=== PATIENT | female | born 1950 | race Caucasian/White ===

== ENCOUNTER 2020-05-23 13:57 | Outpatient (REF) | payer MEDICARE, OTHER, SELFPAY | END 2020-05-23 13:58 | disposition home or self-care (01) | LOC: HO.LAB 13:57 | PROVIDERS: PCP Internal Medicine; Referring Provider Internal Medicine; Visit Provider Internal Medicine | DX: A49.1 Streptococcal infection, unspecified site (principal); I05.8 Other rheumatic mitral valve diseases | CPT/HCPCS: 87040; 99212 ==

== ENCOUNTER 2020-07-03 15:58 | Outpatient (REF) | payer MEDICARE, OTHER, SELFPAY ==
--- NOTE | 2020-07-03 16:04 | US_ITS ---
EXAMINATION: US ABDOMEN LIMITED CLINICAL INFORMATION: Right lower quadrant abdominal swelling, mass and lump. COMPARISON: None TECHNIQUE: Real-time imaging of the right lower quadrant abdominal viscera. FINDINGS: Limited imaging through the right lower quadrant reveals discontinuous fascia within the anterior wall and to the right of umbilicus suspicious for a small hernia measuring 1.6 cm wide neck containing intraperitoneal fat. US/US abdomen limited IMPRESSION: Suspect right abdominal wall hernia containing intraperitoneal fat.
== END 2020-07-03 15:59 | disposition home or self-care (01) ==
LOC: HO.US 15:58
PROVIDERS: PCP Internal Medicine; Visit Provider Nurse Practitioner Family
DX: K46.9 Unspecified abdominal hernia without obstruction or gangrene (principal); R19.03 Right lower quadrant abdominal swelling, mass and lump
CPT/HCPCS: 76705

== ENCOUNTER → 2020-07-07 13:40 | Outpatient (BNVA) | payer MEDICARE, OTHER, SELFPAY | PROVIDERS: PCP Internal Medicine; Referring Provider Internal Medicine; Visit Provider Internal Medicine Cardiovascular Disease | DX: I25.118 Atherosclerotic heart disease of native coronary artery with other forms of angina pectoris (principal); I05.8 Other rheumatic mitral valve diseases; Z87.891 Personal history of nicotine dependence | CPT/HCPCS: 99212 ==

== ENCOUNTER → 2020-07-24 08:22 | Outpatient (REF) | payer MEDICARE, OTHER, SELFPAY ==
--- NOTE | 2020-07-24 | NM_ITS ---
Myocardial perfusion study Indication: Coronary artery disease to evaluate for myocardial ischemia Technique: The patient was brought in for a Lexiscan perfusion study on 07/24/2020. Patient performed low-level exercise and was injected 0.4 mg of Lexiscan intravenously. Within a minute of injection, 25 mCi of sestamibi was given intravenously. Images were obtained using the SPECT gamma camera interlaced with the gating device. Images were obtained in supine position. Resting perfusion study was performed on 07/28/2020. Patient was administered 25 mCi of sestamibi intravenously at rest. Images were then obtained in supine position. Images obtained with and without CT attenuation. Total DLP 55 mGy-cm. Images were processed with the software and compared side to side in short axis, horizontal long axis and vertical long axis views. Findings: The stress perfusion study showed non attenuated images show absent uptake in the basal and mid inferolateral as well as basal inferior elder of the LV myocardium. Is also mildly reduced uptake in the distal septum of the LV myocardium.. The gated study shows normal LV systolic function with calculated LVEF of 67%. LV cavity is mildly dilated size. The gated study shows normal wall thickening and contraction of all segments except for the basal inferolateral and inferior wall. Resting study shows improved uptake in the distal septum of the LV myocardium. Gating at rest reveals basal inferior and inferolateral wall motion abnormality with ejection fraction at greater than 60 %. 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 NM/NM stormy perf SPECT rest & str Impression: 1. 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 2. Gated LVEF is 77% 3. Transient ischemic dilatation not present EKG is nondiagnostic for ischemia
--- NOTE | 2020-07-24 08:25 | CA_ITS ---
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 The visually estimated ejection fraction is between 60-65%. - The basal inferior and basal inferolateral segments are akinetic. - There is moderate mitral valve regurgitation. Findings Left Ventricle Normal left ventricular cavity size. There is moderately increased left ventricular wall thickness. The left ventricular systolic function is normal. The visually estimated ejection fraction is between 60-65%. There is no evidence of regional wall motion abnormalities. Wall Motion Rest Echo Findings The basal inferior and basal inferolateral segments are akinetic. Right Ventricle Normal right ventricular cavity size and systolic function. Atria The left atrium is mildly dilated. The right atrium is normal in size. Aortic Valve There is a normal trileaflet aortic valve. There is no aortic valve stenosis. There is no aortic valve regurgitation. Mitral Valve The posterior mitral leaflet has restricted mobility. There is mild mitral annular calcification. There is moderate mitral valve regurgitation. There is no mitral valve stenosis. PISA measurements seems to overestimate the degree of regurgitation. Pulmonic Valve The pulmonic valve was not well visualized. Tricuspid Valve Normal tricuspid valve structure. There is trace tricuspid valve regurgitation. The pulmonary artery systolic pressure is normal. Great Vessels The aortic annulus, sinuses of valsalva, and asc aorta are normal in size. Venous The inferior vena cava is normal in size and collapses greater than 50% with inspiration. Pericardium/Pleural There is no evidence of pericardial effusion. Prior Study Comparison Changes noted compared to prior study dated: 04/11/2020. Slight increase in the degree of mitral regurgitation. Measurements 2D Linear Measurements IVSd: 0.95 0.6-0.9/0.6-1.0 cm LVIDd: 4.68 3.9-5.3/4.2-5.9 cm LVIDd Index: 2.98 2.4-3.2/2.2-3.1 cm/m2 LVIDs: 3.17 2.0-3.6 cm LVPWd: 0.98 0.7-1.1 cm Ao Root: 3.20 2.1-3.5 cm LA Diam: 3.90 2.7-3.8/3.0-4.0 cm LAIDs Index: 2.48 1.5-2.3 cm/m2 LV Mass: 193.89 67-162/88-224 g LV Mass Index: 123.50 43-95/49-115 g/m2 LVOT Diam: 2.00 3.0+(-)1.3 cm 2D Systolic Function EF 4C: 69.80 >55% EF 2C: 62.40 >55% EF BiP: 66.50 >55% Mitral Valve MV Pk E: 1.11 MV PK A: 1.35 MV Decel Time: 268.00 E/A: 0.80 E'Lateral: 8.51 E'Medial: 4.16 E/E' Med: 26.70 E/E' Lat: 13.00 MR Vol - PW Dopp: 129.54 MR VTI: 2.54 MR ERO: 51.00 MR Alias Howard: 0.66 MR RAD: 0.90 Aortic Valve AoV Pk Howard: 1.88 AoV Mn Howard: 1.25 AoV VTI: 0.45 AoV Pk Grad: 14.00 Aov Mn Grad: 7.00 ARIAN Cont.VTI: 2.45 LVOT LVOT Pk Howard: 1.44 LVOT Mn Howard: 0.99 LVOT VTI: 0.35 LVOT Pk Grad: 8.00 LVOT Mn Grad: 5.00 LVOT Diam: 2.00 LVOT Area: 3.14 Diastolic Function MV Pk E: 1.11 MV Pk A: 1.35 E/A: 0.80 E'Medial: 4.16 E/E' Med: 26.70 E' Laterial: 8.51 E/E' Lat: 13.00 Tricuspid Valve TR Pk Howard: 2.65 TR Pk Grad: 28.00 RA Press: 3.00 RVSP: 31.00 Great Vessels Aorta Ao Root-2D: 3.20 2.0-3.7 cm Ao Asc: 3.40 2.1-3.4 cm Ao Arch: 2.70 Updated in Other Vendor System with Status of Final Gunnar Shine MD electronically signed on 07/27/2020 10:50:14 AM with status of Final
--- NOTE | 2020-07-24 08:25 | CA_ITS ---
Acquisition Time: 2020-07-24 09:47:29 Total Exercise Time: 00:02:00 Test Indications: Dyspnea Medications: SEE H Protocol: LEXISCAN Max HR: 077 BPM 51% of Pred: 149 BPM Max BP: 142/040 mmHG Max Work Load: 1.0 METS Pharmacological stress test using Lexiscan while sitting and kicking her legs. Pt tolerated well, denies any anginal sx. EKG without any arrhythmia. Non-diagnostic for ischemia. Nuclear images to follow. Normotensive response to test. Test reviewed with Dr. Shine. Referred By: Pedro Jc Overread By: Emelina Rose
== END ==
LOC: HO.CARD 08:22
PROVIDERS: Visit Provider Internal Medicine Cardiovascular Disease
DX: I05.8 Other rheumatic mitral valve diseases (principal); I25.119 Atherosclerotic heart disease of native coronary artery with unspecified angina pectoris
CPT/HCPCS: 78452; 93017; 93306; A9500; J0280; J2785

== ENCOUNTER → 2020-07-31 15:09 | Outpatient (BNVA) | payer MEDICARE, SELFPAY | PROVIDERS: PCP Internal Medicine; Visit Provider Internal Medicine Cardiovascular Disease | DX: I25.10 Atherosclerotic heart disease of native coronary artery without angina pectoris (principal); I20.8 Other forms of angina pectoris; R06.00 Dyspnea, unspecified | CPT/HCPCS: 99212 ==

== ENCOUNTER → 2020-08-04 13:51 | Outpatient (BNVA) | payer MEDICARE, SELFPAY | PROVIDERS: PCP Internal Medicine; Visit Provider Nurse Practitioner Gerontology | DX: E11.65 Type 2 diabetes mellitus with hyperglycemia (principal); I10 Essential (primary) hypertension; E78.5 Hyperlipidemia, unspecified; Z79.4 Long term (current) use of insulin | CPT/HCPCS: 82947; 99212 ==

== ENCOUNTER → 2020-08-05 14:33 | Outpatient (BNVA) | payer MEDICARE, SELFPAY | PROVIDERS: PCP Internal Medicine; Visit Provider Surgery | DX: K43.2 Incisional hernia without obstruction or gangrene (principal) | CPT/HCPCS: 99202 ==

== ENCOUNTER 2020-08-28 15:37 | Outpatient (REF) | payer MEDICARE, SELFPAY ==
[2020-08-28 16:43] LABS: Cholesterol 192 mg/dL; HDL Cholesterol 49 mg/dL; LDL Cholesterol Calculated 117 mg/dl; Triglycerides 132 mg/dL
[2020-08-28 16:50] LABS: B Type Natriuretic Peptide 817 pg/mL (<100)
== END 2020-08-28 15:38 | disposition home or self-care (01) ==
LOC: HO.LAB 15:37
PROVIDERS: PCP Internal Medicine; Visit Provider Internal Medicine Cardiovascular Disease
DX: I25.10 Atherosclerotic heart disease of native coronary artery without angina pectoris (principal); M79.89 Other specified soft tissue disorders
CPT/HCPCS: 36415; 80061; 83880

== ENCOUNTER 2020-09-04 16:21 | Emergency (ER) | payer MEDICARE, SELFPAY ==
[2020-09-04 15:53] LABS: MANUAL DIFF FLAG NO
[2020-09-04 15:57] LABS: Basophils Percent Auto 0.4 % (0-2); Eosinophils Absolute Auto 0.1 X10*3/uL (0.0-0.4); Eosinophils Percent Auto 1.7 % (0-4); Hematocrit 35.2 % (37-47); Hemoglobin 11.4 g/dl (12.0-16.0); Lymphocytes Absolute Auto 1.5 X10*3/uL (1.2-4.9); Lymphocytes Percent Auto 31.8 % (20-40); Mean Corpuscular HGB Conc 32.4 g/dl (31.0-35.0); Mean Corpuscular Hemoglobin 30.2 pg (27.0-33.0); Mean Corpuscular Volume 93.4 fL (80-98); Mean Platelet Volume 9.6 fL (9.4-12.3); Monocytes Absolute Auto 0.3 X10*3/uL (0.1-1.2); Monocytes Percent Auto 6.6 % (2-11); Neutrophils Absolute Auto 2.8 X10*3/uL (2.0-8.3); Neutrophils Percent Auto 59.5 % (45-73); Platelet Count 241 X10*3/uL (160-400); Red Blood Count 3.77 X10*6/uL (4.20-5.50); Red Cell Distribution Width 12.8 % (11.0-16.0); White Blood Count 4.7 X10*3/uL (4.8-10.8)
[2020-09-04 16:05] LABS: Estimated Average Glucose 131 mg/dL; Hemoglobin A1c % 6.2 %
[2020-09-04 16:21] LABS: Anion Gap 12 (12-20); Blood Urea Nitrogen 42 mg/dL (9-16); Calcium 9.4 mg/dL (8.4-10.2); Carbon Dioxide 29 mmol/L (22-29); Chloride 103 mmol/L (96-108); Estimated Glomerular Filt Rate 33; Iron 62 mcg/dL (30-160); Percent Iron Saturation 19 % (15-50); Phosphorus 3.6 mg/dL (2.7-4.5); Potassium 4.4 mmol/L (3.3-5.1); Sodium 140 mmol/L (135-145); Total Iron Binding Capacity 331 mcg/dL (228-428); Unsaturated Iron Binding 269 ug/dL
[2020-09-04 16:27] LABS: B Type Natriuretic Peptide 368 pg/mL (<100)
[2020-09-04 16:32] LABS: Anion Gap 13 (12-20); Blood Urea Nitrogen 42 mg/dL (9-16); Calcium 9.4 mg/dL (8.4-10.2); Carbon Dioxide 28 mmol/L (22-29); Chloride 104 mmol/L (96-108); Estimated Glomerular Filt Rate 33; Glucose Random 44 mg/dL (60-115); Potassium 4.6 mmol/L (3.3-5.1); Sodium 140 mmol/L (135-145)
[2020-09-04 16:35] VITALS: BP 134/53; PULSE 66; RESP 18; O2SAT 97; BMI 34.1
--- NOTE | 2020-09-04 16:37 | ED.GENADULT ---
HPI - General Adult General Chief complaint: Recheck/Abnormal Lab/Rx Time Seen by Provider: 09/04/20 16:26 Source: patient and other (Friend) Mode of arrival: wheelchair Limitations: no limitations History of Present Illness HPI narrative: Patient is brought to the emergency room by wheelchair from the cafeteria. Patient came to the hospital today to get blood work. After getting her blood work, the patient and her friend went to get food to the cafeteria. According to the patient's son, the patient started acting different, confused, ask the patient if she was dizzy which she denied, had no chest pain. Day as a nurse for help, sat her in a wheelchair and brought her over to the emergency room. On arrival to the ED, patient is very confused, blood sugar is 32. Patient was given immediately this 50, patient responded immediately. Patient states that she feels well now, states she has multiple episodes of low blood sugar. Uses Lantus 30 units at bedtime and used 8 units at 14:00 prior to her lab work. MD complaint: Low blood sugar Related Data Home Medications Medication Instructions Recorded Confirmed Lactobacillus rhamnosus GG 10 1 cap PO DAILY 05/23/20 08/05/20 billion cell capsule acetaminophen 325 mg capsule 650 mg PO Q6H PRN 05/23/20 08/05/20 aspirin 81 mg tablet,delayed 81 mg PO ONCE tab 05/23/20 08/05/20 release bisacodyl 10 mg rectal suppository 10 mg [place] DAILY PRN 05/23/20 08/05/20 cholecalciferol (vitamin D3) 25 50 mcg PO DAILY cap 05/23/20 08/05/20 mcg (1,000 unit) capsule diphenhydramine HCl 25 mg tablet 25 mg PO BEDTIME 05/23/20 08/05/20 lamotrigine 25 mg tablet mg PO 05/23/20 08/05/20 levothyroxine 75 mcg tablet 75 mcg PO QAM 05/23/20 08/05/20 magnesium hydroxide 400 mg/5 mL 5 ml PO DAILY PRN 05/23/20 08/05/20 oral suspension metoprolol tartrate 25 mg tablet 25 mg PO BID 05/23/20 08/05/20 sennosides 8.6 mg capsule 8.6 mg PO BID 05/23/20 08/05/20 blood sugar diagnostic #10 ea 08/04/20 08/05/20 insulin aspart U-100 100 unit/mL See Rx Instructions SUBCUT TID 08/04/20 08/05/20 (3 mL) subcutaneous pen insulin glargine 100 unit/mL See Rx Instructions SUBCUT QPM 08/04/20 08/05/20 subcutaneous solution ranolazine 500 mg tablet,extended 500 mg PO tab 08/04/20 08/05/20 release,12 hr furosemide 20 mg tablet 20 mg PO DAILY 09/02/20 Previous Rx's Medication Instructions Recorded isosorbide mononitrate 60 mg 60 mg PO DAILY 90 Days #90 tab 06/23/20 tablet,extended release 24 hr lancets #100 ea 07/03/20 pen needle, diabetic 32 gauge x #100 ea 07/03/20 rosuvastatin 5 mg tablet 5 mg PO DAILY #30 tab 08/01/20 flash glucose sensor #1 ea 08/04/20 flash glucose sensor 1 ea TOPICAL Q2W #2 ea 08/04/20 nitroglycerin 0.4 mg sublingual 0.4 mg SUBLINGUAL .prn PRN #25 tab 08/07/20 tablet amlodipine 5 mg tablet 5 mg PO DAILY 30 Days #30 tab 08/26/20 glucagon (human recombinant) 1 mg SUBCUT Q20M PRN #1 ea 09/04/20 [GlucaGen HypoKit] Allergies Allergy/AdvReac Type Severity Reaction Status Date / Time Iodinated Contrast Media Allergy Unknown ANAPHYLAXIS Verified 09/04/20 16:34 [IV CONTRAST] Review of Systems Review of Systems: Constitutional : No Weight loss, No Fever, No Chills, No Night Sweats, No Fatigue, No Malaise ENT/Mouth : No Hearing loss, No Ear Pain, No Nasal Congestion, No Sinus Pain, No Hoarseness, No sore throat, No Rhinorrhea, No Swallowing Difficulty Eyes: No Eye Pain, No Swelling, No Redness, No Foreign Body, No Discharge, No Vision Changes Cardiovascular : No Chest Pain, No SOB, No Dyspnea on Exertion, No Orthopnea, No Edema, No Palpitations Respiratory : No Cough, No Sputum, No Wheezing, No Smoke Exposure, No Dyspnea Gastrointestinal : No Nausea, No Vomiting, No Diarrhea, No Constipation, No abdominal Pain, No Hematochezia, No Melena Genitourinary : no irregular bleeding, No Dysuria, No Urinary Frequency, No Hematuria, No Urinary Incontinence, No Urgency, No Flank Pain, No Urinary Flow Changes, No Hesitancy Musculoskeletal : No joint pain, No Myalgias, No Joint Swelling Skin : No Skin Lesions, No rash Neuro : No Weakness, No Numbness, No Paresthesias, No Loss of Consciousness, No Dizziness, No Headache Psych : No Anxiety/Panic, No Depression, No SI/HI/AH/VH, No Social Issues, Heme/Lymph: No Bruising, No Bleeding,No Lymphadenopathy Endocrine : No Polyuria, No Polydipsia, low blood sugar [facility] Past Medical History Medical History CAD (coronary artery disease) Endocarditis of mitral valve HTN (hypertension) Hyperlipidemia Non-compliance Type 2 diabetes mellitus with hyperglycemia, with long-term current use of insulin Viridans streptococci infection Surgical History History of cardiac catheterization Hx of section Hx of cholecystectomy Hx of tonsillectomy Malignant melanoma Myocardial infarction Stented coronary artery Family History Family History Father CVD (cardiovascular disease) Mother No problems noted. Social History Social History Household Members: None Housing: Other Smoking Status: Unknown if ever smoked Use of substances other than those prescribed or required for medical reasons: No Physical Exam Vital Signs: Vital Signs: Last Vital Signs Pulse 67 09/04/20 18:32 Resp 16 09/04/20 18:32 BP 168/79 H 09/04/20 18:32 Pulse Ox 97 09/04/20 18:32 Body Mass Index 34.1 Appearance: Alert. Initially disoriented, after D50 Oriented X3. No acute distress. Eyes: Pupils equal, round and reactive to light. ENT: Pharynx normal. Neck: Normal inspection. Neck supple. No lymph nodes noted. No crepitus CVS: Normal heart rate and rhythm. Pulses normal. Normal S1 and S2, systolic heart murmur +4 Respiratory: No respiratory distress. Breath sounds normal. No Wheezing. No rales Abdomen: Soft and nontender. No rigidity. No distention. good BS x4 Skin: Skin warm and dry. Initially pale and diaphoretic Extremities: No lower extremity edema. No Rash Neuro: No motor deficit. No sensory deficit. Moving all extermities. No slurred speech. Course Course Course Narrative: Patient's symptoms improved rapidly after 1 dose of D50. Prior to discharge, blood glucose one hundred seventeen. Patient is asymptomatic, states she feels completely back to normal. I discussed with the patient to reduce and have her insulin intake both Lantus and Humalog until she sees her director of litigation, patient instructed to call the director of litigation and PCP tomorrow morning. It was noted the patient's white blood cell count is slightly low, patient was tested for COVID-19, results pending. Patient has no URI symptoms Medical Decision Making Lab Data Result diagrams: 09/04/20 15:25 09/04/20 15:25 Labs: Lab Results 09/04/20 09/04/20 09/04/20 Range/Units 15:25 15:25 15:25 WBC 4.7 L (4.8-10.8) X10*3/uL RBC 3.77 L (4.20-5.50) X10*6/uL Hgb 11.4 L (12.0-16.0) g/dl Hct 35.2 L (37-47) % MCV 93.4 (80-98) fL MCH 30.2 (27.0-33.0) pg MCHC 32.4 (31.0-35.0) g/dl RDW 12.8 (11.0-16.0) % Plt Count 241 (160-400) X10*3/uL MPV 9.6 (9.4-12.3) fL Immature Gran % (Auto) 0.0 (0.0-0.4) % Neut % (Auto) 59.5 (45-73) % Lymph % (Auto) 31.8 (20-40) % [place] % (Auto) 6.6 (2-11) % Eos % (Auto) 1.7 (0-4) % Baso % (Auto) 0.4 (0-2) % Lymph # (Auto) 1.5 (1.2-4.9) X10*3/uL [place] # (Auto) 0.3 (0.1-1.2) X10*3/uL Eos # (Auto) 0.1 (0.0-0.4) X10*3/uL Baso # (Auto) 0.0 (0.0-0.2) X10*3/uL Abs Immat Gran (auto) 0.00 (0.00-0.03) X10*3/uL Absolute Neuts (auto) 2.8 (2.0-8.3) X10*3/uL Absolute Nucleated RBC 0.000 (0.0-0.012) X10*3/uL Nucleated RBC % (auto) 0.0 (0.0-0.2) /100WBC Sodium 140 (135-145) mmol/L Potassium 4.6 (3.3-5.1) mmol/L Chloride 104 (96-108) mmol/L Carbon Dioxide 28 (22-29) mmol/L Anion Gap 13 (12-20) BUN 42 H (9-16) mg/dL Creatinine 1.56 H (0.5-1.4) mg/dL Estim Creat Clear Calc TNP Estimated GFR 33 POC Glucose (60-115) mg/dL Random Glucose 44 L* (60-115) mg/dL Estimat Average Glucose mg/dL Hemoglobin A1c % % Calcium 9.4 (8.4-10.2) mg/dL Phosphorus (2.7-4.5) mg/dL Iron (30-160) mcg/dL TIBC (228-428) mcg/dL % Saturation (15-50) % Unsat Iron Binding ug/dL Ferritin (10-250) ng/mL B-Natriuretic Peptide 368 H (<100) pg/mL 25-OH Vitamin D Total (>30) ng/mL 09/04/20 09/04/20 09/04/20 Range/Units 15:25 15:25 16:26 WBC (4.8-10.8) X10*3/uL RBC (4.20-5.50) X10*6/uL Hgb (12.0-16.0) g/dl Hct (37-47) % MCV (80-98) fL MCH (27.0-33.0) pg MCHC (31.0-35.0) g/dl RDW (11.0-16.0) % Plt Count (160-400) X10*3/uL MPV (9.4-12.3) fL Immature Gran % (Auto) (0.0-0.4) % Neut % (Auto) (45-73) % Lymph % (Auto) (20-40) % [place] % (Auto) (2-11) % Eos % (Auto) (0-4) % Baso % (Auto) (0-2) % Lymph # (Auto) (1.2-4.9) X10*3/uL [place] # (Auto) (0.1-1.2) X10*3/uL Eos # (Auto) (0.0-0.4) X10*3/uL Baso # (Auto) (0.0-0.2) X10*3/uL Abs Immat Gran (auto) (0.00-0.03) X10*3/uL Absolute Neuts (auto) (2.0-8.3) X10*3/uL Absolute Nucleated RBC (0.0-0.012) X10*3/uL Nucleated RBC % (auto) (0.0-0.2) /100WBC Sodium 140 (135-145) mmol/L Potassium 4.4 (3.3-5.1) mmol/L Chloride 103 (96-108) mmol/L Carbon Dioxide 29 (22-29) mmol/L Anion Gap 12 (12-20) BUN 42 H (9-16) mg/dL Creatinine 1.55 H (0.5-1.4) mg/dL Estim Creat Clear Calc Not Reportable Estimated GFR 33 POC Glucose 32 L* (60-115) mg/dL Random Glucose (60-115) mg/dL Estimat Average Glucose 131 mg/dL Hemoglobin A1c % 6.2 % Calcium 9.4 (8.4-10.2) mg/dL Phosphorus 3.6 (2.7-4.5) mg/dL Iron 62 (30-160) mcg/dL TIBC 331 (228-428) mcg/dL % Saturation 19 (15-50) % Unsat Iron Binding 269 ug/dL Ferritin 71 (10-250) ng/mL B-Natriuretic Peptide (<100) pg/mL 25-OH Vitamin D Total 44.9 (>30) ng/mL 09/04/20 09/04/20 09/04/20 Range/Units 17:01 17:46 18:01 WBC (4.8-10.8) X10*3/uL RBC (4.20-5.50) X10*6/uL Hgb (12.0-16.0) g/dl Hct (37-47) % MCV (80-98) fL MCH (27.0-33.0) pg MCHC (31.0-35.0) g/dl RDW (11.0-16.0) % Plt Count (160-400) X10*3/uL MPV (9.4-12.3) fL Immature Gran % (Auto) (0.0-0.4) % Neut % (Auto) (45-73) % Lymph % (Auto) (20-40) % [place] % (Auto) (2-11) % Eos % (Auto) (0-4) % Baso % (Auto) (0-2) % Lymph # (Auto) (1.2-4.9) X10*3/uL [place] # (Auto) (0.1-1.2) X10*3/uL Eos # (Auto) (0.0-0.4) X10*3/uL Baso # (Auto) (0.0-0.2) X10*3/uL Abs Immat Gran (auto) (0.00-0.03) X10*3/uL Absolute Neuts (auto) (2.0-8.3) X10*3/uL Absolute Nucleated RBC (0.0-0.012) X10*3/uL Nucleated RBC % (auto) (0.0-0.2) /100WBC Sodium (135-145) mmol/L Potassium (3.3-5.1) mmol/L Chloride (96-108) mmol/L Carbon Dioxide (22-29) mmol/L Anion Gap (12-20) BUN (9-16) mg/dL Creatinine (0.5-1.4) mg/dL Estim Creat Clear Calc Estimated GFR POC Glucose 106 70 82 (60-115) mg/dL Random Glucose (60-115) mg/dL Estimat Average Glucose mg/dL Hemoglobin A1c % % Calcium (8.4-10.2) mg/dL Phosphorus (2.7-4.5) mg/dL Iron (30-160) mcg/dL TIBC (228-428) mcg/dL % Saturation (15-50) % Unsat Iron Binding ug/dL Ferritin (10-250) ng/mL B-Natriuretic Peptide (<100) pg/mL 25-OH Vitamin D Total (>30) ng/mL 09/04/20 Range/Units 18:41 WBC (4.8-10.8) X10*3/uL RBC (4.20-5.50) X10*6/uL Hgb (12.0-16.0) g/dl Hct (37-47) % MCV (80-98) fL MCH (27.0-33.0) pg MCHC (31.0-35.0) g/dl RDW (11.0-16.0) % Plt Count (160-400) X10*3/uL MPV (9.4-12.3) fL Immature Gran % (Auto) (0.0-0.4) % Neut % (Auto) (45-73) % Lymph % (Auto) (20-40) % [place] % (Auto) (2-11) % Eos % (Auto) (0-4) % Baso % (Auto) (0-2) % Lymph # (Auto) (1.2-4.9) X10*3/uL [place] # (Auto) (0.1-1.2) X10*3/uL Eos # (Auto) (0.0-0.4) X10*3/uL Baso # (Auto) (0.0-0.2) X10*3/uL Abs Immat Gran (auto) (0.00-0.03) X10*3/uL Absolute Neuts (auto) (2.0-8.3) X10*3/uL Absolute Nucleated RBC (0.0-0.012) X10*3/uL Nucleated RBC % (auto) (0.0-0.2) /100WBC Sodium (135-145) mmol/L Potassium (3.3-5.1) mmol/L Chloride (96-108) mmol/L Carbon Dioxide (22-29) mmol/L Anion Gap (12-20) BUN (9-16) mg/dL Creatinine (0.5-1.4) mg/dL Estim Creat Clear Calc Estimated GFR POC Glucose 117 H (60-115) mg/dL Random Glucose (60-115) mg/dL Estimat Average Glucose mg/dL Hemoglobin A1c % % Calcium (8.4-10.2) mg/dL Phosphorus (2.7-4.5) mg/dL Iron (30-160) mcg/dL TIBC (228-428) mcg/dL % Saturation (15-50) % Unsat Iron Binding ug/dL Ferritin (10-250) ng/mL B-Natriuretic Peptide (<100) pg/mL 25-OH Vitamin D Total (>30) ng/mL Discharge Plan Discharge Clinical Impression: Hypoglycemia Patient Disposition: Home, Self-Care Instructions: Hypoglycemia in a Person with Diabetes (ED) Additional Instructions: Please use half dose of the prescribed insulin units until you talk to your director of litigation. Please follow-up with your primary care physician tomorrow. If you have any worsening or new symptoms, please return to the emergency room or call 911 Prescriptions: New GlucaGen HypoKit 1 mg recon soln 1 mg subcut Q20M PRN (Reason: hypoglycemia) Qty: 1 RF: 0 No Action isosorbide mononitrate 60 mg tablet extended release 24 hr 60 mg PO DAILY 90 Days Qty: 90 RF: 1 (DME) lancets [OneTouch UltraSoft Lancets] Misc See Rx Instructions .ROUTE .MEDSUPPLY Qty: 100 RF: 11 (DME) pen needle, diabetic [BD Ultra-Fine Carrie Pen Needle] 32 gauge x 5/32 needle See Rx Instructions .ROUTE .MEDSUPPLY Qty: 100 RF: 3 nitroglycerin 0.4 mg tablet, sublingual 0.4 mg sublingual .prn PRN (Reason: for angina) Qty: 25 RF: 0 amlodipine 5 mg tablet 5 mg PO DAILY 30 Days Qty: 30 RF: 5 furosemide [Lasix] 20 mg tablet 20 mg PO DAILY RF: 0 rosuvastatin [Crestor] 5 mg tablet 5 mg PO DAILY Qty: 30 RF: 2 metoprolol tartrate 25 mg tablet 25 mg PO BID RF: 0 levothyroxine 75 mcg tablet 75 mcg PO QAM RF: 0 lamotrigine 25 mg tablet PO RF: 0 senna 8.6 mg capsule 8.6 mg PO BID RF: 0 diphenhydramine HCl [Benadryl Allergy] 25 mg tablet 25 mg PO BEDTIME RF: 0 acetaminophen 325 mg capsule 650 mg PO Q6H PRNRF: 0 magnesium hydroxide [Jung Milk of Magnesia] 400 mg/5 mL suspension 5 ml PO DAILY PRNRF: 0 bisacodyl 10 mg suppository 10 mg [place] DAILY PRNRF: 0 Culturelle 10 billion cell capsule 1 cap PO DAILY RF: 0 cholecalciferol (vitamin D3) 25 mcg (1,000 unit) capsule 50 mcg PO DAILY RF: 0 aspirin 81 mg tablet,delayed release (DR/EC) 81 mg PO ONCE RF: 0 insulin aspart U-100 [Novolog Flexpen U-100 Insulin] 100 unit/mL (3 mL) insulin pen See Rx Instructions subcut TID RF: 0 Lantus U-100 Insulin 100 unit/mL solution See Rx Instructions subcut QPM RF: 0 ranolazine 500 mg tablet extended release 12 hr 500 mg PO RF: 0 (DME) OneTouch Ultra Blue Test Strip Strip See Rx Instructions ea .ROUTE .MEDSUPPLY Qty: 10 RF: 0 (DME) FreeStyle Akbar 2 Sensor Kit See Rx Instructions .ROUTE .MEDSUPPLY Qty: 1 RF: 0 FreeStyle Akbar 14 Day Sensor Kit 1 ea topical Q2W Qty: 2 RF: 11
[2020-09-04 16:42] LABS: Ferritin 71 ng/mL (10-250); Vitamin D 25-OH Total 44.9 ng/mL (>30)
[2020-09-04 16:49] LABS: Glucose, Whole Blood 32 mg/dL (60-115)
[2020-09-04 17:06] LABS: Glucose, Whole Blood 106 mg/dL (60-115)
[2020-09-04] MEDS: Dextrose 50 % 25 GM/50 ML SYRINGE IVPUSH (17:35)
[2020-09-04 17:49] LABS: Glucose, Whole Blood 70 mg/dL (60-115)
[2020-09-04 18:06] LABS: Glucose, Whole Blood 82 mg/dL (60-115)
[2020-09-04 18:32] VITALS: BP 168/79; PULSE 67; RESP 16; O2SAT 97
[2020-09-04 18:45] LABS: Glucose, Whole Blood 117 mg/dL (60-115)
[2020-09-04 19:38] LABS: Influenza A PCR NEGATIVE (Negative); Influenza B PCR NEGATIVE (Negative); Resp Syncy Virus RNA Qual PCR NEGATIVE (Negative); SARS COV2 PCR INHOUSE NEGATIVE (Negative)
[2020-09-05 11:47] LABS: Calcium (PTHI) 9.6 mg/dL (8.6-10.4); PTHI 91 pg/mL (14-64)
== END 2020-09-04 19:54 | disposition home or self-care (01) ==
LOC: HO.ED 16:21
PROVIDERS: Absent Provider Internal Medicine Cardiovascular Disease; Emergency Provider Emergency Medicine; PCP Internal Medicine; Visit Provider Internal Medicine Nephrology
DX: E11.649 Type 2 diabetes mellitus with hypoglycemia without coma (principal); R06.00 Dyspnea, unspecified; I25.10 Atherosclerotic heart disease of native coronary artery without angina pectoris; I10 Essential (primary) hypertension; R79.89 Other specified abnormal findings of blood chemistry; Z79.4 Long term (current) use of insulin; Z79.899 Other long term (current) drug therapy; Z20.822 Contact with and (suspected) exposure to COVID-19
CPT/HCPCS: 0241U; 36415; 80048; 80051; 82306; 82310; 82565; 82728; 82947; 83036; 83540; 83880; 83970; 84100; 84520; 85025; 96374; 99284

== ENCOUNTER → 2020-09-11 14:07 | Outpatient (BNVA) | payer MEDICARE, SELFPAY | PROVIDERS: PCP Internal Medicine; Visit Provider Internal Medicine Cardiovascular Disease | DX: I25.10 Atherosclerotic heart disease of native coronary artery without angina pectoris (principal); I50.9 Heart failure, unspecified | CPT/HCPCS: 99212 ==

== ENCOUNTER 2020-11-01 14:02 | Emergency (ER) | payer MEDICARE, SELFPAY ==
--- NOTE | ~2020-11-01 | XR_ITS ---
EXAMINATION: XR CHEST CLINICAL INFORMATION: Weakness. COMPARISON: Chest 04/16/2020 TECHNIQUE: Frontal view of the chest was obtained. FINDINGS: The lungs are well-expanded and clear. The heart size and pulmonary vascularity is normal. There is moderate spondylosis dorsal spine. No lytic process seen. XR/XR chest 1V IMPRESSION: Unremarkable chest exam.
[2020-11-01 14:07] VITALS: BP 138/78; PULSE 80; O2SAT 98
[2020-11-01 14:16] VITALS: BP 142/76; PULSE 79; RESP 19; TEMP 36.7; O2SAT 97; BMI 24.5
--- NOTE | 2020-11-01 15:27 | ED_ITS ---
HPI - General Adult General Chief complaint: General Medical Stated complaint: BODYACHES AND WEAKNESS X'S1 MONTH Time Seen by Provider: 11/01/20 15:27 Source: EMS Mode of arrival: EMS Limitations: no limitations History of Present Illness HPI narrative: Pleasant 70-year-old female with below noted past medical history including hypertension, hyperlipidemia, diabetes, CAD, mitral valve disease in the past, abdominal hernia who presents via EMS with complaint of nasal congestion and generalized body aches also reports that this morning she had episode of nosebleed that resolved. She otherwise denies any chest pain or shortness of breath. States she has had nosebleed in the past and feet went away. She otherwise denies any nausea vomiting diarrhea. Onset (ago): day(s) (2) Relieving factors: none Exacerbating factors: none Associated symptoms: denies other symptoms Treatments prior to arrival: none Related Data Home Medications Medication Instructions Recorded Confirmed Lactobacillus rhamnosus GG 10 1 cap PO DAILY 05/23/20 09/11/20 billion cell capsule acetaminophen 325 mg capsule 650 mg PO Q6H PRN 05/23/20 09/11/20 aspirin 81 mg tablet,delayed 81 mg PO ONCE tab 05/23/20 09/11/20 release bisacodyl 10 mg rectal suppository 10 mg TN DAILY PRN 05/23/20 09/11/20 cholecalciferol (vitamin D3) 25 50 mcg PO DAILY cap 05/23/20 09/11/20 mcg (1,000 unit) capsule diphenhydramine HCl 25 mg tablet 25 mg PO BEDTIME 05/23/20 09/11/20 lamotrigine 25 mg tablet mg PO 05/23/20 09/11/20 levothyroxine 75 mcg tablet 75 mcg PO QAM 05/23/20 09/11/20 magnesium hydroxide 400 mg/5 mL 5 ml PO DAILY PRN 05/23/20 09/11/20 oral suspension metoprolol tartrate 25 mg tablet 25 mg PO BID 05/23/20 09/11/20 sennosides 8.6 mg capsule 8.6 mg PO BID 05/23/20 09/11/20 blood sugar diagnostic #10 ea 08/04/20 09/11/20 insulin aspart U-100 100 unit/mL See Rx Instructions SUBCUT TID 08/04/2009/11 (3 mL) subcutaneous pen ranolazine 500 mg tablet,extended 500 mg PO tab 08/04/20 09/11/20 release,12 hr Previous Rx's Medication Instructions Recorded isosorbide mononitrate 60 mg 60 mg PO DAILY 90 Days #90 tab 06/23/20 tablet,extended release 24 hr lancets #100 ea 07/03/20 pen needle, diabetic 32 gauge x #100 ea 07/03/20 nitroglycerin 0.4 mg sublingual 0.4 mg SUBLINGUAL .prn PRN #25 tab 08/07/20 tablet amlodipine 5 mg tablet 5 mg PO DAILY 30 Days #30 tab 08/26/20 glucagon (human recombinant) 1 mg SUBCUT Q20M PRN #1 ea 09/04/20 [GlucaGen HypoKit] insulin glargine 100 unit/mL (3 20 unit SUBCUT QPM 30 Days #15 ml 09/09/20 mL) subcutaneous pen furosemide 20 mg tablet 20 mg PO DAILY #30 tab 09/12/20 flash glucose scanning reader #1 ea 09/17/20 flash glucose sensor #2 ea 09/17/20 rosuvastatin 5 mg tablet 5 mg PO DAILY #90 tab 10/23/20 Allergies Allergy/AdvReac Type Severity Reaction Status Date / Time Iodinated Contrast Media Allergy Unknown ANAPHYLAXIS Verified 09/04/20 16:34 [IV CONTRAST] Review of Systems Review of Systems: Constitutional: No Weight loss, No Fever, No Chills, No Night Sweats, No Fatigue, No Malaise ENT/Mouth: No Hearing loss, No Ear Pain, No Nasal Congestion, + Sinus Pain, No Hoarseness, No sore throat, + Rhinorrhea, No Swallowing Difficulty Eyes: No Eye Pain, No Swelling, No Redness, No Foreign Body, No Discharge, No Vision Changes Cardiovascular: No Chest Pain, No SOB, No Dyspnea on Exertion, No Orthopnea, No Edema, No Palpitations Respiratory: No Cough, No Sputum, No Wheezing, No Smoke Exposure, No Dyspnea Gastrointestinal: No Nausea, No Vomiting, No Diarrhea, No Constipation, No abdominal Pain, No Hematochezia, No Melena Genitourinary: no irregular bleeding, No Dysuria, No Urinary Frequency, No Hematuria, No Urinary Incontinence, No Urgency, No Flank Pain, No Urinary Flow Changes, No Hesitancy Musculoskeletal: No joint pain, + Myalgias, No Joint Swelling Skin: No Skin Lesions, No rash Neuro: No Weakness, No Numbness, No Paresthesias, No Loss of Consciousness, No Dizziness, No Headache Psych: No Anxiety/Panic, No Depression, No SI/HI/AH/VH, No Social Issues Heme/Lymph: No Bruising, No Bleeding,No Lymphadenopathy Endocrine: No Polyuria, No Polydipsia, No Temperature Intolerance Yes all other systems are reviewed and are negative [facility] Past Medical History [facility] Narrative: Reviewed Medical History (Updated 11/02/20 @ 00:01 by Luis Eduardo Ngo) CAD (coronary artery disease) Congestive heart failure Endocarditis of mitral valve HTN (hypertension) Hyperlipidemia Non-compliance Type 2 diabetes mellitus with hyperglycemia, with long-term current use of insulin Viridans streptococci infection Surgical History History of cardiac catheterization Hx of section Hx of cholecystectomy Hx of tonsillectomy Malignant melanoma Myocardial infarction Stented coronary artery Family History Family History Father CVD (cardiovascular disease) Mother No problems noted. Social History Social History Household Members: None Housing: Other Alcohol intake: never Smoking Status: Light tobacco smoker Use of substances other than those prescribed or required for medical reasons: No Advance Directives: No Advance Directives Information Provided: Yes Physical Exam Vital Signs: Vital Signs: Last Vital Signs Temp 98.2 F 11/01/20 20:49 Pulse 65 11/01/20 20:49 Resp 18 11/01/20 20:49 BP 131/83 11/01/20 20:49 Pulse Ox 99 11/01/20 20:49 Body Mass Index 24.5 Reviewed Const: General: cooperative and healthy appearing; No acute distress or intoxicated appearing Nutritional Appearance: average body habitus Orientation/consciousness: patient oriented x3 HENMT: Head: Yes normal to inspection Ears: hearing grossly normal bilaterally Eyes: General: appearance normal, both eyes and all related structures Visual Baldwin: normal visual baldwin by confrontation Neck: Neck: Yes normal visual inspection, No positive Brudzinski's sign, No positive Kernig's sign and No tender Thyroid: Thyroid normal Chest: Chest palpation & inspection: normal inspection of the chest Resp: Effort & Inspection: normal respiratory effort Auscultation: clear to auscultation bilaterally Cardio: Jugular venous distension: no JVD Rhythm: regular rhythm Heart sounds: S1 normal heart sound present and S2 normal heart sound present GI: Inspection: Yes normal to inspection Palpation (GI): Soft to palpation Percussion: Yes normal to percussion Auscultation: normal bowel sounds : General: Yes no CVA tenderness Back/Spine/Pelvis: Back: no CVA tenderness Skin: General skin exam: no rashes or lesions noted Neuro: General: patient oriented x3 Extrem: General: Yes normal to inspection Course Course Course Narrative: Reevaluation(s) Reevaluation #1: Here with nasal congestion upper respiratory symptoms resolve nosebleed very puncture on her history however she cares on about her life and not specifically about today she has not much of any complaints today. Found out through the son that she does have history of bipolar as she was to be on medications however she has a long history of poor compliance and she does not take medications and no acute seem to convince her. States she has cut off ties and she is more into her medicine and such. States that news bleed is not unusual but she will get it sometimes. Only minimal with cleaning her tissue. I did have care team talk to the patient as well as the son she is alert and oriented x3 she is not a danger to herself or anybody else she is very high functional and compliance with medications is her own choice. She is able to make her own decisions. Care team recommended outpatient services follow-up son Nader aware and will try to help her with this. At this time overall stable no complaints. Will discharge with precautions and follow-up instructions. Medical Decision Making Lab Data Result diagrams: 11/01/20 16:29 11/01/20 16:29 Labs: Lab Results 11/01/20 11/01/20 11/01/20 Range/Units 16:29 16:29 16:29 WBC 4.9 (4.8-10.8) X10*3/uL RBC 3.60 L (4.20-5.50) X10*6/uL Hgb 11.4 L (12.0-16.0) g/dl Hct 33.7 L (37-47) % MCV 93.6 (80-98) fL MCH 31.7 (27.0-33.0) pg MCHC 33.8 (31.0-35.0) g/dl RDW 12.6 (11.0-16.0) % Plt Count 195 (160-400) X10*3/uL MPV 9.1 L (9.4-12.3) fL Immature Gran % (Auto) 0.2 (0.0-0.4) % Neut % (Auto) 62.9 (45-73) % Lymph % (Auto) 26.2 (20-40) % [place] % (Auto) 8.1 (2-11) % Eos % (Auto) 2.2 (0-4) % Baso % (Auto) 0.4 (0-2) % Lymph # (Auto) 1.3 (1.2-4.9) X10*3/uL [place] # (Auto) 0.4 (0.1-1.2) X10*3/uL Eos # (Auto) 0.1 (0.0-0.4) X10*3/uL Baso # (Auto) 0.0 (0.0-0.2) X10*3/uL Abs Immat Gran (auto) 0.01 (0.00-0.03) X10*3/uL Absolute Neuts (auto) 3.1 (2.0-8.3) X10*3/uL Absolute Nucleated RBC 0.000 (0.0-0.012) X10*3/uL Nucleated RBC % (auto) 0.0 (0.0-0.2) /100WBC PT 9.9 L (10.8-13.0) SEC INR 0.8 L (0.9-1.1) APTT 33.3 (24.1-38.0) SEC Sodium (135-145) mmol/L Potassium (3.3-5.1) mmol/L Chloride (96-108) mmol/L Carbon Dioxide (22-29) mmol/L Anion Gap (12-20) BUN (9-16) mg/dL Creatinine (0.5-1.4) mg/dL Estim Creat Clear Calc Estimated GFR Random Glucose (60-115) mg/dL Calcium (8.4-10.2) mg/dL Total Bilirubin (0.0-1.0) mg/dL AST (5-31) U/L ALT (0-31) U/L Alkaline Phosphatase (39-117) U/L Troponin I High Sens (<3.5-17.0) ng/L Total Protein (6.5-8.0) g/dL Albumin (3.5-5.0) g/dL Urine Color Urine Appearance Urine pH (5.0-8.0) Ur Specific Burr (1.005-1.025) Urine Protein (NEG-TRACE) MG/DL Urine Glucose (UA) (NEG) MG/DL Urine Ketones (NEG) MG/DL Urine Blood (NEG) Urine Nitrite (NEG) Ur Leukocyte Esterase (NEG) Urine RBC (0) /HPF Urine WBC (0-4) /HPF Ur Squamous Epith Cells /LPF Urine Bacteria /LPF Coronavirus (PCR) NEGATIVE (Negative) Influenza Type A (PCR) NEGATIVE (Negative) Influenza Type B (PCR) NEGATIVE (Negative) RSV RNA Qual (PCR) NEGATIVE (Negative) 11/01/20 11/01/20 11/01/20 Range/Units 16:29 16:29 20:56 WBC (4.8-10.8) X10*3/uL RBC (4.20-5.50) X10*6/uL Hgb (12.0-16.0) g/dl Hct (37-47) % MCV (80-98) fL MCH (27.0-33.0) pg MCHC (31.0-35.0) g/dl RDW (11.0-16.0) % Plt Count (160-400) X10*3/uL MPV (9.4-12.3) fL Immature Gran % (Auto) (0.0-0.4) % Neut % (Auto) (45-73) % Lymph % (Auto) (20-40) % [place] % (Auto) (2-11) % Eos % (Auto) (0-4) % Baso % (Auto) (0-2) % Lymph # (Auto) (1.2-4.9) X10*3/uL [place] # (Auto) (0.1-1.2) X10*3/uL Eos # (Auto) (0.0-0.4) X10*3/uL Baso # (Auto) (0.0-0.2) X10*3/uL Abs Immat Gran (auto) (0.00-0.03) X10*3/uL Absolute Neuts (auto) (2.0-8.3) X10*3/uL Absolute Nucleated RBC (0.0-0.012) X10*3/uL Nucleated RBC % (auto) (0.0-0.2) /100WBC PT (10.8-13.0) SEC INR (0.9-1.1) APTT (24.1-38.0) SEC Sodium 143 (135-145) mmol/L Potassium 4.1 (3.3-5.1) mmol/L Chloride 107 (96-108) mmol/L Carbon Dioxide 28 (22-29) mmol/L Anion Gap 12 (12-20) BUN 30 H (9-16) mg/dL Creatinine 1.58 H (0.5-1.4) mg/dL Estim Creat Clear Calc 26.9 Estimated GFR 32 Random Glucose 196 H D (60-115) mg/dL Calcium 9.2 (8.4-10.2) mg/dL Total Bilirubin 0.3 (0.0-1.0) mg/dL AST 24 (5-31) U/L ALT 24 (0-31) U/L Alkaline Phosphatase 107 (39-117) U/L Troponin I High Sens 15.9 (<3.5-17.0) ng/L Total Protein 6.0 L (6.5-8.0) g/dL Albumin 3.7 (3.5-5.0) g/dL Urine Color STRAW Urine Appearance CLEAR Urine pH 7.0 (5.0-8.0) Ur Specific Burr 1.015 (1.005-1.025) Urine Protein TRACE (NEG-TRACE) MG/DL Urine Glucose (UA) 100 H (NEG) MG/DL Urine Ketones NEG (NEG) MG/DL Urine Blood TRACE (NEG) Urine Nitrite NEG (NEG) Ur Leukocyte Esterase NEG (NEG) Urine RBC 1-4 (0) /HPF Urine WBC 0 (0-4) /HPF Ur Squamous Epith Cells 2+ /LPF Urine Bacteria TRACE /LPF Coronavirus (PCR) (Negative) Influenza Type A (PCR) (Negative) Influenza Type B (PCR) (Negative) RSV RNA Qual (PCR) (Negative) Discharge Plan Discharge Clinical Impression: Mild epistaxis, Anxiety Patient Disposition: Home, Self-Care Instructions: Nosebleed (ED), Anxiety (ED) Additional Instructions: Follow-up with outpatient provider as discussed Return if any concerns or worsening symptoms Thank you Prescriptions: No Action isosorbide mononitrate 60 mg tablet extended release 24 hr 60 mg PO DAILY 90 Days Qty: 90 RF: 1 (DME) lancets [OneTouch UltraSoft Lancets] Misc See Rx Instructions .ROUTE .MEDSUPPLY Qty: 100 RF: 11 (DME) pen needle, diabetic [BD Ultra-Fine Carrie Pen Needle] 32 gauge x 5/32 needle See Rx Instructions .ROUTE .MEDSUPPLY Qty: 100 RF: 3 nitroglycerin 0.4 mg tablet, sublingual 0.4 mg sublingual .prn PRN (Reason: for angina) Qty: 25 RF: 0 amlodipine 5 mg tablet 5 mg PO DAILY 30 Days Qty: 30 RF: 5 Lantus Solostar U-100 Insulin 100 unit/mL (3 mL) insulin pen 20 unit subcut QPM 30 Days Qty: 15 RF: 1 furosemide [Lasix] 20 mg tablet 20 mg PO DAILY Qty: 30 RF: 4 (DME) FreeStyle Akbar 2 Sensor Kit See Rx Instructions .ROUTE .MEDSUPPLY Qty: 2 RF: 5 (DME) FreeStyle Akbar 2 [place] Misc See Rx Instructions .ROUTE .MEDSUPPLY Qty: 1 RF: 0 rosuvastatin [Crestor] 5 mg tablet 5 mg PO DAILY Qty: 90 RF: 1 GlucaGen HypoKit 1 mg recon soln 1 mg subcut Q20M PRN (Reason: hypoglycemia) Qty: 1 RF: 0 metoprolol tartrate 25 mg tablet 25 mg PO BID RF: 0 levothyroxine 75 mcg tablet 75 mcg PO QAM RF: 0 lamotrigine 25 mg tablet PO RF: 0 senna 8.6 mg capsule 8.6 mg PO BID RF: 0 diphenhydramine HCl [Benadryl Allergy] 25 mg tablet 25 mg PO BEDTIME RF: 0 acetaminophen 325 mg capsule 650 mg PO Q6H PRNRF: 0 magnesium hydroxide [Jung Milk of Magnesia] 400 mg/5 mL suspension 5 ml PO DAILY PRNRF: 0 bisacodyl 10 mg suppository 10 mg TN DAILY PRNRF: 0 Culturelle 10 billion cell capsule 1 cap PO DAILY RF: 0 cholecalciferol (vitamin D3) 25 mcg (1,000 unit) capsule 50 mcg PO DAILY RF: 0 aspirin 81 mg tablet,delayed release (DR/EC) 81 mg PO ONCE RF: 0 insulin aspart U-100 [Novolog Flexpen U-100 Insulin] 100 unit/mL (3 mL) insulin pen See Rx Instructions subcut TID RF: 0 ranolazine 500 mg tablet extended release 12 hr 500 mg PO RF: 0 (DME) OneTouch Ultra Blue Test Strip Strip See Rx Instructions ea .ROUTE .MEDSUPPLY Qty: 10 RF: 0 Referrals: Conner Felder MD [Primary Care Provider] - 2 days Discharge Date/Time: 11/01/20 22:01
--- NOTE | 2020-11-01 16:02 | ECG_ITS ---
Test Reason : FATIGUE Blood Pressure : / mmHG Vent. Rate : 070 BPM Atrial Rate : 070 BPM P-R Int : 202 ms QRS Dur : 122 ms QT Int : 412 ms P-R-T Axes : 088 014 -03 degrees QTc Int : 444 ms Normal sinus rhythm cannot exclude Inferior infarct (cited on or before 06-APR-2020) Abnormal ECG When compared with ECG of 16-APR-2020 19:20, No significant change was found Referred By: Tomasz Fleming Electronically Signed By:NABILA SUGGS
[2020-11-01] MEDS: 0.9 % Sodium Chloride 500 ML IV (16:30)
--- NOTE | 2020-11-01 16:30 | PC.NURSE ---
iv inserted, labs drawn, vss, will continue to monitor.
[2020-11-01 16:38] LABS: MANUAL DIFF FLAG NO
[2020-11-01 16:39] LABS: Basophils Percent Auto 0.4 % (0-2); Eosinophils Absolute Auto 0.1 X10*3/uL (0.0-0.4); Eosinophils Percent Auto 2.2 % (0-4); Hematocrit 33.7 % (37-47); Hemoglobin 11.4 g/dl (12.0-16.0); Imm Gran Abs Auto 0.01 X10*3/uL (0.00-0.03); Imm Gran Pct Auto 0.2 % (0.0-0.4); Lymphocytes Absolute Auto 1.3 X10*3/uL (1.2-4.9); Lymphocytes Percent Auto 26.2 % (20-40); Mean Corpuscular HGB Conc 33.8 g/dl (31.0-35.0); Mean Corpuscular Hemoglobin 31.7 pg (27.0-33.0); Mean Corpuscular Volume 93.6 fL (80-98); Mean Platelet Volume 9.1 fL (9.4-12.3); Monocytes Absolute Auto 0.4 X10*3/uL (0.1-1.2); Monocytes Percent Auto 8.1 % (2-11); Neutrophils Absolute Auto 3.1 X10*3/uL (2.0-8.3); Neutrophils Percent Auto 62.9 % (45-73); Platelet Count 195 X10*3/uL (160-400); Red Cell Distribution Width 12.6 % (11.0-16.0); White Blood Count 4.9 X10*3/uL (4.8-10.8)
[2020-11-01 16:43] LABS: INTERNATIONAL NORM RATIO 0.8 (0.9-1.1); Prothrombin Time 9.9 SEC (10.8-13.0)
[2020-11-01 16:45] LABS: Partial Thromboplastin Time 33.3 SEC (24.1-38.0)
[2020-11-01 17:02] LABS: Alanine Aminotransferase 24 U/L (0-31); Albumin Level 3.7 g/dL (3.5-5.0); Alkaline Phosphatase 107 U/L (39-117); Anion Gap 12 (12-20); Aspartate Amino Transferase 24 U/L (5-31); Bilirubin Total 0.3 mg/dL (0.0-1.0); Blood Urea Nitrogen 30 mg/dL (9-16); Calcium 9.2 mg/dL (8.4-10.2); Carbon Dioxide 28 mmol/L (22-29); Chloride 107 mmol/L (96-108); Creatinine Clr Calc Pharmacy 26.9; Estimated Glomerular Filt Rate 32; Glucose Random 196 mg/dL (60-115); Potassium 4.1 mmol/L (3.3-5.1); Sodium 143 mmol/L (135-145)
[2020-11-01 17:03] VITALS: BP 156/77; PULSE 70; RESP 18; O2SAT 94
[2020-11-01 17:16] LABS: Troponin-I High Sensitivity 15.9 ng/L (<3.5-17.0)
[2020-11-01 17:17] LABS: Influenza A PCR NEGATIVE (Negative); Influenza B PCR NEGATIVE (Negative); Resp Syncy Virus RNA Qual PCR NEGATIVE (Negative); SARS COV2 PCR INHOUSE NEGATIVE (Negative)
[2020-11-01 19:23] VITALS: BP 154/97; PULSE 72; RESP 18; TEMP 36.8; O2SAT 99
--- NOTE | 2020-11-01 20:47 | MHC.CARE ---
ED provider requested CARE team support for pt who arrived to ED for assessment of medical complaints, however was contacted by pt's son who voiced concerns re: his mother's mental health, as she is diagnosed with Bipolar Disorder and has not taken her psych meds in the past year. This director underwriter sales met with pt in ED room 1. Pt was pleasant on approach, talkative but not pressured, spoke in a smooth and constant flow. Pt began to share about her experiences throughout life with her mental health, and though the transition between different parts of her life and segues to explain various people's roles, pt was able to conclude her explanation of what she has gone through and how she has overcome everything despite her illness. Pt reported that she was on lithium for 27 years which has contributed to pt having kidney failure and other medical complications due to years of prolonged use. Pt has been working with a gearcase assembler who has helped pt with managing her symptoms without the use of harsh medications and still sees her psychologist for therapy. Pt did not present with any acute symptoms of a manic or a depressive episode during the consultation and denied needing additional supports or interventions at this time. ED provider updated.
[2020-11-01 20:49] VITALS: BP 131/83; PULSE 65; RESP 18; TEMP 36.8; O2SAT 99
[2020-11-01 21:06] LABS: Glucose Urine UA 100 MG/DL (NEG); Leukocyte Esterase Urine NEG (NEG); Nitrite Urine NEG (NEG); Specific Gravity - Urine 1.015 (1.005-1.025); Urine Blood TRACE (NEG); Urine Ketones NEG (NEG); Urine Protein TRACE MG/DL (NEG-TRACE)
[2020-11-01 21:12] LABS: Appearance Urine CLEAR; Color Urine STRAW
[2020-11-01 21:13] LABS: Bacteria Urine TRACE /LPF; Squamous Epithelial Cell Urine 2+ /LPF; WBC Urine 0 /HPF (0-4)
== END 2020-11-01 22:01 | disposition home or self-care (01) ==
PROVIDERS: Nurse Practitioner Primary Care; Emergency Provider Internal Medicine; PCP Internal Medicine
DX: M79.10 Myalgia, unspecified site (principal); R04.0 Epistaxis; F41.9 Anxiety disorder, unspecified; Z20.822 Contact with and (suspected) exposure to COVID-19; F31.9 Bipolar disorder, unspecified; Z91.14 Patient's other noncompliance with medication regimen; I10 Essential (primary) hypertension; E78.5 Hyperlipidemia, unspecified; E11.9 Type 2 diabetes mellitus without complications; F17.210 Nicotine dependence, cigarettes, uncomplicated
CPT/HCPCS: 0241U; 36415; 71045; 80053; 81001; 84484; 85025; 85610; 85730; 93005; 96360; 99284

== ENCOUNTER → 2020-12-04 10:22 | Outpatient (BNVA) | payer MEDICARE, SELFPAY | PROVIDERS: PCP Internal Medicine; Visit Provider Nurse Practitioner Family | DX: I25.118 Atherosclerotic heart disease of native coronary artery with other forms of angina pectoris (principal); I50.9 Heart failure, unspecified; I10 Essential (primary) hypertension; E78.5 Hyperlipidemia, unspecified | CPT/HCPCS: 99212 ==

== ENCOUNTER 2020-12-29 09:25 | Outpatient (REF) | payer MEDICARE, SELFPAY ==
[2020-12-29 12:20] LABS: Thyroid Stimulating Hormone 1.73 uIU/mL (0.32-4.0); Vitamin D 25-OH Total 36.1 ng/mL (>30)
[2020-12-29 12:27] LABS: Alanine Aminotransferase 17 U/L (0-31); Albumin Level 3.8 g/dL (3.5-5.0); Alkaline Phosphatase 123 U/L (39-117); Anion Gap 11 (12-20); Aspartate Amino Transferase 17 U/L (5-31); Bilirubin Total 0.6 mg/dL (0.0-1.0); Blood Urea Nitrogen 40 mg/dL (9-16); Calcium 9.4 mg/dL (8.4-10.2); Carbon Dioxide 24 mmol/L (22-29); Chloride 108 mmol/L (96-108); Cholesterol 210 mg/dL; Estimated Glomerular Filt Rate 26; Glucose Random 270 mg/dL (60-115); HDL Cholesterol 63 mg/dL; LDL Cholesterol Calculated 138 mg/dl; Phosphorus 5.1 mg/dL (2.7-4.5); Potassium 5.3 mmol/L (3.3-5.1); Sodium 138 mmol/L (135-145); Total Protein 6.2 g/dL (6.5-8.0); Triglycerides 49 mg/dL
[2020-12-29 13:25] LABS: Creatinine Urine 30.35 mg/dL; Microalbum/Creatinine Ratio Ur 1004.9 ug/mg cr
[2020-12-31 06:21] LABS: LDL Cholesterol Direct 139 mg/dL (<100)
[2020-12-31 10:26] LABS: Calcium (PTHI) 9.3 mg/dL (8.6-10.4); PTHI 121 pg/mL (14-64)
[2021-01-03 19:21] LABS: Insulinoma associated 2 aatb <5.4 U/mL (<5.4)
[2021-01-03 21:47] LABS: Glutamic acid decarboxylase Ab <5 IU/mL (<5)
[2021-01-07 00:12] LABS: Islet Cell Antibody Screen NEGATIVE (NEGATIVE)
== END 2020-12-29 09:26 | disposition home or self-care (01) ==
LOC: HO.LAB 09:25
PROVIDERS: PCP Internal Medicine; Visit Provider Internal Medicine
DX: E11.65 Type 2 diabetes mellitus with hyperglycemia (principal); E03.9 Hypothyroidism, unspecified; E21.3 Hyperparathyroidism, unspecified; I10 Essential (primary) hypertension; E78.5 Hyperlipidemia, unspecified; Z79.899 Other long term (current) drug therapy; Z79.82 Long term (current) use of aspirin; Z79.4 Long term (current) use of insulin
CPT/HCPCS: 36415; 80053; 80061; 82043; 82306; 82330; 82947; 83036; 83721; 83970; 84100; 84439; 84443; 86255; 86341; 99212

== ENCOUNTER 2020-12-30 07:20 | Outpatient (REF) | payer MEDICARE, SELFPAY ==
[2020-12-30 12:12] LABS: Alanine Aminotransferase 14 U/L (0-31); Albumin Level 3.7 g/dL (3.5-5.0); Alkaline Phosphatase 120 U/L (39-117); Anion Gap 12 (12-20); Aspartate Amino Transferase 17 U/L (5-31); Bilirubin Total 0.5 mg/dL (0.0-1.0); Blood Urea Nitrogen 42 mg/dL (9-16); Calcium 9.3 mg/dL (8.4-10.2); Carbon Dioxide 23 mmol/L (22-29); Chloride 109 mmol/L (96-108); Estimated Glomerular Filt Rate 26; Glucose Random 172 mg/dL (60-115); Potassium 5.2 mmol/L (3.3-5.1); Sodium 139 mmol/L (135-145); Total Protein 6.1 g/dL (6.5-8.0)
[2020-12-30 12:16] LABS: Estimated Average Glucose 180 mg/dL; Hemoglobin A1c % 7.9 %
[2020-12-30 12:52] LABS: Creatinine Urine 113.83 mg/dL
== END 2020-12-30 07:21 | disposition home or self-care (01) ==
LOC: HO.HMGCLDS 07:20
PROVIDERS: PCP Internal Medicine; Visit Provider Internal Medicine
DX: E11.65 Type 2 diabetes mellitus with hyperglycemia (principal); Z79.4 Long term (current) use of insulin
CPT/HCPCS: 36415; 80053; 83036

== ENCOUNTER 2021-02-13 15:58 | Outpatient (REF) | payer MEDICARE, SELFPAY ==
[2021-02-13 16:33] LABS: MANUAL DIFF FLAG NO
[2021-02-13 16:42] LABS: Basophils Percent Auto 0.3 % (0-2); Eosinophils Percent Auto 0.3 % (0-4); Hematocrit 37.4 % (37-47); Hemoglobin 11.8 g/dl (12.0-16.0); Imm Gran Abs Auto 0.02 X10*3/uL (0.00-0.03); Imm Gran Pct Auto 0.3 % (0.0-0.4); Lymphocytes Absolute Auto 0.7 X10*3/uL (1.2-4.9); Lymphocytes Percent Auto 9.8 % (20-40); Mean Corpuscular HGB Conc 31.6 g/dl (31.0-35.0); Mean Corpuscular Hemoglobin 30.3 pg (27.0-33.0); Mean Corpuscular Volume 95.9 fL (80-98); Mean Platelet Volume 9.6 fL (9.4-12.3); Monocytes Absolute Auto 0.5 X10*3/uL (0.1-1.2); Monocytes Percent Auto 6.1 % (2-11); Neutrophils Absolute Auto 6.2 X10*3/uL (2.0-8.3); Neutrophils Percent Auto 83.2 % (45-73); Platelet Count 226 X10*3/uL (160-400); Red Cell Distribution Width 12.5 % (11.0-16.0); White Blood Count 7.4 X10*3/uL (4.8-10.8)
[2021-02-13 17:09] LABS: Alanine Aminotransferase 11 U/L (0-31); Albumin Level 4.2 g/dL (3.5-5.0); Alkaline Phosphatase 117 U/L (39-117); Anion Gap 12 (12-20); Aspartate Amino Transferase 20 U/L (5-31); Bilirubin Total 0.4 mg/dL (0.0-1.0); Blood Urea Nitrogen 36 mg/dL (9-16); Calcium 9.2 mg/dL (8.4-10.2); Carbon Dioxide 24 mmol/L (22-29); Chloride 107 mmol/L (96-108); Estimated Glomerular Filt Rate 24; Glucose Random 158 mg/dL (60-115); Sodium 138 mmol/L (135-145); Total Protein 6.9 g/dL (6.5-8.0)
[2021-02-13 17:24] LABS: Free T4 (Free Thyroxine) 1.01 ng/dL (0.71-1.85); Thyroid Stimulating Hormone 1.73 uIU/mL (0.32-4.0)
== END 2021-02-13 15:59 | disposition home or self-care (01) ==
LOC: HO.LAB 15:58
PROVIDERS: PCP Internal Medicine; Visit Provider Internal Medicine
DX: I25.10 Atherosclerotic heart disease of native coronary artery without angina pectoris (principal); E03.9 Hypothyroidism, unspecified; I12.9 Hypertensive chronic kidney disease with stage 1 through stage 4 chronic kidney disease, or unspecified chronic kidney disease; N18.9 Chronic kidney disease, unspecified; E11.22 Type 2 diabetes mellitus with diabetic chronic kidney disease
CPT/HCPCS: 36415; 80053; 84439; 84443; 85025

== ENCOUNTER → 2021-02-17 09:16 | Outpatient (BNVA) | payer MEDICARE, SELFPAY | PROVIDERS: PCP Internal Medicine; Referring Provider Internal Medicine; Visit Provider Internal Medicine Cardiovascular Disease | DX: Z01.810 Encounter for preprocedural cardiovascular examination (principal); I25.10 Atherosclerotic heart disease of native coronary artery without angina pectoris | CPT/HCPCS: 99212 ==

== ENCOUNTER 2021-02-27 16:46 | Inpatient (IN) | payer MEDICARE, OTHER, SELFPAY ==
--- NOTE | ~2021-02-27 | XR_ITS ---
EXAMINATION: PORTABLE CHEST 1 VIEW CLINICAL INFORMATION: chest pain . COMPARISON: 11/01/2020. TECHNIQUE: Portable frontal view of the chest was obtained. FINDINGS: The lungs are well expanded. No focal infiltrate, effusion, edema, or pneumothorax. Cardiac and mediastinal silhouettes are within normal limits for size with vascular calculation in the aorta. Degenerative changes in the spine. No acute bony abnormality seen. XR/XR chest 1V IMPRESSION: No evidence of acute disease.
[2021-02-27 16:51] VITALS: BP 166/92; PULSE 92; O2SAT 96; BMI 30.7
--- NOTE | 2021-02-27 16:54 | ED_ITS ---
HPI - Chest Pain General Chief Complaint: Chest Pain Stated Complaint: chest pain Time Seen by Provider: 02/27/21 16:54 Source: patient and EMS Mode of arrival: EMS Limitations: no limitations History of Present Illness HPI narrative: Coronary artery stent to RCA in 2010 and 2018. Moderate disease in LAD and circumflex territory Echocardiogram done 07/24/2020 shows EF 60-65%, positive basal inferior and basal inferior lateral wall akinetic with moderate MR complaint: chest pain Pertinent past history: coronary artery disease and prior [place] Onset (ago): week(s) (2) Timing of current episode: episodic and now resolved Prior episodes: Yes Onset: during rest and during exertion Pain location: substernal Pain radiation: neck Severity: moderate Quality: tightness and heaviness Relieving factors: nitroglycerin Exacerbating factors: stress Associated symptoms: dyspnea Treatment prior to arrival: aspirin and nitroglycerin Related Data Home Medications Medication Instructions Recorded Confirmed levothyroxine 75 mcg tablet 75 mcg PO QAM 05/23/20 02/27/21 insulin aspart U-100 100 unit/mL See Rx Instructions SUBCUT TID 08/04/20 02/27/21 (3 mL) subcutaneous pen (Novolog Flexpen U-100 Insulin aspart) blood sugar diagnostic #10 ea 12/29/20 02/17/21 ketorolac 0.5 % eye drops 1 drp OPHTHALMIC-LEFT DAILY ml 12/29/20 02/27/21 lisinopril 5 mg tablet 5 mg PO DAILY 12/29/20 02/27/21 aspirin 81 mg tablet,delayed 81 mg PO ONCE tab 02/17/21 02/27/21 release rosuvastatin 20 mg tablet 40 mg PO DAILY tab 02/17/21 02/27/21 amlodipine 5 mg tablet 5 mg PO BEDTIME 02/27/21 02/27/21 ranolazine 1,000 mg 1,000 mg PO Q12H 02/27/21 02/27/21 tablet,extended release,12 hr (Ranexa) Previous Rx's Medication Instructions Recorded lancets (OneTouch UltraSoft #100 ea 07/03/20 Lancets) pen needle, diabetic 32 gauge x #100 ea 07/03/20 (BD Ultra-Fine Carrie Pen Needle) flash glucose scanning reader #1 ea 09/17/20 (FreeStyle Akbar 2 [place]) flash glucose sensor (FreeStyle #2 ea 09/17/20 Akbar 2 Sensor) isosorbide mononitrate 60 mg 60 mg PO DAILY 90 Days #90 tab 11/25/20 tablet,extended release 24 hr metoprolol tartrate 25 mg tablet 25 mg PO BID 90 Days #180 tab 12/19/20 insulin glargine 100 unit/mL (3 10 unit SUBCUT QPM #15 ml 02/24/21 mL) subcutaneous pen (Lantus Solostar U-100 Insulin) Allergies Allergy/AdvReac Type Severity Reaction Status Date / Time Iodinated Contrast Media Allergy Unknown ANAPHYLAXIS Verified 12/29/20 09:46 [IV CONTRAST] Review of Systems Review of Systems: Constitutional : No Weight loss, No Fever, No Chills ENT/Mouth : No sore throat, No Rhinorrhea Eyes: No Eye Pain, No Swelling Cardiovascular : pos Chest Pain, pos SOB, no Dyspnea on Exertion, No Orthopnea, pos Edema, No Palpitations Respiratory : No Cough, No Sputum Gastrointestinal : no Nausea, No Vomiting, No Diarrhea, No abdominal Pain, No Hematochezia, No Melena Genitourinary : No Dysuria, No Urinary Frequency Musculoskeletal : No joint pain, No Myalgias, No Joint Swelling Skin : No Skin Lesions, No rash Neuro : No Weakness, No Numbness, No Dizziness, No Headache Psych : No Anxiety/Panic, No Depression Heme/Lymph: No Bruising, No Lymphadenopathy Endocrine : No Polyuria, No Polydipsia All other systems reviewed and are negative PMFSH Past Medical History Attestation statement: The following information was validated with the patient. Medical History CAD (coronary artery disease) CKD (chronic kidney disease) Congestive heart failure Endocarditis of mitral valve HTN (hypertension) Hyperkalemia Hyperlipidemia Hyperparathyroidism Hypothyroidism Non-compliance Type 2 diabetes mellitus with hyperglycemia, with long-term current use of insulin Viridans streptococci infection Vitamin D deficiency Surgical History History of cardiac catheterization Hx of section Hx of cholecystectomy Hx of tonsillectomy Malignant melanoma Myocardial infarction Stented coronary artery Family History Family History Father CVD (cardiovascular disease) Mother No problems noted. Social History Social History Household Members: None Housing: Other Housing Other:: Senior housing Alcohol intake: never Patient Tobacco Use Status: Never used Tobacco Use of substances other than those prescribed or required for medical reasons: No Advance Directives: No Advance Directives Information Provided: No Physical Exam Vital Signs: Vital Signs: Last Vital Signs Temp 98.2 F 02/27/21 17:49 Pulse 85 02/27/21 17:49 Resp 16 02/27/21 17:49 BP 147/57 H 02/27/21 17:49 Pulse Ox 97 02/27/21 17:49 Body Mass Index 30.7 Appearance: Alert. Oriented X3. No acute distress. Eyes: Pupils equal, round and reactive to light. ENT: Pharynx normal. Neck: Normal inspection. Neck supple. CVS: Normal heart rate and rhythm. Pulses normal. Respiratory: No respiratory distress. Breath sounds normal. Abdomen: Soft and nontender. Skin: Skin warm and dry. Normal skin color. Normal skin turgor. Extremities: trace pitting lower extremity edema. No calf ttp Neuro: Oriented X 3. No motor deficit. No sensory deficit. Course Course Course Narrative: Dr. 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 EKG CXR - discussion with cardiology given recurrent anginal symptoms Lab Data Result diagrams: 02/27/21 17:29 02/27/21 17:28 Labs: Lab Results 02/27/21 02/27/21 02/27/21 Range/Units 17:27 17:27 17:28 WBC (4.8-10.8) X10*3/uL RBC (4.20-5.50) X10*6/uL Hgb (12.0-16.0) g/dl Hct (37-47) % MCV (80-98) fL MCH (27.0-33.0) pg MCHC (31.0-35.0) g/dl RDW (11.0-16.0) % Plt Count (160-400) X10*3/uL MPV (9.4-12.3) fL Immature Gran % (Auto) (0.0-0.4) % Neut % (Auto) (45-73) % Lymph % (Auto) (20-40) % [place] % (Auto) (2-11) % Eos % (Auto) (0-4) % Baso % (Auto) (0-2) % Lymph # (Auto) (1.2-4.9) X10*3/uL [place] # (Auto) (0.1-1.2) X10*3/uL Eos # (Auto) (0.0-0.4) X10*3/uL Baso # (Auto) (0.0-0.2) X10*3/uL Abs Immat Gran (auto) (0.00-0.03) X10*3/uL Absolute Neuts (auto) (2.0-8.3) X10*3/uL Absolute Nucleated RBC (0.0-0.012) X10*3/uL Nucleated RBC % (auto) (0.0-0.2) /100WBC PT (9.9-13.0) SEC INR (0.9-1.1) APTT (24.1-38.0) SEC Sodium 138 (135-145) mmol/L Potassium 4.8 (3.3-5.1) mmol/L Chloride 108 (96-108) mmol/L Carbon Dioxide 22 (22-29) mmol/L Anion Gap 13 (12-20) BUN 41 H (9-16) mg/dL Creatinine 1.79 H (0.5-1.4) mg/dL Estim Creat Clear Calc 31.4 Estimated GFR 28 Random Glucose 212 H (60-115) mg/dL Calcium 9.1 (8.4-10.2) mg/dL Magnesium (1.6-2.6) mg/dL Total Bilirubin (0.0-1.0) mg/dL Direct Bilirubin (0.0-0.5) mg/dL AST (5-31) U/L ALT (0-31) U/L Alkaline Phosphatase (39-117) U/L Troponin I High Sens 17.8 H* (<3.5-17.0) ng/L B-Natriuretic Peptide (<100) pg/mL Total Protein (6.5-8.0) g/dL Albumin (3.5-5.0) g/dL Ethyl Alcohol < 10 mg/dL 02/27/21 02/27/21 02/27/21 Range/Units 17:28 17:28 17:28 WBC (4.8-10.8) X10*3/uL RBC (4.20-5.50) X10*6/uL Hgb (12.0-16.0) g/dl Hct (37-47) % MCV (80-98) fL MCH (27.0-33.0) pg MCHC (31.0-35.0) g/dl RDW (11.0-16.0) % Plt Count (160-400) X10*3/uL MPV (9.4-12.3) fL Immature Gran % (Auto) (0.0-0.4) % Neut % (Auto) (45-73) % Lymph % (Auto) (20-40) % [place] % (Auto) (2-11) % Eos % (Auto) (0-4) % Baso % (Auto) (0-2) % Lymph # (Auto) (1.2-4.9) X10*3/uL [place] # (Auto) (0.1-1.2) X10*3/uL Eos # (Auto) (0.0-0.4) X10*3/uL Baso # (Auto) (0.0-0.2) X10*3/uL Abs Immat Gran (auto) (0.00-0.03) X10*3/uL Absolute Neuts (auto) (2.0-8.3) X10*3/uL Absolute Nucleated RBC (0.0-0.012) X10*3/uL Nucleated RBC % (auto) (0.0-0.2) /100WBC PT 10.4 (9.9-13.0) SEC INR 0.9 (0.9-1.1) APTT 33.2 (24.1-38.0) SEC Sodium (135-145) mmol/L Potassium (3.3-5.1) mmol/L Chloride (96-108) mmol/L Carbon Dioxide (22-29) mmol/L Anion Gap (12-20) BUN (9-16) mg/dL Creatinine (0.5-1.4) mg/dL Estim Creat Clear Calc Estimated GFR Random Glucose (60-115) mg/dL Calcium (8.4-10.2) mg/dL Magnesium 2.1 (1.6-2.6) mg/dL Total Bilirubin 0.3 (0.0-1.0) mg/dL Direct Bilirubin 0.2 (0.0-0.5) mg/dL AST 16 (5-31) U/L ALT 13 (0-31) U/L Alkaline Phosphatase 120 H (39-117) U/L Troponin I High Sens (<3.5-17.0) ng/L B-Natriuretic Peptide 186 H (<100) pg/mL Total Protein 6.3 L (6.5-8.0) g/dL Albumin 3.9 (3.5-5.0) g/dL Ethyl Alcohol mg/dL 02/27/21 Range/Units 17:29 WBC 6.7 (4.8-10.8) X10*3/uL RBC 3.44 L (4.20-5.50) X10*6/uL Hgb 11.0 L (12.0-16.0) g/dl Hct 31.9 L (37-47) % MCV 92.7 (80-98) fL MCH 32.0 (27.0-33.0) pg MCHC 34.5 (31.0-35.0) g/dl RDW 12.6 (11.0-16.0) % Plt Count 193 (160-400) X10*3/uL MPV 9.8 (9.4-12.3) fL Immature Gran % (Auto) 0.3 (0.0-0.4) % Neut % (Auto) 67.8 (45-73) % Lymph % (Auto) 20.7 (20-40) % [place] % (Auto) 9.2 (2-11) % Eos % (Auto) 1.5 (0-4) % Baso % (Auto) 0.5 (0-2) % Lymph # (Auto) 1.4 (1.2-4.9) X10*3/uL [place] # (Auto) 0.6 (0.1-1.2) X10*3/uL Eos # (Auto) 0.1 (0.0-0.4) X10*3/uL Baso # (Auto) 0.0 (0.0-0.2) X10*3/uL Abs Immat Gran (auto) 0.02 (0.00-0.03) X10*3/uL Absolute Neuts (auto) 4.5 (2.0-8.3) X10*3/uL Absolute Nucleated RBC 0.000 (0.0-0.012) X10*3/uL Nucleated RBC % (auto) 0.0 (0.0-0.2) /100WBC PT (9.9-13.0) SEC INR (0.9-1.1) APTT (24.1-38.0) SEC Sodium (135-145) mmol/L Potassium (3.3-5.1) mmol/L Chloride (96-108) mmol/L Carbon Dioxide (22-29) mmol/L Anion Gap (12-20) BUN (9-16) mg/dL Creatinine (0.5-1.4) mg/dL Estim Creat Clear Calc Estimated GFR Random Glucose (60-115) mg/dL Calcium (8.4-10.2) mg/dL Magnesium (1.6-2.6) mg/dL Total Bilirubin (0.0-1.0) mg/dL Direct Bilirubin (0.0-0.5) mg/dL AST (5-31) U/L ALT (0-31) U/L Alkaline Phosphatase (39-117) U/L Troponin I High Sens (<3.5-17.0) ng/L B-Natriuretic Peptide (<100) pg/mL Total Protein (6.5-8.0) g/dL Albumin (3.5-5.0) g/dL Ethyl Alcohol mg/dL ECG Data ECG #1: ECG interpretation date: 02/27/21 ECG interpretation time: 17:12 Interpretation: Rate: 88 Rhythm: NSR with 1st degree AVB [place]: normal Normal P waves. Normal SHELLIE. Normal QRS complex. ST T wave : nonspecific, no ALBERT qTC: normal prior studies: no acute ischemia no change from prior october 2020 The study has been interpreted contemporaneously by me. . Discharge Plan Discharge Clinical Impression: CKD (chronic kidney disease), Chest pain Patient Disposition: Admitted As Inpatient Prescriptions: No Action (DME) lancets [OneTouch UltraSoft Lancets] Misc See Rx Instructions .ROUTE .MEDSUPPLY Qty: 100 RF: 11 (DME) pen needle, diabetic [BD Ultra-Fine Carrie Pen Needle] 32 gauge x 5/32 needle See Rx Instructions .ROUTE .MEDSUPPLY Qty: 100 RF: 3 (DME) FreeStyle Akbar 2 Sensor Kit See Rx Instructions .ROUTE .MEDSUPPLY Qty: 2 RF: 5 (DME) FreeStyle Akbar 2 [place] Misc See Rx Instructions .ROUTE .MEDSUPPLY Qty: 1 RF: 0 isosorbide mononitrate 60 mg tablet extended release 24 hr 60 mg PO DAILY 90 Days Qty: 90 RF: 3 metoprolol tartrate 25 mg tablet 25 mg PO BID 90 Days Qty: 180 RF: 1 Lantus Solostar U-100 Insulin 100 unit/mL (3 mL) insulin pen 10 unit subcut QPM Qty: 15 RF: 0 ranolazine [Ranexa] 1,000 mg tablet extended release 12 hr 1,000 mg PO Q12H RF: 0 amlodipine 5 mg tablet 5 mg PO BEDTIME RF: 0 rosuvastatin 20 mg tablet 40 mg PO DAILY RF: 0 levothyroxine 75 mcg tablet 75 mcg PO QAM RF: 0 insulin aspart U-100 [Novolog Flexpen U-100 Insulin] 100 unit/mL (3 mL) insulin pen See Rx Instructions subcut TID RF: 0 aspirin 81 mg tablet,delayed release (DR/EC) 81 mg PO ONCE RF: 0 (DME) blood sugar diagnostic Strip See Rx Instructions ea .ROUTE .MEDSUPPLY Qty: 10 RF: 0 ketorolac 0.5 % drops 1 drp ophthalmic-Left DAILY RF: 0 lisinopril 5 mg tablet 5 mg PO DAILY RF: 0
--- NOTE | 2021-02-27 17:09 | ECG_ITS ---
Test Reason : MO F Blood Pressure : / mmHG Vent. Rate : 088 BPM Atrial Rate : 088 BPM P-R Int : 204 ms QRS Dur : 118 ms QT Int : 354 ms P-R-T Axes : 052 -04 -16 degrees QTc Int : 428 ms Normal sinus rhythm Possible Lateral infarct , age undetermined Inferior infarct (cited on or before 06-APR-2020) Abnormal ECG When compared with ECG of 01-NOV-2020 17:00, No significant change was found Referred By: Lily Mejia Electronically Signed By:Jose Hernandez
[2021-02-27 17:46] LABS: MANUAL DIFF FLAG NO
[2021-02-27 17:49] VITALS: BP 147/57; PULSE 85; RESP 16; TEMP 36.8; O2SAT 97
[2021-02-27 17:54] LABS: Basophils Percent Auto 0.5 % (0-2); Eosinophils Absolute Auto 0.1 X10*3/uL (0.0-0.4); Eosinophils Percent Auto 1.5 % (0-4); Hematocrit 31.9 % (37-47); Imm Gran Abs Auto 0.02 X10*3/uL (0.00-0.03); Imm Gran Pct Auto 0.3 % (0.0-0.4); Lymphocytes Absolute Auto 1.4 X10*3/uL (1.2-4.9); Lymphocytes Percent Auto 20.7 % (20-40); Mean Corpuscular HGB Conc 34.5 g/dl (31.0-35.0); Mean Corpuscular Volume 92.7 fL (80-98); Mean Platelet Volume 9.8 fL (9.4-12.3); Monocytes Absolute Auto 0.6 X10*3/uL (0.1-1.2); Monocytes Percent Auto 9.2 % (2-11); Neutrophils Absolute Auto 4.5 X10*3/uL (2.0-8.3); Neutrophils Percent Auto 67.8 % (45-73); Platelet Count 193 X10*3/uL (160-400); Red Blood Count 3.44 X10*6/uL (4.20-5.50); Red Cell Distribution Width 12.6 % (11.0-16.0); White Blood Count 6.7 X10*3/uL (4.8-10.8)
[2021-02-27 18:00] VITALS: BP 157/68; PULSE 75; RESP 16; O2SAT 97
[2021-02-27 18:04] LABS: INTERNATIONAL NORM RATIO 0.9 (0.9-1.1); Prothrombin Time 10.4 SEC (9.9-13.0)
[2021-02-27 18:06] LABS: Partial Thromboplastin Time 33.2 SEC (24.1-38.0)
[2021-02-27 18:30] LABS: Ethanol < 10 mg/dL
[2021-02-27 18:32] LABS: Alanine Aminotransferase 13 U/L (0-31); Albumin Level 3.9 g/dL (3.5-5.0); Alkaline Phosphatase 120 U/L (39-117); Anion Gap 13 (12-20); Aspartate Amino Transferase 16 U/L (5-31); Bilirubin Direct 0.2 mg/dL (0.0-0.5); Bilirubin Total 0.3 mg/dL (0.0-1.0); Blood Urea Nitrogen 41 mg/dL (9-16); Calcium 9.1 mg/dL (8.4-10.2); Carbon Dioxide 22 mmol/L (22-29); Chloride 108 mmol/L (96-108); Creatinine Clr Calc Pharmacy 31.4; Estimated Glomerular Filt Rate 28; Glucose Random 212 mg/dL (60-115); Magnesium 2.1 mg/dL (1.6-2.6); Potassium 4.8 mmol/L (3.3-5.1); Sodium 138 mmol/L (135-145); Total Protein 6.3 g/dL (6.5-8.0)
[2021-02-27 18:36] LABS: B Type Natriuretic Peptide 186 pg/mL (<100)
[2021-02-27 18:57] LABS: Troponin-I High Sensitivity 17.8 ng/L (<3.5-17.0)
[2021-02-27 19:48] LABS: Influenza A PCR NEGATIVE (Negative); Influenza B PCR NEGATIVE (Negative); Resp Syncy Virus RNA Qual PCR NEGATIVE (Negative); SARS COV2 PCR INHOUSE NEGATIVE (Negative)
[2021-02-27 19:59] VITALS: BMI 22.5
[2021-02-27 20:00] VITALS: BP 157/68; PULSE 75; RESP 16; O2SAT 97
[2021-02-27] MEDS: Heparin Sodium,Porcine/1/2NS 25,000 UNIT/250 ML IV.SOLN 10.34 UNIT IVCONT (20:03)
[2021-02-27] MEDS: Heparin Sodium,Porcine 5,000 UNIT/ML VIAL 4000 UNIT IVPUSH (20:09)
[2021-02-27 20:51] LABS: Troponin-I High Sensitivity 21.4 ng/L (<3.5-17.0)
--- NOTE | 2021-02-27 21:06 | P.HPHOSP_ITS ---
History of Present Illness Date of Service: 02/27/21 Chief Complaint: chest pain 71-year-old female with a past medical history of hypertension, hyperlipidemia, diabetes, coronary artery disease status post RCA stent, chronic kidney disease, CHF hyperparathyroidism, hypothyroidism, vitamin-D deficiency history of endocarditis of the mitral valve presented to the hospital with a chief complaint of chest pain. Patient reported that she has been having intermittent episodes of the chest pain located on the side of, associated shortness of breath, radiating to; patient mentions that she took at home with improvement in the chest pain. Patient also complains of dyspnea on exertion. 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 At the time of my interview patient reports that the chest pain improved. Denies any lightheadedness dizziness. Denies any fever chills cough. Denies any GI or symptoms. Denies any signs of bleeding. Review of all other systems is negative except mentioned above ER course: Per ER team patient's troponins were indeterminate; EKG was nonischemic; discussed with Cardiology Dr elias given recurrent anginal symptoms; mentioned that admit the patient to [facility] and start heparin drip and he plan for an elective catheterization. [facility] Medical History CAD (coronary artery disease) CKD (chronic kidney disease) Congestive heart failure Endocarditis of mitral valve HTN (hypertension) Hyperkalemia Hyperlipidemia Hyperparathyroidism Hypothyroidism Non-compliance Type 2 diabetes mellitus with hyperglycemia, with long-term current use of insulin Viridans streptococci infection Vitamin D deficiency Family History Father CVD (cardiovascular disease) Mother No problems noted. Surgical History History of cardiac catheterization Hx of section Hx of cholecystectomy Hx of tonsillectomy Malignant melanoma Myocardial infarction Stented coronary artery Social History Household Members: None Housing: Assisted Living Facility Housing Other:: Senior housing Do you presently have visiting nurse or other home services: Yes Alcohol intake: never Patient Tobacco Use Status: Never used Tobacco service: No Meds Allergies Allergy/AdvReac Type Severity Reaction Status Date / Time Iodinated Contrast Media Allergy Unknown ANAPHYLAXIS Verified 12/29/20 09:46 [IV CONTRAST] Active Medications: Current Medications Generic Name Dose Route Start Last Admin Trade Name Freq PRN Reason Stop Dose Admin Acetaminophen 650 mg 02/27/21 21:00 Acetaminophen 325 Mg Tablet PO Q6H PRN Pain, Mild (Pain Scale 1-3) Amlodipine Besylate 5 mg 02/28/21 21:00 Amlodipine Besylate 5 Mg Tablet PO BEDTIME [facility] Protocol Aspirin 81 mg 02/27/21 21:15 Aspirin Enteric Coated 81 Mg Tablet.Dr PO ONCE [facility] Dextrose 25 gm 02/27/21 21:00 Dextrose 50 % 25 Gm/50 Ml Vial IVPUSH Q15M PRN per Hypoglycemia Standing Ord. Protocol Glucose 15 gm 02/27/21 21:00 Glucose Gel 15 Gm Gel..Gram. PO Q15M PRN per Hypoglycemia Standing Ord. Protocol Heparin Sodium (Porcine) 3,400 unit 02/27/21 19:03 Heparin Sodium,Porcine 5,000 Unit/Ml Vial 40 unit/kg (3400 unit) IVPUSH PROTOCOL BOLUS PRN 40 unit/kg - Heparin Protocol Protocol Heparin Sodium (Porcine) 2,500 unit 02/27/21 21:03 Heparin Sodium,Porcine 5,000 Unit/Ml Vial 40 unit/kg (2500 unit) IVPUSH PROTOCOL BOLUS PRN 40 unit/kg - Heparin Protocol Protocol Heparin Sodium (Porcine) 5,100 unit 02/27/21 21:03 Heparin Sodium,Porcine 5,000 Unit/Ml Vial 80 unit/kg (5100 unit) IVPUSH PROTOCOL BOLUS PRN 80 unit/kg - Heparin Protocol Protocol Heparin Sodium/Sodium Chloride 25,000 unit in 250 mls @ 0 mls/hr 02/27/21 19:15 02/27/21 20:03 IVCONT 12 units/kg/hr .Q0M [facility] 10.34 mls/hr Administration Protocol Per Protocol Heparin Sodium/Sodium Chloride 25,000 unit in 250 mls @ 0 mls/hr 02/27/21 21:15 IVCONT .Q0M [facility] Protocol Per Protocol Insulin Human Lispro 0 unit 02/27/21 21:00 Insulin Lispro 100 Unit/Ml 3 Ml Vial SUBCUT QIDACHS [facility] Protocol Isosorbide Mononitrate 60 mg 02/28/21 09:00 Isosorbide Mononitrate 60 Mg Tab.Er.24h PO DAILY [facility] Protocol Ketorolac Tromethamine 1 drop 02/28/21 09:00 Ketorolac Tromethamine 0.5% Op 3 Ml Drops EYE-LEFT DAILY [facility] Levothyroxine Sodium 75 mcg 02/27/21 21:15 Levothyroxine Sodium 75 Mcg Tablet PO QAM [facility] Lisinopril 5 mg 02/28/21 09:00 Lisinopril 5 Mg Tablet PO DAILY [facility] Protocol Melatonin 6 mg 02/27/21 21:00 Melatonin 3 Mg Tablet PO BEDTIME PRN Insomnia Metoprolol Tartrate 25 mg 02/28/21 09:00 Metoprolol Tartrate 25 Mg Tablet PO BID [facility] Protocol Nitroglycerin 0.4 mg 02/27/21 21:00 Nitroglycerin 0.4 Mg Tab.Subl SUBLINGUAL Q5MX3 PRN Chest Pain Non-Formulary Medication 40 mg 02/28/21 09:00 Rosuvastatin PO DAILY [facility] Pharmacy Consult 1 each 02/27/21 17:04 Consult Rx Perform Med Rec MISCELLANE ONCE PRN Consult order Ranolazine 1,000 mg 02/27/21 21:15 Ranolazine 1,000 Mg Tab.Er.12h PO Q12H [facility] Senna 17.2 mg 02/27/21 21:00 Sennosides 8.6 Mg Tablet PO BEDTIME PRN Constipation Sodium Chloride 3 ml 02/28/21 00:00 0.9 % Sodium Chloride Flush 3 Ml Syringe IVFLUSH QSHIFT [facility] Home Medications Medication Instructions Recorded Confirmed Last Taken Type levothyroxine 75 mcg tablet 75 mcg PO QAM 05/23/20 03/16/21 02/27/21 History insulin aspart U-100 100 unit/mL See Rx Instructions SUBCUT TID 08/04/20 03/16/21 Unknown History (3 mL) subcutaneous pen (Novolog Flexpen U-100 Insulin aspart) blood sugar diagnostic #10 ea 12/29/20 03/16/21 Unknown History ketorolac 0.5 % eye drops 1 drp OPHTHALMIC-LEFT DAILY ml 12/29/20 03/16/21 02/27/21 History aspirin 81 mg tablet,delayed 81 mg PO ONCE tab 02/17/21 03/16/21 02/27/21 H istory release amlodipine 5 mg tablet 5 mg PO BEDTIME 02/27/21 03/16/21 02/26/21 History clopidogrel 75 mg tablet 75 mg PO DAILY 03/16/21 03/16/21 Unknown History furosemide 20 mg tablet 40 mg PO DAILY 03/16/21 03/16/21 Unknown History isosorbide mononitrate 60 mg 30 mg PO DAILY tab 03/16/21 03/16/21 Unknown History tablet,extended release 24 hr nitroglycerin 0.4 mg sublingual 0 mg SUBLINGUAL 03/16/21 03/16/21 Unknown History tablet rosuvastatin 40 mg tablet 40 mg PO DAILY 03/16/21 03/16/21 Unknown History Physical Exam Vital Signs and Narrative: Vital Signs: Last Vital Signs Temp 98.2 F 02/27/21 17:49 Pulse 75 02/27/21 20:00 Resp 16 02/27/21 20:00 BP 157/68 H 02/27/21 20:00 Pulse Ox 97 02/27/21 20:00 Body Mass Index 22.5 Gen: Appears be in no acute distress HEENT: NCAT, Moist mucosa. Pulmonary: Vesicular breath sounds, fair air entry CVS: Normal S1-S2 Abdomen: BS+, Soft, Nontender Extremities: Warm well perfused Neuro: Alert and awake. Results Labs CBC and Chem 7: 02/28/21 05:59 02/28/21 05:59 Labs: Laboratory Results - last 24 hr 02/27/21 02/27/21 02/27/21 17:27 17:27 17:28 MCV MCH MCHC RDW Plt Count MPV Immature Gran % (Auto) Neut % (Auto) Lymph % (Auto) [place] % (Auto) Eos % (Auto) Baso % (Auto) Lymph # (Auto) [place] # (Auto) Eos # (Auto) Baso # (Auto) Abs Immat Gran (auto) Absolute Neuts (auto) Absolute Nucleated RBC Nucleated RBC % (auto) PT INR APTT Anion Gap 13 Estim Creat Clear Calc 31.4 Estimated GFR 28 Random Glucose 212 H Calcium 9.1 Magnesium Total Bilirubin Direct Bilirubin AST ALT Alkaline Phosphatase Troponin I High Sens 17.8 H* B-Natriuretic Peptide Total Protein Albumin Ethyl Alcohol < 10 Coronavirus (PCR) Influenza Type A (PCR) Influenza Type B (PCR) RSV RNA Qual (PCR) 02/27/21 02/27/21 02/27/21 17:28 17:28 17:28 MCV MCH MCHC RDW Plt Count MPV Immature Gran % (Auto) Neut % (Auto) Lymph % (Auto) [place] % (Auto) Eos % (Auto) Baso % (Auto) Lymph # (Auto) [place] # (Auto) Eos # (Auto) Baso # (Auto) Abs Immat Gran (auto) Absolute Neuts (auto) Absolute Nucleated RBC Nucleated RBC % (auto) PT 10.4 INR 0.9 APTT 33.2 Anion Gap Estim Creat Clear Calc Estimated GFR Random Glucose Calcium Magnesium 2.1 Total Bilirubin 0.3 Direct Bilirubin 0.2 AST 16 ALT 13 Alkaline Phosphatase 120 H Troponin I High Sens B-Natriuretic Peptide 186 H Total Protein 6.3 L Albumin 3.9 Ethyl Alcohol Coronavirus (PCR) Influenza Type A (PCR) Influenza Type B (PCR) RSV RNA Qual (PCR) 02/27/21 02/27/21 02/27/21 17:28 17:29 20:14 MCV 92.7 MCH 32.0 MCHC 34.5 RDW 12.6 Plt Count 193 MPV 9.8 Immature Gran % (Auto) 0.3 Neut % (Auto) 67.8 Lymph % (Auto) 20.7 [place] % (Auto) 9.2 Eos % (Auto) 1.5 Baso % (Auto) 0.5 Lymph # (Auto) 1.4 [place] # (Auto) 0.6 Eos # (Auto) 0.1 Baso # (Auto) 0.0 Abs Immat Gran (auto) 0.02 Absolute Neuts (auto) 4.5 Absolute Nucleated RBC 0.000 Nucleated RBC % (auto) 0.0 PT INR APTT Anion Gap Estim Creat Clear Calc Estimated GFR Random Glucose Calcium Magnesium Total Bilirubin Direct Bilirubin AST ALT Alkaline Phosphatase Troponin I High Sens 21.4 H* B-Natriuretic Peptide Total Protein Albumin Ethyl Alcohol Coronavirus (PCR) NEGATIVE Influenza Type A (PCR) NEGATIVE Influenza Type B (PCR) NEGATIVE RSV RNA Qual (PCR) NEGATIVE Imaging Radiologist's Impressions: Impressions Chest X-Ray 02/27/21 17:05 IMPRESSION: No evidence of acute disease. Assessment and Plan (1) NSTEMI (non-ST elevated myocardial infarction): Status: Acute 71-year-old female with a past medical history of hypertension, hyperlipidemia, diabetes, coronary artery disease status post RCA stent, chronic kidney disease, CHF hyperparathyroidism, hypothyroidism, vitamin-D deficiency history of endocarditis of the mitral valve presented to the hospital with a chief complaint of chest pain. NSTEMI: Currently chest pain-free Continue heparin drip per ACS protocol. Cardiology is aware and is planning for elective catheterization. Telemetry Echocardiogram Patient is on ranolazine and Imdur at home Sublingual nitroglycerin p.r.n. for chest pain History of CAD:stent to RCA in 2010 and 2018. Moderate disease in LAD and circumflex territory Echo: 07/24/2020 shows EF 60-65%, positive basal inferior and basal inferior lateral wall akinetic with moderate MR Continue home aspirin statin and beta-kavita Hypertension/hyperlipidemia: Continue home amlodipine, lisinopril, beta- kavita, statin Diabetes: Hold home regimen. Insulin sliding. Monitor fingerstick glucose Hypothyroidism: Continue levothyroxine Code status: Full code Quality Stroke Does the patient have a stroke diagnosis?: No VTE Prior VTE?: No VTE Risk Level:: Medical - moderate - high VTE Device Contraindication: Treatment Not Indicated VTE Drug Contraindication: N/A - Med Ordered
--- NOTE | 2021-02-27 22:01 | PC.NURSE ---
1ST CALL TO [facility] [place] [facility] [place]
[2021-02-27 22:46] VITALS: BP 174/78; PULSE 72; RESP 18; TEMP 36.7; O2SAT 98
[2021-02-27 22:57] LABS: Glucose, Whole Blood 209 mg/dL (60-115)
[2021-02-27] MEDS: Insulin Lispro 100 UNIT/ML 3 ML VIAL SUBCUT (23:05)
[2021-02-27] MEDS: Ranolazine 500 MG TAB.ER.12H 1000 MG PO (23:06)
[2021-02-27] MEDS: 0.9 % Sodium Chloride Flush 3 ML SYRINGE IVFLUSH (23:10)
[2021-02-27 23:52] VITALS: BP 180/94; PULSE 72; RESP 18; TEMP 36.1; O2SAT 99
[2021-02-28] VITALS (10 sets, daily range): BP systolic 123–183; BP diastolic 60–86; PULSE 57–73; RESP 16–20; TEMP 36.3–37; O2SAT 97–99
[2021-02-28 02:19] LABS: PTT Heparin Drip 86.9 SEC (53-77.9)
[2021-02-28] MEDS: Levothyroxine Sodium 75 MCG TABLET PO (05:22)
[2021-02-28 06:46] LABS: Hematocrit 33.4 % (37-47); Hemoglobin 11.3 g/dl (12.0-16.0); Mean Corpuscular HGB Conc 33.8 g/dl (31.0-35.0); Mean Corpuscular Hemoglobin 31.4 pg (27.0-33.0); Mean Corpuscular Volume 92.8 fL (80-98); Platelet Count 191 X10*3/uL (160-400); Red Cell Distribution Width 12.6 % (11.0-16.0); White Blood Count 6.5 X10*3/uL (4.8-10.8)
[2021-02-28 07:01] LABS: INTERNATIONAL NORM RATIO 0.9 (0.9-1.1); Prothrombin Time 10.6 SEC (9.9-13.0)
[2021-02-28 07:27] LABS: Anion Gap 14 (12-20); Blood Urea Nitrogen 36 mg/dL (9-16); Calcium 9.1 mg/dL (8.4-10.2); Carbon Dioxide 19 mmol/L (22-29); Chloride 112 mmol/L (96-108); Creatinine Clr Calc Pharmacy 28.6; Estimated Glomerular Filt Rate 30; Glucose Random 186 mg/dL (60-115); Potassium 4.6 mmol/L (3.3-5.1); Sodium 140 mmol/L (135-145)
[2021-02-28 07:31] LABS: Glucose, Whole Blood 184 mg/dL (60-115)
[2021-02-28] MEDS: Ranolazine 500 MG TAB.ER.12H 1000 MG PO ×2 (07:49→21:56)
[2021-02-28] MEDS: Metoprolol Tartrate 25 MG TABLET PO ×2 (07:49→21:56)
[2021-02-28] MEDS: Isosorbide Mononitrate 60 MG TAB.ER.24H PO (07:50)
[2021-02-28] MEDS: 0.9 % Sodium Chloride Flush 3 ML SYRINGE IVFLUSH ×3 (07:53→21:56)
[2021-02-28] MEDS: Insulin Lispro 100 UNIT/ML 3 ML VIAL SUBCUT ×3 (07:57→21:57)
[2021-02-28 09:07] LABS: PTT Heparin Drip 63.2 SEC (53-77.9)
[2021-02-28 11:08] LABS: Glucose, Whole Blood 139 mg/dL (60-115)
--- NOTE | 2021-02-28 13:21 | P.CONCA_ITS ---
History of Present Illness History of Present Illness Date of Service: 02/28/21 Requesting physician: Robert Calvo Chief complaint: NSTEMI Narrative: [age] year female who has background history of chronic kidney disease, contrast allergy, congestive heart failure, hypertension, hyperlipidemia and known coronary artery disease and previous PCI who was com plaining of exertional angina in follow-up with Dr. Jc. She was planning to undergo cataract surgery and plan was to do a diagnostic angiogram on her after that. It appears yesterday she had chest discomfort which she described as the pressure-like feeling in her chest and jaw discomfort along with left arm discomfort at rest. Her previous symptoms were exertional but this is the 1st time she had chest discomfort at rest and she came to the emergency department. EKG showed sinus rhythm, normal axis, cannot rule out inferior infarct. This was similar to her previous EKG. She had mildly abnormal troponin levels and she was admitted for further management. She was started on heparin drip for concern for non ST elevation PR. She has been pain-free since then. Denies any bleeding issues. Review of Systems Review of Systems: No symptoms right now Yes all other systems are reviewed and are negative [facility]LY [facility] Past Medical History Medical History CAD (coronary artery disease) CKD (chronic kidney disease) Congestive heart failure Endocarditis of mitral valve HTN (hypertension) Hyperkalemia Hyperlipidemia Hyperparathyroidism Hypothyroidism Non-compliance Type 2 diabetes mellitus with hyperglycemia, with long-term current use of insul in Viridans streptococci infection Vitamin D deficiency Family History Family History Father CVD (cardiovascular disease) Mother No problems noted. Surgical History Surgical History History of cardiac catheterization Hx of section Hx of cholecystectomy Hx of tonsillectomy Malignant melanoma Myocardial infarction Stented coronary artery Social History Social History Household Members: None Housing: Assisted Living Facility Housing Other:: Senior housing Do you presently have visiting nurse or other home services: Yes Alcohol intake: never Patient Tobacco Use Status: Never used Tobacco Use of substances other than those prescribed or required for medical reasons: No Currently Displaying Signs/Symptoms of Drug Intoxication Withdrawal: No Advance Directives: No Advance Directives Information Provided: No Do you have thoughts of harming others: None Do you have a plan to hurt others: No Plan Recently lost weight without trying: Unsure Nutrition Risks: No Nutritional Risk Patient : No : No Poor oral hygiene: No Meds Allergies Allergy/AdvReac Type Severity Reaction Status Date / Time Iodinated Contrast Media Allergy Unknown ANAPHYLAXIS Verified 12/29/20 09:46 [IV CONTRAST] Active Medications: Current Medications Generic Name Dose Route Start Last Admin Trade Name Freq PRN Reason Stop Dose Admin Acetaminophen 650 mg 02/27/21 21:00 Acetaminophen 325 Mg Tablet PO Q6H PRN Pain, Mild (Pain Scale 1-3) Amlodipine Besylate 5 mg 02/28/21 21:00 Amlodipine Besylate 5 Mg Tablet PO BEDTIME [facility] Protocol Aspirin 81 mg 02/27/21 21:15 Aspirin Enteric Coated 81 Mg Tablet.Dr PO ONCE [facility] Atorvastatin Calcium 80 mg 02/28/21 21:00 Atorvastatin Calcium 80 Mg Tablet PO BEDTIME [facility] Dextrose 25 gm 02/27/21 21:00 Dextrose 50 % 25 Gm/50 Ml Vial IVPUSH Q15M PRN per Hypoglycemia Standing Ord. Protocol Glucose 15 gm 02/27/21 21:00 Glucose Gel 15 Gm Gel..Gram. PO Q15M PRN per Hypoglycemia Standing Ord. Protocol Heparin Sodium (Porcine) 3,400 unit 02/27/21 19:03 Heparin Sodium,Porcine 5,000 Unit/Ml Vial 40 unit/kg (3400 unit) IVPUSH PROTOCOL BOLUS PRN 40 unit/kg - Heparin Protocol Protocol Heparin Sodium (Porcine) 2,500 unit 02/27/21 21:03 Heparin Sodium,Porcine 5,000 Unit/Ml Vial 40 unit/kg (2500 unit) IVPUSH PROTOCOL BOLUS PRN 40 unit/kg - Heparin Protocol Protocol Heparin Sodium (Porcine) 5,100 unit 02/27/21 21:03 Heparin Sodium,Porcine 5,000 Unit/Ml Vial 80 unit/kg (5100 unit) IVPUSH PROTOCOL BOLUS PRN 80 unit/kg - Heparin Protocol Protocol Heparin Sodium/Sodium Chloride 25,000 unit in 250 mls @ 0 mls/hr 02/27/21 19:15 02/28/21 02:37 IVCONT 10 units/kg/hr .Q0M [facility]ILIP 8.62 mls/hr Titration Protocol Per Protocol Heparin Sodium/Sodium Chloride 25,000 unit in 250 mls @ 0 mls/hr 02/27/21 21:15 IVCONT .Q0M [facility] Protocol Per Protocol Insulin Human Lispro 0 unit 02/27/21 21:00 02/28/21 07:57 Insulin Lispro 100 Unit/Ml 3 Ml Vial SUBCUT 2 unit QIDACHS [facility] Administration Protocol Isosorbide Mononitrate 60 mg 02/28/21 09:00 02/28/21 07:50 Isosorbide Mononitrate 60 Mg Tab.Er.24h PO 60 mg DAILY [facility] Administration Protocol Ketorolac Tromethamine 1 drop 02/28/21 09:00 02/28/21 10:59 Ketorolac Tromethamine 0.5% Op 3 Ml Drops EYE-LEFT Not Given DAILY [facility] Levothyroxine Sodium 75 mcg 02/28/21 06:00 02/28/21 05:22 Levothyroxine Sodium 75 Mcg Tablet PO 75 mcg DAILY@0600 [facility] Administration Lisinopril 5 mg 02/28/21 09:00 02/28/21 07:51 Lisinopril 5 Mg Tablet PO 5 mg DAILY [facility] Administration Protocol Melatonin 6 mg 02/27/21 21:00 Melatonin 3 Mg Tablet PO BEDTIME PRN Insomnia Metoprolol Tartrate 25 mg 02/28/21 09:00 02/28/21 07:49 Metoprolol Tartrate 25 Mg Tablet PO 25 mg BID [facility] Administration Protocol Nitroglycerin 0.4 mg 02/27/21 21:00 Nitroglycerin 0.4 Mg Tab.Subl SUBLINGUAL Q5MX3 PRN Chest Pain Pharmacy Consult 1 each 02/27/21 17:04 Consult Rx Perform Med Rec MISCELLANE ONCE PRN Consult order Ranolazine 1,000 mg 02/27/21 21:15 02/28/21 07:49 Ranolazine 500 Mg Tab.Er.12h PO 1,000 mg Q12H [facility] Administration Senna 17.2 mg 02/27/21 21:00 Sennosides 8.6 Mg Tablet PO BEDTIME PRN Constipation Sodium Chloride 3 ml 02/28/21 00:00 02/28/21 07:53 0.9 % Sodium Chloride Flush 3 Ml Syringe IVFLUSH 3 ml QSHIFT [facility] Administration Home Medications Medication Instructions Recorded Confirmed Last Taken Type levothyroxine 75 mcg tablet 75 mcg PO QAM 05/23/20 02/27/21 02/27/21 History insulin aspart U-100 100 unit/mL See Rx Instructions SUBCUT TID 08/04/20 08/01/12 Unknown History (3 mL) subcutaneous pen (Novolog Flexpen U-100 Insulin aspart) blood sugar diagnostic #10 ea 12/29/20 02/17/21 Unknown History ketorolac 0.5 % eye drops 1 drp OPHTHALMIC-LEFT DAILY ml 12/29/20 02/27/21 02/27/21 History lisinopril 5 mg tablet 5 mg PO DAILY 12/29/20 02/27/21 02/27/21 History aspirin 81 mg tablet,delayed 81 mg PO ONCE tab 02/17/21 02/27/21 02/27/21 History release rosuvastatin 20 mg tablet 40 mg PO DAILY tab 02/17/21 02/27/21 02/27/21 History amlodipine 5 mg tablet 5 mg PO BEDTIME 02/27/21 02/27/21 02/26/21 History ranolazine 1,000 mg 1,000 mg PO Q12H 02/27/21 02/27/21 Unknown History tablet,extended release,12 hr (Ranexa) Physical Exam Vital Signs: Vital Signs: Last Vital Signs Temp 97.3 F 02/28/21 11:09 Pulse 57 02/28/21 11:09 Resp 16 02/28/21 11:09 BP 128/65 02/28/21 11:09 Pulse Ox 99 02/28/21 11:09 Body Mass Index 22.5 GENERAL APPEARANCE: in no acute distress, pleasant. NECK: no carotid bruit, no jugular venous distention. SKIN: no suspicious lesions, warm and dry. HEART: no murmurs, regular rate and rhythm. LUNGS: clear to auscultation bilaterally. ABDOMEN: soft, nontender. EXTREMITIES: no edema. PERIPHERAL PULSES: equal. NEUROLOGIC: No gross deficits, AAO X 3 Results Labs and Meds Result diagrams: 02/28/21 05:59 02/28/21 05:59 Lab results: Laboratory Results - last 24 hr 02/27/21 02/27/21 02/27/21 17:27 17:27 17:28 WBC RBC Hgb Hct MCV MCH MCHC RDW Plt Count MPV Immature Gran % (Auto) Neut % (Auto) Lymph % (Auto) Posey % (Auto) Eos % (Auto) Baso % (Auto) Lymph # (Auto) Posey # (Auto) Eos # (Auto) Baso # (Auto) Abs Immat Gran (auto) Absolute Neuts (auto) Absolute Nucleated RBC Nucleated RBC % (auto) PT INR APTT PTT (Heparin Protocol) Sodium 138 Potassium 4.8 Chloride 108 Carbon Dioxide 22 Anion Gap 13 BUN 41 H Creatinine 1.79 H Estim Creat Clear Calc 31.4 Estimated GFR 28 POC Glucose Random Glucose 212 H Calcium 9.1 Magnesium Total Bilirubin Direct Bilirubin AST ALT Alkaline Phosphatase Troponin I High Sens 17.8 H* B-Natriuretic Peptide Total Protein Albumin Ethyl Alcohol < 10 Coronavirus (PCR) Influenza Type A (PCR) Influenza Type B (PCR) RSV RNA Qual (PCR) 02/27/21 02/27/21 02/27/21 17:28 17:28 17:28 WBC RBC Hgb Hct MCV MCH MCHC RDW Plt Count MPV Immature Gran % (Auto) Neut % (Auto) Lymph % (Auto) Posey % (Auto) Eos % (Auto) Baso % (Auto) Lymph # (Auto) Posey # (Auto) Eos # (Auto) Baso # (Auto) Abs Immat Gran (auto) Absolute Neuts (auto) Absolute Nucleated RBC Nucleated RBC % (auto) PT 10.4 INR 0.9 APTT 33.2 PTT (Heparin Protocol) Sodium Potassium Chloride Carbon Dioxide Anion Gap BUN Creatinine Estim Creat Clear Calc Estimated GFR POC Glucose Random Glucose Calcium Magnesium 2.1 Total Bilirubin 0.3 Direct Bilirubin 0.2 AST 16 ALT 13 Alkaline Phosphatase 120 H Troponin I High Sens B-Natriuretic Peptide 186 H Total Protein 6.3 L Albumin 3.9 Ethyl Alcohol Coronavirus (PCR) Influenza Type A (PCR) Influenza Type B (PCR) RSV RNA Qual (PCR) 02/27/21 02/27/21 02/27/21 17:28 17:29 20:14 WBC 6.7 RBC 3.44 L Hgb 11.0 L Hct 31.9 L MCV 92.7 MCH 32.0 MCHC 34.5 RDW 12.6 Plt Count 193 MPV 9.8 Immature Gran % (Auto) 0.3 Neut % (Auto) 67.8 Lymph % (Auto) 20.7 Posey % (Auto) 9.2 Eos % (Auto) 1.5 Baso % (Auto) 0.5 Lymph # (Auto) 1.4 Posey # (Auto) 0.6 Eos # (Auto) 0.1 Baso # (Auto) 0.0 Abs Immat Gran (auto) 0.02 Absolute Neuts (auto) 4.5 Absolute Nucleated RBC 0.000 Nucleated RBC % (auto) 0.0 PT INR APTT PTT (Heparin Protocol) Sodium Potassium Chloride Carbon Dioxide Anion Gap BUN Creatinine Estim Creat Clear Calc Estimated GFR POC Glucose Random Glucose Calcium Magnesium Total Bilirubin Direct Bilirubin AST ALT Alkaline Phosphatase Troponin I High Sens 21.4 H* B-Natriuretic Peptide Total Protein Albumin Ethyl Alcohol Coronavirus (PCR) NEGATIVE Influenza Type A (PCR) NEGATIVE Influenza Type B (PCR) NEGATIVE RSV RNA Qual (PCR) NEGATIVE 02/27/21 02/28/21 02/28/21 22:53 01:57 05:59 WBC 6.5 RBC 3.60 L Hgb 11.3 L Hct 33.4 L MCV 92.8 MCH 31.4 MCHC 33.8 RDW 12.6 Plt Count 191 MPV 10.0 Immature Gran % (Auto) Neut % (Auto) Lymph % (Auto) Posey % (Auto) Eos % (Auto) Baso % (Auto) Lymph # (Auto) Posey # (Auto) Eos # (Auto) Baso # (Auto) Abs Immat Gran (auto) Absolute Neuts (auto) Absolute Nucleated RBC 0.000 Nucleated RBC % (auto) 0.0 PT INR APTT PTT (Heparin Protocol) 86.9 H Sodium Potassium Chloride Carbon Dioxide Anion Gap BUN Creatinine Estim Creat Clear Calc Estimated GFR POC Glucose 209 H Random Glucose Calcium Magnesium Total Bilirubin Direct Bilirubin AST ALT Alkaline Phosphatase Troponin I High Sens B-Natriuretic Peptide Total Protein Albumin Ethyl Alcohol Coronavirus (PCR) Influenza Type A (PCR) Influenza Type B (PCR) RSV RNA Qual (PCR) 02/28/21 02/28/21 02/28/21 05:59 05:59 05:59 WBC RBC Hgb Hct MCV MCH MCHC RDW Plt Count MPV Immature Gran % (Auto) Neut % (Auto) Lymph % (Auto) Posey % (Auto) Eos % (Auto) Baso % (Auto) Lymph # (Auto) Posey # (Auto) Eos # (Auto) Baso # (Auto) Abs Immat Gran (auto) Absolute Neuts (auto) Absolute Nucleated RBC Nucleated RBC % (auto) PT 10.6 INR 0.9 APTT PTT (Heparin Protocol) Sodium 140 Potassium 4.6 Chloride 112 H Carbon Dioxide 19 L Anion Gap 14 BUN 36 H Creatinine 1.66 H Estim Creat Clear Calc 28.6 Estimated GFR 30 POC Glucose Random Glucose 186 H Calcium 9.1 Magnesium 2.0 Total Bilirubin Direct Bilirubin AST ALT Alkaline Phosphatase Troponin I High Sens B-Natriuretic Peptide Total Protein Albumin Ethyl Alcohol Coronavirus (PCR) Influenza Type A (PCR) Influenza Type B (PCR) RSV RNA Qual (PCR) 02/28/21 02/28/21 02/28/21 07:18 08:36 10:57 WBC RBC Hgb Hct MCV MCH MCHC RDW Plt Count MPV Immature Gran % (Auto) Neut % (Auto) Lymph % (Auto) Posey % (Auto) Eos % (Auto) Baso % (Auto) Lymph # (Auto) Posey # (Auto) Eos # (Auto) Baso # (Auto) Abs Immat Gran (auto) Absolute Neuts (auto) Absolute Nucleated RBC Nucleated RBC % (auto) PT INR APTT PTT (Heparin Protocol) 63.2 D Sodium Potassium Chloride Carbon Dioxide Anion Gap BUN Creatinine Estim Creat Clear Calc Estimated GFR POC Glucose 184 H 139 H Random Glucose Calcium Magnesium Total Bilirubin Direct Bilirubin AST ALT Alkaline Phosphatase Troponin I High Sens B-Natriuretic Peptide Total Protein Albumin Ethyl Alcohol Coronavirus (PCR) Influenza Type A (PCR) Influenza Type B (PCR) RSV RNA Qual (PCR) Imaging Radiologist's impression: Impressions Chest X-Ray 02/27/21 17:05 IMPRESSION: No evidence of acute disease. Assessment and Plan (1) NSTEMI (non-ST elevated myocardial infarction): Status: Acute 71-year-old female with known coronary artery disease and stable angina pr eviously was presenting with somewhat elevated blood pressures and chest discomfort and jaw discomfort at rest radiating to left arm. EKG did not show any significant changes. She had a very mildly abnormal troponin levels high sensitivity troponin level of 17 and 21. She has been started on heparin drip. I think continued happening for now. I have discussed with her about cardiac catheterization as there was a plan to do cardiac catheterization on her as outpatient. She does have a contrast allergy and chronic kidney disease. Clinically she looks euvolemic. We will potentially transfer her tomorrow for catheterization Tuesday or Tuesday. She will need contrast dye allergy preparation which we will start. Continue baby aspirin as before. Blood pressure control is good right now and she can continue same medications for now. Thank you for allowing me to participate in the care of your patient. Please feel free to contact me if you have any questions. Procedures Date of Service Date of Service: 02/28/21
--- NOTE | 2021-02-28 13:25 | HO.PM.IMPN ---
Subjective Subjective Date of Service: 02/28/21 Interval History: F/u on NSTEMI, no chest pain at moment Review of Systems Gen: no fever Resp: no sob, no cough CV: no chest, no COLE, no leg edema GI: No n/v, no abd pain Neuro: No confusion Physical Exam Vital Signs: Vital Signs: Last Vital Signs Temp 97.3 F 02/28/21 11:09 Pulse 57 02/28/21 11:09 Resp 16 02/28/21 11:09 BP 128/65 02/28/21 11:09 Pulse Ox 99 02/28/21 11:09 Body Mass Index 22.5 Const: Other: General: AO X 3, no acute distress Resp: CTA bilateral CVS: S1,S2,RRR GI: +BS, NT, no distention Skin: No rash Neuro: motor grossly intact Psych: appropriate affect Objective Data Current Medications Generic Name Dose Route Start Last Admin Trade Name Freq PRN Reason Stop Dose Admin Acetaminophen 650 mg 02/27/21 21:00 Acetaminophen 325 Mg Tablet PO Q6H PRN Pain, Mild (Pain Scale 1-3) Amlodipine Besylate 5 mg 02/28/21 21:00 Amlodipine Besylate 5 Mg Tablet PO BEDTIME [facility] Protocol Aspirin 81 mg 02/27/21 21:15 Aspirin Enteric Coated 81 Mg Tablet.Dr PO ONCE [facility] Atorvastatin Calcium 80 mg 02/28/21 21:00 Atorvastatin Calcium 80 Mg Tablet PO BEDTIME [facility] Dextrose 25 gm 02/27/21 21:00 Dextrose 50 % 25 Gm/50 Ml Vial IVPUSH Q15M PRN per Hypoglycemia Standing Ord. Protocol Glucose 15 gm 02/27/21 21:00 Glucose Gel 15 Gm Gel..Gram. PO Q15M PRN per Hypoglycemia Standing Ord. Protocol Heparin Sodium (Porcine) 3,400 unit 02/27/21 19:03 Heparin Sodium,Porcine 5,000 Unit/Ml Vial 40 unit/kg (3400 unit) IVPUSH PROTOCOL BOLUS PRN 40 unit/kg - Heparin Protocol Protocol Heparin Sodium (Porcine) 2,500 unit 02/27/21 21:03 Heparin Sodium,Porcine 5,000 Unit/Ml Vial 40 unit/kg (2500 unit) IVPUSH PROTOCOL BOLUS PRN 40 unit/kg - Heparin Protocol Protocol Heparin Sodium (Porcine) 5,100 unit 02/27/21 21:03 Heparin Sodium,Porcine 5,000 Unit/Ml Vial 80 unit/kg (5100 unit) IVPUSH PROTOCOL BOLUS PRN 80 unit/kg - Heparin Protocol Protocol Heparin Sodium/Sodium Chloride 25,000 unit in 250 mls @ 0 mls/hr 02/27/21 19:15 02/28/21 02:37 IVCONT 10 units/kg/hr .Q0M [facility] 8.62 mls/hr Titration Protocol Per Protocol Heparin Sodium/Sodium Chloride 25,000 unit in 250 mls @ 0 mls/hr 02/27/21 21:15 IVCONT .Q0M [facility] Protocol Per Protocol Insulin Human Lispro 0 unit 02/27/21 21:00 02/28/21 07:57 Insulin Lispro 100 Unit/Ml 3 Ml Vial SUBCUT 2 unit QIDACHS [facility] Administration Protocol Isosorbide Mononitrate 60 mg 02/28/21 09:00 02/28/21 07:50 Isosorbide Mononitrate 60 Mg Tab.Er.24h PO 60 mg DAILY [facility] Administration Protocol Ketorolac Tromethamine 1 drop 02/28/21 09:00 02/28/21 10:59 Ketorolac Tromethamine 0.5% Op 3 Ml Drops EYE-LEFT Not Given DAILY [facility] Levothyroxine Sodium 75 mcg 02/28/21 06:00 02/28/21 05:22 Levothyroxine Sodium 75 Mcg Tablet PO 75 mcg DAILY@0600 [facility] Administration Lisinopril 5 mg 02/28/21 09:00 02/28/21 07:51 Lisinopril 5 Mg Tablet PO 5 mg DAILY [facility] Administration Protocol Melatonin 6 mg 02/27/21 21:00 Melatonin 3 Mg Tablet PO BEDTIME PRN Insomnia Metoprolol Tartrate 25 mg 02/28/21 09:00 02/28/21 07:49 Metoprolol Tartrate 25 Mg Tablet PO 25 mg BID [facility] Administration Protocol Nitroglycerin 0.4 mg 02/27/21 21:00 Nitroglycerin 0.4 Mg Tab.Subl SUBLINGUAL Q5MX3 PRN Chest Pain Pharmacy Consult 1 each 02/27/21 17:04 Consult Rx Perform Med Rec MISCELLANE ONCE PRN Consult order Ranolazine 1,000 mg 02/27/21 21:15 02/28/21 07:49 Ranolazine 500 Mg Tab.Er.12h PO 1,000 mg Q12H [facility] Administration Senna 17.2 mg 02/27/21 21:00 Sennosides 8.6 Mg Tablet PO BEDTIME PRN Constipation Sodium Chloride 3 ml 02/28/21 00:00 02/28/21 07:53 0.9 % Sodium Chloride Flush 3 Ml Syringe IVFLUSH 3 ml QSHIFT [facility] Administration Labs CBC & Chem 7: 02/28/21 05:59 02/28/21 05:59 Labs: Laboratory Results - last 24 hr 02/27/21 02/27/21 02/27/21 17:27 17:27 17:28 MCV MCH MCHC RDW Plt Count MPV Immature Gran % (Auto) Neut % (Auto) Lymph % (Auto) Ashley % (Auto) Eos % (Auto) Baso % (Auto) Lymph # (Auto) Ashley # (Auto) Eos # (Auto) Baso # (Auto) Abs Immat Gran (auto) Absolute Neuts (auto) Absolute Nucleated RBC Nucleated RBC % (auto) PT INR APTT PTT (Heparin Protocol) Anion Gap 13 Estim Creat Clear Calc 31.4 Estimated GFR 28 POC Glucose Random Glucose 212 H Calcium 9.1 Magnesium Total Bilirubin Direct Bilirubin AST ALT Alkaline Phosphatase Troponin I High Sens 17.8 H* B-Natriuretic Peptide Total Protein Albumin Ethyl Alcohol < 10 Coronavirus (PCR) Influenza Type A (PCR) Influenza Type B (PCR) RSV RNA Qual (PCR) 02/27/21 02/27/21 02/27/21 17:28 17:28 17:28 MCV MCH MCHC RDW Plt Count MPV Immature Gran % (Auto) Neut % (Auto) Lymph % (Auto) Ashley % (Auto) Eos % (Auto) Baso % (Auto) Lymph # (Auto) Ashley # (Auto) Eos # (Auto) Baso # (Auto) Abs Immat Gran (auto) Absolute Neuts (auto) Absolute Nucleated RBC Nucleated RBC % (auto) PT 10.4 INR 0.9 APTT 33.2 PTT (Heparin Protocol) Anion Gap Estim Creat Clear Calc Estimated GFR POC Glucose Random Glucose Calcium Magnesium 2.1 Total Bilirubin 0.3 Direct Bilirubin 0.2 AST 16 ALT 13 Alkaline Phosphatase 120 H Troponin I High Sens B-Natriuretic Peptide 186 H Total Protein 6.3 L Albumin 3.9 Ethyl Alcohol Coronavirus (PCR) Influenza Type A (PCR) Influenza Type B (PCR) RSV RNA Qual (PCR) 02/27/21 02/27/21 02/27/21 17:28 17:29 20:14 MCV 92.7 MCH 32.0 MCHC 34.5 RDW 12.6 Plt Count 193 MPV 9.8 Immature Gran % (Auto) 0.3 Neut % (Auto) 67.8 Lymph % (Auto) 20.7 Ashley % (Auto) 9.2 Eos % (Auto) 1.5 Baso % (Auto) 0.5 Lymph # (Auto) 1.4 Ashley # (Auto) 0.6 Eos # (Auto) 0.1 Baso # (Auto) 0.0 Abs Immat Gran (auto) 0.02 Absolute Neuts (auto) 4.5 Absolute Nucleated RBC 0.000 Nucleated RBC % (auto) 0.0 PT INR APTT PTT (Heparin Protocol) Anion Gap Estim Creat Clear Calc Estimated GFR POC Glucose Random Glucose Calcium Magnesium Total Bilirubin Direct Bilirubin AST ALT Alkaline Phosphatase Troponin I High Sens 21.4 H* B-Natriuretic Peptide Total Protein Albumin Ethyl Alcohol Coronavirus (PCR) NEGATIVE Influenza Type A (PCR) NEGATIVE Influenza Type B (PCR) NEGATIVE RSV RNA Qual (PCR) NEGATIVE 02/27/21 02/28/21 02/28/21 22:53 01:57 05:59 MCV 92.8 MCH 31.4 MCHC 33.8 RDW 12.6 Plt Count 191 MPV 10.0 Immature Gran % (Auto) Neut % (Auto) Lymph % (Auto) Ashley % (Auto) Eos % (Auto) Baso % (Auto) Lymph # (Auto) Ashley # (Auto) Eos # (Auto) Baso # (Auto) Abs Immat Gran (auto) Absolute Neuts (auto) Absolute Nucleated RBC 0.000 Nucleated RBC % (auto) 0.0 PT INR APTT PTT (Heparin Protocol) 86.9 H Anion Gap Estim Creat Clear Calc Estimated GFR POC Glucose 209 H Random Glucose Calcium Magnesium Total Bilirubin Direct Bilirubin AST ALT Alkaline Phosphatase Troponin I High Sens B-Natriuretic Peptide Total Protein Albumin Ethyl Alcohol Coronavirus (PCR) Influenza Type A (PCR) Influenza Type B (PCR) RSV RNA Qual (PCR) 02/28/21 02/28/21 02/28/21 05:59 05:59 05:59 MCV MCH MCHC RDW Plt Count MPV Immature Gran % (Auto) Neut % (Auto) Lymph % (Auto) Ashley % (Auto) Eos % (Auto) Baso % (Auto) Lymph # (Auto) Ashley # (Auto) Eos # (Auto) Baso # (Auto) Abs Immat Gran (auto) Absolute Neuts (auto) Absolute Nucleated RBC Nucleated RBC % (auto) PT 10.6 INR 0.9 APTT PTT (Heparin Protocol) Anion Gap 14 Estim Creat Clear Calc 28.6 Estimated GFR 30 POC Glucose Random Glucose 186 H Calcium 9.1 Magnesium 2.0 Total Bilirubin Direct Bilirubin AST ALT Alkaline Phosphatase Troponin I High Sens B-Natriuretic Peptide Total Protein Albumin Ethyl Alcohol Coronavirus (PCR) Influenza Type A (PCR) Influenza Type B (PCR) RSV RNA Qual (PCR) 02/28/21 02/28/21 02/28/21 07:18 08:36 10:57 MCV MCH MCHC RDW Plt Count MPV Immature Gran % (Auto) Neut % (Auto) Lymph % (Auto) Ashley % (Auto) Eos % (Auto) Baso % (Auto) Lymph # (Auto) Ashley # (Auto) Eos # (Auto) Baso # (Auto) Abs Immat Gran (auto) Absolute Neuts (auto) Absolute Nucleated RBC Nucleated RBC % (auto) PT INR APTT PTT (Heparin Protocol) 63.2 D Anion Gap Estim Creat Clear Calc Estimated GFR POC Glucose 184 H 139 H Random Glucose Calcium Magnesium Total Bilirubin Direct Bilirubin AST ALT Alkaline Phosphatase Troponin I High Sens B-Natriuretic Peptide Total Protein Albumin Ethyl Alcohol Coronavirus (PCR) Influenza Type A (PCR) Influenza Type B (PCR) RSV RNA Qual (PCR) Assessment and Plan (1) NSTEMI (non-ST elevated myocardial infarction): Status: Acute Assessment and Plan: 71-year-old female with a past medical history of hypertension, hyperlipidemia, diabetes, coronary artery disease status post RCA stent, chronic kidney disease, CHF hyperparathyroidism, hypothyroidism, vitamin-D deficiency history of endocarditis of the mitral valve presented to the hospital with a chief complaint of chest pain. NSTEMI/unstable angian:?Pain free, HD stable -Medical management with heparin, ASA, BB, statin -Will need cardiac cath per cardiology, has dye allergy so will need steroid before cath History of CAD:stent to RCA in 2010 and 2018. Moderate disease in LAD and circumflex territory Echo: 07/24/2020 shows EF 60-65%, positive basal inferior and basal inferior lateral wall akinetic with moderate MR Continue above managment Hypertension: Norvasc, Lisinopril, BB HLD-Statin Diabetes--SSI DVT proph; heparin hyperlipidemia:? Continue home amlodipine, lisinopril, beta-kavita, statin Diabetes:? Hold home regimen.? Insulin sliding.? Monitor fingerstick glucose Hypothyroidism:? Continue levothyroxine Quality Stroke Does the patient have a stroke diagnosis?: No VTE Prior VTE?: No VTE Risk Level:: Medical - moderate - high VTE Device Contraindication: Treatment Not Indicated VTE Drug Contraindication: N/A - Med Ordered
[2021-02-28 15:23] LABS: PTT Heparin Drip 59.9 SEC (53-77.9)
[2021-02-28 15:58] LABS: Glucose, Whole Blood 297 mg/dL (60-115)
--- NOTE | 2021-02-28 16:13 | MHC.CM.PN ---
CM ATTEMPTED TO MEET WITH PT WHO WAS ON THE PHONE, CM WILL RETURN TOMORROW MORNING,
[2021-02-28 20:08] LABS: Glucose, Whole Blood 223 mg/dL (60-115)
[2021-02-28] MEDS: Atorvastatin Calcium 80 MG TABLET PO (21:56)
[2021-02-28] MEDS: diphenhydrAMINE HCL 25 MG TABLET PO (21:56)
[2021-02-28] MEDS: amLODIPine Besylate 5 MG TABLET PO (21:56)
[2021-02-28] MEDS: Heparin Sodium,Porcine/1/2NS 25,000 UNIT/250 ML IV.SOLN 8.62 UNIT IVCONT (22:05)
[2021-03-01] VITALS (10 sets, daily range): BP systolic 117–183; BP diastolic 63–81; PULSE 54–74; RESP 18–20; TEMP 36.1–36.7; O2SAT 96–99
[2021-03-01] MEDS: Levothyroxine Sodium 75 MCG TABLET PO (05:51)
[2021-03-01 06:29] LABS: PTT Heparin Drip 52.1 SEC (53-77.9)
[2021-03-01] MEDS: Heparin Sodium,Porcine 5,000 UNIT/ML VIAL 2500 UNIT IVPUSH (06:43)
[2021-03-01 07:27] LABS: Glucose, Whole Blood 202 mg/dL (60-115)
[2021-03-01] MEDS: Insulin Lispro 100 UNIT/ML 3 ML VIAL SUBCUT ×3 (07:57→21:48)
[2021-03-01] MEDS: Ranolazine 500 MG TAB.ER.12H 1000 MG PO ×2 (07:58→21:48)
[2021-03-01] MEDS: Isosorbide Mononitrate 60 MG TAB.ER.24H PO (07:58)
[2021-03-01] MEDS: 0.9 % Sodium Chloride Flush 3 ML SYRINGE IVFLUSH ×2 (07:59→21:49)
[2021-03-01] MEDS: Metoprolol Tartrate 25 MG TABLET PO ×2 (07:59→21:48)
--- NOTE | 2021-03-01 11:25 | P.PNCA_ITS ---
Subjective Subjective Date of Service: 03/01/21 Interval history: on heparin gtt. Pain free. Physical Exam Vital Signs: Last Vital Signs Temp 97.8 F 03/01/21 10:58 Pulse 54 03/01/21 10:58 Resp 20 03/01/21 10:58 BP 121/63 03/01/21 10:58 Pulse Ox 98 03/01/21 10:58 Body Mass Index 22.5 GENERAL APPEARANCE: in no acute distress, pleasant. NECK: no carotid bruit, no jugular venous distention. SKIN: no suspicious lesions, warm and dry. HEART: no murmurs, regular rate and rhythm. LUNGS: clear to auscultation bilaterally. ABDOMEN: soft, nontender. EXTREMITIES: no edema. PERIPHERAL PULSES: equal. NEUROLOGIC: No gross deficits, AAO X 3 Results Labs and Meds Result diagrams: 02/28/21 05:59 02/28/21 05:59 Lab results: Laboratory Results - last 24 hr 02/28/21 02/28/21 02/28/21 14:54 15:49 19:57 PTT (Heparin Protocol) 59.9 POC Glucose 297 H 223 H 03/01/21 03/01/21 05:59 07:20 PTT (Heparin Protocol) 52.1 L POC Glucose 202 H Progress Note: A&P Assessment and plan (1) NSTEMI (non-ST elevated myocardial infarction): Status: Acute Assessment and Plan: 71-year-old female with known CAD and previous PCI presenting for chest pain at rest and NSTEMI. She has been started on heparin drip and has been stable. She has contrast allergy. restarted on prednisone 50 mg twice a day along with Pepcid b.i.d. starting tomorrow morning. Will transfer her tomorrow for potential cardiac cathete rization on Tuesday. Continue heparin drip. Thank you for allowing me to participate in the care of your patient. Please feel free to contact me if you have any questions. Fall Risk Details Current Medications: Current Medications Generic Name Dose Route Start Last Admin Trade Name Freq PRN Reason Stop Dose Admin Acetaminophen 650 mg 02/27/21 21:00 Acetaminophen 325 Mg Tablet PO Q6H PRN Pain, Mild (Pain Scale 1-3) Amlodipine Besylate 5 mg 02/28/21 21:00 02/28/21 21:56 Amlodipine Besylate 5 Mg Tablet PO 5 mg BEDTIME DILIP Administration Protocol Aspirin 81 mg 02/27/21 21:15 Aspirin Enteric Coated 81 Mg Tablet.Dr PO ONCE DILIP Atorvastatin Calcium 80 mg 02/28/21 21:00 02/28/21 21:56 Atorvastatin Calcium 80 Mg Tablet PO 80 mg BEDTIME DILIP Administration Dextrose 25 gm 02/27/21 21:00 Dextrose 50 % 25 Gm/50 Ml Vial IVPUSH Q15M PRN per Hypoglycemia Standing Ord. Protocol Glucose 15 gm 02/27/21 21:00 Glucose Gel 15 Gm Gel..Gram. PO Q15M PRN per Hypoglycemia Standing Ord. Protocol Heparin Sodium (Porcine) 3,400 unit 02/27/21 19:03 Heparin Sodium,Porcine 5,000 Unit/Ml Vial 40 unit/kg (3400 unit) IVPUSH PROTOCOL BOLUS PRN 40 unit/kg - Heparin Protocol Protocol Heparin Sodium (Porcine) 2,500 unit 02/27/21 21:03 03/01/21 06:43 Heparin Sodium,Porcine 5,000 Unit/Ml Vial 40 unit/kg (2500 unit) 2,500 unit IVPUSH Administration PROTOCOL BOLUS PRN 40 unit/kg - Heparin Protocol Protocol Heparin Sodium (Porcine) 5,100 unit 02/27/21 21:03 Heparin Sodium,Porcine 5,000 Unit/Ml Vial 80 unit/kg (5100 unit) IVPUSH PROTOCOL BOLUS PRN 80 unit/kg - Heparin Protocol Protocol Heparin Sodium/Sodium Chloride 25,000 unit in 250 mls @ 0 mls/hr 02/27/21 19:15 03/01/21 06:44 IVCONT 12 units/kg/hr .Q0M DILIP 10.34 mls/hr Titration Protocol Per Protocol Heparin Sodium/Sodium Chloride 25,000 unit in 250 mls @ 0 mls/hr 02/27/21 21:15 IVCONT .Q0M DILIP Protocol Per Protocol Insulin Human Lispro 0 unit 02/27/21 21:00 03/01/21 07:57 Insulin Lispro 100 Unit/Ml 3 Ml Vial SUBCUT 4 unit QIDACHS [facility] Administration Protocol Isosorbide Mononitrate 60 mg 02/28/21 09:00 03/01/21 07:58 Isosorbide Mononitrate 60 Mg Tab.Er.24h PO 60 mg DAILY DILIP Administration Protocol Ketorolac Tromethamine 1 drop 02/28/21 09:00 03/01/21 07:58 Ketorolac Tromethamine 0.5% Op 3 Ml Drops EYE-LEFT 1 drop DAILY DILIP Administration Levothyroxine Sodium 75 mcg 02/28/21 06:00 03/01/21 05:51 Levothyroxine Sodium 75 Mcg Tablet PO 75 mcg DAILY@0600 DILIP Administration Lisinopril 5 mg 02/28/21 09:00 03/01/21 07:58 Lisinopril 5 Mg Tablet PO 5 mg DAILY DILIP Administration Protocol Melatonin 6 mg 02/27/21 21:00 Melatonin 3 Mg Tablet PO BEDTIME PRN Insomnia Metoprolol Tartrate 25 mg 02/28/21 09:00 03/01/21 07:59 Metoprolol Tartrate 25 Mg Tablet PO 25 mg BID DILIP Administration Protocol Nitroglycerin 0.4 mg 02/27/21 21:00 Nitroglycerin 0.4 Mg Tab.Subl SUBLINGUAL Q5MX3 PRN Chest Pain Pharmacy Consult 1 each 02/27/21 17:04 Consult Rx Perform Med Rec MISCELLANE ONCE PRN Consult order Ranolazine 1,000 mg 02/27/21 21:15 03/01/21 07:58 Ranolazine 500 Mg Tab.Er.12h PO 1,000 mg Q12H DILIP Administration Senna 17.2 mg 02/27/21 21:00 Sennosides 8.6 Mg Tablet PO BEDTIME PRN Constipation Sodium Chloride 3 ml 02/28/21 00:00 03/01/21 07:59 0.9 % Sodium Chloride Flush 3 Ml Syringe IVFLUSH 3 ml QSHIFT DILIP Administration Time Spent With Patient Time: Total time spent is greater than 50% in coordination of care (as documented) at patient's floor/unit and/or counseling patient: Time with patient: 25 - 35 minutes Progress Note: Quality Stroke Does the patient have a stroke diagnosis?: No Procedures Date of Service Date of Service: 03/01/21
[2021-03-01 11:42] LABS: Glucose, Whole Blood 211 mg/dL (60-115)
--- NOTE | 2021-03-01 12:31 | P.PNIM_ITS ---
Subjective Subjective Date of Service: 03/01/21 Interval History: F/u on NSTEMI, no chest pain. Hemodynamically stable P Review of Systems Gen: no fever Resp: no sob, no cough CV: no chest, no COLE, no leg edema GI: No n/v, no abd pain Neuro: No confusion Physical Exam Vital Signs: Vital Signs: Last Vital Signs Temp 97.8 F 03/01/21 10:58 Pulse 54 03/01/21 10:58 Resp 20 03/01/21 10:58 BP 121/63 03/01/21 10:58 Pulse Ox 98 03/01/21 10:58 Body Mass Index 22.5 Const: Other: General: AO X 3, no acute distress Resp: CTA bilateral CVS: S1,S2,RRR GI: +BS, NT, no distention Skin: No rash Neuro: motor grossly intact Psych: appropriate affect Objective Data Current Medications Generic Name Dose Route Start Last Admin Trade Name Freq PRN Reason Stop Dose Admin Acetaminophen 650 mg 02/27/21 21:00 Acetaminophen 325 Mg Tablet PO Q6H PRN Pain, Mild (Pain Scale 1-3) Amlodipine Besylate 5 mg 02/28/21 21:00 02/28/21 21:56 Amlodipine Besylate 5 Mg Tablet PO 5 mg BEDTIME DILIP Administration Protocol Aspirin 81 mg 02/27/21 21:15 Aspirin Enteric Coated 81 Mg Tablet.Dr PO ONCE DILIP Atorvastatin Calcium 80 mg 02/28/21 21:00 02/28/21 21:56 Atorvastatin Calcium 80 Mg Tablet PO 80 mg BEDTIME DILIP Administration Dextrose 25 gm 02/27/21 21:00 Dextrose 50 % 25 Gm/50 Ml Vial IVPUSH Q15M PRN per Hypoglycemia Standing Ord. Protocol Glucose 15 gm 02/27/21 21:00 Glucose Gel 15 Gm Gel..Gram. PO Q15M PRN per Hypoglycemia Standing Ord. Protocol Heparin Sodium (Porcine) 3,400 unit 02/27/21 19:03 Heparin Sodium,Porcine 5,000 Unit/Ml Vial 40 unit/kg (3400 unit) IVPUSH PROTOCOL BOLUS PRN 40 unit/kg - Heparin Protocol Protocol Heparin Sodium (Porcine) 2,500 unit 02/27/21 21:03 03/01/21 06:43 Heparin Sodium,Porcine 5,000 Unit/Ml Vial 40 unit/kg (2500 unit) 2,500 unit IVPUSH Administration PROTOCOL BOLUS PRN 40 unit/kg - Heparin Protocol Protocol Heparin Sodium (Porcine) 5,100 unit 02/27/21 21:03 Heparin Sodium,Porcine 5,000 Unit/Ml Vial 80 unit/kg (5100 unit) IVPUSH PROTOCOL BOLUS PRN 80 unit/kg - Heparin Protocol Protocol Heparin Sodium/Sodium Chloride 25,000 unit in 250 mls @ 0 mls/hr 02/27/21 19:15 03/01/21 06:44 IVCONT 12 units/kg/hr .Q0M DILIP 10.34 mls/hr Titration Protocol Per Protocol Heparin Sodium/Sodium Chloride 25,000 unit in 250 mls @ 0 mls/hr 02/27/21 21:15 IVCONT .Q0M DILIP Protocol Per Protocol Insulin Human Lispro 0 unit 02/27/21 21:00 03/01/21 11:55 Insulin Lispro 100 Unit/Ml 3 Ml Vial SUBCUT 4 unit QIDACHS [facility] Administration Protocol Isosorbide Mononitrate 60 mg 02/28/21 09:00 03/01/21 07:58 Isosorbide Mononitrate 60 Mg Tab.Er.24h PO 60 mg DAILY [facility] Administration Protocol Ketorolac Tromethamine 1 drop 02/28/21 09:00 03/01/21 07:58 Ketorolac Tromethamine 0.5% Op 3 Ml Drops EYE-LEFT 1 drop DAILY [facility] Administration Levothyroxine Sodium 75 mcg 02/28/21 06:00 03/01/21 05:51 Levothyroxine Sodium 75 Mcg Tablet PO 75 mcg DAILY@0600 DILIP Administration Lisinopril 5 mg 02/28/21 09:00 03/01/21 07:58 Lisinopril 5 Mg Tablet PO 5 mg DAILY DILIP Administration Protocol Melatonin 6 mg 02/27/21 21:00 Melatonin 3 Mg Tablet PO BEDTIME PRN Insomnia Metoprolol Tartrate 25 mg 02/28/21 09:00 03/01/21 07:59 Metoprolol Tartrate 25 Mg Tablet PO 25 mg BID [facility] Administration Protocol Nitroglycerin 0.4 mg 02/27/21 21:00 Nitroglycerin 0.4 Mg Tab.Subl SUBLINGUAL Q5MX3 PRN Chest Pain Pharmacy Consult 1 each 02/27/21 17:04 Consult Rx Perform Med Rec MISCELLANE ONCE PRN Consult order Ranolazine 1,000 mg 02/27/21 21:15 03/01/21 07:58 Ranolazine 500 Mg Tab.Er.12h PO 1,000 mg Q12H DILIP Administration Senna 17.2 mg 02/27/21 21:00 Sennosides 8.6 Mg Tablet PO BEDTIME PRN Constipation Sodium Chloride 3 ml 02/28/21 00:00 03/01/21 07:59 0.9 % Sodium Chloride Flush 3 Ml Syringe IVFLUSH 3 ml QSHIFT DILIP Administration Labs CBC & Chem 7: 02/28/21 05:59 02/28/21 05:59 Labs: Laboratory Results - last 24 hr 02/28/21 02/28/21 02/28/21 14:54 15:49 19:57 PTT (Heparin Protocol) 59.9 POC Glucose 297 H 223 H 03/01/21 03/01/21 03/01/21 05:59 07:20 11:33 PTT (Heparin Protocol) 52.1 L POC Glucose 202 H 211 H Assessment and Plan (1) NSTEMI (non-ST elevated myocardial infarction): Status: Acute (2) Chest pain: Status: Acute (3) Type 2 diabetes mellitus with hyperglycemia, with long-term current use of insulin: Status: Acute Assessment and Plan: 71-year-old female with a past medical history of hypertension, hyperlipidemia, diabetes, coronary artery disease status post RCA stent, chronic kidney disease, CHF hyperparathyroidism, hypothyroidism, vitamin-D deficiency history of en docarditis of the mitral valve presented to the hospital with a chief complaint of chest pain. NSTEMI/unstable angian:?Pain free, HD stable -Medical management with heparin, ASA, BB, statin -Will need cardiac cath per cardiology, has dye allergy so will need steroid before cath-- -Transfer to [facility] [place] tomorrow, premedication with Prednisone and Pepcid starting tomorrow morning, Prednisone 50 bid, Pepcid 20 bid History of CAD:stent to RCA in 2010 and 2018. Moderate disease in LAD and circumflex territory Echo: 07/24/2020 shows EF 60-65%, positive basal inferior and basal inferior lateral wall akinetic with moderate MR Continue above managment Hypertension: Norvasc, Lisinopril, BB HLD-Statin Diabetes--SSI hyperlipidemia:? Continue home amlodipine, lisinopril, beta-kavita, statin Diabetes:? Hold home regimen.? Insulin sliding.? Monitor fingerstick glucose Hypothyroidism:? Continue levothyroxine DVT proph; heparin Quality Stroke Does the patient have a stroke diagnosis?: No VTE Prior VTE?: No VTE Risk Level:: Medical - moderate - high VTE Device Contraindication: Treatment Not Indicated VTE Drug Contraindication: N/A - Med Ordered
[2021-03-01 13:33] LABS: PTT Heparin Drip 85.2 SEC (53-77.9)
--- NOTE | 2021-03-01 13:46 | MHC.CM.PN ---
Attempt at patient interview: patient tangential in conversation for 20 minutes. Unable to hold effective goal-oriented conversation. Call placed to son; no answer. Patient informed this CM she does not drive and walks everywhere with all of her bags on her shoulders and lives in an apartment in [place]. Other than her son, all of her other family members moved out of state. Patient indicates her plan was to be transferred to [facility]'s cardiac cath laboratory technician. Confirmed w/nurse that MD did write order for this, then this was cancelled. Patient states prior to her hospitalization, she walked 3 miles/day. If she is not transferred to [facility], then her D/C plan at this time is home w/transport to be set up for her given she does not drive and does not have family to come get her. CM to follow.
[2021-03-01 16:06] LABS: Glucose, Whole Blood 139 mg/dL (60-115)
[2021-03-01 20:04] LABS: Glucose, Whole Blood 350 mg/dL (60-115)
[2021-03-01 20:46] LABS: PTT Heparin Drip 60.6 SEC (53-77.9)
[2021-03-01] MEDS: Heparin Sodium,Porcine/1/2NS 25,000 UNIT/250 ML IV.SOLN 8.62 UNIT IVCONT (21:43)
[2021-03-01] MEDS: Atorvastatin Calcium 80 MG TABLET PO (21:48)
[2021-03-01] MEDS: amLODIPine Besylate 5 MG TABLET PO (21:49)
[2021-03-02] VITALS (8 sets, daily range): BP systolic 123–157; BP diastolic 65–83; PULSE 55–68; RESP 15–20; TEMP 36.1–37; O2SAT 97–99
[2021-03-02 02:27] LABS: PTT Heparin Drip 51.6 SEC (53-77.9)
[2021-03-02] MEDS: diphenhydrAMINE HCL 25 MG TABLET PO (02:59)
[2021-03-02] MEDS: Heparin Sodium,Porcine 5,000 UNIT/ML VIAL 2500 UNIT IVPUSH ×2 (03:00→19:23)
[2021-03-02] MEDS: Levothyroxine Sodium 75 MCG TABLET PO (05:20)
[2021-03-02 07:30] LABS: Glucose, Whole Blood 154 mg/dL (60-115)
--- NOTE | 2021-03-02 07:30 | CA_ITS ---
Transthoracic Echocardiogram Patient (Last, First, Middle): Richelle Garcia, Gender: Female Date of : 1950 Age: 71 Procedure Date: 03/02/2021 Procedure Type: Transthoracic Echocardiogram [place] [facility] [place]: 167.64 cm Weight: 63.05 kg BSA: 1.71 m2 Heart Rate: bpm BP: 157 / 80 mmHg Director Medical Economics: AUSTYN/MAYTE Referring MD: Kaden Lester MD Examination Supervisor: Pedro Jc MD Symptoms: angina; COLE Study Quality: Fair ECG Rhythm: Sinus Conclusions: - 1. Normal LV systolic function with regional wall motion abnormality of the inferior inferolateral wall with grade 1 diastolic dysfunction 2. Mild to moderate mitral regurgitation due to restricted posterior mitral leaflet 3. No gross pericardial effusion Findings Left Ventricle Normal left ventricular cavity size. There is normal left ventricular wall thickness. The left ventricular systolic function is low normal. The visually estimated ejection fraction is between 55-60%. Spectral Doppler is indicative of an impaired relaxation filling pattern. E/E prime ratio is <8, consistent with normal filling pressures. Evidence suggests grade I (mild) diastolic dysfunction. Wall Motion Rest Echo Findings The basal inferior and basal inferolateral segments are akinetic. All other scored wall segments showed normal motion. Right Ventricle Normal right ventricular cavity size and systolic function. Atria The left atrium is mildly dilated. There is lipomatous hypertrophy of the interatrial septum. There is no evidence of interatrial shunt. The right atrium is normal in size. Aortic Valve Normal aortic valve structure and function. There is no aortic valve stenosis. There is no aortic valve regurgitation. Mitral Valve There is mild anterior and moderate posterior mitral leaflet thickening. There is mild to moderate mitral valve regurgitation. There is no mitral valve stenosis. Pulmonic Valve The pulmonic valve was not well visualized. Tricuspid Valve There is trace tricuspid valve regurgitation. Tricuspid regurgitation envelope is inadequate for calculation of right ventricular systolic pressure. Great Vessels All visible segments of the aorta are normal in size. The pulmonary artery was not well visualized. Venous The inferior vena cava is normal in size and collapses greater than 50% with inspiration. Pericardium/Pleural There is no evidence of pericardial effusion. Prior Study Comparison No significant change compared to prior study dated: 07/24/2020. Measurements 2D Linear Measurements IVSd: 0.96 0.6-0.9/0.6-1.0 cm LVIDd: 4.68 3.9-5.3/4.2-5.9 cm LVIDd Index: 2.74 2.4-3.2/2.2-3.1 cm/m2 LVIDs: 3.51 2.0-3.6 cm LVPWd: 0.84 0.7-1.1 cm Ao Root: 3.00 2.1-3.5 cm LA Diam: 4.10 2.7-3.8/3.0-4.0 cm LAIDs Index: 2.40 1.5-2.3 cm/m2 LV Mass: 175.59 67-162/88-224 g LV Mass Index: 102.69 43-95/49-115 g/m2 LVOT Diam: 2.30 3.0+(-)1.3 cm Mitral Valve MV Pk E: 0.59 MV PK A: 1.10 MV Decel Time: 321.00 E/A: 0.50 E'Lateral: 7.07 E'Medial: 3.70 E/E' Med: 16.10 E/E' Lat: 8.40 PHT: 94.00 MVA PHT: 2.34 Decel Martin: 1.85 Aortic Valve AoV Pk Howard: 1.32 AoV Mn Howard: 1.03 AoV VTI: 0.32 AoV Pk Grad: 7.00 Aov Mn Grad: 5.00 ARIAN Cont.VTI: 3.66 LVOT LVOT Pk Howard: 1.32 LVOT Mn Howard: 0.85 LVOT VTI: 0.28 LVOT Pk Grad: 7.00 LVOT Mn Grad: 3.00 LVOT Diam: 2.30 LVOT Area: 4.15 Diastolic Function MV Pk E: 0.59 MV Pk A: 1.10 E/A: 0.50 E'Medial: 3.70 E/E' Med: 16.10 E' Laterial: 7.07 E/E' Lat: 8.40 Right Ventricle TAPSE (mm): 2.12 Great Vessels Aorta Ao Root-2D: 3.00 2.0-3.7 cm Ao Asc: 3.40 2.1-3.4 cm Ao Arch: 2.80 Updated in Other Vendor System with Status of Final Pedro Jc MD electronically signed on 03/02/2021 5:06:21 PM with status of Final
[2021-03-02] MEDS: Famotidine 20 MG TABLET PO ×2 (08:08→22:26)
[2021-03-02] MEDS: predniSONE 10 MG TABLET 50 MG PO ×2 (08:08→22:25)
[2021-03-02] MEDS: 0.9 % Sodium Chloride Flush 3 ML SYRINGE IVFLUSH ×2 (08:08→22:27)
[2021-03-02] MEDS: Isosorbide Mononitrate 60 MG TAB.ER.24H PO (08:08)
[2021-03-02] MEDS: Metoprolol Tartrate 25 MG TABLET PO ×2 (08:09→22:26)
[2021-03-02] MEDS: Insulin Lispro 100 UNIT/ML 3 ML VIAL SUBCUT ×4 (08:09→22:26)
[2021-03-02 09:34] LABS: PTT Heparin Drip 99.2 SEC (53-77.9)
--- NOTE | 2021-03-02 10:11 | P.PNCA_ITS ---
Subjective Subjective Date of Service: 03/02/21 Principal diagnosis: Acute coronary syndrome Interval history: Patient having no chest pain. Review of Systems Review of Systems Yes all other systems are reviewed and are negative Constitutional: Reports no additional constitutional complaints Cardiovascular: Reports no additional cardiovascular complaints Respiratory: Reports no additional respiratory complaints Gastrointestinal: Reports no additional gastrointestinal complaints Genitourinary: Reports no additional female genitourinary complaints Musculoskeletal: Reports no additional musculoskeletal complaints Skin/Breast: Reports system reviewed and no additional complaints, except as docu Reports system reviewed and no additional complaints, except as documented Psychiatric: Reports no additional psychiatric complaints Physical Exam Vital Signs: Last Vital Signs Temp 97.4 F 03/02/21 07:06 Pulse 61 03/02/21 08:08 Resp 18 03/02/21 07:06 BP 148/65 H 03/02/21 07:06 Pulse Ox 98 03/02/21 07:06 Body Mass Index 22.5 Const General: cooperative, comfortable and no acute distress Nutritional Appearance: average body habitus Orientation/consciousness: patient oriented x3 Neck Neck: Yes trachea midline, Yes supple and Yes no JVD Resp Effort & Inspection: normal respiratory effort Auscultation: clear to auscultation bilaterally Cardio Jugular venous distension: no JVD Palpation: normal PMI Rate: regular rate Rhythm: regular rhythm Heart sounds: S1 normal heart sound present and S2 normal heart sound present GI Auscultation: normal bowel sounds Neuro General: patient oriented x3 and no focal motor deficits Extrem General: Yes no clubbing, cyanosis or edema Results Labs and Meds Result diagrams: 02/28/21 05:59 02/28/21 05:59 Lab results: Laboratory Results - last 24 hr 03/01/21 03/01/21 03/01/21 11:33 12:48 15:56 PTT (Heparin Protocol) 85.2 H D POC Glucose 211 H 139 H 03/01/21 03/01/21 03/02/21 19:54 20:25 02:13 PTT (Heparin Protocol) 60.6 D 51.6 L POC Glucose 350 H* 03/02/21 03/02/21 07:05 09:10 PTT (Heparin Protocol) 99.2 H D POC Glucose 154 H Progress Note: A&P Assessment and plan (1) NSTEMI (non-ST elevated myocardial infarction): Status: Acute Assessment and Plan: Patient presents with symptoms at rest of myocardial ischemia with mildly abnormal troponin suggestive of acute coronary syndrome. She has been managed as outpatient for exertional angina on 4 antianginal agents. She did not tolerate higher dose of analysis in which was recently increased due to persistent symptoms exertional angina. Patient requires cardiac catheterization to further evaluate coronary anatomy and potential percutaneous intervention if possible. Continue IV heparin drip. Continue aspirin. Continue high-intensity statin therapy. Continue metoprolol and isosorbide therapy for now. Further treatment based on the findings of cardiac catheterization. Patient explained the risks, benefits, alternatives 2nd opinion procedure. She understands agreeable. Will arrange for transfer to [facility] today. Fall Risk Details Current Medications: Current Medications Generic Name Dose Route Start Last Admin Trade Name Freq PRN Reason Stop Dose Admin Acetaminophen 650 mg 02/27/21 21:00 Acetaminophen 325 Mg Tablet PO Q6H PRN Pain, Mild (Pain Scale 1-3) Amlodipine Besylate 5 mg 02/28/21 21:00 03/01/21 21:49 Amlodipine Besylate 5 Mg Tablet PO 5 mg BEDTIME DILIP Administration Protocol Aspirin 81 mg 02/27/21 21:15 Aspirin Enteric Coated 81 Mg Tablet.Dr PO ONCE DILIP Atorvastatin Calcium 80 mg 02/28/21 21:00 03/01/21 21:48 Atorvastatin Calcium 80 Mg Tablet PO 80 mg BEDTIME DILIP Administration Dextrose 25 gm 02/27/21 21:00 Dextrose 50 % 25 Gm/50 Ml Vial IVPUSH Q15M PRN per Hypoglycemia Standing Ord. Protocol Famotidine 20 mg 03/02/21 08:00 03/02/21 08:15 Famotidine 20 Mg Tablet PO Not Given BID DILIP Glucose 15 gm 02/27/21 21:00 Glucose Gel 15 Gm Gel..Gram. PO Q15M PRN per Hypoglycemia Standing Ord. Protocol Heparin Sodium (Porcine) 3,400 unit 02/27/21 19:03 Heparin Sodium,Porcine 5,000 Unit/Ml Vial 40 unit/kg (3400 unit) IVPUSH PROTOCOL BOLUS PRN 40 unit/kg - Heparin Protocol Protocol Heparin Sodium (Porcine) 2,500 unit 02/27/21 21:03 03/02/21 03:00 Heparin Sodium,Porcine 5,000 Unit/Ml Vial 40 unit/kg (2500 unit) 2,500 unit IVPUSH Administration PROTOCOL BOLUS PRN 40 unit/kg - Heparin Protocol Protocol Heparin Sodium (Porcine) 5,100 unit 02/27/21 21:03 Heparin Sodium,Porcine 5,000 Unit/Ml Vial 80 unit/kg (5100 unit) IVPUSH PROTOCOL BOLUS PRN 80 unit/kg - Heparin Protocol Protocol Heparin Sodium/Sodium Chloride 25,000 unit in 250 mls @ 0 mls/hr 02/27/21 19:15 03/02/21 09:39 IVCONT 0 units/kg/hr .Q0M DILIP 0 mls/hr Titration Protocol Per Protocol Heparin Sodium/Sodium Chloride 25,000 unit in 250 mls @ 0 mls/hr 02/27/21 21:15 IVCONT .Q0M DILIP Protocol Per Protocol Insulin Human Lispro 0 unit 02/27/21 21:00 03/02/21 08:09 Insulin Lispro 100 Unit/Ml 3 Ml Vial SUBCUT 2 unit QIDACHS [facility] Administration Protocol Isosorbide Mononitrate 60 mg 02/28/21 09:00 03/02/21 08:08 Isosorbide Mononitrate 60 Mg Tab.Er.24h PO 60 mg DAILY [facility] Administration Protocol Ketorolac Tromethamine 1 drop 02/28/21 09:00 03/02/21 09:36 Ketorolac Tromethamine 0.5% Op 3 Ml Drops EYE-LEFT 1 drop DAILY DILIP Administration Levothyroxine Sodium 75 mcg 02/28/21 06:00 03/02/21 05:20 Levothyroxine Sodium 75 Mcg Tablet PO 75 mcg DAILY@0600 DILIP Administration Lisinopril 5 mg 02/28/21 09:00 03/02/21 08:09 Lisinopril 5 Mg Tablet PO 5 mg DAILY DILIP Administration Protocol Melatonin 6 mg 02/27/21 21:00 Melatonin 3 Mg Tablet PO BEDTIME PRN Insomnia Metoprolol Tartrate 25 mg 02/28/21 09:00 03/02/21 08:09 Metoprolol Tartrate 25 Mg Tablet PO 25 mg BID [facility] Administration Protocol Nitroglycerin 0.4 mg 02/27/21 21:00 Nitroglycerin 0.4 Mg Tab.Subl SUBLINGUAL Q5MX3 PRN Chest Pain Pharmacy Consult 1 each 02/27/21 17:04 Consult Rx Perform Med Rec MISCELLANE ONCE PRN Consult order Prednisone 50 mg 03/02/21 08:00 03/02/21 08:15 Prednisone 10 Mg Tablet PO Not Given BID DILIP Ranolazine 1,000 mg 02/27/21 21:15 03/01/21 21:48 Ranolazine 500 Mg Tab.Er.12h PO 1,000 mg Q12H DILIP Administration Senna 17.2 mg 02/27/21 21:00 Sennosides 8.6 Mg Tablet PO BEDTIME PRN Constipation Sodium Chloride 3 ml 02/28/21 00:00 03/02/21 08:08 0.9 % Sodium Chloride Flush 3 Ml Syringe IVFLUSH 3 ml QSHIFT DILIP Administration Time Spent With Patient Time: Total time spent is greater than 50% in coordination of care (as documented) at patient's floor/unit and/or counseling patient: Time with patient: 25 - 35 minutes Progress Note: Quality Stroke Does the patient have a stroke diagnosis?: No Procedures Date of Service Date of Service: 03/02/21
[2021-03-02] MEDS: Heparin Sodium,Porcine/1/2NS 25,000 UNIT/250 ML IV.SOLN 5.7 UNIT IVCONT (10:44)
[2021-03-02] MEDS: Ranolazine 500 MG TAB.ER.12H 1000 MG PO ×2 (10:47→22:25)
[2021-03-02 11:20] LABS: Glucose, Whole Blood 301 mg/dL (60-115)
--- NOTE | 2021-03-02 13:01 | PM.DS ---
DS: Providers Provider Date of Service: 03/02/21 Date of admission: 02/27/21 21:01 Primary care physician: Johnny Rosa MD Consults: 02/27/21 21:04 Consult to Cardiology Routine Consulting Provider: Jose Elias Reason for consultation: NSTEMI DS: Diagnosis Discharge Diagnosis (1) NSTEMI (non-ST elevated myocardial infarction): Status: Acute DS: Medications Discharge Medications Home Medications: Home Medications Medication Instructions Recorded Confirmed levothyroxine 75 mcg tablet 75 mcg PO QAM 05/23/20 02/27/21 insulin aspart U-100 100 unit/mL See Rx Instructions SUBCUT TID 08/04/20 02/27/21 (3 mL) subcutaneous pen (Novolog Flexpen U-100 Insulin aspart) blood sugar diagnostic #10 ea 12/29/20 02/17/21 ketorolac 0.5 % eye drops 1 drp OPHTHALMIC-LEFT DAILY ml 12/29/20 02/27/21 lisinopril 5 mg tablet 5 mg PO DAILY 12/29/20 02/27/21 aspirin 81 mg tablet,delayed 81 mg PO ONCE tab 02/17/21 02/27/21 release amlodipine 5 mg tablet 5 mg PO BEDTIME 02/27/21 02/27/21 ranolazine 1,000 mg 1,000 mg PO Q12H 02/27/21 02/27/21 tablet,extended release,12 hr (Ranexa) Previous Rx's Medication Instructions Recorded lancets (OneTouch UltraSoft #100 ea 07/03/20 Lancets) pen needle, diabetic 32 gauge x #100 ea 07/03/20/32 (BD Ultra-Fine Carrie Pen Needle) flash glucose scanning reader #1 ea 09/17/20 (FreeStyle Akbar 2 [place]) flash glucose sensor (FreeStyle #2 ea 09/17/20 Akbar 2 Sensor) isosorbide mononitrate 60 mg 60 mg PO DAILY 90 Days #90 tab 11/25/20 tablet,extended release 24 hr metoprolol tartrate 25 mg tablet 25 mg PO BID 90 Days #180 tab 12/19/20 insulin glargine 100 unit/mL (3 10 unit SUBCUT QPM #15 ml 02/24/21 mL) subcutaneous pen (Lantus Solostar U-100 Insulin) atorvastatin 80 mg tablet 80 mg PO BEDTIME #30 tab 03/01/21 heparin (porcine) 25,000 unit/250 25,000 unit CONTINUOUS IV INFUSION 03/01/21 mL in 0.45 % sodium chloride IV .Q0M #250 ml lee DS: Summary Hospital Course Hospital Course: Chief Complaint: chest pain 71-year-old female with a past medical history of hypertension, hyperlipidemia, diabetes, coronary artery disease status post RCA stent, chronic kidney disease, CHF hyperparathyroidism, hypothyroidism, vitamin-D deficiency history of endocarditis of the mitral valve presented to the hospital with a chief complaint of chest pain. Patient reported that she has been having intermittent episodes of the chest pain located on the side of, associated shortness of breath, radiating to; patient mentions that she took at home with improvement in the chest pain.? Patient also complains of dyspnea on exertion. Patient reported that she has seen her flake miller helper as outpatient recently and was considering cardiac catheterization. At the time of my interview patient reports that the chest pain improved.? Denies any lightheadedness dizziness.? Denies any fever chills cough.? Denies any GI or symptoms. Denies any signs of bleeding. Review of all other systems is negative except mentioned above ER course: Per ER team patient's troponins were indeterminate; EKG was nonischemic; discussed with Cardiology Dr elias given recurrent anginal symptoms; mentioned that admit the patient to [facility] and start heparin drip and he plan for an elective catheterization am Hospital course: STEMI/unstable angian:She has been medically treated with with IV heparin, ASA, BB, statin. Cardiology (Dr. Elias) recommends further risk stratification wit cardiac cath which will done at [facility]. She has dye allergy and so was started on Prednisone 50 bid, Pepcid 220 bid today. Of note, she has History of CAD:stent to RCA in 2010 and 2018. Moderate disease in LAD and circumflex territory Echo: 07/24/2020 shows EF 60-65%, positive basal inferior and basal inferior lateral wall akinetic with moderate MR Hypertension: Norvasc, Lisinopril, Metoprolol HLD-Statin (Lipitor 80) Diabetes--SSI Diabetes:? Hold home regimen.? Insulin sliding.? Monitor fin Hypothyroidism:? Continue levothyroxine Time Spent with Patient Time attestation: Total time spent providing and/or coordinating discharge services: Discharge coordination time: Greater than 30 minutes Quality: Stroke Does the patient have a stroke diagnosis?: No Physical Exam Vital Signs: Vital Signs: Last Vital Signs Temp 97.6 F 03/02/21 11:13 Pulse 55 03/02/21 11:13 Resp 18 03/02/21 11:13 BP 123/70 03/02/21 11:13 Pulse Ox 98 03/02/21 11:13 Body Mass Index 22.5 Constitutional Awake and Alert, No apparent distress Neck Supple, No lymphadenopathy Cardiovascular RRR, No M/R/G, S1 S2, No S3 S4, No pedal edema Respiratory Lungs clear, No respiratory distress Gastrointestinal Non tender, Non-distended Skin No rash Neurological Alert & oriented x3 Psychological Appropriate affect DS: Data Data Completed and Pending Labs on day of discharge: Laboratory Results - last 24 hr 03/01/21 03/01/21 03/01/21 12:48 15:56 19:54 PTT (Heparin Protocol) 85.2 H D POC Glucose 139 H 350 H* 03/01/21 03/02/21 03/02/21 20:25 02:13 07:05 PTT (Heparin Protocol) 60.6 D 51.6 L POC Glucose 154 H 03/02/21 03/02/21 09:10 11:12 PTT (Heparin Protocol) 99.2 H D POC Glucose 301 H Discharge Plan Discharge Anticipated Discharge Date/Time: 03/02/21 13:00 Patient Disposition: Xfer Acute Care Hospital Discharge Diagnosis: NSTEMI with underlying CAD Referrals: Johnny Rosa MD [Primary Care Provider] - 1 Week Discharge Medications: New heparin(porcine) in 0.45% NaCl 25,000 unit/250 mL Parenteral Solution 25,000 unit continuous IV infusion .Q0M Qty: 250 RF: 0 atorvastatin 80 mg Tablet 80 mg PO BEDTIME Qty: 30 RF: 0 prednisone 10 mg Tablet 50 mg PO BID 2 Days Qty: 20 RF: 0 famotidine 20 mg Tablet 20 mg PO BID Qty: 3 RF: 0 Continued (DME) lancets [OneTouch UltraSoft Lancets] Misc See Rx Instructions .ROUTE .MEDSUPPLY Qty: 100 RF: 11 (DME) pen needle, diabetic [BD Ultra-Fine Carrie Pen Needle] 32 gauge x 5/32 needle See Rx Instructions .ROUTE .MEDSUPPLY Qty: 100 RF: 3 (DME) FreeStyle Akbar 2 Sensor Kit See Rx Instructions .ROUTE .MEDSUPPLY Qty: 2 RF: 5 (DME) FreeStyle Akbar 2 [place] Misc See Rx Instructions .ROUTE .MEDSUPPLY Qty: 1 RF: 0 isosorbide mononitrate 60 mg tablet extended release 24 hr 60 mg PO DAILY 90 Days Qty: 90 RF: 3 metoprolol tartrate 25 mg tablet 25 mg PO BID 90 Days Qty: 180 RF: 1 Lantus Solostar U-100 Insulin 100 unit/mL (3 mL) insulin pen 10 unit subcut QPM Qty: 15 RF: 0 ranolazine [Ranexa] 1,000 mg tablet extended release 12 hr 1,000 mg PO Q12H RF: 0 amlodipine 5 mg tablet 5 mg PO BEDTIME RF: 0 levothyroxine 75 mcg tablet 75 mcg PO QAM RF: 0 insulin aspart U-100 [Novolog Flexpen U-100 Insulin] 100 unit/mL (3 mL) insulin pen See Rx Instructions subcut TID RF: 0 aspirin 81 mg tablet,delayed release (DR/EC) 81 mg PO ONCE RF: 0 (DME) blood sugar diagnostic Strip See Rx Instructions ea .ROUTE .MEDSUPPLY Qty: 10 RF: 0 ketorolac 0.5 % drops 1 drp ophthalmic-Left DAILY RF: 0 lisinopril 5 mg tablet 5 mg PO DAILY RF: 0 Discontinued rosuvastatin 20 mg tablet 40 mg PO DAILY RF: 0 Discharge Orders: Discharge Order (Routine); Ordered 03/02/21 Ordered By: Robert Calvo Diet: advance to usual diet and diabetic diet Activity on Discharge: As tolerated Stand Alone Forms: Patient Portal Discharge page Care Plan Goals: Full work up for NSTEMI Health Concerns: CAD, now NSTEMI Plan of Treatment: Cardiac catherization and further manaement after that, transfer to [facility] for cardiac cath Assessment: as above
[2021-03-02 16:34] LABS: Glucose, Whole Blood 334 mg/dL (60-115)
[2021-03-02 17:10] LABS: PTT Heparin Drip 48.2 SEC (53-77.9)
[2021-03-02 20:56] LABS: Glucose, Whole Blood 260 mg/dL (60-115)
[2021-03-02] MEDS: Atorvastatin Calcium 80 MG TABLET PO (22:25)
[2021-03-02] MEDS: amLODIPine Besylate 5 MG TABLET PO (22:26)
[2021-03-03] VITALS: BP 163/80; PULSE 71; RESP 18; TEMP 36.1; O2SAT 99
[2021-03-03] MEDS: diphenhydrAMINE HCL 25 MG TABLET PO (00:28)
[2021-03-03 01:37] LABS: PTT Heparin Drip 82.1 SEC (53-77.9)
[2021-03-03 04:00] VITALS: BP 147/60; PULSE 63; RESP 18; TEMP 36.8; O2SAT 99
[2021-03-03 07:23] VITALS: BP 170/85; PULSE 85; RESP 18; TEMP 36.6; O2SAT 93
[2021-03-03 07:37] LABS: Glucose, Whole Blood 443 mg/dL (60-115)
[2021-03-03] MEDS: Insulin Lispro 100 UNIT/ML 3 ML VIAL SUBCUT (07:55)
== END 2021-03-03 07:57 | disposition short-term general hospital (02) | DRG 281 ==
LOC: HO.ED 19:06 → HO.IMC 21:36
PROVIDERS: Admitting Provider Hospitalist; Emergency Provider Emergency Medicine; PCP Internal Medicine; Visit Provider Internal Medicine
DX: I21.4 Non-ST elevation (NSTEMI) myocardial infarction (principal); I13.0 Hypertensive heart and chronic kidney disease with heart failure and stage 1 through stage 4 chronic kidney disease, or unspecified chronic kidney disease; I25.10 Atherosclerotic heart disease of native coronary artery without angina pectoris; E78.5 Hyperlipidemia, unspecified; E03.9 Hypothyroidism, unspecified; E11.22 Type 2 diabetes mellitus with diabetic chronic kidney disease; E11.65 Type 2 diabetes mellitus with hyperglycemia; N18.9 Chronic kidney disease, unspecified; I50.9 Heart failure, unspecified; Z79.82 Long term (current) use of aspirin; Z79.4 Long term (current) use of insulin; Z79.899 Other long term (current) drug therapy
CPT/HCPCS: 0241U; 36415; 71045; 80048; 80076; 82077; 82947; 83735; 83880; 84484; 85025; 85027; 85610; 85730; 93005; 93306; 99285; Q0163

== ENCOUNTER → 2021-03-16 11:12 | Outpatient (BNVA) | payer MEDICARE, SELFPAY | PROVIDERS: PCP Internal Medicine; Referring Provider Internal Medicine; Visit Provider Internal Medicine Cardiovascular Disease | DX: I25.10 Atherosclerotic heart disease of native coronary artery without angina pectoris (principal); I10 Essential (primary) hypertension; Z79.899 Other long term (current) drug therapy; I25.2 Old myocardial infarction; Z95.2 Presence of prosthetic heart valve | CPT/HCPCS: 99212 ==

== ENCOUNTER 2021-04-27 16:17 | Outpatient (REF) | payer MEDICARE, OTHER, SELFPAY ==
[2021-04-27 16:36] LABS: MANUAL DIFF FLAG NO
[2021-04-27 16:53] LABS: Basophils Percent Auto 0.4 % (0-2); Eosinophils Absolute Auto 0.2 X10*3/uL (0.0-0.4); Hematocrit 32.9 % (37-47); Hemoglobin 10.6 g/dl (12.0-16.0); Imm Gran Abs Auto 0.02 X10*3/uL (0.00-0.03); Imm Gran Pct Auto 0.4 % (0.0-0.4); Lymphocytes Absolute Auto 1.3 X10*3/uL (1.2-4.9); Lymphocytes Percent Auto 23.1 % (20-40); Mean Corpuscular HGB Conc 32.2 g/dl (31.0-35.0); Mean Corpuscular Hemoglobin 30.9 pg (27.0-33.0); Mean Corpuscular Volume 95.9 fL (80-98); Mean Platelet Volume 9.9 fL (9.4-12.3); Monocytes Absolute Auto 0.6 X10*3/uL (0.1-1.2); Neutrophils Absolute Auto 3.3 X10*3/uL (2.0-8.3); Neutrophils Percent Auto 61.1 % (45-73); Platelet Count 216 X10*3/uL (160-400); Red Blood Count 3.43 X10*6/uL (4.20-5.50); Red Cell Distribution Width 12.3 % (11.0-16.0); White Blood Count 5.5 X10*3/uL (4.8-10.8)
[2021-04-27 16:58] LABS: Estimated Average Glucose 151 mg/dL; Hemoglobin A1c % 6.9 %
[2021-04-27 17:11] LABS: Alanine Aminotransferase 60 U/L (0-31); Albumin Level 3.9 g/dL (3.5-5.0); Alkaline Phosphatase 146 U/L (39-117); Anion Gap 12 (12-20); Aspartate Amino Transferase 86 U/L (5-31); Bilirubin Total 0.4 mg/dL (0.0-1.0); Blood Urea Nitrogen 28 mg/dL (9-16); Calcium 9.2 mg/dL (8.4-10.2); Carbon Dioxide 27 mmol/L (22-29); Chloride 107 mmol/L (96-108); Estimated Glomerular Filt Rate 31; Glucose Random 138 mg/dL (60-115); Potassium 4.3 mmol/L (3.3-5.1); Sodium 142 mmol/L (135-145); Total Protein 6.2 g/dL (6.5-8.0)
[2021-04-27 17:32] LABS: Free T4 (Free Thyroxine) 1.16 ng/dL (0.71-1.85); Thyroid Stimulating Hormone 2.13 uIU/mL (0.32-4.0)
== END 2021-04-27 16:18 | disposition home or self-care (01) ==
LOC: HO.LAB 16:17
PROVIDERS: PCP Internal Medicine; Visit Provider Internal Medicine
DX: E03.9 Hypothyroidism, unspecified (principal); E78.00 Pure hypercholesterolemia, unspecified; I25.10 Atherosclerotic heart disease of native coronary artery without angina pectoris; I12.9 Hypertensive chronic kidney disease with stage 1 through stage 4 chronic kidney disease, or unspecified chronic kidney disease; E11.22 Type 2 diabetes mellitus with diabetic chronic kidney disease; N18.9 Chronic kidney disease, unspecified
CPT/HCPCS: 36415; 80053; 83036; 84439; 84443; 85025

== ENCOUNTER 2021-05-05 00:21 | Emergency (ER) | payer MEDICARE, OTHER, SELFPAY ==
--- NOTE | 2021-05-05 | ECG_ITS ---
Test Reason : ANGINA Blood Pressure : / mmHG Vent. Rate : 076 BPM Atrial Rate : 076 BPM P-R Int : 198 ms QRS Dur : 120 ms QT Int : 382 ms P-R-T Axes : 099 018 -04 degrees QTc Int : 429 ms Normal sinus rhythm Intra-ventricular conduction delay Inferior infarct (cited on or before 06-APR-2020) Abnormal ECG When compared with ECG of 27-FEB-2021 16:57, No significant changes seen Referred By: Generic ED Physician Electronically Signed By:MANNIE MUNIZ MD
--- NOTE | ~2021-05-05 | XR_ITS ---
EXAMINATION: XR CHEST CLINICAL INFORMATION: Chest pain. COMPARISON: Chest radiograph dated from 02/27/2021. TECHNIQUE: AP view of the chest was obtained. FINDINGS: No significant abnormality is noted involving the heart, lungs, mediastinum, bony thorax or soft tissues. XR/XR chest 1V IMPRESSION: No acute cardiopulmonary findings.
[2021-05-05 00:31] VITALS: BMI 21.2
[2021-05-05 00:40] VITALS: BP 157/79; PULSE 77; RESP 18; TEMP 36.6; O2SAT 98; BMI 25.1
[2021-05-05 01:24] LABS: MANUAL DIFF FLAG NO
[2021-05-05 01:26] LABS: Basophils Percent Auto 0.6 % (0-2); Eosinophils Absolute Auto 0.1 X10*3/uL (0.0-0.4); Eosinophils Percent Auto 2.6 % (0-4); Hematocrit 31.8 % (37-47); Hemoglobin 10.4 g/dl (12.0-16.0); Imm Gran Abs Auto 0.01 X10*3/uL (0.00-0.03); Imm Gran Pct Auto 0.2 % (0.0-0.4); Lymphocytes Absolute Auto 1.6 X10*3/uL (1.2-4.9); Lymphocytes Percent Auto 29.8 % (20-40); Mean Corpuscular HGB Conc 32.7 g/dl (31.0-35.0); Mean Corpuscular Hemoglobin 31.2 pg (27.0-33.0); Mean Corpuscular Volume 95.5 fL (80-98); Mean Platelet Volume 9.2 fL (9.4-12.3); Monocytes Absolute Auto 0.5 X10*3/uL (0.1-1.2); Monocytes Percent Auto 10.1 % (2-11); Neutrophils Percent Auto 56.7 % (45-73); Platelet Count 196 X10*3/uL (160-400); Red Blood Count 3.33 X10*6/uL (4.20-5.50); Red Cell Distribution Width 12.2 % (11.0-16.0); White Blood Count 5.3 X10*3/uL (4.8-10.8)
[2021-05-05 01:44] LABS: Alanine Aminotransferase 25 U/L (0-31); Albumin Level 3.6 g/dL (3.5-5.0); Alkaline Phosphatase 122 U/L (39-117); Anion Gap 9 (12-20); Aspartate Amino Transferase 25 U/L (5-31); Bilirubin Total 0.5 mg/dL (0.0-1.0); Blood Urea Nitrogen 30 mg/dL (9-16); Calcium 9.2 mg/dL (8.4-10.2); Carbon Dioxide 26 mmol/L (22-29); Chloride 108 mmol/L (96-108); Creatinine Clr Calc Pharmacy 29.2; Estimated Glomerular Filt Rate 32; Glucose Random 170 mg/dL (60-115); Sodium 139 mmol/L (135-145); Total Protein 5.8 g/dL (6.5-8.0)
[2021-05-05 01:51] LABS: Troponin-I High Sensitivity 22.6 ng/L (<3.5-17.0)
[2021-05-05 03:24] VITALS: BP 157/69; PULSE 82; RESP 19; O2SAT 97
--- NOTE | 2021-05-05 05:53 | ED.CHESTPAIN ---
HPI - Chest Pain General Chief Complaint: Chest Pain Stated Complaint: chest pain w/ cardiac hx Time Seen by Provider: 05/05/21 05:48 Source: patient Mode of arrival: EMS Limitations: no limitations History of Present Illness HPI narrative: 71-year-old female who presents emergency department for evaluation of chest and neck pain. The patient states that she woke up at 3:00 a.m. in the morning and shortly after awakening she developed pain in her mid sternum. The pain then radiated to her neck. She describes the pain as a pressure-like pain. She states she also developed weakness. She states the pain was 4/10 at its worst. She denied nausea, vomiting or diaphoresis. She states the pain has been similar to her angina pain at her heart attack pain that she has had in the past. She states the pain was more mild than her heart attack pain. The pain lasted approximately 1 hour. She did take 2 of her own nitroglycerin tablets at home with relief for pain. She states that she called her field control inspector and was advised to call 911. She called an ambulance and was brought to the emergency department for evaluation. She did not receive any nitroglycerin in the ambulance. She states that she was pain-free when she arrived in the emergency department has not had any further episodes since being in the emergency department. The patient denied being ill prior to the onset of this pain. She denied fever, chills, abdominal pain, nausea, vomiting, pain or swelling in her lower extremities. Related Data Home Medications Medication Instructions Recorded Confirmed levothyroxine 75 mcg tablet 75 mcg PO QAM 05/23/20 03/16/21 insulin aspart U-100 100 unit/mL See Rx Instructions SUBCUT TID 08/04/20 03/16/21 (3 mL) subcutaneous pen (Novolog Flexpen U-100 Insulin aspart) ketorolac 0.5 % eye drops 1 drp OPHTHALMIC-LEFT DAILY ml 12/29/20 03/16/21 aspirin 81 mg tablet,delayed 81 mg PO ONCE tab 02/17/21 03/16/21 release amlodipine 5 mg tablet 5 mg PO BEDTIME 02/27/21 03/16/21 furosemide 20 mg tablet 40 mg PO DAILY 03/16/21 03/16/21 isosorbide mononitrate 60 mg 30 mg PO DAILY tab 03/16/21 03/16/21 tablet,extended release 24 hr rosuvastatin 40 mg tablet 40 mg PO DAILY 03/16/21 03/16/21 Previous Rx's Medication Instructions Recorded flash glucose scanning reader #1 ea 09/17/20 (FreeStyle Akbar 2 [place]) flash glucose sensor (FreeStyle #2 ea 09/17/20 Akbar 2 Sensor) metoprolol tartrate 25 mg tablet 25 mg PO BID 90 Days #180 tab 12/19/20 insulin glargine 100 unit/mL (3 10 unit SUBCUT QPM #15 ml 02/24/21 mL) subcutaneous pen (Lantus Solostar U-100 Insulin) heparin (porcine) 25,000 unit/250 25,000 unit CONTINUOUS IV INFUSION 03/01/21 mL in 0.45 % sodium chloride IV .Q0M #250 ml soln famotidine 20 mg tablet 20 mg PO BID #3 tab 03/02/21 clopidogrel 75 mg tablet 75 mg PO DAILY 90 Days #90 tab 03/27/21 nitroglycerin 0.4 mg sublingual 0.4 mg SUBLINGUAL Q5M 30 Days #25 03/31/21 tablet tab lancets (OneTouch UltraSoft #100 ea 04/01/21 Lancets) pen needle, diabetic 32 gauge x #2 box 04/01/21 5/32 (BD Ultra-Fine Carrie Pen Needle) blood sugar diagnostic #10 ea 04/10/21 Allergies Allergy/AdvReac Type Severity Reaction Status Date / Time Iodinated Contrast Media Allergy Unknown ANAPHYLAXIS Verified 12/29/20 09:46 [IV CONTRAST] Review of Systems Review of Systems: Yes all other systems are reviewed and are negative [facility] Past Medical History [facility] Narrative: Social history: Patient states that she lives in senior assisted living housing. She occasionally smokes cigarettes. She states she occasionally drinks alcohol. She denies drug use. Medical History CAD (coronary artery disease) CKD (chronic kidney disease) Congestive heart failure Endocarditis of mitral valve HTN (hypertension) Hyperkalemia Hyperlipidemia Hyperparathyroidism Hypothyroidism Non-compliance Type 2 diabetes mellitus with hyperglycemia, with long-term current use of insulin Viridans streptococci infection Vitamin D deficiency Surgical History History of cardiac catheterization Hx of section Hx of cholecystectomy Hx of tonsillectomy Malignant melanoma Myocardial infarction Stented coronary artery Family History Family History Father CVD (cardiovascular disease) Mother No problems noted. Social History Social History Household Members: None Housing: Assisted Living Facility Housing Other:: Senior housing Do you presently have visiting nurse or other home services: Yes Alcohol intake: never Patient Tobacco Use Status: Never used Tobacco Use of substances other than those prescribed or required for medical reasons: No Advance Directives: No service: No Physical Exam Vital Signs: Vital Signs: Last Vital Signs Temp 97.9 F 05/05/21 00:40 Pulse 71 05/05/21 06:30 Resp 18 05/05/21 06:30 BP 156/70 H 05/05/21 06:30 Pulse Ox 97 05/05/21 06:30 Body Mass Index 25.1 Const: General: cooperative and no acute distress Orientation/consciousness: oriented to person and oriented to place Limitations: no limitations HENMT: Head: Yes normal to inspection, Yes normocephalic and Yes atraumatic Ears: external ears normal General nose exam: Normal external nose present Face and sinus: Yes normal facial exam Mouth: Normal oral and palatal mucosa present Throat: Yes posterior oropharynx normal Eyes: General: appearance normal, both eyes and all related structures Pupils: Equal, round and reactive pupils present Neck: Neck: Yes normal visual inspection, Yes no lymphadenopathy, Yes trachea midline and Yes supple Chest: Chest palpation & inspection: normal inspection of the chest and normal palpation of entire chest wall Resp: Effort & Inspection: normal respiratory effort and able to speak in complete sentences Auscultation: clear to auscultation bilaterally Cardio: Rate: regular rate Rhythm: regular rhythm Heart sounds: S1 normal heart sound present, S2 normal heart sound present and no murmurs GI: Inspection: Yes normal to inspection Palpation (GI): Soft to palpation, nontender and no guarding Auscultation: normal bowel sounds : General: Yes no CVA tenderness Back/Spine/Pelvis: Back: no CVA tenderness Skin: General skin exam: no rashes or lesions noted Neuro: General: oriented to person and oriented to place Cranial nerves: Yes CN's II-XII intact bilaterally and Yes Equal, round and reactive pupils present Cognition (Neuro): normal cognition Motor exam (neuro): 5/5 motor strength present throughout Extrem: General: Yes normal to inspection Psych: Appearance: grossly normal Speech and movement: Normal speech and movement present Affect: normal affect Attitude: cooperative Thought process: Normal thought process present Thought content: Normal thought content present Course Course Course Narrative: 71-year-old female who presents emergency department for evaluation chest pain and throat pain which started shortly after she woke up at 3:00 a.m. this morning. She states that she had associated weakness but no other associated symptoms with the pain. She states the pain lasted approximately 1 hour. The pain was similar to her angina and heart attack pain that she has had in the past. Patient's vital signs revealed an elevated blood pressure of 157/79 otherwise were unremarkable. Patient's physical examination was normal. Laboratory evaluation revealed mild anemia which is chronic with an H&H of 10.4 and 31.8. Patient has an elevated BUN and creatinine of 31.57 which is chronic as well. Patient's 12 lead EKG was consistent with old inferior SC with no acute findings. The patient's initial high sensitivity troponin was 22.6. Repeat high sensitivity troponin approximately 5 hours later was 24.8 which is not a significant change. In looking back at her previous troponins she has had similar elevations in the past. At this time I do not think the patient has had acute myocardial infarction, she is currently pain-free, she will be discharged home. She was advised to contact her doctor for follow-up and return if her symptoms return or get worse in any way. MDM - Chest Pain Lab Data Result diagrams: 05/05/21 01:19 05/05/21 01:19 Labs: Lab Results 05/05/21 05/05/21 05/05/21 Range/Units 01:19 01:19 01:19 WBC 5.3 (4.8-10.8) X10*3/uL RBC 3.33 L (4.20-5.50) X10*6/uL Hgb 10.4 L (12.0-16.0) g/dl Hct 31.8 L (37-47) % MCV 95.5 (80-98) fL MCH 31.2 (27.0-33.0) pg MCHC 32.7 (31.0-35.0) g/dl RDW 12.2 (11.0-16.0) % Plt Count 196 (160-400) X10*3/uL MPV 9.2 L (9.4-12.3) fL Immature Gran % (Auto) 0.2 (0.0-0.4) % Neut % (Auto) 56.7 (45-73) % Lymph % (Auto) 29.8 (20-40) % [place] % (Auto) 10.1 (2-11) % Eos % (Auto) 2.6 (0-4) % Baso % (Auto) 0.6 (0-2) % Lymph # (Auto) 1.6 (1.2-4.9) X10*3/uL [place] # (Auto) 0.5 (0.1-1.2) X10*3/uL Eos # (Auto) 0.1 (0.0-0.4) X10*3/uL Baso # (Auto) 0.0 (0.0-0.2) X10*3/uL Abs Immat Gran (auto) 0.01 (0.00-0.03) X10*3/uL Absolute Neuts (auto) 3.0 (2.0-8.3) X10*3/uL Absolute Nucleated RBC 0.000 (0.0-0.012) X10*3/uL Nucleated RBC % (auto) 0.0 (0.0-0.2) /100WBC Sodium 139 (135-145) mmol/L Potassium 4.0 (3.3-5.1) mmol/L Chloride 108 (96-108) mmol/L Carbon Dioxide 26 (22-29) mmol/L Anion Gap 9 L (12-20) BUN 30 H (9-16) mg/dL Creatinine 1.57 H (0.5-1.4) mg/dL Estim Creat Clear Calc 29.2 Estimated GFR 32 Random Glucose 170 H (60-115) mg/dL Calcium 9.2 (8.4-10.2) mg/dL Total Bilirubin 0.5 (0.0-1.0) mg/dL AST 25 D (5-31) U/L ALT 25 (0-31) U/L Alkaline Phosphatase 122 H (39-117) U/L Troponin I High Sens 22.6 H* (<3.5-17.0) ng/L Total Protein 5.8 L (6.5-8.0) g/dL Albumin 3.6 (3.5-5.0) g/dL Discharge Plan Discharge Clinical Impression: Chest pain Qualifiers: Chest pain type: unspecified Qualified Code(s): R07.9 - Chest pain, unspecified Patient Disposition: Home, Self-Care Instructions: Chest Pain (ED) Additional Instructions: Your laboratory evaluation revealed elevated troponin of 22.6. Your repeat troponin 5 hours later was 24.8. This is not a significant elevation and this is reassuring and suggests that you have not had heart attack today. Continue taking medications as prescribed by your providers. Take Tylenol (acetaminophen) 500 mg pills, 2 pills every 4 to 6 hours as needed for pain. Follow-up with your doctor in 2 days. Please return to the emergency department if your symptoms get worse or if you develop any symptoms that are concerning to you. Prescriptions: No Action (DME) FreeStyle Akbar 2 Sensor Kit See Rx Instructions .ROUTE .MEDSUPPLY Qty: 2 RF: 5 (DME) FreeStyle Akbar 2 [place] Misc See Rx Instructions .ROUTE .MEDSUPPLY Qty: 1 RF: 0 metoprolol tartrate 25 mg tablet 25 mg PO BID 90 Days Qty: 180 RF: 1 Lantus Solostar U-100 Insulin 100 unit/mL (3 mL) insulin pen 10 unit subcut QPM Qty: 15 RF: 0 clopidogrel 75 mg tablet 75 mg PO DAILY 90 Days Qty: 90 RF: 3 nitroglycerin 0.4 mg tablet, sublingual 0.4 mg sublingual Q5M 30 Days Qty: 25 RF: 1 (DME) lancets [OneTouch UltraSoft Lancets] Misc See Rx Instructions .ROUTE .MEDSUPPLY Qty: 100 RF: 11 (DME) pen needle, diabetic [BD Ultra-Fine [place] Pen Needle] 32 gauge x 5/32 needle See Rx Instructions .ROUTE .MEDSUPPLY Qty: 2 RF: 3 (DME) blood sugar diagnostic Strip See Rx Instructions ea .ROUTE .MEDSUPPLY Qty: 10 RF: 11 amlodipine 5 mg tablet 5 mg PO BEDTIME RF: 0 heparin(porcine) in 0.45% NaCl 25,000 unit/250 mL Parenteral Solution 25,000 unit continuous IV infusion .Q0M Qty: 250 RF: 0 famotidine 20 mg Tablet 20 mg PO BID Qty: 3 RF: 0 levothyroxine 75 mcg tablet 75 mcg PO QAM RF: 0 insulin aspart U-100 [Novolog Flexpen U-100 Insulin] 100 unit/mL (3 mL) insulin pen See Rx Instructions subcut TID RF: 0 aspirin 81 mg tablet,delayed release (DR/EC) 81 mg PO ONCE RF: 0 ketorolac 0.5 % drops 1 drp ophthalmic-Left DAILY RF: 0 rosuvastatin 40 mg tablet 40 mg PO DAILY RF: 0 furosemide 20 mg tablet 40 mg PO DAILY RF: 0 isosorbide mononitrate 60 mg tablet extended release 24 hr 30 mg PO DAILY RF: 0
[2021-05-05 06:30] VITALS: BP 156/70; PULSE 71; RESP 18; O2SAT 97
[2021-05-05 06:51] LABS: Troponin-I High Sensitivity 24.8 ng/L (<3.5-17.0)
--- NOTE | 2021-05-05 10:23 | PC.NURSE ---
pt reports to security she is missing over $600 worth of insulin this rn to wr and pt states she is missing $700 worth of glucometer and supplies room 3 where pt was checked with security. no belongings found in room or in linen bin etc pt encouraged to check multiple bags with her as well as at home and with mao watt
== END 2021-05-05 07:06 | disposition home or self-care (01) ==
PROVIDERS: Emergency Provider Emergency Medicine Emergency Medical Services
DX: R07.9 Chest pain, unspecified (principal); I25.10 Atherosclerotic heart disease of native coronary artery without angina pectoris; I13.2 Hypertensive heart and chronic kidney disease with heart failure and with stage 5 chronic kidney disease, or end stage renal disease; E11.22 Type 2 diabetes mellitus with diabetic chronic kidney disease; N18.5 Chronic kidney disease, stage 5; Z79.899 Other long term (current) drug therapy; Z79.4 Long term (current) use of insulin
CPT/HCPCS: 36415; 71045; 80053; 84484; 85025; 93005; 99283; 99284

== ENCOUNTER 2021-05-18 15:04 | Outpatient (REF) | payer MEDICARE, OTHER, SELFPAY ==
[2021-05-18 15:33] LABS: Appearance Urine HAZY; Color Urine YELLOW; Glucose Urine UA NEG (NEG); Leukocyte Esterase Urine 3+ (NEG); Nitrite Urine NEG (NEG); Specific Gravity - Urine 1.025 (1.005-1.025); UACC Culture Trigger YES; Urine Blood TRACE (NEG); Urine Ketones NEG (NEG); Urine Protein 2+ MG/DL (NEG-TRACE)
[2021-05-18 15:43] LABS: Bacteria Urine 4+ /LPF; Squamous Epithelial Cell Urine 1+ /LPF
== END 2021-05-18 15:05 | disposition home or self-care (01) ==
LOC: HO.LAB 15:04
PROVIDERS: PCP Internal Medicine; Visit Provider Internal Medicine
DX: R30.0 Dysuria (principal); R35.0 Frequency of micturition
CPT/HCPCS: 81001; 87086; 87088; 87186

== ENCOUNTER 2021-06-03 16:36 | Inpatient (IN) | payer MEDICARE, OTHER, SELFPAY ==
[2021-06-03] VITALS (7 sets, daily range): BP systolic 126–167; BP diastolic 54–89; PULSE 64–72; RESP 15–18; TEMP 36.7–36.9; O2SAT 97–99; BMI 22.6
--- NOTE | ~2021-06-03 | CT_ITS ---
EXAMINATION: CT HEAD WITHOUT CONTRAST CLINICAL INFORMATION: Head trauma. COMPARISON: Prior head CT from 04/16/2020. TECHNIQUE: Contiguous axial imaging was performed from the skull base to vertex without intravenous administration of contrast. This CT examination was performed using dose optimization techniques as appropriate, variously including the following: *Automated exposure control *Adjustment of mA and/or kV according to patient size (this includes techniques or standardized protocols for targeted exams where dose is matched to indication/reason for exam; i.e. extremities or head) *Use of iterative reconstruction technique DLP: 593 mGy-cm FINDINGS: There is no evidence of acute intracranial hemorrhage or territorial infarction. No abnormal mass effect or midline shift is seen. [place] to white matter differentiation is well preserved. No extra-axial fluid collections are identified. The ventricles are normal in size. There is no abnormal attenuation within the brain parenchyma. The osseous structures and soft tissues are normal. The mastoid air cells and visualized portions of the paranasal sinuses are well aerated. CT/CT head/brain wo con IMPRESSION: No acute intracranial pathology.
--- NOTE | 2021-06-03 17:02 | ED_ITS ---
HPI - Weakness General Chief complaint: Abdominal Pain Stated complaint: weakness Time Seen by Provider: 06/03/21 17:02 Source: patient History of Present Illness HPI Narrative: Patient is 71 years old with past medical history of hypertension, hyperlipidemia, diabetes, coronary artery disease, CKD, CHF comes to the ER for multiple complaints including weakness and diarrhea for last few days was at [facility] earlier today left against medical advice without discharge papers patient is complaining of diffuse abdominal pain has a incisional hernia which has been there for long time. No vomiting no fever no chills no shortness of breath Related Data Home Medications Medication Instructions Recorded Confirmed levothyroxine 75 mcg tablet 75 mcg PO QAM 05/23/20 03/16/21 insulin aspart U-100 100 unit/mL See Rx Instructions SUBCUT TID 08/04/20 03/16/21 (3 mL) subcutaneous pen (Novolog Flexpen U-100 Insulin aspart) ketorolac 0.5 % eye drops 1 drp OPHTHALMIC-LEFT DAILY ml 12/29/20 03/16/21 aspirin 81 mg tablet,delayed 81 mg PO ONCE tab 02/17/21 03/16/21 release furosemide 20 mg tablet 40 mg PO DAILY 03/16/21 03/16/21 isosorbide mononitrate 60 mg 30 mg PO DAILY tab 03/16/21 03/16/21 tablet,extended release 24 hr rosuvastatin 40 mg tablet 40 mg PO DAILY 03/16/21 03/16/21 Previous Rx's Medication Instructions Recorded flash glucose scanning reader #1 ea 09/17/20 (FreeStyle Akbar 2 [place]) flash glucose sensor (FreeStyle #2 ea 09/17/20 Akbar 2 Sensor) metoprolol tartrate 25 mg tablet 25 mg PO BID 90 Days #180 tab 12/19/20 heparin (porcine) 25,000 unit/250 25,000 unit (250 mL) CONTINUOUS IV 03/01/21 mL in 0.45 % sodium chloride IV INFUSION .Q0M #250 ml soln famotidine 20 mg tablet 20 mg PO BID #3 tab 03/02/21 clopidogrel 75 mg tablet 75 mg PO DAILY 90 Days #90 tab 03/27/21 nitroglycerin 0.4 mg sublingual 0.4 mg SUBLINGUAL Q5M 30 Days #25 03/31/21 tablet tab lancets (OneTouch UltraSoft #100 ea 04/01/21 Lancets) pen needle, diabetic 32 gauge x #2 box 04/01/21 5/32 (BD Ultra-Fine Carrie Pen Needle) blood sugar diagnostic #10 ea 04/10/21 amlodipine 5 mg tablet 5 mg PO BEDTIME #90 tab 05/28/21 insulin glargine 100 unit/mL (3 10 unit (0.1 mL) SUBCUT QPM #15 ml 05/28/21 mL) subcutaneous pen (Lantus Solostar U-100 Insulin) Allergies Allergy/AdvReac Type Severity Reaction Status Date / Time Iodinated Contrast Media Allergy Unknown ANAPHYLAXIS Verified 12/29/20 09:46 [IV CONTRAST] [facility] Past Medical History Medical History CAD (coronary artery disease) CKD (chronic kidney disease) Congestive heart failure Endocarditis of mitral valve HTN (hypertension) Hyperkalemia Hyperlipidemia Hyperparathyroidism Hypothyroidism Non-compliance Type 2 diabetes mellitus with hyperglycemia, with long-term current use of insulin Viridans streptococci infection Vitamin D deficiency Surgical History History of cardiac catheterization Hx of section Hx of cholecystectomy Hx of tonsillectomy Malignant melanoma Myocardial infarction Stented coronary artery Family History Family History Father CVD (cardiovascular disease) Mother No problems noted. Social History Social History Household Members: None Housing: Assisted Living Facility Housing Other:: Senior housing Do you presently have visiting nurse or other home services: Yes Alcohol intake: former Patient Tobacco Use Status: Former Tobacco user Smoked in Last 30 Days: No Use of substances other than those prescribed or required for medical reasons: No Advance Directives: No Advance Directives Information Provided: No service: No Physical Exam Vital Signs: Vital Signs: Last Vital Signs Temp 98.0 F 06/03/21 21:02 Pulse 71 06/03/21 23:16 Resp 16 06/03/21 23:16 BP 154/64 H 06/03/21 23:16 Pulse Ox 98 06/03/21 23:16 Body Mass Index 22.6 MDM - Weakness MDM Narrative Medical decision making narrative: Patient during stay started to very delusional says that she unable to take care of herself unable to understand her situation feel depressed will get case management involved. Patient has mild UTI without any sepsis findings without any leukocytosis or fever patient had UTI diagnosed on 05/18 but has not taken any antibiotics urine cultures grew E coli sensitive to Rocephin, already given Rocephin IV will continue Ceftin 250 mg twice daily patient UTI is not the cause of her delusional and non factual behavior will wait for case management to evaluate her in the morning Lab Data Attestation: I reviewed the patient's lab results. Result diagrams: 06/03/21 18:20 06/03/21 18:20 Labs: Lab Results 06/03/21 06/03/21 06/03/21 Range/Units 18:20 18:20 18:20 WBC 8.2 (4.8-10.8) X10*3/uL RBC 3.54 L (4.20-5.50) X10*6/uL Hgb 10.8 L (12.0-16.0) g/dl Hct 32.9 L (37.0-47.0) % MCV 92.9 (80.0-98.0) fL MCH 30.5 (27.0-33.0) pg MCHC 32.8 (31.0-35.0) g/dl RDW 12.0 (11.0-16.0) % Plt Count 196 (160-400) X10*3/uL MPV 10.1 (9.4-12.3) fL Immature Gran % (Auto) 0.5 H (0.0-0.4) % Neut % (Auto) 81.4 H (45-73) % Lymph % (Auto) 12.8 L (20-40) % [place] % (Auto) 4.7 (2-11) % Eos % (Auto) 0.4 (0-4) % Baso % (Auto) 0.2 (0-2) % Lymph # (Auto) 1.1 L (1.2-4.9) X10*3/uL [place] # (Auto) 0.4 (0.1-1.2) X10*3/uL Eos # (Auto) 0.0 (0.0-0.4) X10*3/uL Baso # (Auto) 0.0 (0.0-0.2) X10*3/uL Abs Immat Gran (auto) 0.04 H (0.00-0.03) X10*3/uL Absolute Neuts (auto) 6.7 (2.0-8.3) x10*3/uL Absolute Nucleated RBC 0.000 (0.0-0.012) X10*3/uL Nucleated RBC % (auto) 0.0 (0.0-0.2) /100WBC Sodium 142 (135-145) mmol/L Potassium 3.7 (3.3-5.1) mmol/L Chloride 109 H (96-108) mmol/L Carbon Dioxide 24 (22-29) mmol/L Anion Gap 13 (12-20) BUN 22 H (9-16) mg/dL Creatinine 1.46 H (0.5-1.4) mg/dL Estim Creat Clear Calc 25.0 Estimated GFR 35 Random Glucose 190 H (60-115) mg/dL Lactic Acid (0.5-2.0) mmol/L Calcium 9.1 (8.4-10.2) mg/dL Magnesium 2.1 (1.6-2.6) mg/dL Total Bilirubin 0.5 (0.0-1.0) mg/dL AST 29 (5-31) U/L ALT 27 (0-31) U/L Alkaline Phosphatase 158 H D (39-117) U/L Troponin I High Sens 18.5 H* (<3.5-17.0) ng/L Total Protein 6.0 L (6.5-8.0) g/dL Albumin 3.7 (3.5-5.0) g/dL TSH 1.42 (0.32-4.0) uIU/mL Urine Color Urine Appearance Urine pH (5.0-8.0) Ur Specific [place] (1.005-1.025) Urine Protein (NEG-TRACE) MG/DL Urine Glucose (UA) (NEG) MG/DL Urine Ketones (NEG) MG/DL Urine Blood (NEG) Urine Nitrite (NEG) Ur Leukocyte Esterase (NEG) Urine RBC (0) /HPF Urine WBC (0-4) /HPF Urine WBC Clumps Ur Squamous Epith Cells /LPF Urine Bacteria /LPF Urine Mucus /LPF COVID-19 ([facility]) (Negative) COVID-19 Clin Com 06/03/21 06/03/21 06/03/21 Range/Units 19:21 20:38 21:01 WBC (4.8-10.8) X10*3/uL RBC (4.20-5.50) X10*6/uL Hgb (12.0-16.0) g/dl Hct (37.0-47.0) % MCV (80.0-98.0) fL MCH (27.0-33.0) pg MCHC (31.0-35.0) g/dl RDW (11.0-16.0) % Plt Count (160-400) X10*3/uL MPV (9.4-12.3) fL Immature Gran % (Auto) (0.0-0.4) % Neut % (Auto) (45-73) % Lymph % (Auto) (20-40) % [place] % (Auto) (2-11) % Eos % (Auto) (0-4) % Baso % (Auto) (0-2) % Lymph # (Auto) (1.2-4.9) X10*3/uL [place] # (Auto) (0.1-1.2) X10*3/uL Eos # (Auto) (0.0-0.4) X10*3/uL Baso # (Auto) (0.0-0.2) X10*3/uL Abs Immat Gran (auto) (0.00-0.03) X10*3/uL Absolute Neuts (auto) (2.0-8.3) x10*3/uL Absolute Nucleated RBC (0.0-0.012) X10*3/uL Nucleated RBC % (auto) (0.0-0.2) /100WBC Sodium (135-145) mmol/L Potassium (3.3-5.1) mmol/L Chloride (96-108) mmol/L Carbon Dioxide (22-29) mmol/L Anion Gap (12-20) BUN (9-16) mg/dL Creatinine (0.5-1.4) mg/dL Estim Creat Clear Calc Estimated GFR Random Glucose (60-115) mg/dL Lactic Acid 0.5 (0.5-2.0) mmol/L Calcium (8.4-10.2) mg/dL Magnesium (1.6-2.6) mg/dL Total Bilirubin (0.0-1.0) mg/dL AST (5-31) U/L ALT (0-31) U/L Alkaline Phosphatase (39-117) U/L Troponin I High Sens (<3.5-17.0) ng/L Total Protein (6.5-8.0) g/dL Albumin (3.5-5.0) g/dL TSH (0.32-4.0) uIU/mL Urine Color STRAW Urine Appearance HAZY Urine pH 6.0 (5.0-8.0) Ur Specific [place] 1.010 (1.005-1.025) Urine Protein 1+ H (NEG-TRACE) MG/DL Urine Glucose (UA) NEG (NEG) MG/DL Urine Ketones NEG (NEG) MG/DL Urine Blood TRACE (NEG) Urine Nitrite NEG (NEG) Ur Leukocyte Esterase 2+ H (NEG) Urine RBC 0-2 (0) /HPF Urine WBC 30-49 H (0-4) /HPF Urine WBC Clumps NOTED Ur Squamous Epith Cells NONE /LPF Urine Bacteria 1+ /LPF Urine Mucus TRACE /LPF COVID-19 ([facility]) Negative (Negative) COVID-19 Clin Com See Note Discharge Plan Discharge Clinical Impression: Delusional disorder UTI (urinary tract infection) Qualifiers: Urinary tract infection type: acute cystitis Hematuria presence: without hematuria Qualified Code(s): N30.00 - Acute cystitis without hematuria Prescriptions: No Action (DME) FreeStyle Akbar 2 Sensor Kit See Rx Instructions .ROUTE .MEDSUPPLY Qty: 2 RF: 5 (DME) FreeStyle Akbar 2 [place] Misc See Rx Instructions .ROUTE .MEDSUPPLY Qty: 1 RF: 0 metoprolol tartrate 25 mg tablet 25 mg PO BID 90 Days Qty: 180 RF: 1 clopidogrel 75 mg tablet 75 mg PO DAILY 90 Days Qty: 90 RF: 3 nitroglycerin 0.4 mg tablet, sublingual 0.4 mg sublingual Q5M 30 Days Qty: 25 RF: 1 (DME) lancets [OneTouch UltraSoft Lancets] Misc See Rx Instructions .ROUTE .MEDSUPPLY Qty: 100 RF: 11 (DME) pen needle, diabetic [BD Ultra-Fine Carrie Pen Needle] 32 gauge x 5/32 needle See Rx Instructions .ROUTE .MEDSUPPLY Qty: 2 RF: 3 (DME) blood sugar diagnostic Strip See Rx Instructions ea .ROUTE .MEDSUPPLY Qty: 10 RF: 11 Lantus Solostar U-100 Insulin 100 unit/mL (3 mL) insulin pen 10 unit subcut QPM Qty: 15 RF: 1 amlodipine 5 mg tablet 5 mg PO BEDTIME Qty: 90 RF: 3 heparin(porcine) in 0.45% NaCl 25,000 unit/250 mL Parenteral Solution 25,000 unit continuous IV infusion .Q0M Qty: 250 RF: 0 famotidine 20 mg Tablet 20 mg PO BID Qty: 3 RF: 0 levothyroxine 75 mcg tablet 75 mcg PO QAM RF: 0 insulin aspart U-100 [Novolog Flexpen U-100 Insulin] 100 unit/mL (3 mL) insulin pen See Rx Instructions subcut TID RF: 0 aspirin 81 mg tablet,delayed release (DR/EC) 81 mg PO ONCE RF: 0 ketorolac 0.5 % drops 1 drp ophthalmic-Left DAILY RF: 0 rosuvastatin 40 mg tablet 40 mg PO DAILY RF: 0 furosemide 20 mg tablet 40 mg PO DAILY RF: 0 isosorbide mononitrate 60 mg tablet extended release 24 hr 30 mg PO DAILY RF: 0
--- NOTE | 2021-06-03 17:06 | ECG_ITS ---
Test Reason : Chest pain Blood Pressure : / mmHG Vent. Rate : 066 BPM Atrial Rate : 066 BPM P-R Int : 194 ms QRS Dur : 118 ms QT Int : 426 ms P-R-T Axes : 106 028 021 degrees QTc Int : 446 ms Normal sinus rhythm Intra-ventricular conduction delay Nonspecific T wave abnormality Inferior leads Abnormal ECG No significant changes seen Referred By: Abhishek Ramos Electronically Signed By:MANNIE MUNIZ MD
[2021-06-03] MEDS: 0.9 % Sodium Chloride 1,000 ML 999 ML IVCONT (18:20)
[2021-06-03 18:25] LABS: MANUAL DIFF FLAG NO
[2021-06-03 18:42] LABS: Basophils Percent Auto 0.2 % (0-2); Eosinophils Percent Auto 0.4 % (0-4); Hematocrit 32.9 % (37.0-47.0); Hemoglobin 10.8 g/dl (12.0-16.0); Imm Gran Abs Auto 0.04 X10*3/uL (0.00-0.03); Imm Gran Pct Auto 0.5 % (0.0-0.4); Lymphocytes Absolute Auto 1.1 X10*3/uL (1.2-4.9); Lymphocytes Percent Auto 12.8 % (20-40); Mean Corpuscular HGB Conc 32.8 g/dl (31.0-35.0); Mean Corpuscular Hemoglobin 30.5 pg (27.0-33.0); Mean Corpuscular Volume 92.9 fL (80.0-98.0); Mean Platelet Volume 10.1 fL (9.4-12.3); Monocytes Absolute Auto 0.4 X10*3/uL (0.1-1.2); Monocytes Percent Auto 4.7 % (2-11); Neutrophils Absolute Auto 6.7 x10*3/uL (2.0-8.3); Neutrophils Percent Auto 81.4 % (45-73); Platelet Count 196 X10*3/uL (160-400); Red Blood Count 3.54 X10*6/uL (4.20-5.50); White Blood Count 8.2 X10*3/uL (4.8-10.8)
[2021-06-03 18:43] LABS: Alanine Aminotransferase 27 U/L (0-31); Albumin Level 3.7 g/dL (3.5-5.0); Alkaline Phosphatase 158 U/L (39-117); Anion Gap 13 (12-20); Aspartate Amino Transferase 29 U/L (5-31); Bilirubin Total 0.5 mg/dL (0.0-1.0); Blood Urea Nitrogen 22 mg/dL (9-16); Calcium 9.1 mg/dL (8.4-10.2); Carbon Dioxide 24 mmol/L (22-29); Chloride 109 mmol/L (96-108); Estimated Glomerular Filt Rate 35; Glucose Random 190 mg/dL (60-115); Magnesium 2.1 mg/dL (1.6-2.6); Potassium 3.7 mmol/L (3.3-5.1); Sodium 142 mmol/L (135-145)
[2021-06-03 18:59] LABS: Troponin-I High Sensitivity 18.5 ng/L (<3.5-17.0)
[2021-06-03 19:03] LABS: Thyroid Stimulating Hormone 1.42 uIU/mL (0.32-4.0)
--- NOTE | 2021-06-03 19:23 | PC.NURSE ---
Pt. oriented x 2. Well appearing. Speaking in full, clear sentences. RR equal and unlabored. LS CTA. abdomen is round, soft, nontender. BS present x 4 quadrants. no active nausea or vomiting. Skin pale, warm, dry. ambulator to restroom with minimal assistance. UA collected clean catch and sent
[2021-06-03 19:36] LABS: Appearance Urine HAZY; Color Urine STRAW; Glucose Urine UA NEG (NEG); Leukocyte Esterase Urine 2+ (NEG); Nitrite Urine NEG (NEG); UACC Culture Trigger YES; Urine Blood TRACE (NEG); Urine Ketones NEG (NEG); Urine Protein 1+ MG/DL (NEG-TRACE)
[2021-06-03 19:58] LABS: Bacteria Urine 1+ /LPF; Mucus Urine TRACE /LPF; RBC Urine 0-2 /HPF (0); WBC Clumps Urine NOTED; WBC Urine 30-49 /HPF (0-4)
--- NOTE | 2021-06-03 20:17 | PC.NURSE ---
PATIENT WAS ASSISTED TO BEDPAN BY THIS PCT .
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
[2021-06-03] MEDS: cefTRIAXone sodium 1 GM in 0.9 % Sodium Chloride 50 ML IV (20:40)
[2021-06-03 20:58] LABS: Lactic Acid 0.5 mmol/L (0.5-2.0)
--- NOTE | 2021-06-03 21:02 | MHC.CARE ---
CARE Team was consulted to meet with pt to evaluate her. Pt has a UTI and her current altered mental status prevents a complete evaluation at this time. Please consult CARE Team when pt is medically cleared.
[2021-06-03 21:23] LABS: COVID-19 Test Negative (Negative); IDNOW Serial# 9DD0AD1C
[2021-06-04] VITALS (12 sets, daily range): BP systolic 140–171; BP diastolic 52–68; PULSE 58–72; RESP 14–18; TEMP 36.6–37.2; O2SAT 97–100
--- NOTE | 2021-06-04 09:00 | PC.NURSE ---
pt alert, oriented x 2. vss. pt assisted to restroom to wash up. she reports joint pain all over but reports the pain is always. no nausea/vomiting/headache/dizziness. no sob. pt given breakfast, med given as documented. no apparent distress noted. will continue to monitor.
--- NOTE | 2021-06-04 09:28 | MHC.CM.ED ---
Patient remains in ER. Owen from Care Team made aware patient is medically cleared for eval. Continue to monitor for d/c needs.
--- NOTE | 2021-06-04 10:30 | PC.NURSE ---
pt rang rodriguez and told this resume writer that her IV fell out of her arm, this resume writer noted pt holding the IV in her hand. She denies pain at the IV site, no bleeding noted. gauze placed. Pt to be seen by Care Team. Physical Therapy evaluation pending. pt alert and oriented x2, vss. no apparent distress noted.
[2021-06-04 12:41] LABS: Glucose, Whole Blood 165 mg/dL (60-115)
--- NOTE | 2021-06-04 13:50 | PHA.MEDREC ---
Pharmacy Consult ? Medication Reconciliation Pharmacy has completed the medication reconciliation. Patient was very talkative and had stories about all her medications. Patient stopped taking aspirin. She would Clopidgrel change to elquis because she does like the adverse reaction of clopidgrel. Patient reports she has an allergy to cipro and cannot breath. She was recently prescribed cipro however did not take it. She does not believe in statin so she stopped her rosuvastatin. The doctor told her to stop ranolazine and was started on isosorbide mononitrate. She was no sure about how much insulin she use. Lantus was recent filled however she was talking about the sliding scale of her novlog. Tianna West, StevoD
[2021-06-04] MEDS: Isosorbide Mononitrate 30 MG TAB.ER.24H PO (14:25)
[2021-06-04] MEDS: Metoprolol Tartrate 25 MG TABLET PO ×2 (14:27→20:30)
[2021-06-04] MEDS: Clopidogrel Bisulfate 75 MG TABLET PO (14:27)
[2021-06-04] MEDS: Furosemide 40 MG TABLET PO (14:28)
--- NOTE | 2021-06-04 14:32 | MHC.CM.ED ---
Addendum entered by Nkechi Niño 06/04/21 15:10: Per Esther at [facility], patient's insurance does not have a residential benefit. Original Note: Physical therapy eval completed. No services anticipated to be needed per PT. Continue to monitor for d/c needs.
[2021-06-04] MEDS: Levothyroxine Sodium 75 MCG TABLET PO (15:45)
[2021-06-04 16:05] LABS: Glucose, Whole Blood 274 mg/dL (60-115)
[2021-06-04] MEDS: Insulin Lispro 100 UNIT/ML 3 ML VIAL SUBCUT (16:14)
--- NOTE | 2021-06-04 16:19 | MHC.CARE ---
Patient evaluated by CARE Team, she will require an inpatient psychiatric admission and was in agreement with plan at this writing. Providers updated.
[2021-06-04] MEDS: amLODIPine Besylate 5 MG TABLET PO (20:25)
[2021-06-04] MEDS: Insulin Glargine,Hum.rec.anlog 100 UNIT/ML 10 ML VIAL 10 UNIT SUBCUT (20:31)
--- NOTE | 2021-06-04 22:27 | PC.NURSE ---
PT initially refused eye drops, but has since changed her mind. PT is confused and disposition is fleeting.
--- NOTE | 2021-06-04 23:30 | PC.NURSE ---
pulmonary specialist and this RN confirmed with Kalli from CARE Team what the status was on this patient's current M5 transfer as it was previously reported that the pt had a bed but was awaiting authorization. At this time it is being reported that the patient is now a manuel psych bedsearch as she is too old for M5.
[2021-06-05] VITALS (7 sets, daily range): BP systolic 145–163; BP diastolic 72–78; PULSE 55–79; RESP 14–18; TEMP 36.4–37.1; O2SAT 97–98
[2021-06-05] MEDS: diphenhydrAMINE HCL 25 MG TABLET 50 MG PO (00:01)
--- NOTE | 2021-06-05 00:20 | PC.NURSE ---
Pt changed over to crisis attire with ease. All belongings secured with the exception of 1 ring that the patient was unable to remove despite many attempts with soap and water. Items secured in locker 11
--- NOTE | 2021-06-05 01:11 | PC.NURSE ---
PT transferred to room 6. PT ambulates with steady gait.
[2021-06-05] MEDS: Levothyroxine Sodium 75 MCG TABLET PO (06:49)
[2021-06-05 07:56] LABS: Glucose, Whole Blood 204 mg/dL (60-115)
[2021-06-05] MEDS: Insulin Lispro 100 UNIT/ML 3 ML VIAL SUBCUT ×2 (08:14→18:38)
[2021-06-05] MEDS: Clopidogrel Bisulfate 75 MG TABLET PO (08:14)
[2021-06-05] MEDS: Isosorbide Mononitrate 30 MG TAB.ER.24H PO (08:15)
[2021-06-05] MEDS: Metoprolol Tartrate 25 MG TABLET PO ×2 (08:15→21:23)
[2021-06-05] MEDS: Furosemide 40 MG TABLET PO (08:15)
--- NOTE | 2021-06-05 08:19 | PC.NURSE ---
pt refused her abx this morning sitter in place
--- NOTE | 2021-06-05 10:36 | PC.NURSE ---
[pt is currently asleep, respirations even and unlabored sitter in place, pt is a section 12 bed search
[2021-06-05 16:10] LABS: Glucose, Whole Blood 385 mg/dL (60-115)
[2021-06-05 17:51] LABS: Glucose, Whole Blood 317 mg/dL (60-115)
--- NOTE | 2021-06-05 20:33 | PC.NURSE ---
care team present with pt in her room, visable on the monitor. pt calm and cooperative and very talkative.
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
--- NOTE | 2021-06-05 21:21 | PC.NURSE ---
nurse to nurse report given to
[2021-06-05] MEDS: amLODIPine Besylate 5 MG TABLET PO (21:23)
[2021-06-05 21:33] LABS: Glucose, Whole Blood 83 mg/dL (60-115)
[2021-06-06] VITALS (8 sets, daily range): BP systolic 115–125; BP diastolic 59–66; PULSE 58–69; RESP 17–18; TEMP 36.6–36.9; O2SAT 96–99; BMI 22.6
[2021-06-06] MEDS: traZODone HCL 50 MG TABLET PO ×2 (01:06→22:36)
--- NOTE | 2021-06-06 02:27 | PC.ADMIT ---
Admitted a 71 yrs. old female per wheelchair accompanied by security from ED with primary c/o weakness and diarrhea,was noted to be delusional.Patient has diagnosis of Bipolar D/O and has been of psychiatric medication for several years.Upon arriving the unit Patient is alert and oriented x4,pleasant and cooperative w/ admission process. Skin is warm and dry,no open areas.With small old bruises to arms and upper legs.Patient has a hard mass on the abdomen and patient said it's benign tumor.Patient denies pain, denies SI/AH/VH. Patient contract for safety.Patient oriented to the unit and staff and given snacks.Patient signed all consents.Hospitalist,Coby Anand notified of admission and in w/ orders made and acknowledged.Patient said She has history of HTN and Diabetes. We'll continue to monitor patient.
[2021-06-06] MEDS: Levothyroxine Sodium 75 MCG TABLET PO (06:29)
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
[2021-06-06 08:01] LABS: Estimated Average Glucose 154 mg/dL
[2021-06-06 08:04] LABS: Free T4 (Free Thyroxine) 0.92 ng/dL (0.71-1.85); Thyroid Stimulating Hormone 1.63 uIU/mL (0.32-4.0)
[2021-06-06 08:23] LABS: Alanine Aminotransferase 19 U/L (0-31); Albumin Level 3.3 g/dL (3.5-5.0); Alkaline Phosphatase 140 U/L (39-117); Anion Gap 12 (12-20); Aspartate Amino Transferase 19 U/L (5-31); Bilirubin Total 0.2 mg/dL (0.0-1.0); Blood Urea Nitrogen 41 mg/dL (9-16); Calcium 8.4 mg/dL (8.4-10.2); Carbon Dioxide 24 mmol/L (22-29); Chloride 108 mmol/L (96-108); Cholesterol 150 mg/dL; Creatinine Clr Calc Pharmacy 21.2; Estimated Glomerular Filt Rate 29; Glucose Fasting 229 mg/dL (60-99); HDL Cholesterol 37 mg/dL; LDL Cholesterol Calculated 81 mg/dl; Sodium 140 mmol/L (135-145); Total Protein 5.5 g/dL (6.5-8.0); Triglycerides 162 mg/dL
[2021-06-06 08:31] LABS: Glucose, Whole Blood 204 mg/dL (60-115)
[2021-06-06] MEDS: Metoprolol Tartrate 25 MG TABLET PO ×2 (08:51→20:54)
[2021-06-06] MEDS: Clopidogrel Bisulfate 75 MG TABLET PO (08:51)
[2021-06-06] MEDS: Insulin Lispro 100 UNIT/ML 3 ML VIAL SUBCUT ×4 (08:55→22:31)
[2021-06-06] MEDS: Furosemide 40 MG TABLET PO (08:58)
[2021-06-06] MEDS: Isosorbide Mononitrate 30 MG TAB.ER.24H PO (08:59)
[2021-06-06 11:40] LABS: Glucose, Whole Blood 299 mg/dL (60-115)
[2021-06-06] MEDS: LORazepam 1 MG TABLET PO ×2 (11:46→20:54)
[2021-06-06 16:27] LABS: Glucose, Whole Blood 258 mg/dL (60-115)
[2021-06-06] MEDS: amLODIPine Besylate 5 MG TABLET PO (20:55)
[2021-06-06] MEDS: Insulin Glargine,Hum.rec.anlog 100 UNIT/ML 10 ML VIAL 10 UNIT SUBCUT (20:55)
[2021-06-06 22:01] LABS: Glucose, Whole Blood 299 mg/dL (60-115)
[2021-06-07 06:00] VITALS: BP 124/60; PULSE 60; RESP 16; TEMP 36.9; O2SAT 98
[2021-06-07] MEDS: Levothyroxine Sodium 75 MCG TABLET PO (06:07)
[2021-06-07 06:41] LABS: Glucose, Whole Blood 165 mg/dL (60-115)
[2021-06-07 06:46] LABS: MANUAL DIFF FLAG NO
[2021-06-07] MEDS: Insulin Lispro 100 UNIT/ML 3 ML VIAL SUBCUT ×2 (06:46→21:40)
[2021-06-07 07:11] LABS: Basophils Percent Auto 0.3 % (0-2); Eosinophils Absolute Auto 0.2 X10*3/uL (0.0-0.4); Eosinophils Percent Auto 3.2 % (0-4); Hematocrit 32.8 % (37.0-47.0); Hemoglobin 10.7 g/dl (12.0-16.0); Imm Gran Abs Auto 0.02 X10*3/uL (0.00-0.03); Imm Gran Pct Auto 0.3 % (0.0-0.4); Lymphocytes Absolute Auto 1.9 X10*3/uL (1.2-4.9); Lymphocytes Percent Auto 32.1 % (20-40); Mean Corpuscular HGB Conc 32.6 g/dl (31.0-35.0); Mean Corpuscular Hemoglobin 30.5 pg (27.0-33.0); Mean Corpuscular Volume 93.4 fL (80.0-98.0); Monocytes Absolute Auto 0.6 X10*3/uL (0.1-1.2); Monocytes Percent Auto 9.4 % (2-11); Neutrophils Absolute Auto 3.2 x10*3/uL (2.0-8.3); Neutrophils Percent Auto 54.7 % (45-73); Platelet Count 207 X10*3/uL (160-400); Red Blood Count 3.51 X10*6/uL (4.20-5.50); Red Cell Distribution Width 11.9 % (11.0-16.0); White Blood Count 5.9 X10*3/uL (4.8-10.8)
[2021-06-07 08:33] LABS: Alanine Aminotransferase 18 U/L (0-31); Albumin Level 3.3 g/dL (3.5-5.0); Alkaline Phosphatase 134 U/L (39-117); Anion Gap 10 (12-20); Aspartate Amino Transferase 15 U/L (5-31); Bilirubin Total 0.2 mg/dL (0.0-1.0); Blood Urea Nitrogen 51 mg/dL (9-16); Calcium 8.7 mg/dL (8.4-10.2); Carbon Dioxide 26 mmol/L (22-29); Chloride 108 mmol/L (96-108); Creatinine Clr Calc Pharmacy 20.5; Estimated Glomerular Filt Rate 28; Glucose Random 210 mg/dL (60-115); Potassium 4.5 mmol/L (3.3-5.1); Sodium 139 mmol/L (135-145); Total Protein 5.5 g/dL (6.5-8.0)
[2021-06-07] MEDS: Clopidogrel Bisulfate 75 MG TABLET PO (09:03)
[2021-06-07] MEDS: Metoprolol Tartrate 25 MG TABLET PO ×2 (09:03→19:56)
[2021-06-07] MEDS: Isosorbide Mononitrate 30 MG TAB.ER.24H PO (09:03)
[2021-06-07] MEDS: Furosemide 40 MG TABLET PO (09:05)
[2021-06-07] MEDS: LORazepam 1 MG TABLET PO ×2 (09:05→19:57)
--- NOTE | 2021-06-07 17:08 | PM.EVENT ---
Event Note Date of Service: 06/07/21 Event Note: Renal function looks fairly stable, no indication for IVF at this time. Continue monitoring
[2021-06-07 19:30] VITALS: BP 147/70; PULSE 74; RESP 18; TEMP 36.3; O2SAT 99
--- NOTE | 2021-06-07 19:39 | HO.PSYCHPN ---
Subjective Subjective Date of Service: 06/07/21 Reason For Visit: Bipolar Do Interim History: pt hyperverbal. c/o diabetic diet here not really being much of a diabetic diet at all. not attending to mental health issues or reasons for hospitalization. not attentive to social cues. informed her renal function is impaired and that she may need IV fluids; she does not appear to demonstrate any concern regarding her health. per staff, appears to have ALBA. bipolar disorder, has been off of medications for years. accepting ativan, declining risperidone. Mental Status Exam Mental Status Exam Narrative: Appearance: casually groomed, fair hygiene in NAD Behavior:overly talkative psychomotor:hyperkinesia but not agitation Speech:clear, mumbles at times, hyperverbal, pressured at times, difficult to interrupt, spontaneous Thought process:flight of ideas, tangential Thought content:varied, broad Mood:not assessed Affect: expansive SI:none HI:none VH/AH:denies but appears internally preoccupied. Delusions: none expressed Insight/judgment:impaired x 2. Memory/cog: alert, oriented to place, month, year but not situation. Diagnostics Vital Signs (24Hr): Vital Signs - 24 hr 06/06/21 20:54 06/06/21 20:55 06/06/21 22:41 Temperature 98.5 F Pulse Rate 63 63 63 Respiratory Rate 17 Blood Pressure 119/59 L 119/59 L 119/59 L Pulse Oximetry 99 06/07/21 06:00 Temperature 98.4 F Pulse Rate 60 Respiratory Rate 16 Blood Pressure 124/60 Pulse Oximetry 98 Body Mass Index 22.6 Labs Results: 06/07/21 06:35 06/07/21 06:35 Labs: Laboratory Results - last 48 hr 06/05/21 06/06/21 06/06/21 21:29 07:01 07:01 WBC RBC Hgb Hct MCV MCH MCHC RDW Plt Count MPV Immature Gran % (Auto) Neut % (Auto) Lymph % (Auto) [place] % (Auto) Eos % (Auto) Baso % (Auto) Lymph # (Auto) [place] # (Auto) Eos # (Auto) Baso # (Auto) Abs Immat Gran (auto) Absolute Neuts (auto) Absolute Nucleated RBC Nucleated RBC % (auto) Sodium 140 Potassium 4.0 Chloride 108 Carbon Dioxide 24 Anion Gap 12 BUN 41 H D Creatinine 1.72 H Estim Creat Clear Calc 21.2 Estimated GFR 29 POC Glucose 83 Random Glucose Fasting Glucose 229 H Estimat Average Glucose 154 Hemoglobin A1c % 7.0 Calcium 8.4 D Magnesium 2.0 Total Bilirubin 0.2 AST 19 ALT 19 Alkaline Phosphatase 140 H Total Protein 5.5 L Albumin 3.3 L Triglycerides 162 Cholesterol 150 D LDL Cholesterol, Calc 81 HDL Cholesterol 37 D TSH 1.63 Free T4 0.92 06/06/21 06/06/21 06/06/21 08:25 11:35 16:17 WBC RBC Hgb Hct MCV MCH MCHC RDW Plt Count MPV Immature Gran % (Auto) Neut % (Auto) Lymph % (Auto) [place] % (Auto) Eos % (Auto) Baso % (Auto) Lymph # (Auto) [place] # (Auto) Eos # (Auto) Baso # (Auto) Abs Immat Gran (auto) Absolute Neuts (auto) Absolute Nucleated RBC Nucleated RBC % (auto) Sodium Potassium Chloride Carbon Dioxide Anion Gap BUN Creatinine Estim Creat Clear Calc Estimated GFR POC Glucose 204 H 299 H 258 H Random Glucose Fasting Glucose Estimat Average Glucose Hemoglobin A1c % Calcium Magnesium Total Bilirubin AST ALT Alkaline Phosphatase Total Protein Albumin Triglycerides Cholesterol LDL Cholesterol, Calc HDL Cholesterol TSH Free T4 06/06/21 06/07/21 06/07/21 21:45 06:35 06:35 WBC 5.9 RBC 3.51 L Hgb 10.7 L Hct 32.8 L MCV 93.4 MCH 30.5 MCHC 32.6 RDW 11.9 Plt Count 207 MPV 10.0 Immature Gran % (Auto) 0.3 Neut % (Auto) 54.7 Lymph % (Auto) 32.1 [place] % (Auto) 9.4 Eos % (Auto) 3.2 Baso % (Auto) 0.3 Lymph # (Auto) 1.9 [place] # (Auto) 0.6 Eos # (Auto) 0.2 Baso # (Auto) 0.0 Abs Immat Gran (auto) 0.02 Absolute Neuts (auto) 3.2 Absolute Nucleated RBC 0.000 Nucleated RBC % (auto) 0.0 Sodium 139 Potassium 4.5 Chloride 108 Carbon Dioxide 26 Anion Gap 10 L BUN 51 H Creatinine 1.78 H Estim Creat Clear Calc 20.5 Estimated GFR 28 POC Glucose 299 H Random Glucose 210 H Fasting Glucose Estimat Average Glucose Hemoglobin A1c % Calcium 8.7 Magnesium Total Bilirubin 0.2 AST 15 ALT 18 Alkaline Phosphatase 134 H Total Protein 5.5 L Albumin 3.3 L Triglycerides Cholesterol LDL Cholesterol, Calc HDL Cholesterol TSH Free T4 06/07/21 06:36 WBC RBC Hgb Hct MCV MCH MCHC RDW Plt Count MPV Immature Gran % (Auto) Neut % (Auto) Lymph % (Auto) [place] % (Auto) Eos % (Auto) Baso % (Auto) Lymph # (Auto) [place] # (Auto) Eos # (Auto) Baso # (Auto) Abs Immat Gran (auto) Absolute Neuts (auto) Absolute Nucleated RBC Nucleated RBC % (auto) Sodium Potassium Chloride Carbon Dioxide Anion Gap BUN Creatinine Estim Creat Clear Calc Estimated GFR POC Glucose 165 H Random Glucose Fasting Glucose Estimat Average Glucose Hemoglobin A1c % Calcium Magnesium Total Bilirubin AST ALT Alkaline Phosphatase Total Protein Albumin Triglycerides Cholesterol LDL Cholesterol, Calc HDL Cholesterol TSH Free T4 Imaging Radiology Impressions: ITS Impressions Head CT 06/06/21 12:16 IMPRESSION: No acute intracranial pathology. Medications Medications Current Medications Acetaminophen (Acetaminophen 325 Mg Tablet) 650 mg PO Q6H PRN PRN Reason: Headache/Pain Mild Scale (1-3) Al Hydroxide/Mg Hydroxide (Magnesium Hydrox/Alum Hydrox 30 Ml Oral.Susp) 30 ml PO Q6H PRN PRN Reason: Heartburn/Nausea Amlodipine Besylate (Amlodipine Besylate 5 Mg Tablet) 5 mg PO BEDTIME [facility]; Protocol Last Admin: 06/06/21 20:55 Dose: 5 mg Documented by: Clopidogrel Bisulfate (Clopidogrel Bisulfate 75 Mg Tablet) 75 mg PO DAILY [facility] Last Admin: 06/07/21 09:03 Dose: 75 mg Documented by: Furosemide (Furosemide 40 Mg Tablet) 40 mg PO DAILY [facility]; Protocol Last Admin: 06/07/21 09:05 Dose: 40 mg Documented by: Hydroxyzine HCl (Hydroxyzine Hcl 25 Mg Tablet) 25 mg PO Q6H PRN PRN Reason: Anxiety Insulin Glargine (Insulin Glargine,Hum.Rec.Anlog 100 Unit/Ml 10 Ml Vial) 10 unit SUBCUT BEDTIME [facility] Last Admin: 06/06/21 20:55 Dose: 10 unit Documented by: Insulin Human Lispro (Insulin Lispro 100 Unit/Ml 3 Ml Vial) 0 unit SUBCUT QIDACHS [facility]; Protocol Last Admin: 06/07/21 17:31 Dose: Not Given Documented by: Isosorbide Mononitrate (Isosorbide Mononitrate 30 Mg Tab.Er.24h) 30 mg PO DAILY [facility]; Protocol Last Admin: 06/07/21 09:03 Dose: 30 mg Documented by: Ketorolac Tromethamine (Ketorolac Tromethamine 0.5% Op 3 Ml Drops) 1 drop EYE-LEFT QID [facility] Last Admin: 06/07/21 17:32 Dose: Not Given Documented by: Levothyroxine Sodium (Levothyroxine Sodium 75 Mcg Tablet) 75 mcg PO DAILY@0600 [facility] Last Admin: 06/07/21 06:07 Dose: 75 mcg Documented by: Lorazepam (Lorazepam 1 Mg Tablet) 1 mg PO BID [facility] Last Admin: 06/07/21 09:05 Dose: 1 mg Documented by: Magnesium Hydroxide (Milk Of Magnesia 30 Ml Oral.Susp) 30 ml PO DAILY PRN PRN Reason: Constipation Metoprolol Tartrate (Metoprolol Tartrate 25 Mg Tablet) 25 mg PO BID [facility]; Protocol Last Admin: 06/07/21 09:03 Dose: 25 mg Documented by: Nitroglycerin (Nitroglycerin 0.4 Mg Tab.Subl) 0.4 mg SUBLINGUAL Q5M PRN PRN Reason: Chest Pain Risperidone (Risperidone 1 Mg Tablet) 1 mg PO BID [facility] Last Admin: 06/07/21 09:05 Dose: Not Given Documented by: Trazodone HCl (Trazodone Hcl 50 Mg Tablet) 50 mg PO BEDTIME PRN PRN Reason: Insomnia Last Admin: 06/06/21 22:36 Dose: 50 mg Documented by: Allergies Allergies Allergy/AdvReac Type Severity Reaction Status Date / Time ciprofloxacin [From Cipro] Allergy Intermediate Difficulty Verified 06/04/21 14:12 Breathing Iodinated Contrast Media Allergy Unknown ANAPHYLAXIS Verified 12/29/20 09:46 [IV CONTRAST] Assessment & Plan Assessment & Plan (1) Schizoaffective disorder, bipolar type: Status: Acute Code(s): F25.0 - Schizoaffective disorder, bipolar type (2) CKD (chronic kidney disease): Qualifiers: Chronic kidney disease stage: unspecified stage Qualified Code(s): N18.9 - Chronic kidney disease, unspecified Status: Acute Code(s): N18.9 - Chronic kidney disease, unspecified (3) Hyperparathyroidism: Status: Acute Code(s): E21.3 - Hyperparathyroidism, unspecified (4) Hypothyroidism: Status: Acute Code(s): E03.9 - Hypothyroidism, unspecified (5) Congestive heart failure: Status: Acute Code(s): I50.9 - Heart failure, unspecified (6) Incisional hernia: Qualifiers: Obstruction and gangrene presence: without obstruction or gangrene Qualified Code(s): K43.2 - Incisional hernia without obstruction or gangrene Status: Acute Code(s): K43.2 - Incisional hernia without obstruction or gangrene (7) CAD (coronary artery disease): Status: Acute Code(s): I25.10 - Atherosclerotic heart disease of [place] coronary artery without angina pectoris Assessment and Plan: Plan:Mrs. Garcia is a 71 y/o woman with hx of Bipolar Disorder although it appears more schizoaffective bipolar given collateral information that states psychosis/paranoia independent of mood component. Pt stopped taking psychiatric medication 2 years ago slowly decompensating. Most recently, pt presents as paranoid, denies having mental illness or need for treatment for both medical and psychiatric conditions. Pt is hyperverbal, flight of ideas and paranoid about being poisoned. 06/06: Urine culture is negative- no need for antibiotic. No need for repeat. CKD- unknown baseline Cr. elevation noted from 06/03 Cr 1.46, to 1.72. Consulted with Dr. Cevallos who recommends recheck on 06/07, to see if true ALBA on CDK. Started risperidone 1mg po BID and ativan 1mg po BID. 06/07 Cr 1.78; per [place], no need for IV fluids presently. PLAN Monitor for safety in the milieu. Discharge on stabilization. Patient seen. Chart reviewed. Discussed with team. Obtain collateral contact info?as needed I spent minutes with the patient and/or on the patient floor today, greater than?50% of which was spent counseling/coordinating care. Reason for contiued inpatient stay Substantial Risk for: inability to function and rapid decompensation
[2021-06-07 19:56] VITALS: BP 147/70; PULSE 74
[2021-06-07] MEDS: amLODIPine Besylate 5 MG TABLET PO (19:56)
[2021-06-07 21:02] LABS: Glucose, Whole Blood 279 mg/dL (60-115)
[2021-06-07] MEDS: Insulin Glargine,Hum.rec.anlog 100 UNIT/ML 10 ML VIAL 10 UNIT SUBCUT (21:37)
[2021-06-07 21:54] LABS: Glucose, Whole Blood 264 mg/dL (60-115)
[2021-06-08 06:24] LABS: Glucose, Whole Blood 133 mg/dL (60-115)
[2021-06-08] MEDS: Levothyroxine Sodium 75 MCG TABLET PO (06:31)
[2021-06-08 08:16] VITALS: BP 162/88; PULSE 73; RESP 16; TEMP 36.3; O2SAT 99
[2021-06-08 08:26] VITALS: BP 162/88; PULSE 73
[2021-06-08] MEDS: Isosorbide Mononitrate 30 MG TAB.ER.24H PO (08:26)
[2021-06-08] MEDS: Furosemide 40 MG TABLET PO (08:27)
[2021-06-08] MEDS: Clopidogrel Bisulfate 75 MG TABLET PO (08:27)
[2021-06-08] MEDS: LORazepam 1 MG TABLET PO ×2 (08:27→21:13)
[2021-06-08 08:28] VITALS: BP 162/88; PULSE 73
[2021-06-08] MEDS: Metoprolol Tartrate 25 MG TABLET PO ×2 (08:28→21:12)
[2021-06-08 09:05] LABS: Glucose, Whole Blood 161 mg/dL (60-115)
[2021-06-08 09:08] LABS: Folate 8.2 ng/mL (> or = 4.0); Vitamin B12 787 pg/mL (200-900)
[2021-06-08 11:40] LABS: Glucose, Whole Blood 191 mg/dL (60-115)
[2021-06-08] MEDS: Insulin Lispro 100 UNIT/ML 3 ML VIAL SUBCUT ×3 (11:51→21:14)
--- NOTE | 2021-06-08 15:07 | MHC.CLN ---
NUTRITION ADDED CARDIAC TO DIET ORDER. DIET=DIABETIC 1500 KCAL, CARDIAC. PATIENT STATED THAT SHE FOLLOWS DIET AT HOME. REPORTS GOOD APPETITE. REPORTS THAT USUAL WEIGHT IS BETWEEN 130 and 140#. WEIGHT IN [facility]=282#. SUSPECT THAT WEIGHT IS TOO LOW BASED ON PATIENT'S REPORT AND APPEARANCE SO NOT DEEMED SIGNIFICANT WEIGHT LOSS. CONTINUE TO FOLLOW WEIGHTS AND INTAKE.
--- NOTE | 2021-06-08 15:27 | HO.PSYCHPN ---
Subjective Subjective Date of Service: 06/08/21 Reason For Visit: Bipolar Do Subjective Notes: Conditional Voluntary Interim History: The nursing staff reported that the patient has been noncompliant with Risperdal since she reports that these voices on and she has diabetes. She stated that she has ever had cardiac issues but she has refused to take any medications. On interview, the patient was very pleasant but extremely tangential unable to describe why she was brought here. She was not open to any medication management at this moment. We will discuss tomorrow for more options Mental Status Exam Mental Status Exam Patient Appearance: Disheveled and Unkempt Patient Orientation: Person and Situation Level of Consciousness: Awake Patient Behavior: Cooperative Mood Description: Constricted Affect Description: Labile Patient Cognition Impaired: Yes Ability to Follow Directions: Fair Speech Pattern: Clear Delusions: Paranoid Ideation Thought Process: Illogical and Distracted Thought Content: positive for Perseveration, positive for Poverty of Content, positive for Preoccupation and positive for Thought Blocking Judgement: Poor Diagnostics Vital Signs (24Hr): Vital Signs - 24 hr 06/07/21 19:30 06/07/21 19:56 06/08/21 08:16 Temperature 97.3 F 97.4 F Pulse Rate 74 74 73 Respiratory Rate 18 16 Blood Pressure 147/70 H 147/70 H 162/88 H Pulse Oximetry 99 99 06/08/21 08:26 06/08/21 08:28 Temperature Pulse Rate 73 73 Respiratory Rate Blood Pressure 162/88 H 162/88 H Pulse Oximetry Body Mass Index 22.6 Labs Results: 06/07/21 06:35 06/07/21 06:35 Labs: Laboratory Results - last 48 hr 06/06/21 06/06/21 06/06/21 07:01 16:17 21:45 WBC RBC Hgb Hct MCV MCH MCHC RDW Plt Count MPV Immature Gran % (Auto) Neut % (Auto) Lymph % (Auto) [place] % (Auto) Eos % (Auto) Baso % (Auto) Lymph # (Auto) [place] # (Auto) Eos # (Auto) Baso # (Auto) Abs Immat Gran (auto) Absolute Neuts (auto) Absolute Nucleated RBC Nucleated RBC % (auto) Sodium Potassium Chloride Carbon Dioxide Anion Gap BUN Creatinine Estim Creat Clear Calc Estimated GFR POC Glucose 258 H 299 H Random Glucose Calcium Total Bilirubin AST ALT Alkaline Phosphatase Total Protein Albumin Vitamin B12 787 Folate 8.2 06/07/21 06/07/21 06/07/21 06:35 06:35 06:36 WBC 5.9 RBC 3.51 L Hgb 10.7 L Hct 32.8 L MCV 93.4 MCH 30.5 MCHC 32.6 RDW 11.9 Plt Count 207 MPV 10.0 Immature Gran % (Auto) 0.3 Neut % (Auto) 54.7 Lymph % (Auto) 32.1 [place] % (Auto) 9.4 Eos % (Auto) 3.2 Baso % (Auto) 0.3 Lymph # (Auto) 1.9 [place] # (Auto) 0.6 Eos # (Auto) 0.2 Baso # (Auto) 0.0 Abs Immat Gran (auto) 0.02 Absolute Neuts (auto) 3.2 Absolute Nucleated RBC 0.000 Nucleated RBC % (auto) 0.0 Sodium 139 Potassium 4.5 Chloride 108 Carbon Dioxide 26 Anion Gap 10 L BUN 51 H Creatinine 1.78 H Estim Creat Clear Calc 20.5 Estimated GFR 28 POC Glucose 165 H Random Glucose 210 H Calcium 8.7 Total Bilirubin 0.2 AST 15 ALT 18 Alkaline Phosphatase 134 H Total Protein 5.5 L Albumin 3.3 L Vitamin B12 Folate 06/07/21 06/07/21 06/08/21 20:56 21:34 06:19 WBC RBC Hgb Hct MCV MCH MCHC RDW Plt Count MPV Immature Gran % (Auto) Neut % (Auto) Lymph % (Auto) [place] % (Auto) Eos % (Auto) Baso % (Auto) Lymph # (Auto) [place] # (Auto) Eos # (Auto) Baso # (Auto) Abs Immat Gran (auto) Absolute Neuts (auto) Absolute Nucleated RBC Nucleated RBC % (auto) Sodium Potassium Chloride Carbon Dioxide Anion Gap BUN Creatinine Estim Creat Clear Calc Estimated GFR POC Glucose 279 H 264 H 133 H Random Glucose Calcium Total Bilirubin AST ALT Alkaline Phosphatase Total Protein Albumin Vitamin B12 Folate 06/08/21 06/08/21 08:25 11:34 WBC RBC Hgb Hct MCV MCH MCHC RDW Plt Count MPV Immature Gran % (Auto) Neut % (Auto) Lymph % (Auto) [place] % (Auto) Eos % (Auto) Baso % (Auto) Lymph # (Auto) [place] # (Auto) Eos # (Auto) Baso # (Auto) Abs Immat Gran (auto) Absolute Neuts (auto) Absolute Nucleated RBC Nucleated RBC % (auto) Sodium Potassium Chloride Carbon Dioxide Anion Gap BUN Creatinine Estim Creat Clear Calc Estimated GFR POC Glucose 161 H 191 H Random Glucose Calcium Total Bilirubin AST ALT Alkaline Phosphatase Total Protein Albumin Vitamin B12 Folate Imaging Radiology Impressions: ITS Impressions Head CT 06/06/21 12:16 IMPRESSION: No acute intracranial pathology. Medications Medications Current Medications Acetaminophen (Acetaminophen 325 Mg Tablet) 650 mg PO Q6H PRN PRN Reason: Headache/Pain Mild Scale (1-3) Al Hydroxide/Mg Hydroxide (Magnesium Hydrox/Alum Hydrox 30 Ml Oral.Susp) 30 ml PO Q6H PRN PRN Reason: Heartburn/Nausea Amlodipine Besylate (Amlodipine Besylate 5 Mg Tablet) 5 mg PO BEDTIME [facility]; Protocol Last Admin: 06/07/21 19:56 Dose: 5 mg Documented by: Clopidogrel Bisulfate (Clopidogrel Bisulfate 75 Mg Tablet) 75 mg PO DAILY [facility] Last Admin: 06/08/21 08:27 Dose: 75 mg Documented by: Furosemide (Furosemide 40 Mg Tablet) 40 mg PO DAILY [facility]; Protocol Last Admin: 06/08/21 08:27 Dose: 40 mg Documented by: Hydroxyzine HCl (Hydroxyzine Hcl 25 Mg Tablet) 25 mg PO Q6H PRN PRN Reason: Anxiety Insulin Glargine (Insulin Glargine,Hum.Rec.Anlog 100 Unit/Ml 10 Ml Vial) 10 unit SUBCUT BEDTIME [facility] Last Admin: 06/07/21 21:37 Dose: 10 unit Documented by: Insulin Human Lispro (Insulin Lispro 100 Unit/Ml 3 Ml Vial) 0 unit SUBCUT QIDACHS [facility]; Protocol Last Admin: 06/08/21 11:51 Dose: 2 unit Documented by: Isosorbide Mononitrate (Isosorbide Mononitrate 30 Mg Tab.Er.24h) 30 mg PO DAILY [facility]; Protocol Last Admin: 06/08/21 08:26 Dose: 30 mg Documented by: Ketorolac Tromethamine (Ketorolac Tromethamine 0.5% Op 3 Ml Drops) 1 drop EYE-LEFT QID [facility] Last Admin: 06/08/21 14:54 Dose: 1 drop Documented by: Levothyroxine Sodium (Levothyroxine Sodium 75 Mcg Tablet) 75 mcg PO DAILY@0600 [facility] Last Admin: 06/08/21 06:31 Dose: 75 mcg Documented by: Lorazepam (Lorazepam 1 Mg Tablet) 1 mg PO BID [facility] Last Admin: 06/08/21 08:27 Dose: 1 mg Documented by: Magnesium Hydroxide (Milk Of Magnesia 30 Ml Oral.Susp) 30 ml PO DAILY PRN PRN Reason: Constipation Metoprolol Tartrate (Metoprolol Tartrate 25 Mg Tablet) 25 mg PO BID [facility]; Protocol Last Admin: 06/08/21 08:28 Dose: 25 mg Documented by: Nitroglycerin (Nitroglycerin 0.4 Mg Tab.Subl) 0.4 mg SUBLINGUAL Q5M PRN PRN Reason: Chest Pain Risperidone (Risperidone 1 Mg Tablet) 1 mg PO BID [facility] Last Admin: 06/08/21 08:31 Dose: Not Given Documented by: Trazodone HCl (Trazodone Hcl 50 Mg Tablet) 50 mg PO BEDTIME PRN PRN Reason: Insomnia Last Admin: 06/06/21 22:36 Dose: 50 mg Documented by: Allergies Allergies Allergy/AdvReac Type Severity Reaction Status Date / Time ciprofloxacin [From Cipro] Allergy Intermediate Difficulty Verified 06/04/21 14:12 Breathing Iodinated Contrast Media Allergy Unknown ANAPHYLAXIS Verified 12/29/20 09:46 [IV CONTRAST] Assessment & Plan Assessment & Plan (1) Schizoaffective disorder, bipolar type: Status: Acute Code(s): F25.0 - Schizoaffective disorder, bipolar type (2) CKD (chronic kidney disease): Qualifiers: Chronic kidney disease stage: unspecified stage Qualified Code(s): N18.9 - Chronic kidney disease, unspecified Status: Acute Code(s): N18.9 - Chronic kidney disease, unspecified (3) Hyperparathyroidism: Status: Acute Code(s): E21.3 - Hyperparathyroidism, unspecified (4) Hypothyroidism: Status: Acute Code(s): E03.9 - Hypothyroidism, unspecified (5) Congestive heart failure: Status: Acute Code(s): I50.9 - Heart failure, unspecified (6) Incisional hernia: Qualifiers: Obstruction and gangrene presence: without obstruction or gangrene Qualified Code(s): K43.2 - Incisional hernia without obstruction or gangrene Status: Acute Code(s): K43.2 - Incisional hernia without obstruction or gangrene (7) CAD (coronary artery disease): Status: Acute Code(s): I25.10 - Atherosclerotic heart disease of [place] coronary artery without angina pectoris Assessment and Plan: Plan:Mrs. Garcia is a 71 y/o woman with hx of Bipolar Disorder although it appears more schizoaffective bipolar given collateral information that states psychosis/paranoia independent of mood component. Pt stopped taking psychiatric medication 2 years ago slowly decompensating. Most recently, pt presents as paranoid, denies having mental illness or need for treatment for both medical and psychiatric conditions. Pt is hyperverbal, flight of ideas and paranoid about being poisoned. 06/06: Urine culture is negative- no need for antibiotic. No need for repeat. CKD- unknown baseline Cr. elevation noted from 06/03 Cr 1.46, to 1.72. Consulted with Dr. Cevallos who recommends recheck on 06/07, to see if true ALBA on CDK. Started risperidone 1mg po BID and ativan 1mg po BID. 06/07 Cr 1.78; per [place], no need for IV fluids presently. PLAN Monitor for safety in the milieu. Discharge on stabilization. Patient seen. Chart reviewed. Discussed with team. Obtain collateral contact info?as needed I spent minutes with the patient and/or on the patient floor today, greater than?50% of which was spent counseling/coordinating care. Reason for contiued inpatient stay Substantial Risk for: inability to function, rapid decompensation and med/psych decompensation
[2021-06-08 16:33] LABS: Glucose, Whole Blood 286 mg/dL (60-115)
[2021-06-08 21:03] LABS: Glucose, Whole Blood 255 mg/dL (60-115)
[2021-06-08 21:12] VITALS: BP 143/69; PULSE 71
[2021-06-08] MEDS: amLODIPine Besylate 5 MG TABLET PO (21:12)
[2021-06-08] MEDS: Insulin Glargine,Hum.rec.anlog 100 UNIT/ML 10 ML VIAL 10 UNIT SUBCUT (21:16)
[2021-06-08 21:49] VITALS: BP 143/69; PULSE 71; RESP 18; TEMP 36.7; O2SAT 97
[2021-06-08] MEDS: hydrOXYzine HCL 25 MG TABLET PO (21:56)
[2021-06-09 06:00] VITALS: BP 171/76; PULSE 68; RESP 18; O2SAT 96
[2021-06-09] MEDS: Levothyroxine Sodium 75 MCG TABLET PO (06:44)
[2021-06-09] MEDS: Insulin Lispro 100 UNIT/ML 3 ML VIAL SUBCUT ×2 (06:54→20:47)
[2021-06-09 07:40] LABS: Glucose, Whole Blood 162 mg/dL (60-115)
[2021-06-09 09:43] VITALS: BP 171/76; PULSE 68
[2021-06-09] MEDS: Isosorbide Mononitrate 30 MG TAB.ER.24H PO (09:43)
[2021-06-09] MEDS: Clopidogrel Bisulfate 75 MG TABLET PO (09:43)
[2021-06-09 09:44] VITALS: BP 171/76; PULSE 68
[2021-06-09] MEDS: risperiDONE 1 MG TABLET PO (09:44)
[2021-06-09] MEDS: LORazepam 1 MG TABLET PO ×2 (09:44→20:35)
[2021-06-09] MEDS: Metoprolol Tartrate 25 MG TABLET PO ×2 (09:44→20:36)
[2021-06-09] MEDS: Furosemide 40 MG TABLET PO (09:44)
--- NOTE | 2021-06-09 10:16 | HO.PSYCHPN ---
Subjective Subjective Date of Service: 06/09/21 Reason For Visit: Bipolar Do Interim History: The nursing staff reported that the patient has been non-compliant with Risperdal, she slept last night. The staff has noticed delusive statements of the patient. The SW contacted her brother and left a message. We got a copy of her last MRI. On interview, she was not engaged in the interview. Yesterday, she was extremely tangential, with flight of ideas at times, refused having any problems. I tried to encourage to take an atypical antipsychotic as a mood stabilizer, avoiding meds that could increase her metabolic syndrome Mental Status Exam Mental Status Exam Patient Appearance: Disheveled and Unkempt Patient Orientation: Person Level of Consciousness: Awake and Restless Patient Behavior: Guarded, Passive and Suspicious Mood Description: Labile Affect Description: Constricted Ability to Follow Directions: Fair Speech Pattern: Clear and Rambling Hallucinations: None Delusions: Paranoid Ideation and Grandiose Thought Process: Illogical and Evasive Thought Content: positive for Poverty of Content, positive for Loose Associations and positive for Evasive Judgement: Fair Diagnostics Vital Signs (24Hr): Vital Signs - 24 hr 06/08/21 21:12 06/08/21 21:49 06/09/21 06:00 Temperature 98.1 F Pulse Rate 71 71 68 Respiratory Rate 18 18 Blood Pressure 143/69 H 143/69 H 171/76 H Pulse Oximetry 97 96 06/09/21 09:43 06/09/21 09:44 Temperature Pulse Rate 68 68 Respiratory Rate Blood Pressure 171/76 H 171/76 H Pulse Oximetry Body Mass Index 22.6 Labs Results: 06/07/21 06:35 06/07/21 06:35 Labs: Laboratory Results - last 48 hr 06/06/21 06/07/21 06/07/21 07:01 20:56 21:34 POC Glucose 279 H 264 H Vitamin B12 787 Folate 8.2 06/08/21 06/08/21 06/08/21 06:19 08:25 11:34 POC Glucose 133 H 161 H 191 H Vitamin B12 Folate 06/08/21 06/08/21 06/09/21 16:26 20:59 06:43 POC Glucose 286 H 255 H 162 H Vitamin B12 Folate Imaging Radiology Impressions: ITS Impressions Head CT 06/06/21 12:16 IMPRESSION: No acute intracranial pathology. Medications Medications Current Medications Acetaminophen (Acetaminophen 325 Mg Tablet) 650 mg PO Q6H PRN PRN Reason: Headache/Pain Mild Scale (1-3) Al Hydroxide/Mg Hydroxide (Magnesium Hydrox/Alum Hydrox 30 Ml Oral.Susp) 30 ml PO Q6H PRN PRN Reason: Heartburn/Nausea Amlodipine Besylate (Amlodipine Besylate 5 Mg Tablet) 5 mg PO BEDTIME [facility]; Protocol Last Admin: 06/08/21 21:12 Dose: 5 mg Documented by: Clopidogrel Bisulfate (Clopidogrel Bisulfate 75 Mg Tablet) 75 mg PO DAILY [facility] Last Admin: 06/09/21 09:43 Dose: 75 mg Documented by: Furosemide (Furosemide 40 Mg Tablet) 40 mg PO DAILY [facility]; Protocol Last Admin: 06/09/21 09:44 Dose: 40 mg Documented by: Hydroxyzine HCl (Hydroxyzine Hcl 25 Mg Tablet) 25 mg PO Q6H PRN PRN Reason: Anxiety Last Admin: 06/08/21 21:56 Dose: 25 mg Documented by: Insulin Glargine (Insulin Glargine,Hum.Rec.Anlog 100 Unit/Ml 10 Ml Vial) 10 unit SUBCUT BEDTIME [facility] Last Admin: 06/08/21 21:16 Dose: 10 unit Documented by: Insulin Human Lispro (Insulin Lispro 100 Unit/Ml 3 Ml Vial) 0 unit SUBCUT QIDACHS [facility]; Protocol Last Admin: 06/09/21 06:54 Dose: 2 unit Documented by: Isosorbide Mononitrate (Isosorbide Mononitrate 30 Mg Tab.Er.24h) 30 mg PO DAILY [facility]; Protocol Last Admin: 06/09/21 09:43 Dose: 30 mg Documented by: Ketorolac Tromethamine (Ketorolac Tromethamine 0.5% Op 3 Ml Drops) 1 drop EYE-LEFT QID [facility] Last Admin: 06/08/21 21:13 Dose: 1 drop Documented by: Levothyroxine Sodium (Levothyroxine Sodium 75 Mcg Tablet) 75 mcg PO DAILY@0600 [facility] Last Admin: 06/09/21 06:44 Dose: 75 mcg Documented by: Lorazepam (Lorazepam 1 Mg Tablet) 1 mg PO BID [facility] Last Admin: 06/09/21 09:44 Dose: 1 mg Documented by: Magnesium Hydroxide (Milk Of Magnesia 30 Ml Oral.Susp) 30 ml PO DAILY PRN PRN Reason: Constipation Metoprolol Tartrate (Metoprolol Tartrate 25 Mg Tablet) 25 mg PO BID [facility]; Protocol Last Admin: 06/09/21 09:44 Dose: 25 mg Documented by: Nitroglycerin (Nitroglycerin 0.4 Mg Tab.Subl) 0.4 mg SUBLINGUAL Q5M PRN PRN Reason: Chest Pain Risperidone (Risperidone 1 Mg Tablet) 1 mg PO BID [facility] Last Admin: 06/09/21 09:44 Dose: 1 mg Documented by: Trazodone HCl (Trazodone Hcl 50 Mg Tablet) 50 mg PO BEDTIME PRN PRN Reason: Insomnia Last Admin: 06/06/21 22:36 Dose: 50 mg Documented by: Allergies Allergies Allergy/AdvReac Type Severity Reaction Status Date / Time ciprofloxacin [From Cipro] Allergy Intermediate Difficulty Verified 06/04/21 14:12 Breathing Iodinated Contrast Media Allergy Unknown ANAPHYLAXIS Verified 12/29/20 09:46 [IV CONTRAST] Assessment & Plan Assessment & Plan (1) Schizoaffective disorder, bipolar type: Status: Acute Code(s): F25.0 - Schizoaffective disorder, bipolar type (2) CKD (chronic kidney disease): Qualifiers: Chronic kidney disease stage: unspecified stage Qualified Code(s): N18.9 - Chronic kidney disease, unspecified Status: Acute Code(s): N18.9 - Chronic kidney disease, unspecified (3) Hyperparathyroidism: Status: Acute Code(s): E21.3 - Hyperparathyroidism, unspecified (4) Hypothyroidism: Status: Acute Code(s): E03.9 - Hypothyroidism, unspecified (5) Congestive heart failure: Status: Acute Code(s): I50.9 - Heart failure, unspecified (6) Incisional hernia: Qualifiers: Obstruction and gangrene presence: without obstruction or gangrene Qualified Code(s): K43.2 - Incisional hernia without obstruction or gangrene Status: Acute Code(s): K43.2 - Incisional hernia without obstruction or gangrene (7) CAD (coronary artery disease): Status: Acute Code(s): I25.10 - Atherosclerotic heart disease of [place] coronary artery without angina pectoris Assessment and Plan: Plan:Mrs. Garcia is a 71 y/o woman with hx of Bipolar Disorder although it appears more schizoaffective bipolar given collateral information that states psychosis/paranoia independent of mood component. Pt stopped taking psychiatric medication 2 years ago slowly decompensating. Most recently, pt presents as paranoid, denies having mental illness or need for treatment for both medical and psychiatric conditions. Pt is hyperverbal, flight of ideas and paranoid about being poisoned. 06/06: Urine culture is negative- no need for antibiotic. No need for repeat. CKD- unknown baseline Cr. elevation noted from 06/03 Cr 1.46, to 05/25.72. Consulted with Dr. Cevallos who recommends recheck on 06/07, to see if true ALBA on CDK. Started risperidone 1mg po BID and ativan 1mg po BID. 06/07 Cr 1.78; per [place], no need for IV fluids presently. PLAN Monitor for safety in the milieu. Discharge on stabilization. Patient seen. Chart reviewed. Discussed with team. Obtain collateral contact info?as needed I spent minutes with the patient and/or on the patient floor today, greater than?50% of which was spent counseling/coordinating care. Reason for contiued inpatient stay Substantial Risk for: inability to function, rapid decompensation and med/psych decompensation
[2021-06-09 11:32] LABS: Glucose, Whole Blood 172 mg/dL (60-115)
[2021-06-09 19:51] VITALS: BP 148/68; PULSE 62; RESP 18; TEMP 36.6; O2SAT 99
[2021-06-09 20:36] VITALS: BP 148/68; PULSE 62
[2021-06-09 20:43] LABS: Glucose, Whole Blood 325 mg/dL (60-115)
[2021-06-09] MEDS: Insulin Glargine,Hum.rec.anlog 100 UNIT/ML 10 ML VIAL 10 UNIT SUBCUT (20:47)
[2021-06-09 20:51] VITALS: BP 148/68; PULSE 62
[2021-06-09] MEDS: amLODIPine Besylate 5 MG TABLET PO (20:51)
[2021-06-09] MEDS: hydrOXYzine HCL 25 MG TABLET PO (23:03)
[2021-06-09] MEDS: traZODone HCL 50 MG TABLET PO (23:03)
[2021-06-10] VITALS (9 sets, daily range): BP systolic 133–166; BP diastolic 63–71; PULSE 65–70; RESP 16–20; TEMP 36.2; O2SAT 96–99
[2021-06-10] MEDS: Levothyroxine Sodium 75 MCG TABLET PO (05:56)
[2021-06-10 07:57] LABS: Glucose, Whole Blood 201 mg/dL (60-115)
[2021-06-10] MEDS: Insulin Lispro 100 UNIT/ML 3 ML VIAL SUBCUT ×4 (08:24→20:49)
[2021-06-10] MEDS: Metoprolol Tartrate 25 MG TABLET PO ×2 (08:25→20:50)
[2021-06-10] MEDS: Furosemide 40 MG TABLET PO (08:25)
[2021-06-10] MEDS: Isosorbide Mononitrate 30 MG TAB.ER.24H PO (08:26)
[2021-06-10] MEDS: Clopidogrel Bisulfate 75 MG TABLET PO (08:26)
[2021-06-10] MEDS: LORazepam 1 MG TABLET PO ×2 (08:26→20:49)
[2021-06-10 11:58] LABS: Glucose, Whole Blood 245 mg/dL (60-115)
--- NOTE | 2021-06-10 14:33 | P.PNPSI_ITS ---
Subjective Subjective Date of Service: 06/10/21 Reason For Visit: Bipolar Do Subjective Notes: Conditional Voluntary Interim History: The nursing staff reports that the patient has been noncompliant with medications. She has refused Risperdal and she has denied poonam cidal ideation. The staff also has reported that the patient has shown hoarding behavior, she is hoarding food and small belongings in her room. She was admitted for psychotic symptoms and paranoia and apparently Adult protective Services with evolving her case. On interview, the patient denies new symptoms she refused to take Risperdal sings she had metabolic syndrome. He was a very long interview and she was pretty circumstantial, tangential at times but there was no evidence of paranoia and she wanted to be treated with only homeopathic medications. We discussed at length treatment options and she agreed to try Lamictal as a mood stabilizer since it is not over sedating. Mental Status Exam Mental Status Exam Patient Appearance: Disheveled and Unkempt Patient Orientation: Person Level of Consciousness: Alert Patient Behavior: Guarded, Passive and Suspicious Mood Description: Constricted Affect Description: Constricted Patient Cognition Impaired: Yes Speech Pattern: Impoverished and Rambling Hallucinations: Auditory Delusions: Paranoid Ideation Thought Process: Distracted Thought Content: positive for Flight of Ideas Judgement: Poor Diagnostics Vital Signs (24Hr): Vital Signs - 24 hr 06/09/21 19:51 06/09/21 20:36 06/09/21 20:51 Temperature 97.8 F Pulse Rate 62 62 62 Respiratory Rate 18 Blood Pressure 148/68 H 148/68 H 148/68 H Pulse Oximetry 99 06/10/21 06:00 06/10/21 08:25 06/10/21 08:26 Temperature 97.1 F Pulse Rate 65 65 65 Respiratory Rate 16 Blood Pressure 136/71 136/71 136/71 Pulse Oximetry 99 Body Mass Index 22.6 Labs Results: 06/07/21 06:35 06/07/21 06:35 Labs: Laboratory Results - last 48 hr 06/08/21 06/08/21 06/09/21 16:26 20:59 06:43 POC Glucose 286 H 255 H 162 H 06/09/21 06/09/21 06/10/21 11:27 20:30 07:44 POC Glucose 172 H 325 H 201 H 06/10/21 11:54 POC Glucose 245 H Imaging Radiology Impressions: [facility] Impressions Head CT 06/06/21 12:16 IMPRESSION: No acute intracranial pathology. Medications Medications Current Medications Acetaminophen (Acetaminophen 325 Mg Tablet) 650 mg PO Q6H PRN PRN Reason: Headache/Pain Mild Scale (1-3) Al Hydroxide/Mg Hydroxide (Magnesium Hydrox/Alum Hydrox 30 Ml Oral.Susp) 30 ml PO Q6H PRN PRN Reason: Heartburn/Nausea Amlodipine Besylate (Amlodipine Besylate 5 Mg Tablet) 5 mg PO BEDTIME [facility]; Protocol Last Admin: 06/09/21 20:51 Dose: 5 mg Documented by: Clopidogrel Bisulfate (Clopidogrel Bisulfate 75 Mg Tablet) 75 mg PO DAILY [facility] Last Admin: 06/10/21 08:26 Dose: 75 mg Documented by: Furosemide (Furosemide 40 Mg Tablet) 40 mg PO DAILY [facility]; Protocol Last Admin: 06/10/21 08:25 Dose: 40 mg Documented by: Hydroxyzine HCl (Hydroxyzine Hcl 25 Mg Tablet) 25 mg PO Q6H PRN PRN Reason: Anxiety Last Admin: 06/09/21 23:03 Dose: 25 mg Documented by: Insulin Glargine (Insulin Glargine,Hum.Rec.Anlog 100 Unit/Ml 10 Ml Vial) 10 unit SUBCUT BEDTIME [facility] Last Admin: 06/09/21 20:47 Dose: 10 unit Documented by: Insulin Human Lispro (Insulin Lispro 100 Unit/Ml 3 Ml Vial) 0 unit SUBCUT QIDACHS [facility]; Protocol Last Admin: 06/10/21 11:59 Dose: 4 unit Documented by: Isosorbide Mononitrate (Isosorbide Mononitrate 30 Mg Tab.Er.24h) 30 mg PO DAILY [facility]; Protocol Last Admin: 06/10/21 08:26 Dose: 30 mg Documented by: Ketorolac Tromethamine (Ketorolac Tromethamine 0.5% Op 3 Ml Drops) 1 drop EYE- LEFT QID [facility] Last Admin: 06/10/21 13:22 Dose: 1 drop Documented by: Levothyroxine Sodium (Levothyroxine Sodium 75 Mcg Tablet) 75 mcg PO DAILY@0600 [facility] Last Admin: 06/10/21 05:56 Dose: 75 mcg Documented by: Lorazepam (Lorazepam 1 Mg Tablet) 1 mg PO BID [facility] Last Admin: 06/10/21 08:26 Dose: 1 mg Documented by: Magnesium Hydroxide (Milk Of Magnesia 30 Ml Oral.Susp) 30 ml PO DAILY PRN PRN Reason: Constipation Metoprolol Tartrate (Metoprolol Tartrate 25 Mg Tablet) 25 mg PO BID [facility]; Protocol Last Admin: 06/10/21 08:25 Dose: 25 mg Documented by: Nitroglycerin (Nitroglycerin 0.4 Mg Tab.Subl) 0.4 mg SUBLINGUAL Q5M PRN PRN Reason: Chest Pain Risperidone (Risperidone 1 Mg Tablet) 1 mg PO BID [facility] Last Admin: 06/10/21 08:29 Dose: Not Given Documented by: Trazodone HCl (Trazodone Hcl 50 Mg Tablet) 50 mg PO BEDTIME PRN PRN Reason: Insomnia Last Admin: 06/09/21 23:03 Dose: 50 mg Documented by: Allergies Allergies Allergy/AdvReac Type Severity Reaction Status Date / Time ciprofloxacin [From Cipro] Allergy Intermediate Difficulty Verified 06/04/21 14:12 Breathing Iodinated Contrast Media Allergy Unknown ANAPHYLAXIS Verified 12/29/20 09:46 [IV CONTRAST] Assessment & Plan Assessment & Plan (1) Schizoaffective disorder, bipolar type: Status: Acute Code(s): F25.0 - Schizoaffective disorder, bipolar type (2) CKD (chronic kidney disease): Qualifiers: Chronic kidney disease stage: unspecified stage Qualified Code(s): N18 .9 - Chronic kidney disease, unspecified Status: Acute Code(s): N18.9 - Chronic kidney disease, unspecified (3) Hyperparathyroidism: Status: Acute Code(s): E21.3 - Hyperparathyroidism, unspecified (4) Hypothyroidism: Status: Acute Code(s): E03.9 - Hypothyroidism, unspecified (5) Congestive heart failure: Status: Acute Code(s): I50.9 - Heart failure, unspecified (6) Incisional hernia: Qualifiers: Obstruction and gangrene presence: without obstruction or gangrene Qualified Code(s): K43.2 - Incisional hernia without obstruction or gangrene Status: Acute Code(s): K43.2 - Incisional hernia without obstruction or gangrene (7) CAD (coronary artery disease): Status: Acute Code(s): I25.10 - Atherosclerotic heart disease of [place] coronary artery without angina pectoris Assessment and Plan: Plan:Mrs. Garcia is a 71 y/o woman with hx of Bipolar Disorder although it appears more schizoaffective bipolar given collateral information that states psychosis/paranoia independent of mood component. Pt stopped taking psychiatric medication 2 years ago slowly decompensating. Most recently, pt presents as paranoid, denies having mental illness or need for treatment for both medical and psychiatric conditions. Pt is hyperverbal, flight of ideas and paranoid about being poisoned. 06/06: Urine culture is negative- no need for antibiotic. No need for repeat. CKD- unknown baseline Cr. elevation noted from 06/03 Cr 1.46, to 05/25.72. Consulted with Dr. Cevallos who recommends recheck on 06/07, to see if true ALBA on CDK. Started risperidone 1mg po BID and ativan 1mg po BID. 06/07 Cr 1.78; per [place], no need for IV fluids presently. PLAN Monitor for safety in the milieu. Discharge on stabilization. Patient seen. Chart reviewed. Discussed with team. Obtain collateral contact info?as needed Discontinue Risperdal. Start Lamictal 12.5 p.o. q.a.m.. I spent minutes with the patient and/or on the patient floor today, greater than?50% of which was spent counseling/coordinating care. Reason for contiued inpatient stay Substantial Risk for: inability to function, rapid decompensation and med/psych decompensation
[2021-06-10 16:45] LABS: Glucose, Whole Blood 353 mg/dL (60-115)
[2021-06-10 20:28] LABS: Glucose, Whole Blood 180 mg/dL (60-115)
[2021-06-10] MEDS: Insulin Glargine,Hum.rec.anlog 100 UNIT/ML 10 ML VIAL 10 UNIT SUBCUT (20:50)
[2021-06-10] MEDS: amLODIPine Besylate 5 MG TABLET PO (20:51)
[2021-06-10] MEDS: Nitroglycerin 0.4 MG TAB.SUBL SUBLINGUAL (21:20)
--- NOTE | 2021-06-10 21:40 | PC.NURSE ---
Pt. reported chest pain radiating to the jaw 10/01. Pt. reported this is not new and is typically relieved with one nitroglycerin tab. Pt. ambulated to the bathroom prior to receiving the nitro and reported an episode of diarrhea. She wasn't sure but stated she may have had an earlier episode of diarrhea today. Pt. hyperverbal. VS obtained prior to nitro - Left arm 175/77, 72, 99% on room air, right arm 166/71, 66. Pt. took one tab 0.4mg nitroglycerin sublingual at 0. RN stayed with pt. She reported feeling depressed and became tearful while recounting her recent experience at [facility]. Pt. was not in distress. Breathing even and unlabored. Pt. not witnessed grimacing or clutching chest. Pt. declined another nitro tab after 5 minutes. VS obtained about 15 minutes after nitro was given - left arm 148/67, 67. Pt. reported chest and jaw pain relieved. Pt. continues talking and breathing normally. Mood seems to have improved. Speech clear, tangential. Pt. denies SI.
[2021-06-11] MEDS: Levothyroxine Sodium 75 MCG TABLET PO (05:50)
[2021-06-11 06:05] VITALS: BP 156/70; PULSE 65; RESP 19; TEMP 36.3; O2SAT 96
[2021-06-11] MEDS: Nitroglycerin 0.4 MG TAB.SUBL SUBLINGUAL (06:09)
[2021-06-11 06:18] VITALS: BP 155/73; PULSE 65; RESP 18; O2SAT 95
[2021-06-11 06:55] LABS: Glucose, Whole Blood 251 mg/dL (60-115)
[2021-06-11 07:00] VITALS: BMI 26.6
[2021-06-11] MEDS: Insulin Lispro 100 UNIT/ML 3 ML VIAL SUBCUT ×2 (07:02→20:42)
[2021-06-11 09:02] VITALS: BP 137/62; PULSE 73
[2021-06-11] MEDS: Isosorbide Mononitrate 30 MG TAB.ER.24H PO (09:02)
[2021-06-11 09:03] VITALS: BP 137/62; PULSE 73
[2021-06-11] MEDS: Metoprolol Tartrate 25 MG TABLET PO ×2 (09:03→20:41)
[2021-06-11] MEDS: Clopidogrel Bisulfate 75 MG TABLET PO (09:03)
[2021-06-11] MEDS: Furosemide 40 MG TABLET PO (09:03)
[2021-06-11] MEDS: lamoTRIgine 25 MG TABLET 12.5 MG PO (09:04)
[2021-06-11] MEDS: LORazepam 1 MG TABLET PO (09:04)
[2021-06-11 11:36] LABS: Glucose, Whole Blood 217 mg/dL (60-115)
--- NOTE | 2021-06-11 14:45 | HO.PSYCHPN ---
Subjective Subjective Date of Service: 06/11/21 Reason For Visit: Bipolar Do Subjective Notes: Conditional Voluntary Interim History: The nursing staff reported that the patient complained of chest pain and she required nitroglycerin at night, she carries the diagnosis of CHF and status post WA. On interview, the patient reports that she continues taking the Lamictal with no side effects. Her main complaint is abdominal pain Mental Status Exam Mental Status Exam Patient Appearance: Disheveled and Unkempt Patient Orientation: Person and Situation Level of Consciousness: Awake Patient Behavior: Cooperative and Distractible Mood Description: Labile Affect Description: Constricted Ability to Follow Directions: Good Speech Pattern: Rapid Hallucinations: None Delusions: Not Present Thought Process: Distracted and Evasive Thought Content: positive for Circumstantial and positive for Preoccupation Judgement: Fair Diagnostics Vital Signs (24Hr): Vital Signs - 24 hr 06/10/21 20:45 06/10/21 20:50 06/10/21 20:51 Temperature 97.2 F Pulse Rate 70 67 67 Respiratory Rate 16 Blood Pressure 133/63 133/63 133/63 Pulse Oximetry 96 06/10/21 21:18 06/10/21 21:20 06/10/21 21:40 Temperature Pulse Rate 66 66 67 Respiratory Rate 20 18 Blood Pressure 166/71 H 166/71 H 148/67 H Pulse Oximetry 06/11/21 06:05 06/11/21 06:18 06/11/21 09:02 Temperature 97.3 F Pulse Rate 65 65 73 Respiratory Rate 19 18 Blood Pressure 156/70 H 155/73 H 137/62 Pulse Oximetry 96 95 06/11/21 09:03 Temperature Pulse Rate 73 Respiratory Rate Blood Pressure 137/62 Pulse Oximetry Body Mass Index 22.6 Labs Results: 06/07/21 06:35 06/07/21 06:35 Labs: Laboratory Results - last 48 hr 06/09/21 06/10/21 06/10/21 20:30 07:44 11:54 POC Glucose 325 H 201 H 245 H 06/10/21 06/10/21 06/11/21 16:42 20:23 06:45 POC Glucose 353 H* 180 H 251 H 06/11/21 11:32 POC Glucose 217 H Imaging Radiology Impressions: [facility] Impressions Head CT 06/06/21 12:16 IMPRESSION: No acute intracranial pathology. Medications Medications Current Medications Acetaminophen (Acetaminophen 325 Mg Tablet) 650 mg PO Q6H PRN PRN Reason: Headache/Pain Mild Scale (1-3) Al Hydroxide/Mg Hydroxide (Magnesium Hydrox/Alum Hydrox 30 Ml Oral.Susp) 30 ml PO Q6H PRN PRN Reason: Heartburn/Nausea Amlodipine Besylate (Amlodipine Besylate 5 Mg Tablet) 5 mg PO BEDTIME [facility]; Protocol Last Admin: 06/10/21 20:51 Dose: 5 mg Documented by: Clopidogrel Bisulfate (Clopidogrel Bisulfate 75 Mg Tablet) 75 mg PO DAILY [facility] Last Admin: 06/11/21 09:03 Dose: 75 mg Documented by: Furosemide (Furosemide 40 Mg Tablet) 40 mg PO DAILY [facility]; Protocol Last Admin: 06/11/21 09:03 Dose: 40 mg Documented by: Hydroxyzine HCl (Hydroxyzine Hcl 25 Mg Tablet) 25 mg PO Q6H PRN PRN Reason: Anxiety Last Admin: 06/09/21 23:03 Dose: 25 mg Documented by: Insulin Glargine (Insulin Glargine,Hum.Rec.Anlog 100 Unit/Ml 10 Ml Vial) 10 unit SUBCUT BEDTIME [facility] Last Admin: 06/10/21 20:50 Dose: 10 unit Documented by: Insulin Human Lispro (Insulin Lispro 100 Unit/Ml 3 Ml Vial) 0 unit SUBCUT QIDACHS [facility]; Protocol Last Admin: 06/11/21 13:57 Dose: Not Given Documented by: Isosorbide Mononitrate (Isosorbide Mononitrate 30 Mg Tab.Er.24h) 30 mg PO DAILY [facility]; Protocol Last Admin: 06/11/21 09:02 Dose: 30 mg Documented by: Ketorolac Tromethamine (Ketorolac Tromethamine 0.5% Op 3 Ml Drops) 1 drop EYE-LEFT QID [facility] Last Admin: 06/11/21 13:57 Dose: Not Given Documented by: Lamotrigine (Lamotrigine 25 Mg Tablet) 12.5 mg PO DAILY [facility] Last Admin: 06/11/21 09:04 Dose: 12.5 mg Documented by: Levothyroxine Sodium (Levothyroxine Sodium 75 Mcg Tablet) 75 mcg PO DAILY@0600 [facility] Last Admin: 06/11/21 05:50 Dose: 75 mcg Documented by: Magnesium Hydroxide (Milk Of Magnesia 30 Ml Oral.Susp) 30 ml PO DAILY PRN PRN Reason: Constipation Metoprolol Tartrate (Metoprolol Tartrate 25 Mg Tablet) 25 mg PO BID [facility]; Protocol Last Admin: 06/11/21 09:03 Dose: 25 mg Documented by: Nitroglycerin (Nitroglycerin 0.4 Mg Tab.Subl) 0.4 mg SUBLINGUAL Q5M PRN PRN Reason: Chest Pain Last Admin: 06/11/21 06:09 Dose: 1 tab Documented by: Trazodone HCl (Trazodone Hcl 50 Mg Tablet) 50 mg PO BEDTIME PRN PRN Reason: Insomnia Last Admin: 06/09/21 23:03 Dose: 50 mg Documented by: Allergies Allergies Allergy/AdvReac Type Severity Reaction Status Date / Time ciprofloxacin [From Cipro] Allergy Intermediate Difficulty Verified 06/04/21 14:12 Breathing Iodinated Contrast Media Allergy Unknown ANAPHYLAXIS Verified 12/29/20 09:46 [IV CONTRAST] Assessment & Plan Assessment & Plan (1) Schizoaffective disorder, bipolar type: Status: Acute Code(s): F25.0 - Schizoaffective disorder, bipolar type (2) CKD (chronic kidney disease): Qualifiers: Chronic kidney disease stage: unspecified stage Qualified Code(s): N18.9 - Chronic kidney disease, unspecified Status: Acute Code(s): N18.9 - Chronic kidney disease, unspecified (3) Hyperparathyroidism: Status: Acute Code(s): E21.3 - Hyperparathyroidism, unspecified (4) Hypothyroidism: Status: Acute Code(s): E03.9 - Hypothyroidism, unspecified (5) Congestive heart failure: Status: Acute Code(s): I50.9 - Heart failure, unspecified (6) Incisional hernia: Qualifiers: Obstruction and gangrene presence: without obstruction or gangrene Qualified Code(s): K43.2 - Incisional hernia without obstruction or gangrene Status: Acute Code(s): K43.2 - Incisional hernia without obstruction or gangrene (7) CAD (coronary artery disease): Status: Acute Code(s): I25.10 - Atherosclerotic heart disease of [place] coronary artery without angina pectoris Assessment and Plan: Plan:Mrs. Garcia is a 71 y/o woman with hx of Bipolar Disorder although it appears more schizoaffective bipolar given collateral information that states psychosis/paranoia independent of mood component. Pt stopped taking psychiatric medication 2 years ago slowly decompensating. Most recently, pt presents as paranoid, denies having mental illness or need for treatment for both medical and psychiatric conditions. Pt is hyperverbal, flight of ideas and paranoid about being poisoned. 06/06: Urine culture is negative- no need for antibiotic. No need for repeat. CKD- unknown baseline Cr. elevation noted from 06/03 Cr 1.46, to 05/25.72. Consulted with Dr. Cevallos who recommends recheck on 06/07, to see if true ALBA on CDK. Started risperidone 1mg po BID and ativan 1mg po BID. 06/07 Cr 1.78; per [place], no need for IV fluids presently. PLAN Monitor for safety in the milieu. Discharge on stabilization. Patient seen. Chart reviewed. Discussed with team. Obtain collateral contact info?as needed Discontinue Risperdal. Start Lamictal 12.5 p.o. q.a.m.. I spent minutes with the patient and/or on the patient floor today, greater than?50% of which was spent counseling/coordinating care. Reason for contiued inpatient stay Substantial Risk for: inability to function, rapid decompensation and med/psych decompensation
[2021-06-11 18:00] VITALS: BP 153/67; PULSE 73; RESP 17; TEMP 36.8; O2SAT 98
[2021-06-11 19:56] LABS: Glucose, Whole Blood 277 mg/dL (60-115)
[2021-06-11 20:41] VITALS: BP 153/67; PULSE 73
[2021-06-11] MEDS: amLODIPine Besylate 5 MG TABLET PO (20:41)
[2021-06-11] MEDS: Insulin Glargine,Hum.rec.anlog 100 UNIT/ML 10 ML VIAL 10 UNIT SUBCUT (20:42)
[2021-06-11] MEDS: hydrOXYzine HCL 25 MG TABLET PO (23:49)
[2021-06-12 06:33] LABS: Glucose, Whole Blood 227 mg/dL (60-115)
[2021-06-12] MEDS: Levothyroxine Sodium 75 MCG TABLET PO (06:48)
[2021-06-12] MEDS: Insulin Lispro 100 UNIT/ML 3 ML VIAL SUBCUT ×3 (06:49→20:26)
[2021-06-12 08:39] VITALS: BP 168/74; PULSE 69
[2021-06-12] MEDS: Isosorbide Mononitrate 30 MG TAB.ER.24H PO (08:39)
[2021-06-12 08:40] VITALS: BP 168/74; PULSE 69
[2021-06-12] MEDS: lamoTRIgine 25 MG TABLET 12.5 MG PO (08:40)
[2021-06-12] MEDS: Furosemide 40 MG TABLET PO (08:40)
[2021-06-12] MEDS: Metoprolol Tartrate 25 MG TABLET PO ×2 (08:40→20:27)
[2021-06-12] MEDS: Clopidogrel Bisulfate 75 MG TABLET PO (08:41)
[2021-06-12 09:33] VITALS: BP 168/74; PULSE 69; TEMP 36.5; O2SAT 97
[2021-06-12 12:00] LABS: Glucose, Whole Blood 130 mg/dL (60-115)
--- NOTE | 2021-06-12 15:14 | HO.PSYCHPN ---
Subjective Subjective Date of Service: 06/12/21 Reason For Visit: Bipolar Do Subjective Notes: Conditional Voluntary Interim History: The nursing staff reported the patient has been talkative at times. Her fasting blood sugars are now normalized. The social work job titles called and apparently that counseling for age in is already involved in her case. On interview, the patient reported that she has some pain in her abdomen, she agreed to have blood work on Tuesday morning. Her brother in [place] that is her healthcare proxy will be contacted to get more collateral information Mental Status Exam Mental Status Exam Patient Appearance: Well Grooomed Patient Orientation: Person Level of Consciousness: Awake Patient Behavior: Cooperative Mood Description: Labile Affect Description: Anxious and Apprehensive Patient Cognition Impaired: No Ability to Follow Directions: Fair Speech Pattern: Rapid Hallucinations: None Thought Process: Linear Thought Content: positive for Circumstantial Judgement: Fair Diagnostics Vital Signs (24Hr): Vital Signs - 24 hr 06/11/21 18:00 06/11/21 20:41 06/12/21 08:39 Temperature 98.2 F Pulse Rate 73 73 69 Respiratory Rate 17 Blood Pressure 153/67 H 153/67 H 168/74 H Pulse Oximetry 98 06/12/21 08:40 06/12/21 09:33 Temperature 97.7 F Pulse Rate 69 69 Respiratory Rate Blood Pressure 168/74 H 168/74 H Pulse Oximetry 97 Body Mass Index 26.6 Labs Results: 06/07/21 06:35 06/07/21 06:35 Labs: Laboratory Results - last 48 hr 06/10/21 06/10/21 06/11/21 16:42 20:23 06:45 POC Glucose 353 H* 180 H 251 H 06/11/21 06/11/21 06/12/21 11:32 19:50 06:27 POC Glucose 217 H 277 H 227 H 06/12/21 11:55 POC Glucose 130 H Imaging Radiology Impressions: ITS Impressions Head CT 06/06/21 12:16 IMPRESSION: No acute intracranial pathology. Medications Medications Current Medications Acetaminophen (Acetaminophen 325 Mg Tablet) 650 mg PO Q6H PRN PRN Reason: Headache/Pain Mild Scale (1-3) Al Hydroxide/Mg Hydroxide (Magnesium Hydrox/Alum Hydrox 30 Ml Oral.Susp) 30 ml PO Q6H PRN PRN Reason: Heartburn/Nausea Amlodipine Besylate (Amlodipine Besylate 5 Mg Tablet) 5 mg PO BEDTIME [facility]; Protocol Last Admin: 06/11/21 20:41 Dose: 5 mg Documented by: Clopidogrel Bisulfate (Clopidogrel Bisulfate 75 Mg Tablet) 75 mg PO DAILY [facility] Last Admin: 06/12/21 08:41 Dose: 75 mg Documented by: Furosemide (Furosemide 40 Mg Tablet) 40 mg PO DAILY [facility]; Protocol Last Admin: 06/12/21 08:40 Dose: 40 mg Documented by: Hydroxyzine HCl (Hydroxyzine Hcl 25 Mg Tablet) 25 mg PO Q6H PRN PRN Reason: Anxiety Last Admin: 06/11/21 23:49 Dose: 25 mg Documented by: Insulin Glargine (Insulin Glargine,Hum.Rec.Anlog 100 Unit/Ml 10 Ml Vial) 10 unit SUBCUT BEDTIME [facility] Last Admin: 06/11/21 20:42 Dose: 10 unit Documented by: Insulin Human Lispro (Insulin Lispro 100 Unit/Ml 3 Ml Vial) 0 unit SUBCUT QIDACHS [facility]; Protocol Last Admin: 06/12/21 12:59 Dose: Not Given Documented by: Isosorbide Mononitrate (Isosorbide Mononitrate 30 Mg Tab.Er.24h) 30 mg PO DAILY [facility]; Protocol Last Admin: 06/12/21 08:39 Dose: 30 mg Documented by: Ketorolac Tromethamine (Ketorolac Tromethamine 0.5% Op 3 Ml Drops) 1 drop EYE-LEFT QID [facility] Last Admin: 06/12/21 10:01 Dose: 1 drop Documented by: Lamotrigine (Lamotrigine 25 Mg Tablet) 12.5 mg PO DAILY [facility] Last Admin: 06/12/21 08:40 Dose: 12.5 mg Documented by: Levothyroxine Sodium (Levothyroxine Sodium 75 Mcg Tablet) 75 mcg PO DAILY@0600 [facility] Last Admin: 06/12/21 06:48 Dose: 75 mcg Documented by: Magnesium Hydroxide (Milk Of Magnesia 30 Ml Oral.Susp) 30 ml PO DAILY PRN PRN Reason: Constipation Metoprolol Tartrate (Metoprolol Tartrate 25 Mg Tablet) 25 mg PO BID [facility]; Protocol Last Admin: 06/12/21 08:40 Dose: 25 mg Documented by: Nitroglycerin (Nitroglycerin 0.4 Mg Tab.Subl) 0.4 mg SUBLINGUAL Q5M PRN PRN Reason: Chest Pain Last Admin: 06/11/21 06:09 Dose: 1 tab Documented by: Trazodone HCl (Trazodone Hcl 50 Mg Tablet) 50 mg PO BEDTIME PRN PRN Reason: Insomnia Last Admin: 06/09/21 23:03 Dose: 50 mg Documented by: Allergies Allergies Allergy/AdvReac Type Severity Reaction Status Date / Time ciprofloxacin [From Cipro] Allergy Intermediate Difficulty Verified 06/04/21 14:12 Breathing Iodinated Contrast Media Allergy Unknown ANAPHYLAXIS Verified 12/29/20 09:46 [IV CONTRAST] Assessment & Plan Assessment & Plan (1) Schizoaffective disorder, bipolar type: Status: Acute Code(s): F25.0 - Schizoaffective disorder, bipolar type (2) CKD (chronic kidney disease): Qualifiers: Chronic kidney disease stage: unspecified stage Qualified Code(s): N18.9 - Chronic kidney disease, unspecified Status: Acute Code(s): N18.9 - Chronic kidney disease, unspecified (3) Hyperparathyroidism: Status: Acute Code(s): E21.3 - Hyperparathyroidism, unspecified (4) Hypothyroidism: Status: Acute Code(s): E03.9 - Hypothyroidism, unspecified (5) Congestive heart failure: Status: Acute Code(s): I50.9 - Heart failure, unspecified (6) Incisional hernia: Qualifiers: Obstruction and gangrene presence: without obstruction or gangrene Qualified Code(s): K43.2 - Incisional hernia without obstruction or gangrene Status: Acute Code(s): K43.2 - Incisional hernia without obstruction or gangrene (7) CAD (coronary artery disease): Status: Acute Code(s): I25.10 - Atherosclerotic heart disease of [place] coronary artery without angina pectoris Assessment and Plan: Plan:Mrs. Garcia is a 71 y/o woman with hx of Bipolar Disorder although it appears more schizoaffective bipolar given collateral information that states psychosis/paranoia independent of mood component. Pt stopped taking psychiatric medication 2 years ago slowly decompensating. Most recently, pt presents as paranoid, denies having mental illness or need for treatment for both medical and psychiatric conditions. Pt is hyperverbal, flight of ideas and paranoid about being poisoned. 06/06: Urine culture is negative- no need for antibiotic. No need for repeat. CKD- unknown baseline Cr. elevation noted from 06/03 Cr 1.46, to 05/25.72. Consulted with Dr. Cevallos who recommends recheck on 06/07, to see if true ALBA on CDK. Started risperidone 1mg po BID and ativan 1mg po BID. 06/07 Cr 1.78; per [place], no need for IV fluids presently. PLAN Monitor for safety in the milieu. Discharge on stabilization. Patient seen. Chart reviewed. Discussed with team. Obtain collateral contact info?as needed Discontinue Risperdal. Start Lamictal 12.5 p.o. q.a.m.. I spent minutes with the patient and/or on the patient floor today, greater than?50% of which was spent counseling/coordinating care. Reason for contiued inpatient stay Substantial Risk for: inability to function, rapid decompensation and med/psych decompensation
[2021-06-12 16:27] LABS: Glucose, Whole Blood 184 mg/dL (60-115)
[2021-06-12 18:00] VITALS: BP 155/71; PULSE 71; RESP 19; TEMP 37.3; O2SAT 98
[2021-06-12 19:44] LABS: Glucose, Whole Blood 291 mg/dL (60-115)
[2021-06-12] MEDS: Insulin Glargine,Hum.rec.anlog 100 UNIT/ML 10 ML VIAL 10 UNIT SUBCUT (20:26)
[2021-06-12 20:27] VITALS: BP 155/71; PULSE 71
[2021-06-12] MEDS: amLODIPine Besylate 5 MG TABLET PO (20:27)
[2021-06-13] VITALS (7 sets, daily range): BP systolic 132–143; BP diastolic 58–65; PULSE 66–72; RESP 18–19; TEMP 36.3–36.8; O2SAT 95–97
[2021-06-13 06:06] LABS: Glucose, Whole Blood 138 mg/dL (60-115)
[2021-06-13] MEDS: Levothyroxine Sodium 75 MCG TABLET PO (06:09)
[2021-06-13] MEDS: Metoprolol Tartrate 25 MG TABLET PO ×2 (08:37→20:21)
[2021-06-13] MEDS: Clopidogrel Bisulfate 75 MG TABLET PO (08:38)
[2021-06-13] MEDS: lamoTRIgine 25 MG TABLET 12.5 MG PO (08:38)
[2021-06-13] MEDS: Isosorbide Mononitrate 30 MG TAB.ER.24H PO (08:38)
[2021-06-13] MEDS: Furosemide 40 MG TABLET PO (08:39)
--- NOTE | 2021-06-13 09:55 | P.CONHOSP_ITS ---
History of Present Illness Data of Consult Service Date: 06/13/21 Primary Care Provider: Johnny Rosa MD HPI Reason for consult: ECT evaluation 71 year female with CKD, HTN, HLD, CAD with prior VA with stents presetnly being treated in inpatient Psych for Biploar schizopaffective desorder and is planned to have ECT done. She presently has no acute medical issues, she denies denies, chest pain or shortness of breath, I reviewed her last ECG with no acut ischemic changed. She's very talkative yet make sense and able to provide accurate history. She is familiar with ECT therapy which she refers to as schok therapy and was unequivocal that she did not want.. It is not clear to me if the Psych provider has discussed this with her but definately warrants discussion with her. Review of Systems Review of Systems: Gen: no fever Resp: no sob, no cough CV: no chest, no COLE, no leg edema GI: No n/v, no abd pain Neuro: No confusion Yes all other systems are reviewed and are negative [facility] Medical History CAD (coronary artery disease) CKD (chronic kidney disease) Congestive heart failure Endocarditis of mitral valve HTN (hypertension) Hyperkalemia Hyperlipidemia Hyperparathyroidism Hypothyroidism Non-compliance Type 2 diabetes mellitus with hyperglycemia, with long-term current use of insulin Viridans streptococci infection Vitamin D deficiency Family History Father CVD (cardiovascular disease) Mother No problems noted. Surgical History History of cardiac catheterization Hx of section Hx of cholecystectomy Hx of tonsillectomy Malignant melanoma Myocardial infarction Stented coronary artery Social History Household Members: None Housing: Assisted Living Facility Housing Other:: Senior housing. Do you presently have visiting nurse or other home services: Yes Alcohol intake: former Patient Tobacco Use Status: Former Tobacco user Advance Directives Date on File: 06/04/21 service: No Sexual orientation: Straight/Heterosexual Meds Allergies Allergy/AdvReac Type Severity Reaction Status Date / Time ciprofloxacin [From Cipro] Allergy Intermediate Difficulty Verified 06/04/21 14:12 Breathing Iodinated Contrast Media Allergy Unknown ANAPHYLAXIS Verified 12/29/20 09:46 [IV CONTRAST] Active Medications: Current Medications Acetaminophen (Acetaminophen 325 Mg Tablet) 650 mg PO Q6H PRN PRN Reason: Headache/Pain Mild Scale (1-3) Al Hydroxide/Mg Hydroxide (Magnesium Hydrox/Alum Hydrox 30 Ml Oral.Susp) 30 ml PO Q6H PRN PRN Reason: Heartburn/Nausea Amlodipine Besylate (Amlodipine Besylate 5 Mg Tablet) 5 mg PO BEDTIME [facility]; Protocol Last Admin: 06/12/21 20:27 Dose: 5 mg Documented by: Clopidogrel Bisulfate (Clopidogrel Bisulfate 75 Mg Tablet) 75 mg PO DAILY [facility] Last Admin: 06/13/21 08:38 Dose: 75 mg Documented by: Furosemide (Furosemide 40 Mg Tablet) 40 mg PO DAILY [facility]; Protocol Last Admin: 06/13/21 08:39 Dose: 40 mg Documented by: Hydroxyzine HCl (Hydroxyzine Hcl 25 Mg Tablet) 25 mg PO Q6H PRN PRN Reason: Anxiety Last Admin: 06/11/21 23:49 Dose: 25 mg Documented by: Insulin Glargine (Insulin Glargine,Hum.Rec.Anlog 100 Unit/Ml 10 Ml Vial) 10 unit SUBCUT BEDTIME [facility] Last Admin: 06/12/21 20:26 Dose: 10 unit Documented by: Insulin Human Lispro (Insulin Lispro 100 Unit/Ml 3 Ml Vial) 0 unit SUBCUT QIDACHS [facility]; Protocol Last Admin: 06/13/21 08:23 Dose: Not Given Documented by: Isosorbide Mononitrate (Isosorbide Mononitrate 30 Mg Tab.Er.24h) 30 mg PO DAILY [facility]; Protocol Last Admin: 06/13/21 08:38 Dose: 30 mg Documented by: Ketorolac Tromethamine (Ketorolac Tromethamine 0.5% Op 3 Ml Drops) 1 drop EYE- LEFT QID [facility] Last Admin: 06/13/21 08:36 Dose: 1 drop Documented by: Lamotrigine (Lamotrigine 25 Mg Tablet) 12.5 mg PO DAILY [facility] Last Admin: 06/13/21 08:38 Dose: 12.5 mg Documented by: Levothyroxine Sodium (Levothyroxine Sodium 75 Mcg Tablet) 75 mcg PO DAILY@0600 [facility] Last Admin: 06/13/21 06:09 Dose: 75 mcg Documented by: Magnesium Hydroxide (Milk Of Magnesia 30 Ml Oral.Susp) 30 ml PO DAILY PRN PRN Reason: Constipation Metoprolol Tartrate (Metoprolol Tartrate 25 Mg Tablet) 25 mg PO BID [facility]; Protocol Last Admin: 06/13/21 08:37 Dose: 25 mg Documented by: Nitroglycerin (Nitroglycerin 0.4 Mg Tab.Subl) 0.4 mg SUBLINGUAL Q5M PRN PRN Reason: Chest Pain Last Admin: 06/11/21 06:09 Dose: 1 tab Documented by: Trazodone HCl (Trazodone Hcl 50 Mg Tablet) 50 mg PO BEDTIME PRN PRN Reason: Insomnia Last Admin: 06/09/21 23:03 Dose: 50 mg Documented by: Home Medications Medication Instructions Recorded Confirmed Last Taken Type levothyroxine 75 mcg tablet 75 mcg PO QAM 05/23/20 06/04/21 06/03/21 History insulin aspart U-100 100 unit/mL See Protocol SUBCUT TID 08/04/20 06/04/21 06/03/21 History (3 mL) subcutaneous pen (Novolog Flexpen U-100 Insulin aspart) ketorolac 0.5 % eye drops 1 drp OPHTHALMIC-LEFT QID ml 12/29/20 06/04/21 06/03/21 History furosemide 20 mg tablet 40 mg PO DAILY 03/16/21 06/04/21 06/03/21 History isosorbide mononitrate 60 mg 30 mg PO DAILY tab 03/16/21 06/04/21 06/03/21 History tablet,extended release 24 hr Syntol (Probitoic/Prebiotic) 1 tab PO DAILY 06/04/21 06/03/21 History coenzyme Q10 100 mg capsule 100 mg PO DAILY 06/04/21 06/04/21 06/03/21 History (CoQ-10) nitroglycerin 0.4 mg sublingual 0.4 mg SUBLINGUAL Q5M PRN 06/04/21 06/04/21 06/03/21 History tablet tumeric 100 mg-ann 150 mg-olive 2 cap PO DAILY 06/04/21 06/04/21 06/03/21 History 50 mg-oreg 150 mg-caprylate capsule vitamin D3-vitamin K2 1 tab PO DAILY MRX1 06/04/21 06/04/21 06/03/21 History Physical Exam Vital Signs and Narrative: Vital Signs: Last Vital Signs Temp 997.4 F H 06/13/21 08:22 Pulse 72 06/13/21 08:38 Resp 18 06/13/21 08:22 BP 132/58 L 06/13/21 08:38 Pulse Ox 97 06/13/21 08:22 Body Mass Index 26.6 Const: Other: Constitutional: Alert, in no distress, Mental Status: Oriented to person, place and time. Eyes: Pupils are equal, round and reactive to light. Ear, Nose and Throat: Oropharynx clear, mucous membranes moist. Ears and nose without eformities. Trachea midline. Respiratory: Clear to auscultation. No wheezing, rales or rhonchi. Cardiovascular: S1 S2 regular. No murmurs, rubs or gallops. Gastrointestinal: Abdomen soft, non-tender, non-distended. Normal bowel sounds.? Neurologic: Cranial nerves II-XII grossly intact. No focal neurological deficits. Moves all extremities spontaneously.? Skin: No rashes or lesions.? Musculoskeletal: No cyanosis or clubbing. Psychiatric: Normal mood and affect? Results Labs CBC and Chem 7: 06/07/21 06:35 06/07/21 06:35 Labs: Laboratory Results - last 24 hr 06/12/21 06/12/21 06/12/21 11:55 16:22 19:39 POC Glucose 130 H 184 H 291 H 06/13/21 06:01 POC Glucose 138 H Assessment and Plan (1) Schizoaffective disorder, bipolar type: Status: Acute 71-year-old female with a past medical history of hypertension, hyperlipidemia, diabetes, coronary artery disease status post RCA stent, chronic kidney disease, CHF hyperparathyroidism, hypothyroidism, vitamin-D deficiency history of endocarditis of the mitral valve presently being treated with bipolar, schizoaffective type with plan to have ECT done. First, I suggest an open discussion with patient with the plan is ECT as she tells me she does not want yuan therapy In the even that she's agreeable to have it done, she's at least moderate for the planed procedure given underlying CAD, HTN, CKD and advanced age. She's pre sently medically optimize, I recommend repeating ECG, rountine metabolic panel before the procedure, otherwise no cardiopulmonary testing indicated at this time. Continue all other routine medical managemtn. Thanks
[2021-06-13 11:28] LABS: Glucose, Whole Blood 292 mg/dL (60-115)
[2021-06-13] MEDS: Insulin Lispro 100 UNIT/ML 3 ML VIAL SUBCUT ×3 (11:34→20:21)
--- NOTE | 2021-06-13 16:09 | HO.PSYCHPN ---
Subjective Subjective Date of Service: 06/13/21 Reason For Visit: Bipolar Do Interim History: Patient seen and discussed with team. I feel accepting of what's happening. I am not ticked off Patient presents as talkative and loquacious. She is with some pressure talking about her upbringing and her family hx of mental illness. She denies SI. Medication Compliance: Yes Side effects from medications: No Review of Systems Acute medical concerns: No Mental Status Exam Mental Status Exam Patient Appearance: Well Grooomed Level of Consciousness: Appropriate Patient Behavior: Talkative Mood Description: Appropriate Affect Description: Constricted Patient Cognition Impaired: Yes Ability to Follow Directions: Good Speech Pattern: Clear, Spontaneous Speech, Rapid and Excessive Memory Description: Immediate Impaired Hallucinations: None Thought Process: Racing Thought Content: positive for Intact and positive for Racing Abnormal Motor Activity Signs and Symptoms: Hyperactivity Judgement: Fair Diagnostics Vital Signs (24Hr): Vital Signs - 24 hr 06/12/21 18:00 06/12/21 20:27 06/13/21 08:20 Temperature 99.2 F 97.4 F Pulse Rate 71 71 72 Respiratory Rate 19 18 Blood Pressure 155/71 H 155/71 H 132/58 L Pulse Oximetry 98 97 06/13/21 08:22 06/13/21 08:37 06/13/21 08:38 Temperature 997.4 F H Pulse Rate 72 72 72 Respiratory Rate 18 Blood Pressure 132/58 L 132/58 L 132/58 L Pulse Oximetry 97 Body Mass Index 26.6 Labs Results: 06/07/21 06:35 06/07/21 06:35 Labs: Laboratory Results - last 48 hr 06/11/21 06/12/21 06/12/21 19:50 06:27 11:55 POC Glucose 277 H 227 H 130 H 06/12/21 06/12/21 06/13/21 16:22 19:39 06:01 POC Glucose 184 H 291 H 138 H 06/13/21 11:19 POC Glucose 292 H Imaging Radiology Impressions: ITS Impressions Head CT 06/06/21 12:16 IMPRESSION: No acute intracranial pathology. Medications Medications Current Medications Acetaminophen (Acetaminophen 325 Mg Tablet) 650 mg PO Q6H PRN PRN Reason: Headache/Pain Mild Scale (1-3) Al Hydroxide/Mg Hydroxide (Magnesium Hydrox/Alum Hydrox 30 Ml Oral.Susp) 30 ml PO Q6H PRN PRN Reason: Heartburn/Nausea Amlodipine Besylate (Amlodipine Besylate 5 Mg Tablet) 5 mg PO BEDTIME [facility]; Protocol Last Admin: 06/12/21 20:27 Dose: 5 mg Documented by: Clopidogrel Bisulfate (Clopidogrel Bisulfate 75 Mg Tablet) 75 mg PO DAILY [facility] Last Admin: 06/13/21 08:38 Dose: 75 mg Documented by: Furosemide (Furosemide 40 Mg Tablet) 40 mg PO DAILY [facility]; Protocol Last Admin: 06/13/21 08:39 Dose: 40 mg Documented by: Hydroxyzine HCl (Hydroxyzine Hcl 25 Mg Tablet) 25 mg PO Q6H PRN PRN Reason: Anxiety Last Admin: 06/11/21 23:49 Dose: 25 mg Documented by: Insulin Glargine (Insulin Glargine,Hum.Rec.Anlog 100 Unit/Ml 10 Ml Vial) 10 unit SUBCUT BEDTIME [facility] Last Admin: 06/12/21 20:26 Dose: 10 unit Documented by: Insulin Human Lispro (Insulin Lispro 100 Unit/Ml 3 Ml Vial) 0 unit SUBCUT QIDACHS [facility]; Protocol Last Admin: 06/13/21 11:34 Dose: 6 unit Documented by: Isosorbide Mononitrate (Isosorbide Mononitrate 30 Mg Tab.Er.24h) 30 mg PO DAILY [facility]; Protocol Last Admin: 06/13/21 08:38 Dose: 30 mg Documented by: Ketorolac Tromethamine (Ketorolac Tromethamine 0.5% Op 3 Ml Drops) 1 drop EYE-LEFT QID [facility] Last Admin: 06/13/21 12:46 Dose: 1 drop Documented by: Lamotrigine (Lamotrigine 25 Mg Tablet) 12.5 mg PO DAILY [facility] Last Admin: 06/13/21 08:38 Dose: 12.5 mg Documented by: Levothyroxine Sodium (Levothyroxine Sodium 75 Mcg Tablet) 75 mcg PO DAILY@0600 [facility] Last Admin: 06/13/21 06:09 Dose: 75 mcg Documented by: Magnesium Hydroxide (Milk Of Magnesia 30 Ml Oral.Susp) 30 ml PO DAILY PRN PRN Reason: Constipation Metoprolol Tartrate (Metoprolol Tartrate 25 Mg Tablet) 25 mg PO BID [facility]; Protocol Last Admin: 06/13/21 08:37 Dose: 25 mg Documented by: Nitroglycerin (Nitroglycerin 0.4 Mg Tab.Subl) 0.4 mg SUBLINGUAL Q5M PRN PRN Reason: Chest Pain Last Admin: 06/11/21 06:09 Dose: 1 tab Documented by: Trazodone HCl (Trazodone Hcl 50 Mg Tablet) 50 mg PO BEDTIME PRN PRN Reason: Insomnia Last Admin: 06/09/21 23:03 Dose: 50 mg Documented by: Allergies Allergies Allergy/AdvReac Type Severity Reaction Status Date / Time ciprofloxacin [From Cipro] Allergy Intermediate Difficulty Verified 06/04/21 14:12 Breathing Iodinated Contrast Media Allergy Unknown ANAPHYLAXIS Verified 12/29/20 09:46 [IV CONTRAST] Assessment & Plan Assessment & Plan (1) Schizoaffective disorder, bipolar type: Status: Acute Code(s): F25.0 - Schizoaffective disorder, bipolar type Assessment and Plan: Plan:Mrs. Garcia is a 71 y/o woman with hx of Bipolar Disorder although it appears more schizoaffective bipolar given collateral information that states psychosis/paranoia independent of mood component. Pt stopped taking psychiatric medication 2 years ago slowly decompensating. Most recently, pt presents as paranoid, denies having mental illness or need for treatment for both medical and psychiatric conditions. Pt is hyperverbal, flight of ideas and paranoid about being poisoned. 06/06: Urine culture is negative- no need for antibiotic. No need for repeat. CKD- unknown baseline Cr. elevation noted from 06/03 Cr 1.46, to 11/1.72. Consulted with Dr. Cevallos who recommends recheck on 06/07, to see if true ALBA on CDK. Started risperidone 1mg po BID and ativan 1mg po BID.? 06/07 Cr 1.78; per [place], no need for IV fluids presently. PLAN Monitor for safety in the milieu. Discharge on stabilization. Patient seen. Chart reviewed. Discussed with team. Obtain collateral contact info?as needed Discontinue Risperdal.? Start Lamictal 12.5 p.o. q.a.m.. Assessment and Plan: 71-year-old female with a past medical history of hypertension, hyperlipidemia, diabetes, coronary artery disease status post RCA stent, chronic kidney disease, CHF hyperparathyroidism, hypothyroidism, vitamin-D deficiency history of endocarditis of the mitral valve presently being treated with bipolar, schizoaffective type with plan to have ECT done. First, I suggest an open discussion with patient with the plan is ECT as she tells me she does not want yuan therapy In the even that she's agreeable to have it done, she's at least moderate for the planed procedure given underlying CAD, HTN, CKD and advanced age. She's presently medically optimize, I recommend repeating ECG, rountine metabolic panel before the procedure, otherwise no cardiopulmonary testing indicated at this time. Continue all other routine medical managemtn. Thanks I spent minutes with the patient and/or on the patient floor today, greater than?50% of which was spent counseling/coordinating care. Reason for contiued inpatient stay Substantial Risk for: rapid decompensation
[2021-06-13 16:56] LABS: Glucose, Whole Blood 166 mg/dL (60-115)
[2021-06-13 20:04] LABS: Glucose, Whole Blood 251 mg/dL (60-115)
[2021-06-13] MEDS: Insulin Glargine,Hum.rec.anlog 100 UNIT/ML 10 ML VIAL 10 UNIT SUBCUT (20:21)
[2021-06-13] MEDS: amLODIPine Besylate 5 MG TABLET PO (20:22)
[2021-06-13 23:23] LABS: Glucose, Whole Blood 80 mg/dL (60-115)
[2021-06-13 23:23] LABS: Glucose, Whole Blood 54 mg/dL (60-115)
[2021-06-14] MEDS: traZODone HCL 50 MG TABLET PO ×3 (00:39→21:37)
--- NOTE | 2021-06-14 00:54 | PC.NURSE ---
At about 23:00 pt complained of feeling weak and reports I feel low. Can you check my blood sugar. Pt's blood glucose at that time was 54. Pt was given orange juice and snacks, blood sugar was rechecked 15min later at 80. notified.
[2021-06-14 06:13] LABS: Glucose, Whole Blood 138 mg/dL (60-115)
[2021-06-14] MEDS: Levothyroxine Sodium 75 MCG TABLET PO (06:23)
[2021-06-14 07:56] LABS: Anion Gap 15 (12-20); Blood Urea Nitrogen 76 mg/dL (9-16); Calcium 9.3 mg/dL (8.4-10.2); Carbon Dioxide 25 mmol/L (22-29); Chloride 107 mmol/L (96-108); Creatinine Clr Calc Pharmacy 22.5; Estimated Glomerular Filt Rate 27; Glucose Random 107 mg/dL (60-115); Potassium 4.6 mmol/L (3.3-5.1); Sodium 142 mmol/L (135-145)
[2021-06-14 08:23] VITALS: BP 148/69; PULSE 64
[2021-06-14] MEDS: Clopidogrel Bisulfate 75 MG TABLET PO (08:23)
[2021-06-14] MEDS: Metoprolol Tartrate 25 MG TABLET PO ×2 (08:23→20:02)
[2021-06-14 08:24] VITALS: BP 148/69; PULSE 64
[2021-06-14] MEDS: Isosorbide Mononitrate 30 MG TAB.ER.24H PO (08:24)
[2021-06-14] MEDS: lamoTRIgine 25 MG TABLET 12.5 MG PO (08:25)
[2021-06-14] MEDS: Furosemide 40 MG TABLET PO (08:25)
[2021-06-14 09:12] VITALS: BP 148/73; PULSE 64; TEMP 35.7; O2SAT 96
--- NOTE | 2021-06-14 13:25 | HO.PSYCHPN ---
Subjective Subjective Date of Service: 06/14/21 Reason For Visit: Bipolar Do Interim History: Patient seen and discussed with team. Patient continued pressured speech. She is pleasantly confused. Says she has found this place healing . She feels perfect with the lamictal. Agrees to increase dose. She denies SI. Review of Systems Review of Systems Gen: no fever Resp: no sob, no cough CV: no chest, no COLE, no leg edema GI: No n/v, no abd pain Neuro: No confusion Yes all other systems are reviewed and are negative Mental Status Exam Mental Status Exam Narrative: Appearance: casually groomed, fair hygiene in NAD Behavior:overly talkative psychomotor:hyperkinesia but not agitation Speech:clear, mumbles at times, hyperverbal, pressured at times, difficult to interrupt, spontaneous Thought process:flight of ideas, tangential Thought content:varied, broad Mood: perfect Affect: expansive SI:none HI:none VH/AH:denies but appears internally preoccupied. Delusions: none expressed Insight/judgment:impaired x 2. Memory/cog: alert, oriented to place, month, year but not situation. Patient Appearance: Well Grooomed Patient Orientation: Person Level of Consciousness: Appropriate Patient Behavior: Talkative Mood Description: Appropriate Affect Description: Constricted Patient Cognition Impaired: Yes Ability to Follow Directions: Good Speech Pattern: Clear, Spontaneous Speech, Rapid and Excessive Memory Description: Immediate Impaired Diagnostics Vital Signs (24Hr): Vital Signs - 24 hr 06/14/21 08:23 06/14/21 08:24 06/14/21 09:12 Temperature 96.2 F L Pulse Rate 64 64 64 Blood Pressure 148/69 H 148/69 H 148/73 H Pulse Oximetry 96 06/14/21 20:01 06/14/21 20:02 Temperature Pulse Rate 63 63 Blood Pressure 161/66 H 161/66 H Pulse Oximetry Body Mass Index 26.6 Labs Results: 06/07/21 06:35 06/14/21 06:57 Labs: Laboratory Results - last 48 hr 06/13/21 06/13/21 06/13/21 06:01 11:19 16:44 Sodium Potassium Chloride Carbon Dioxide Anion Gap BUN Creatinine Estim Creat Clear Calc Estimated GFR POC Glucose 138 H 292 H 166 H Random Glucose Calcium 06/13/21 06/13/21 06/13/21 19:46 23:03 23:18 Sodium Potassium Chloride Carbon Dioxide Anion Gap BUN Creatinine Estim Creat Clear Calc Estimated GFR POC Glucose 251 H 54 L* 80 Random Glucose Calcium 06/14/21 06/14/21 06/14/21 06:07 06:57 19:46 Sodium 142 Potassium 4.6 Chloride 107 Carbon Dioxide 25 Anion Gap 15 BUN 76 H Creatinine 1.85 H Estim Creat Clear Calc 22.5 Estimated GFR 27 POC Glucose 138 H 237 H Random Glucose 107 Calcium 9.3 D Imaging Radiology Impressions: ITS Impressions Head CT 06/06/21 12:16 IMPRESSION: No acute intracranial pathology. Medications Medications Current Medications Acetaminophen (Acetaminophen 325 Mg Tablet) 650 mg PO Q6H PRN PRN Reason: Headache/Pain Mild Scale (1-3) Al Hydroxide/Mg Hydroxide (Magnesium Hydrox/Alum Hydrox 30 Ml Oral.Susp) 30 ml PO Q6H PRN PRN Reason: Heartburn/Nausea Amlodipine Besylate (Amlodipine Besylate 5 Mg Tablet) 5 mg PO BEDTIME [facility]; Protocol Last Admin: 06/14/21 20:01 Dose: 5 mg Documented by: Clopidogrel Bisulfate (Clopidogrel Bisulfate 75 Mg Tablet) 75 mg PO DAILY [facility] Last Admin: 06/14/21 08:23 Dose: 75 mg Documented by: Furosemide (Furosemide 40 Mg Tablet) 40 mg PO DAILY [facility]; Protocol Last Admin: 06/14/21 08:25 Dose: 40 mg Documented by: Hydroxyzine HCl (Hydroxyzine Hcl 25 Mg Tablet) 25 mg PO Q6H PRN PRN Reason: Anxiety Last Admin: 06/11/21 23:49 Dose: 25 mg Documented by: Insulin Glargine (Insulin Glargine,Hum.Rec.Anlog 100 Unit/Ml 10 Ml Vial) 10 unit SUBCUT BEDTIME D[facility]IP Last Admin: 06/14/21 19:59 Dose: 10 unit Documented by: Insulin Human Lispro (Insulin Lispro 100 Unit/Ml 3 Ml Vial) 0 unit SUBCUT QIDACHS [facility]; Protocol Last Admin: 06/14/21 20:01 Dose: 4 unit Documented by: Isosorbide Mononitrate (Isosorbide Mononitrate 30 Mg Tab.Er.24h) 30 mg PO DAILY [facility]; Protocol Last Admin: 06/14/21 08:24 Dose: 30 mg Documented by: Ketorolac Tromethamine (Ketorolac Tromethamine 0.5% Op 3 Ml Drops) 1 drop EYE-LEFT QID [facility] Last Admin: 06/14/21 20:02 Dose: 1 drop Documented by: Lamotrigine (Lamotrigine 25 Mg Tablet) 25 mg PO DAILY [facility] Levothyroxine Sodium (Levothyroxine Sodium 75 Mcg Tablet) 75 mcg PO DAILY@0600 [facility] Last Admin: 06/14/21 06:23 Dose: 75 mcg Documented by: Magnesium Hydroxide (Milk Of Magnesia 30 Ml Oral.Susp) 30 ml PO DAILY PRN PRN Reason: Constipation Metoprolol Tartrate (Metoprolol Tartrate 25 Mg Tablet) 25 mg PO BID [facility]; Protocol Last Admin: 06/14/21 20:02 Dose: 25 mg Documented by: Nitroglycerin (Nitroglycerin 0.4 Mg Tab.Subl) 0.4 mg SUBLINGUAL Q5M PRN PRN Reason: Chest Pain Last Admin: 06/11/21 06:09 Dose: 1 tab Documented by: Trazodone HCl (Trazodone Hcl 50 Mg Tablet) 50 mg PO BEDTIME PRN PRN Reason: Insomnia Last Admin: 06/14/21 20:01 Dose: 50 mg Documented by: Allergies Allergies Allergy/AdvReac Type Severity Reaction Status Date / Time ciprofloxacin [From Cipro] Allergy Intermediate Difficulty Verified 06/04/21 14:12 Breathing Iodinated Contrast Media Allergy Unknown ANAPHYLAXIS Verified 12/29/20 09:46 [IV CONTRAST] Assessment & Plan Assessment & Plan (1) Schizoaffective disorder, bipolar type: Status: Acute Code(s): F25.0 - Schizoaffective disorder, bipolar type Assessment and Plan: Plan:Mrs. Garcia is a 71 y/o woman with hx of Bipolar Disorder although it appears more schizoaffective bipolar given collateral information that states psychosis/paranoia independent of mood component. Pt stopped taking psychiatric medication 2 years ago slowly decompensating. Most recently, pt presents as paranoid, denies having mental illness or need for treatment for both medical and psychiatric conditions. Pt is hyperverbal, flight of ideas and paranoid about being poisoned. 06/06: Urine culture is negative- no need for antibiotic. No need for repeat. CKD- unknown baseline Cr. elevation noted from 06/03 Cr 1.46, to 05/25.72. Consulted with Dr. Jesin who recommends recheck on 06/07, to see if true ALBA on CDK. Started risperidone 1mg po BID and ativan 1mg po BID.? 06/07 Cr 1.78; per [place], no need for IV fluids presently. PLAN Monitor for safety in the milieu. Discharge on stabilization. Patient seen. Chart reviewed. Discussed with team. Obtain collateral contact info?as needed Discontinue Risperdal.? Increase Lamictal to 25 mg p.o. q.a.m.. Assessment and Plan: 71-year-old female with a past medical history of hypertension, hyperlipidemia, diabetes, coronary artery disease status post RCA stent, chronic kidney disease, CHF hyperparathyroidism, hypothyroidism, vitamin-D deficiency history of endocarditis of the mitral valve presently being treated with bipolar, schizoaffective type with plan to have ECT done. First, I suggest an open discussion with patient with the plan is ECT as she tells me she does not want yuan therapy In the even that she's agreeable to have it done, she's at least moderate for the planed procedure given underlying CAD, HTN, CKD and advanced age. She's presently medically optimize, I recommend repeating ECG, rountine metabolic panel before the procedure, otherwise no cardiopulmonary testing indicated at this time. Continue all other routine medical managemtn. Thanks I spent minutes with the patient and/or on the patient floor today, greater than?50% of which was spent counseling/coordinating care. Reason for contiued inpatient stay Substantial Risk for: inability to function and rapid decompensation
[2021-06-14 19:50] VITALS: BP 161/66; PULSE 63; RESP 17; TEMP 36.4; O2SAT 99
[2021-06-14 19:53] LABS: Glucose, Whole Blood 237 mg/dL (60-115)
[2021-06-14] MEDS: Insulin Glargine,Hum.rec.anlog 100 UNIT/ML 10 ML VIAL 10 UNIT SUBCUT (19:59)
[2021-06-14 20:01] VITALS: BP 161/66; PULSE 63
[2021-06-14] MEDS: Insulin Lispro 100 UNIT/ML 3 ML VIAL SUBCUT (20:01)
[2021-06-14] MEDS: amLODIPine Besylate 5 MG TABLET PO (20:01)
[2021-06-14 20:02] VITALS: BP 161/66; PULSE 63
[2021-06-15 12:23] LABS: Glucose, Whole Blood 146 mg/dL (60-115)
--- NOTE | 2021-06-15 16:07 | P.PNPSI_ITS ---
Subjective Subjective Date of Service: 06/15/21 Reason For Visit: Bipolar Do Subjective Notes: Conditional Voluntary Interim History: The nursing staff reported the patient has been hyperverbal with poor sleep that has not improved with trazodone. The socially responsible investment adviser reported that her house he has hoarded as per counseled for the Aging. Also, her brother was not insert back even though that he has a healthcare proxy. Today, the patient refused care and she was very angry stating that she was admitted only for medical reasons and she ended up on the psychiatric unit because of her bipolar diagnosis. Mental Status Exam Mental Status Exam Patient Appearance: Disheveled Patient Orientation: Person Level of Consciousness: Awake Patient Behavior: Guarded and Aggressive Mood Description: Labile Affect Description: Constricted Ability to Follow Directions: Fair Speech Pattern: Rambling Hallucinations: None Delusions: Not Present Thought Process: Distracted Thought Content: positive for Circumstantial, positive for Preoccupation and positive for Tangential Judgement: Fair Diagnostics Vital Signs (24Hr): Vital Signs - 24 hr 06/14/21 19:50 06/14/21 20:01 06/14/21 20:02 Temperature 97.5 F Pulse Rate 63 63 63 Respiratory Rate 17 Blood Pressure 161/66 H 161/66 H 161/66 H Pulse Oximetry 99 Body Mass Index 26.6 Labs Results: 06/07/21 06:35 06/14/21 06:57 Labs: Laboratory Results - last 48 hr 06/13/21 06/13/21 06/13/21 16:44 19:46 23:03 Sodium Potassium Chloride Carbon Dioxide Anion Gap BUN Creatinine Estim Creat Clear Calc Estimated GFR POC Glucose 166 H 251 H 54 L* Random Glucose Calcium 06/13/21 06/14/21 06/14/21 23:18 06:07 06:57 Sodium 142 Potassium 4.6 Chloride 107 Carbon Dioxide 25 Anion Gap 15 BUN 76 H Creatinine 1.85 H Estim Creat Clear Calc 22.5 Estimated GFR 27 POC Glucose 80 138 H Random Glucose 107 Calcium 9.3 D 06/14/21 06/15/21 19:46 12:19 Sodium Potassium Chloride Carbon Dioxide Anion Gap BUN Creatinine Estim Creat Clear Calc Estimated GFR POC Glucose 237 H 146 H Random Glucose Calcium Imaging Radiology Impressions: ITS Impressions Head CT 06/06/21 12:16 IMPRESSION: No acute intracranial pathology. Medications Medications Current Medications Acetaminophen (Acetaminophen 325 Mg Tablet) 650 mg PO Q6H PRN PRN Reason: Headache/Pain Mild Scale (1-3) Al Hydroxide/Mg Hydroxide (Magnesium Hydrox/Alum Hydrox 30 Ml Oral.Susp) 30 ml PO Q6H PRN PRN Reason: Heartburn/Nausea Amlodipine Besylate (Amlodipine Besylate 5 Mg Tablet) 5 mg PO BEDTIME [facility]; Protocol Last Admin: 06/14/21 20:01 Dose: 5 mg Documented by: Clopidogrel Bisulfate (Clopidogrel Bisulfate 75 Mg Tablet) 75 mg PO DAILY [facility] Last Admin: 06/15/21 12:13 Dose: Not Given Documented by: Furosemide (Furosemide 40 Mg Tablet) 40 mg PO DAILY [facility]; Protocol Last Admin: 06/15/21 12:13 Dose: Not Given Documented by: Hydroxyzine HCl (Hydroxyzine Hcl 25 Mg Tablet) 25 mg PO Q6H PRN PRN Reason: Anxiety Last Admin: 06/11/21 23:49 Dose: 25 mg Documented by: Insulin Glargine (Insulin Glargine,Hum.Rec.Anlog 100 Unit/Ml 10 Ml Vial) 10 unit SUBCUT BEDTIME [facility] Last Admin: 06/14/21 19:59 Dose: 10 unit Documented by: Insulin Human Lispro (Insulin Lispro 100 Unit/Ml 3 Ml Vial) 0 unit SUBCUT QIDACHS [facility]; Protocol Last Admin: 06/15/21 13:33 Dose: Not Given Documented by: Isosorbide Mononitrate (Isosorbide Mononitrate 30 Mg Tab.Er.24h) 30 mg PO DAILY [facility]; Protocol Last Admin: 06/15/21 12:13 Dose: Not Given Documented by: Ketorolac Tromethamine (Ketorolac Tromethamine 0.5% Op 3 Ml Drops) 1 drop EYE-LEFT QID [facility] Last Admin: 06/15/21 14:45 Dose: 1 drop Documented by: Lamotrigine (Lamotrigine 25 Mg Tablet) 25 mg PO DAILY [facility] Last Admin: 06/15/21 12:15 Dose: Not Given Documented by: Levothyroxine Sodium (Levothyroxine Sodium 75 Mcg Tablet) 75 mcg PO DAILY@0600 [facility] Last Admin: 06/15/21 06:45 Dose: Not Given Documented by: Magnesium Hydroxide (Milk Of Magnesia 30 Ml Oral.Susp) 30 ml PO DAILY PRN PRN Reason: Constipation Metoprolol Tartrate (Metoprolol Tartrate 25 Mg Tablet) 25 mg PO BID [facility]; Protocol Last Admin: 06/15/21 12:15 Dose: Not Given Documented by: Nitroglycerin (Nitroglycerin 0.4 Mg Tab.Subl) 0.4 mg SUBLINGUAL Q5M PRN PRN Reason: Chest Pain Last Admin: 06/11/21 06:09 Dose: 1 tab Documented by: Trazodone HCl (Trazodone Hcl 50 Mg Tablet) 50 mg PO BEDTIME PRN PRN Reason: Insomnia Last Admin: 06/14/21 21:37 Dose: 50 mg Documented by: Allergies Allergies Allergy/AdvReac Type Severity Reaction Status Date / Time ciprofloxacin [From Cipro] Allergy Intermediate Difficulty Verified 06/04/21 14:12 Breathing Iodinated Contrast Media Allergy Unknown ANAPHYLAXIS Verified 12/29/20 09:46 [IV CONTRAST] Assessment & Plan Assessment & Plan (1) Schizoaffective disorder, bipolar type: Status: Acute Code(s): F25.0 - Schizoaffective disorder, bipolar type Assessment and Plan: Plan:Mrs. Garcia is a 71 y/o woman with hx of Bipolar Disorder although it appears more schizoaffective bipolar given collateral information that states psychosis/paranoia independent of mood component. Pt stopped taking psychiatric medication 2 years ago slowly decompensating. Most recently, pt presents as paranoid, denies having mental illness or need for treatment for both medical and psychiatric conditions. Pt is hyperverbal, flight of ideas and paranoid about being poisoned. PLAN Monitor for safety in the milieu. Discharge on stabilization. Patient seen. Chart reviewed. Discussed with team. Obtain collateral contact info?as needed Discontinue Risperdal.? Increase Lamictal to 25 mg p.o. q.a.m.. Assessment and Plan: 71-year-old female with a past medical history of hypertension, hyperlipidemia, diabetes, coronary artery disease status post RCA stent, chronic kidney disease, CHF hyperparathyroidism, hypothyroidism, vitamin-D deficiency history of endocarditis of the mitral valve presently being treated with bipolar, schizoaffective type with plan to have ECT done. First, I suggest an open discussion with patient with the plan is ECT as she tells me she does not want yuan therapy In the even that she's agreeable to have it done, she's at least moderate for the planed procedure given underlying CAD, HTN, CKD and advanced age. She's presently medically optimize, I recommend repeating ECG, rountine metabolic panel before the procedure, otherwise no cardiopulmonary testing indicated at this time. Continue all other routine medical managemtn. Thanks I spent minutes with the patient and/or on the patient floor today, greater than?50% of which was spent counseling/coordinating care. Reason for contiued inpatient stay Substantial Risk for: inability to function, rapid decompensation and med/psych decompensation
[2021-06-15 17:06] LABS: Glucose, Whole Blood 220 mg/dL (60-115)
[2021-06-15] MEDS: Insulin Lispro 100 UNIT/ML 3 ML VIAL SUBCUT (17:08)
[2021-06-15 21:05] VITALS: BP 145/66; PULSE 61; RESP 20; TEMP 36.2; O2SAT 99
[2021-06-15 22:02] LABS: Glucose, Whole Blood 137 mg/dL (60-115)
[2021-06-15] MEDS: Insulin Glargine,Hum.rec.anlog 100 UNIT/ML 10 ML VIAL 10 UNIT SUBCUT (22:09)
[2021-06-15 22:10] VITALS: BP 145/66; PULSE 61
[2021-06-15] MEDS: traZODone HCL 50 MG TABLET PO (22:10)
[2021-06-15] MEDS: amLODIPine Besylate 5 MG TABLET PO (22:10)
[2021-06-15 22:11] VITALS: BP 145/66; PULSE 61
[2021-06-15] MEDS: Metoprolol Tartrate 25 MG TABLET PO (22:11)
[2021-06-16] MEDS: traZODone HCL 50 MG TABLET PO ×3 (01:08→23:39)
[2021-06-16] MEDS: Levothyroxine Sodium 75 MCG TABLET PO (06:17)
[2021-06-16 06:18] LABS: Glucose, Whole Blood 143 mg/dL (60-115)
[2021-06-16 07:37] LABS: Glucose, Whole Blood 117 mg/dL (60-115)
[2021-06-16 08:05] VITALS: BP 130/58; PULSE 59; RESP 17; TEMP 36.2; O2SAT 100
[2021-06-16] MEDS: Clopidogrel Bisulfate 75 MG TABLET PO (08:10)
[2021-06-16] MEDS: lamoTRIgine 25 MG TABLET PO (08:10)
[2021-06-16 12:06] LABS: Glucose, Whole Blood 149 mg/dL (60-115)
[2021-06-16] MEDS: Milk of Magnesia 30 ML ORAL.SUSP PO (14:08)
--- NOTE | 2021-06-16 14:47 | P.PNPSI_ITS ---
Subjective Subjective Date of Service: 06/16/21 Reason For Visit: Bipolar Do Subjective Notes: 3 Day Interim History: Pt pleasant on approach. Pt reports feeling better physically and looking forward to be discharged soon. She continues to report that antipsychotics are poison, especially risperidone. she reports sleeping and eating well, which is not the case, especially sleeping.Pt does not report overt delusional content as to her neighbors who she had initially reported was poisoning her and others in her building. She denies SI/HI. She was able to complete MOCA , most impairment on visuospatial, and attention, otherwise orientation, recall, language repetition/fluency fairly intact. Medication Compliance: Yes Side effects from medications: No Attending Groups: No Review of Systems Review of Systems Gen: no fever Resp: no sob, no cough CV: no chest, no COLE, no leg edema GI: No n/v, no abd pain Neuro: No confusion Yes all other systems are reviewed and are negative Mental Status Exam Mental Status Exam Narrative: Appearance: casually groomed, fair hygiene in NAD Behavior:pleasant psychomotor:no agitation or retardation noted Speech:clear, hyperverbal, not pressured, regular tone/rhythm, spontaneous Thought process: tangential, no loose associations Thought content: no overt psychosis, happy to see friend who came to visit her. Mood: perfect Affect: expansive SI:none HI:none VH/AH:denies but appears internally preoccupied. Delusions: none expressed Insight/judgment:impaired x 2. Memory/cog: alert, oriented x 3. She was able to complete MOCA on 06/16, most impairments on visuospatial, and attention, otherwise orientation, recall, language repetition/fluency fairly intact. Diagnostics Vital Signs (24Hr): Vital Signs - 24 hr 06/15/21 21:05 06/15/21 22:10 06/15/21 22:11 Temperature 97.1 F Pulse Rate 61 61 61 Respiratory Rate 20 Blood Pressure 145/66 H 145/66 H 145/66 H Pulse Oximetry 99 06/16/21 08:05 Temperature 97.1 F Pulse Rate 59 Respiratory Rate 17 Blood Pressure 130/58 L Pulse Oximetry 100 Body Mass Index 26.6 Labs Results: 06/07/21 06:35 06/14/21 06:57 Labs: Laboratory Results - last 48 hr 06/14/21 06/15/21 06/15/21 19:46 12:19 16:49 POC Glucose 237 H 146 H 220 H 06/15/21 06/16/21 06/16/21 21:51 06:13 07:34 POC Glucose 137 H 143 H 117 H 06/16/21 12:03 POC Glucose 149 H Imaging Radiology Impressions: ITS Impressions Head CT 06/06/21 12:16 IMPRESSION: No acute intracranial pathology. Medications Medications Current Medications Acetaminophen (Acetaminophen 325 Mg Tablet) 650 mg PO Q6H PRN PRN Reason: Headache/Pain Mild Scale (1-3) Al Hydroxide/Mg Hydroxide (Magnesium Hydrox/Alum Hydrox 30 Ml Oral.Susp) 30 ml PO Q6H PRN PRN Reason: Heartburn/Nausea Amlodipine Besylate (Amlodipine Besylate 5 Mg Tablet) 5 mg PO BEDTIME [facility]; Protocol Last Admin: 06/15/21 22:10 Dose: 5 mg Documented by: Clopidogrel Bisulfate (Clopidogrel Bisulfate 75 Mg Tablet) 75 mg PO DAILY [facility] Last Admin: 06/16/21 08:10 Dose: 75 mg Documented by: Furosemide (Furosemide 40 Mg Tablet) 40 mg PO DAILY [facility]; Protocol Last Admin: 06/16/21 08:13 Dose: Not Given Documented by: Hydroxyzine HCl (Hydroxyzine Hcl 25 Mg Tablet) 25 mg PO Q6H PRN PRN Reason: Anxiety Last Admin: 06/11/21 23:49 Dose: 25 mg Documented by: Insulin Glargine (Insulin Glargine,Hum.Rec.Anlog 100 Unit/Ml 10 Ml Vial) 10 unit SUBCUT BEDTIME DILIP Last Admin: 06/15/21 22:09 Dose: 10 unit Documented by: Insulin Human Lispro (Insulin Lispro 100 Unit/Ml 3 Ml Vial) 0 unit SUBCUT QIDACHS [facility]; Protocol Last Admin: 06/16/21 12:05 Dose: Not Given Documented by: Isosorbide Mononitrate (Isosorbide Mononitrate 30 Mg Tab.Er.24h) 30 mg PO DAILY [facility]; Protocol Last Admin: 06/16/21 08:14 Dose: Not Given Documented by: Ketorolac Tromethamine (Ketorolac Tromethamine 0.5% Op 3 Ml Drops) 1 drop EYE- LEFT QID [facility] Last Admin: 06/16/21 14:00 Dose: 1 drop Documented by: Lamotrigine (Lamotrigine 25 Mg Tablet) 25 mg PO DAILY [facility] Last Admin: 06/16/21 08:10 Dose: 25 mg Documented by: Levothyroxine Sodium (Levothyroxine Sodium 75 Mcg Tablet) 75 mcg PO DAILY@0600 [facility] Last Admin: 06/16/21 06:17 Dose: 75 mcg Documented by: Magnesium Hydroxide (Milk Of Magnesia 30 Ml Oral.Susp) 30 ml PO DAILY PRN PRN Reason: Constipation Last Admin: 06/16/21 14:08 Dose: 30 ml Documented by: Metoprolol Tartrate (Metoprolol Tartrate 25 Mg Tablet) 25 mg PO BID [facility]; Protocol Last Admin: 06/16/21 08:14 Dose: Not Given Documented by: Nitroglycerin (Nitroglycerin 0.4 Mg Tab.Subl) 0.4 mg SUBLINGUAL Q5M PRN PRN Reason: Chest Pain Last Admin: 06/11/21 06:09 Dose: 1 tab Documented by: Trazodone HCl (Trazodone Hcl 50 Mg Tablet) 50 mg PO BEDTIME PRN PRN Reason: Insomnia Last Admin: 06/16/21 01:08 Dose: 50 mg Documented by: Allergies Allergies Allergy/AdvReac Type Severity Reaction Status Date / Time ciprofloxacin [From Cipro] Allergy Intermediate Difficulty Verified 06/04/21 14:12 Breathing Iodinated Contrast Media Allergy Unknown ANAPHYLAXIS Verified 12/29/20 09:46 [IV CONTRAST] Assessment & Plan Assessment & Plan (1) Schizoaffective disorder, bipolar type: Status: Acute Code(s): F25.0 - Schizoaffective disorder, bipolar type Assessment and Plan: Plan:Mrs. Garcia is a 71 y/o woman with hx of Bipolar Disorder although it appears more schizoaffective bipolar given collateral information that states psychosis/paranoia independent of mood component. Pt stopped taking psychiatric medication 2 years ago slowly decompensating. Most recently, pt presents as paranoid, denies having mental illness or need for treatment for both medical and psychiatric conditions. Pt is hyperverbal, flight of ideas and paranoid about being poisoned. PLAN Monitor for safety in the milieu. Discharge on stabilization. Patient seen. Chart reviewed. Discussed with team. Obtain collateral contact info?as needed Discontinue Risperdal.? Increase Lamictal to 25 mg p.o. q.a.m.. Assessment and Plan: 71-year-old female with a past medical history of hypertension, hyperlipidemia, diabetes, coronary artery disease status post RCA stent, chronic kidney disease, CHF hyperparathyroidism, hypothyroidism, vitamin-D deficiency history of endocarditis of the mitral valve presently being treated with bipolar, schizoaffective type with plan to have ECT done. First, I suggest an open discussion with patient with the plan is ECT as she tells me she does not want yuan therapy In the even that she's agreeable to have it done, she's at least moderate for the planed procedure given underlying CAD, HTN, CKD and advanced age. She's presently medically optimize, I recommend repeating ECG, rountine metabolic panel before the procedure, otherwise no cardiopulmonary testing indicated at this time. Continue all other routine medical managemtn. Thanks I spent minutes with the patient and/or on the patient floor today, greater than?50% of which was spent counseling/coordinating care. Reason for contiued inpatient stay Substantial Risk for: inability to function
[2021-06-16 16:37] LABS: Glucose, Whole Blood 253 mg/dL (60-115)
[2021-06-16 19:30] VITALS: BP 156/70; PULSE 71; RESP 18; TEMP 36.4; O2SAT 98
[2021-06-16 19:49] LABS: Glucose, Whole Blood 173 mg/dL (60-115)
[2021-06-16 21:03] VITALS: BP 156/70; PULSE 71
[2021-06-16] MEDS: amLODIPine Besylate 5 MG TABLET PO (21:03)
[2021-06-16 21:04] VITALS: BP 156/70; PULSE 71
[2021-06-16] MEDS: Insulin Glargine,Hum.rec.anlog 100 UNIT/ML 10 ML VIAL 10 UNIT SUBCUT (21:04)
[2021-06-16] MEDS: Insulin Lispro 100 UNIT/ML 3 ML VIAL SUBCUT (21:04)
[2021-06-16] MEDS: Metoprolol Tartrate 25 MG TABLET PO (21:04)
[2021-06-16] MEDS: hydrOXYzine HCL 25 MG TABLET PO (23:38)
[2021-06-16 23:41] LABS: HIV AB/AG Nonreactive (Nonreactive); HIV Num 1 0.06 S/CO (0.00-0.99)
[2021-06-17 04:23] LABS: HBc Num1 0.14 S/CO (0.00-0.79); Hepatitis B Core Antibody Nonreactive (Nonreactive); ~HepC Num1 0.04 S/CO (0.00-0.79); ~Hepatitis B Surface Antibody NONREACTIVE (Nonreactive)
[2021-06-17 04:28] LABS: Hepatitis B Surface Antigen Negative (Negative)
[2021-06-17 04:29] LABS: Hepatitis C Ab Exposure Source NonReactive (Nonreactive)
[2021-06-17 05:43] LABS: Glucose, Whole Blood 94 mg/dL (60-115)
[2021-06-17] MEDS: Levothyroxine Sodium 75 MCG TABLET PO (05:51)
[2021-06-17] MEDS: lamoTRIgine 25 MG TABLET PO (12:03)
[2021-06-17 12:15] VITALS: BP 145/65; PULSE 78
[2021-06-17] MEDS: Metoprolol Tartrate 25 MG TABLET PO ×2 (12:15→21:01)
[2021-06-17] MEDS: Isosorbide Mononitrate 30 MG TAB.ER.24H PO (12:15)
[2021-06-17] MEDS: Clopidogrel Bisulfate 75 MG TABLET PO (12:16)
--- NOTE | 2021-06-17 13:16 | P.PNPSI_ITS ---
Subjective Subjective Date of Service: 06/17/21 Reason For Visit: Bipolar Do Subjective Notes: Conditional Voluntary Interim History: The nursing staff reported that the patient has been compliant with treatment, she has been eating and sleeping well but she is very talkative and overinclusive at times, irritable at times. The social insurance adviser reported that she is going to have a family meeting today. On interview, the patient reports that she is doing fine, she is angry at times but able to cope with assertively. Intrussive at times and overinclussive. N o new symptoms Mental Status Exam Mental Status Exam Patient Appearance: Well Grooomed Patient Orientation: Person and Situation Level of Consciousness: Awake Patient Behavior: Cooperative Mood Description: Labile Affect Description: Constricted Patient Cognition Impaired: No Ability to Follow Directions: Good Speech Pattern: Clear Hallucinations: None Delusions: Not Present Thought Process: Racing and Distracted Thought Content: positive for Circumstantial Judgement: Fair Diagnostics Vital Signs (24Hr): Vital Signs - 24 hr 06/16/21 19:30 06/16/21 21:03 06/16/21 21:04 Temperature 97.6 F Pulse Rate 71 71 71 Respiratory Rate 18 Blood Pressure 156/70 H 156/70 H 156/70 H Pulse Oximetry 98 06/17/21 12:15 Temperature Pulse Rate 78 Respiratory Rate Blood Pressure 145/65 H Pulse Oximetry Body Mass Index 26.6 Labs Results: 06/07/21 06:35 06/14/21 06:57 Labs: Laboratory Results - last 48 hr 06/15/21 06/15/21 06/16/21 16:49 21:51 06:13 POC Glucose 220 H 137 H 143 H Hep Bs Antigen Hep Bs Antibody Hep B Core Total Ab Hepatitis C Antibody HIV 1&2 Ab/P24 Ag 4thGn 06/16/21 06/16/21 06/16/21 07:34 12:03 16:33 POC Glucose 117 H 149 H 253 H Hep Bs Antigen Hep Bs Antibody Hep B Core Total Ab Hepatitis C Antibody HIV 1&2 Ab/P24 Ag 4thGn 06/16/21 06/16/21 06/17/21 19:45 22:26 05:37 POC Glucose 173 H 94 Hep Bs Antigen Negative Hep Bs Antibody NONREACTIVE Hep B Core Total Ab Nonreactive Hepatitis C Antibody NonReactive HIV 1&2 Ab/P24 Ag 4thGn Nonreactive Imaging Radiology Impressions: ITS Impressions Head CT 06/06/21 12:16 IMPRESSION: No acute intracranial pathology. Medications Medications Current Medications Acetaminophen (Acetaminophen 325 Mg Tablet) 650 mg PO Q6H PRN PRN Reason: Headache/Pain Mild Scale (1-3) Al Hydroxide/Mg Hydroxide (Magnesium Hydrox/Alum Hydrox 30 Ml Oral.Susp) 30 ml PO Q6H PRN PRN Reason: Heartburn/Nausea Amlodipine Besylate (Amlodipine Besylate 5 Mg Tablet) 5 mg PO BEDTIME [facility]; Protocol Last Admin: 06/16/21 21:03 Dose: 5 mg Documented by: Clopidogrel Bisulfate (Clopidogrel Bisulfate 75 Mg Tablet) 75 mg PO DAILY [facility] Last Admin: 06/17/21 12:16 Dose: 75 mg Documented by: Furosemide (Furosemide 40 Mg Tablet) 40 mg PO DAILY [facility]; Protocol Last Admin: 06/16/21 08:13 Dose: Not Given Documented by: Hydroxyzine HCl (Hydroxyzine Hcl 25 Mg Tablet) 25 mg PO Q6H PRN PRN Reason: Anxiety Last Admin: 06/16/21 23:38 Dose: 25 mg Documented by: Insulin Glargine (Insulin Glargine,Hum.Rec.Anlog 100 Unit/Ml 10 Ml Vial) 10 unit SUBCUT BEDTIME [facility] Last Admin: 06/16/21 21:04 Dose: 10 unit Documented by: Insulin Human Lispro (Insulin Lispro 100 Unit/Ml 3 Ml Vial) 0 unit SUBCUT QIDACHS [facility]; Protocol Last Admin: 06/16/21 21:04 Dose: 2 unit Documented by: Isosorbide Mononitrate (Isosorbide Mononitrate 30 Mg Tab.Er.24h) 30 mg PO DAILY [facility]; Protocol Last Admin: 06/17/21 12:15 Dose: 30 mg Documented by: Ketorolac Tromethamine (Ketorolac Tromethamine 0.5% Op 3 Ml Drops) 1 drop EYE- LEFT QID [facility] Last Admin: 06/16/21 21:14 Dose: 1 drop Documented by: Lamotrigine (Lamotrigine 25 Mg Tablet) 25 mg PO DAILY [facility] Last Admin: 06/17/21 12:03 Dose: 25 mg Documented by: Levothyroxine Sodium (Levothyroxine Sodium 75 Mcg Tablet) 75 mcg PO DAILY@0600 [facility] Last Admin: 06/17/21 05:51 Dose: 75 mcg Documented by: Magnesium Hydroxide (Milk Of Magnesia 30 Ml Oral.Susp) 30 ml PO DAILY PRN PRN Reason: Constipation Last Admin: 06/16/21 14:08 Dose: 30 ml Documented by: Metoprolol Tartrate (Metoprolol Tartrate 25 Mg Tablet) 25 mg PO BID [facility]; Protocol Last Admin: 06/17/21 12:15 Dose: 25 mg Documented by: Nitroglycerin (Nitroglycerin 0.4 Mg Tab.Subl) 0.4 mg SUBLINGUAL Q5M PRN PRN Reason: Chest Pain Last Admin: 06/11/21 06:09 Dose: 1 tab Documented by: Trazodone HCl (Trazodone Hcl 50 Mg Tablet) 50 mg PO BEDTIME PRN PRN Reason: Insomnia Last Admin: 06/16/21 23:39 Dose: 50 mg Documented by: Allergies Allergies Allergy/AdvReac Type Severity Reaction Status Date / Time ciprofloxacin [From Cipro] Allergy Intermediate Difficulty Verified 06/04/21 14:12 Breathing Iodinated Contrast Media Allergy Unknown ANAPHYLAXIS Verified 12/29/20 09:46 [IV CONTRAST] Assessment & Plan Assessment & Plan (1) Schizoaffective disorder, bipolar type: Status: Acute Code(s): F25.0 - Schizoaffective disorder, bipolar type Assessment and Plan: Mrs. Garcia is a 71 y/o woman with hx of Bipolar Disorder although it appears more schizoaffective bipolar given collateral information that states psychosis/paranoia independent of mood component. Pt stopped taking psychiatric medication 2 years ago slowly decompensating. Most recently, pt presents as paranoid, denies having mental illness or need for treatment for both medical and psychiatric conditions. Pt is hyperverbal, flight of ideas and paranoid about being poisoned. PLAN Continue Lamictal. Discharge on Tuesday I spent minutes with the patient and/or on the patient floor today, greater than?50% of which was spent counseling/coordinating care. Reason for contiued inpatient stay Substantial Risk for: inability to function, rapid decompensation and med/psych decompensation
[2021-06-17 16:55] LABS: Glucose, Whole Blood 83 mg/dL (60-115)
[2021-06-17 20:09] LABS: Glucose, Whole Blood 336 mg/dL (60-115)
[2021-06-17 21:01] VITALS: BP 159/67; PULSE 63; RESP 17; TEMP 36.9; O2SAT 99
[2021-06-17 21:02] VITALS: BP 159/67; PULSE 63
[2021-06-17] MEDS: Insulin Glargine,Hum.rec.anlog 100 UNIT/ML 10 ML VIAL 10 UNIT SUBCUT (21:02)
[2021-06-17] MEDS: amLODIPine Besylate 5 MG TABLET PO (21:02)
[2021-06-17] MEDS: Insulin Lispro 100 UNIT/ML 3 ML VIAL SUBCUT (21:02)
[2021-06-18] MEDS: traZODone HCL 50 MG TABLET PO (00:19)
[2021-06-18 02:33] LABS: Glucose, Whole Blood 67 mg/dL (60-115)
[2021-06-18 02:53] LABS: Glucose, Whole Blood 101 mg/dL (60-115)
[2021-06-18] MEDS: Levothyroxine Sodium 75 MCG TABLET PO (06:15)
[2021-06-18] MEDS: Insulin Lispro 100 UNIT/ML 3 ML VIAL SUBCUT ×3 (06:15→20:26)
[2021-06-18 06:16] LABS: Glucose, Whole Blood 219 mg/dL (60-115)
[2021-06-18 07:00] VITALS: BMI 26.8
--- NOTE | 2021-06-18 07:19 | HO.PSYCHPN ---
Subjective Subjective Date of Service: 06/18/21 Reason For Visit: Bipolar Do Subjective Notes: Section 7 Interim History: Pt continues to report that she is doing well, other than suspicion that neighbor may be poisoning her. She does not think she needs to be in hospital nor need for psychiatric care. She reports eating and sleeping well. She denies SI/HI. Per nursing, pt visible in the unit, intrusive at times with peers but able to be redirected. Medication Compliance: No Side effects from medications: No Review of Systems Review of Systems Gen: no fever Resp: no sob, no cough CV: no chest, no COLE, no leg edema GI: No n/v, no abd pain Neuro: No confusion Yes all other systems are reviewed and are negative Mental Status Exam Mental Status Exam Narrative: Appearance: casually groomed, fair hygiene in NAD Behavior:pleasant psychomotor:no agitation or retardation noted Speech:clear, hyperverbal, not pressured, regular tone/rhythm, spontaneous Thought process: tangential, no loose associations Thought content: no overt psychosis, happy to see friend who came to visit her. Mood: perfect Affect: expansive SI:none HI:none VH/AH:denies but appears internally preoccupied. Delusions: none expressed Insight/judgment:impaired x 2. Memory/cog: alert, oriented x 3. She was able to complete MOCA on 06/16, most impairments on visuospatial, and attention, otherwise orientation, recall, language repetition/fluency fairly intact. Diagnostics Vital Signs (24Hr): Vital Signs - 24 hr 06/18/21 09:45 06/18/21 10:45 06/18/21 10:46 Temperature 97.3 F Pulse Rate 64 64 64 Respiratory Rate Blood Pressure 151/67 H 151/67 H 151/67 H Pulse Oximetry 97 06/18/21 20:34 06/18/21 21:00 Temperature 97 F Pulse Rate 69 69 Respiratory Rate 17 Blood Pressure 154/72 H 154/72 H Pulse Oximetry 98 Body Mass Index 26.8 Labs Results: 06/07/21 06:35 06/14/21 06:57 Labs: Laboratory Results - last 48 hr 06/17/21 06/17/21 06/18/21 12:11 20:04 02:28 POC Glucose 83 336 H 67 06/18/21 06/18/21 06/18/21 02:47 06:11 11:50 POC Glucose 101 219 H 174 H 06/18/21 06/18/21 16:16 20:19 POC Glucose 194 H 192 H Imaging Radiology Impressions: ITS Impressions Head CT 06/06/21 12:16 IMPRESSION: No acute intracranial pathology. Medications Medications Current Medications Acetaminophen (Acetaminophen 325 Mg Tablet) 650 mg PO Q6H PRN PRN Reason: Headache/Pain Mild Scale (1-3) Al Hydroxide/Mg Hydroxide (Magnesium Hydrox/Alum Hydrox 30 Ml Oral.Susp) 30 ml PO Q6H PRN PRN Reason: Heartburn/Nausea Amlodipine Besylate (Amlodipine Besylate 5 Mg Tablet) 5 mg PO BEDTIME [facility]; Protocol Last Admin: 06/18/21 20:34 Dose: 5 mg Documented by: Clopidogrel Bisulfate (Clopidogrel Bisulfate 75 Mg Tablet) 75 mg PO DAILY [facility] Last Admin: 06/18/21 10:45 Dose: 75 mg Documented by: Furosemide (Furosemide 40 Mg Tablet) 40 mg PO DAILY [facility]; Protocol Last Admin: 06/18/21 10:48 Dose: Not Given Documented by: Hydroxyzine HCl (Hydroxyzine Hcl 25 Mg Tablet) 25 mg PO Q6H PRN PRN Reason: Anxiety Last Admin: 06/16/21 23:38 Dose: 25 mg Documented by: Insulin Glargine (Insulin Glargine,Hum.Rec.Anlog 100 Unit/Ml 10 Ml Vial) 10 unit SUBCUT BEDTIME [facility] Last Admin: 06/18/21 21:00 Dose: Not Given Documented by: Insulin Human Lispro (Insulin Lispro 100 Unit/Ml 3 Ml Vial) 0 unit SUBCUT QIDACHS [facility]; Protocol Last Admin: 06/18/21 20:26 Dose: 2 unit Documented by: Isosorbide Mononitrate (Isosorbide Mononitrate 30 Mg Tab.Er.24h) 30 mg PO DAILY [facility]; Protocol Last Admin: 06/18/21 10:45 Dose: 30 mg Documented by: Ketorolac Tromethamine (Ketorolac Tromethamine 0.5% Op 3 Ml Drops) 1 drop EYE-LEFT QID [facility] Last Admin: 06/18/21 21:01 Dose: Not Given Documented by: Lamotrigine (Lamotrigine 25 Mg Tablet) 25 mg PO DAILY [facility] Last Admin: 06/18/21 10:45 Dose: 25 mg Documented by: Levothyroxine Sodium (Levothyroxine Sodium 75 Mcg Tablet) 75 mcg PO DAILY@0600 [facility] Last Admin: 06/19/21 06:24 Dose: Not Given Documented by: Magnesium Hydroxide (Milk Of Magnesia 30 Ml Oral.Susp) 30 ml PO DAILY PRN PRN Reason: Constipation Last Admin: 06/16/21 14:08 Dose: 30 ml Documented by: Metoprolol Tartrate (Metoprolol Tartrate 25 Mg Tablet) 25 mg PO BID [facility]; Protocol Last Admin: 06/18/21 20:34 Dose: 25 mg Documented by: Nitroglycerin (Nitroglycerin 0.4 Mg Tab.Subl) 0.4 mg SUBLINGUAL Q5M PRN PRN Reason: Chest Pain Last Admin: 06/11/21 06:09 Dose: 1 tab Documented by: Trazodone HCl (Trazodone Hcl 50 Mg Tablet) 50 mg PO BEDTIME PRN PRN Reason: Insomnia Last Admin: 06/18/21 00:19 Dose: 50 mg Documented by: Allergies Allergies Allergy/AdvReac Type Severity Reaction Status Date / Time ciprofloxacin [From Cipro] Allergy Intermediate Difficulty Verified 06/04/21 14:12 Breathing Iodinated Contrast Media Allergy Unknown ANAPHYLAXIS Verified 12/29/20 09:46 [IV CONTRAST] Assessment & Plan Assessment & Plan (1) Schizoaffective disorder, bipolar type: Status: Acute Code(s): F25.0 - Schizoaffective disorder, bipolar type Assessment and Plan: Mrs. Garcia is a 71 y/o woman with hx of Bipolar Disorder although it appears more schizoaffective bipolar given collateral information that states psychosis/paranoia independent of mood component. Pt stopped taking psychiatric medication 2 years ago slowly decompensating. Most recently, pt presents as paranoid, denies having mental illness or need for treatment for both medical and psychiatric conditions. Pt is hyperverbal, flight of ideas and paranoid about being poisoned. PLAN Continue Lamictal. Discharge on Tuesday I spent minutes with the patient and/or on the patient floor today, greater than?50% of which was spent counseling/coordinating care. Reason for contiued inpatient stay Substantial Risk for: inability to function
[2021-06-18 09:45] VITALS: BP 151/67; PULSE 64; TEMP 36.3; O2SAT 97
[2021-06-18 10:45] VITALS: BP 151/67; PULSE 64
[2021-06-18] MEDS: Isosorbide Mononitrate 30 MG TAB.ER.24H PO (10:45)
[2021-06-18] MEDS: Clopidogrel Bisulfate 75 MG TABLET PO (10:45)
[2021-06-18] MEDS: lamoTRIgine 25 MG TABLET PO (10:45)
[2021-06-18 10:46] VITALS: BP 151/67; PULSE 64
[2021-06-18] MEDS: Metoprolol Tartrate 25 MG TABLET PO ×2 (10:46→20:34)
[2021-06-18 11:56] LABS: Glucose, Whole Blood 174 mg/dL (60-115)
[2021-06-18 16:34] LABS: Glucose, Whole Blood 194 mg/dL (60-115)
[2021-06-18 20:25] LABS: Glucose, Whole Blood 192 mg/dL (60-115)
[2021-06-18 20:34] VITALS: BP 154/72; PULSE 69
[2021-06-18] MEDS: amLODIPine Besylate 5 MG TABLET PO (20:34)
[2021-06-18 21:00] VITALS: BP 154/72; PULSE 69; RESP 17; TEMP 36.1; O2SAT 98
[2021-06-19 06:00] VITALS: BP 151/76; PULSE 63; RESP 18; TEMP 36.7; O2SAT 94
[2021-06-19] MEDS: Metoprolol Tartrate 25 MG TABLET PO (08:47)
[2021-06-19] MEDS: Clopidogrel Bisulfate 75 MG TABLET PO (08:47)
[2021-06-19] MEDS: Isosorbide Mononitrate 30 MG TAB.ER.24H PO (08:47)
[2021-06-19] MEDS: lamoTRIgine 25 MG TABLET PO (08:47)
[2021-06-19 10:34] LABS: Appearance Urine CLEAR; Color Urine YELLOW; Glucose Urine UA NEG (NEG); Leukocyte Esterase Urine NEG (NEG); Nitrite Urine NEG (NEG); UACC Culture Trigger NO; Urine Blood TRACE (NEG); Urine Ketones NEG (NEG); Urine Protein 1+ MG/DL (NEG-TRACE)
[2021-06-19 10:40] LABS: RBC Urine 0 /HPF (0); Squamous Epithelial Cell Urine TRACE /LPF; WBC Urine 0-2 /HPF (0-4)
--- NOTE | 2021-06-19 11:18 | HO.PSYCHPN ---
Subjective Subjective Date of Service: 06/19/21 Reason For Visit: Bipolar Do Subjective Notes: Conditional Voluntary Interim History: The nursing staff reported that the patient was incontinent last Tuesday. This is very uncharacteristic of her but apparently she was more confused and she complain of father UTI symptoms. Last night, the doctor on-call order UTI but she has refused to provide a sample and she says that she is doing fine. On interview, the patient denies new symptoms she looks a little agitated and I explained that she needs to be tested for UTI for a safe discharge planning. No side effects with Lamictal Mental Status Exam Mental Status Exam Patient Appearance: Disheveled Patient Orientation: Person Level of Consciousness: Awake Patient Behavior: Guarded and Invasion - Personal Space Mood Description: Hostile Affect Description: Constricted Patient Cognition Impaired: No Ability to Follow Directions: Good Speech Pattern: Coherent and Rambling Hallucinations: None Delusions: Not Present Thought Process: Illogical Thought Content: positive for Circumstantial Judgement: Fair Diagnostics Vital Signs (24Hr): Vital Signs - 24 hr 06/18/21 20:34 06/18/21 21:00 06/19/21 06:00 Temperature 97 F 98.0 F Pulse Rate 69 69 63 Respiratory Rate 17 18 Blood Pressure 154/72 H 154/72 H 151/76 H Pulse Oximetry 98 94 Body Mass Index 26.8 Labs Results: 06/07/21 06:35 06/14/21 06:57 Labs: Laboratory Results - last 48 hr 06/17/21 06/17/21 06/18/21 12:11 20:04 02:28 POC Glucose 83 336 H 67 Urine Color Urine Appearance Urine pH Ur Specific [place] Urine Protein Urine Glucose (UA) Urine Ketones Urine Blood Urine Nitrite Ur Leukocyte Esterase Urine RBC Urine WBC Ur Squamous Epith Cells Urine Bacteria 06/18/21 06/18/21 06/18/21 02:47 06:11 11:50 POC Glucose 101 219 H 174 H Urine Color Urine Appearance Urine pH Ur Specific [place] Urine Protein Urine Glucose (UA) Urine Ketones Urine Blood Urine Nitrite Ur Leukocyte Esterase Urine RBC Urine WBC Ur Squamous Epith Cells Urine Bacteria 06/18/21 06/18/21 06/19/21 16:16 20:19 10:20 POC Glucose 194 H 192 H Urine Color YELLOW Urine Appearance CLEAR Urine pH 7.0 Ur Specific [place] 1.010 Urine Protein 1+ H Urine Glucose (UA) NEG Urine Ketones NEG Urine Blood TRACE Urine Nitrite NEG Ur Leukocyte Esterase NEG Urine RBC 0 Urine WBC 0-2 Ur Squamous Epith Cells TRACE Urine Bacteria Not Reportable Imaging Radiology Impressions: ITS Impressions Head CT 06/06/21 12:16 IMPRESSION: No acute intracranial pathology. Medications Medications Current Medications Acetaminophen (Acetaminophen 325 Mg Tablet) 650 mg PO Q6H PRN PRN Reason: Headache/Pain Mild Scale (1-3) Al Hydroxide/Mg Hydroxide (Magnesium Hydrox/Alum Hydrox 30 Ml Oral.Susp) 30 ml PO Q6H PRN PRN Reason: Heartburn/Nausea Amlodipine Besylate (Amlodipine Besylate 5 Mg Tablet) 5 mg PO BEDTIME [facility]; Protocol Last Admin: 06/18/21 20:34 Dose: 5 mg Documented by: Clopidogrel Bisulfate (Clopidogrel Bisulfate 75 Mg Tablet) 75 mg PO DAILY [facility] Last Admin: 06/19/21 08:47 Dose: 75 mg Documented by: Furosemide (Furosemide 40 Mg Tablet) 40 mg PO DAILY [facility]; Protocol Last Admin: 06/19/21 08:58 Dose: Not Given Documented by: Hydroxyzine HCl (Hydroxyzine Hcl 25 Mg Tablet) 25 mg PO Q6H PRN PRN Reason: Anxiety Last Admin: 06/16/21 23:38 Dose: 25 mg Documented by: Insulin Glargine (Insulin Glargine,Hum.Rec.Anlog 100 Unit/Ml 10 Ml Vial) 10 unit SUBCUT BEDTIME [facility] Last Admin: 06/18/21 21:00 Dose: Not Given Documented by: Insulin Human Lispro (Insulin Lispro 100 Unit/Ml 3 Ml Vial) 0 unit SUBCUT QIDACHS [facility]; Protocol Last Admin: 06/19/21 08:00 Dose: Not Given Documented by: Isosorbide Mononitrate (Isosorbide Mononitrate 30 Mg Tab.Er.24h) 30 mg PO DAILY [facility]; Protocol Last Admin: 06/19/21 08:47 Dose: 30 mg Documented by: Ketorolac Tromethamine (Ketorolac Tromethamine 0.5% Op 3 Ml Drops) 1 drop EYE-LEFT QID [facility] Last Admin: 06/19/21 08:00 Dose: Not Given Documented by: Lamotrigine (Lamotrigine 25 Mg Tablet) 25 mg PO DAILY [facility] Last Admin: 06/19/21 08:47 Dose: 25 mg Documented by: Levothyroxine Sodium (Levothyroxine Sodium 75 Mcg Tablet) 75 mcg PO DAILY@0600 [facility] Last Admin: 06/19/21 06:24 Dose: Not Given Documented by: Magnesium Hydroxide (Milk Of Magnesia 30 Ml Oral.Susp) 30 ml PO DAILY PRN PRN Reason: Constipation Last Admin: 06/16/21 14:08 Dose: 30 ml Documented by: Metoprolol Tartrate (Metoprolol Tartrate 25 Mg Tablet) 25 mg PO BID [facility]; Protocol Last Admin: 06/19/21 08:47 Dose: 25 mg Documented by: Nitroglycerin (Nitroglycerin 0.4 Mg Tab.Subl) 0.4 mg SUBLINGUAL Q5M PRN PRN Reason: Chest Pain Last Admin: 06/11/21 06:09 Dose: 1 tab Documented by: Trazodone HCl (Trazodone Hcl 50 Mg Tablet) 50 mg PO BEDTIME PRN PRN Reason: Insomnia Last Admin: 06/18/21 00:19 Dose: 50 mg Documented by: Allergies Allergies Allergy/AdvReac Type Severity Reaction Status Date / Time ciprofloxacin [From Cipro] Allergy Intermediate Difficulty Verified 06/04/21 14:12 Breathing Iodinated Contrast Media Allergy Unknown ANAPHYLAXIS Verified 12/29/20 09:46 [IV CONTRAST] Assessment & Plan Assessment & Plan (1) Schizoaffective disorder, bipolar type: Status: Acute Code(s): F25.0 - Schizoaffective disorder, bipolar type Assessment and Plan: Mrs. Garcia is a 71 y/o woman with hx of Bipolar Disorder although it appears more schizoaffective bipolar given collateral information that states psychosis/paranoia independent of mood component. Pt stopped taking psychiatric medication 2 years ago slowly decompensating. Most recently, pt presents as paranoid, denies having mental illness or need for treatment for both medical and psychiatric conditions. Pt is hyperverbal, flight of ideas and paranoid about being poisoned. PLAN Continue Lamictal. Work out for UTI. I spent minutes with the patient and/or on the patient floor today, greater than?50% of which was spent counseling/coordinating care. Reason for contiued inpatient stay Substantial Risk for: inability to function, rapid decompensation and med/psych decompensation
[2021-06-19 11:57] LABS: Glucose, Whole Blood 278 mg/dL (60-115)
[2021-06-19] MEDS: Insulin Lispro 100 UNIT/ML 3 ML VIAL SUBCUT ×2 (12:01→21:11)
[2021-06-19 14:58] LABS: Glucose, Whole Blood 83 mg/dL (60-115)
[2021-06-19 16:41] LABS: Glucose, Whole Blood 100 mg/dL (60-115)
[2021-06-19 19:57] VITALS: BP 161/73; PULSE 63; RESP 17; TEMP 36.8; O2SAT 97
[2021-06-19 20:43] VITALS: BP 161/73; PULSE 63
[2021-06-19] MEDS: amLODIPine Besylate 5 MG TABLET PO (20:43)
[2021-06-19 21:10] LABS: Glucose, Whole Blood 224 mg/dL (60-115)
--- NOTE | 2021-06-20 | ECG_ITS ---
Test Reason : CECILIO Blood Pressure : / mmHG Vent. Rate : 068 BPM Atrial Rate : 068 BPM P-R Int : 196 ms QRS Dur : 120 ms QT Int : 402 ms P-R-T Axes : 061 011 -03 degrees QTc Int : 427 ms Normal sinus rhythm Intra-ventricular conduction delay Nonspecific T wave abnormality Inferior leads Abnormal ECG T wave inversion more evident in Inferior leads Referred By: Alfredo Lopez Electronically Signed By:MANNIE MUNIZ MD
[2021-06-20] MEDS: Levothyroxine Sodium 75 MCG TABLET PO (05:51)
[2021-06-20 06:00] VITALS: BP 183/74; PULSE 64; RESP 16; TEMP 36.9; O2SAT 99
[2021-06-20 06:17] LABS: Glucose, Whole Blood 162 mg/dL (60-115)
[2021-06-20 09:04] LABS: Glucose, Whole Blood 169 mg/dL (60-115)
[2021-06-20 10:34] VITALS: BP 183/74; PULSE 64
[2021-06-20 10:37] VITALS: BP 183/74; PULSE 64
[2021-06-20 11:20] LABS: Troponin-I High Sensitivity 13.1 ng/L (<3.5-17.0)
--- NOTE | 2021-06-20 11:22 | P.PNPSI_ITS ---
Subjective Subjective Date of Service: 06/20/21 Reason For Visit: Bipolar Do Interim History: pt encountered ambulating in the torres. she c/o tiredness and the need to rest. she then engaged MD in single-sided monologue for at least 10 minutes c/o her medical problems and how they weren't being taken seriously and reviewing her medical treatment history. MD informed her that EKG was being ordered and troponin as well. per staff, refusing medications today. somatically pre-occupied, delusional about her medical state. Mental Status Exam Mental Status Exam Patient Appearance: Disheveled Patient Orientation: Person Level of Consciousness: Awake Patient Behavior: Guarded and Invasion - Personal Space Mood Description: Hostile Affect Description: Constricted Patient Cognition Impaired: No Ability to Follow Directions: Good Speech Pattern: Spontaneous Speech, Coherent, Rambling, Excessive and Animated Hallucinations: None Delusions: Not Present Thought Process: Illogical Thought Content: positive for Circumstantial Judgement: Fair Diagnostics Vital Signs (24Hr): Vital Signs - 24 hr 06/19/21 19:57 06/19/21 20:43 06/20/21 06:00 Temperature 98.3 F 98.4 F Pulse Rate 63 63 64 Respiratory Rate 17 16 Blood Pressure 161/73 H 161/73 H 183/74 H Pulse Oximetry 97 99 06/20/21 10:34 06/20/21 10:37 Temperature Pulse Rate 64 64 Respiratory Rate Blood Pressure 183/74 H 183/74 H Pulse Oximetry Body Mass Index 26.8 Labs Results: 06/07/21 06:35 06/14/21 06:57 Labs: Laboratory Results - last 48 hr 06/18/21 06/18/21 06/18/21 11:50 16:16 20:19 POC Glucose 174 H 194 H 192 H Troponin I High Sens Urine Color Urine Appearance Urine pH Ur Specific [place] Urine Protein Urine Glucose (UA) Urine Ketones Urine Blood Urine Nitrite Ur Leukocyte Esterase Urine RBC Urine WBC Ur Squamous Epith Cells Urine Bacteria 06/19/21 06/19/21 06/19/21 10:20 11:53 14:54 POC Glucose 278 H 83 Troponin I High Sens Urine Color YELLOW Urine Appearance CLEAR Urine pH 7.0 Ur Specific [place] 1.010 Urine Protein 1+ H Urine Glucose (UA) NEG Urine Ketones NEG Urine Blood TRACE Urine Nitrite NEG Ur Leukocyte Esterase NEG Urine RBC 0 Urine WBC 0-2 Ur Squamous Epith Cells TRACE Urine Bacteria Not Reportable 06/19/21 06/19/21 06/20/21 16:37 21:06 06:14 POC Glucose 100 224 H 162 H Troponin I High Sens Urine Color Urine Appearance Urine pH Ur Specific [place] Urine Protein Urine Glucose (UA) Urine Ketones Urine Blood Urine Nitrite Ur Leukocyte Esterase Urine RBC Urine WBC Ur Squamous Epith Cells Urine Bacteria 06/20/21 06/20/21 08:58 10:52 POC Glucose 169 H Troponin I High Sens 13.1 Urine Color Urine Appearance Urine pH Ur Specific [place] Urine Protein Urine Glucose (UA) Urine Ketones Urine Blood Urine Nitrite Ur Leukocyte Esterase Urine RBC Urine WBC Ur Squamous Epith Cells Urine Bacteria Imaging Radiology Impressions: ITS Impressions Head CT 06/06/21 12:16 IMPRESSION: No acute intracranial pathology. Medications Medications Current Medications Acetaminophen (Acetaminophen 325 Mg Tablet) 650 mg PO Q6H PRN PRN Reason: Headache/Pain Mild Scale (1-3) Al Hydroxide/Mg Hydroxide (Magnesium Hydrox/Alum Hydrox 30 Ml Oral.Susp) 30 ml PO Q6H PRN PRN Reason: Heartburn/Nausea Amlodipine Besylate (Amlodipine Besylate 5 Mg Tablet) 5 mg PO BEDTIME [facility]; Protocol Last Admin: 06/19/21 20:43 Dose: 5 mg Documented by: Clopidogrel Bisulfate (Clopidogrel Bisulfate 75 Mg Tablet) 75 mg PO DAILY [facility] Last Admin: 06/20/21 10:34 Dose: Not Given Documented by: Furosemide (Furosemide 40 Mg Tablet) 40 mg PO DAILY [facility]; Protocol Last Admin: 06/20/21 09:02 Dose: Not Given Documented by: Hydroxyzine HCl (Hydroxyzine Hcl 25 Mg Tablet) 25 mg PO Q6H PRN PRN Reason: Anxiety Last Admin: 06/16/21 23:38 Dose: 25 mg Documented by: Insulin Glargine (Insulin Glargine,Hum.Rec.Anlog 100 Unit/Ml 10 Ml Vial) 10 unit SUBCUT BEDTIME [facility] Last Admin: 06/19/21 21:08 Dose: Not Given Documented by: Insulin Human Lispro (Insulin Lispro 100 Unit/Ml 3 Ml Vial) 0 unit SUBCUT Q IDACHS [facility]; Protocol Last Admin: 06/20/21 06:29 Dose: Not Given Documented by: Isosorbide Mononitrate (Isosorbide Mononitrate 30 Mg Tab.Er.24h) 30 mg PO DAILY [facility]; Protocol Last Admin: 06/20/21 10:34 Dose: Not Given Documented by: Ketorolac Tromethamine (Ketorolac Tromethamine 0.5% Op 3 Ml Drops) 1 drop EYE- LEFT QID [facility] Last Admin: 06/20/21 10:36 Dose: Not Given Documented by: Lamotrigine (Lamotrigine 25 Mg Tablet) 25 mg PO DAILY [facility] Last Admin: 06/20/21 10:36 Dose: Not Given Documented by: Levothyroxine Sodium (Levothyroxine Sodium 75 Mcg Tablet) 75 mcg PO DAILY@0600 [facility] Last Admin: 06/20/21 05:51 Dose: 75 mcg Documented by: Magnesium Hydroxide (Milk Of Magnesia 30 Ml Oral.Susp) 30 ml PO DAILY PRN PRN Reason: Constipation Last Admin: 06/16/21 14:08 Dose: 30 ml Documented by: Metoprolol Tartrate (Metoprolol Tartrate 25 Mg Tablet) 25 mg PO BID [facility]; Protocol Last Admin: 06/20/21 10:37 Dose: Not Given Documented by: Nitroglycerin (Nitroglycerin 0.4 Mg Tab.Subl) 0.4 mg SUBLINGUAL Q5M PRN PRN Reason: Chest Pain Last Admin: 06/11/21 06:09 Dose: 1 tab Documented by: Trazodone HCl (Trazodone Hcl 50 Mg Tablet) 50 mg PO BEDTIME PRN PRN Reason: Insomnia Last Admin: 06/18/21 00:19 Dose: 50 mg Documented by: Allergies Allergies Allergy/AdvReac Type Severity Reaction Status Date / Time ciprofloxacin [From Cipro] Allergy Intermediate Difficulty Verified 06/04/21 14:12 Breathing Iodinated Contrast Media Allergy Unknown ANAPHYLAXIS Verified 12/29/20 09:46 [IV CONTRAST] Assessment & Plan Assessment & Plan (1) Schizoaffective disorder, bipolar type: Status: Acute Code(s): F25.0 - Schizoaffective disorder, bipolar type Assessment and Plan: Mrs. Garcia is a 71 y/o woman with hx of Bipolar Disorder although it appears more schizoaffective bipolar given collateral information that states psychosis/paranoia independent of mood component. Pt stopped taking psychiatric medication 2 years ago slowly decompensating. Most recently, pt presents as paranoid, denies having mental illness or need for treatment for both medical and psychiatric conditions. Pt is hyperverbal, flight of ideas and paranoid about being poisoned. PLAN EKG and troponin 06/20 for CECILIO in an abundance of caution after c/o weakness with SBP in the 180s. Continue Lamictal. Work up for UTI. I spent minutes with the patient and/or on the patient floor today, greater than?50% of which was spent counseling/coordinating care. Reason for contiued inpatient stay Substantial Risk for: inability to function and rapid decompensation
[2021-06-20] MEDS: Insulin Lispro 100 UNIT/ML 3 ML VIAL SUBCUT ×2 (11:59→20:52)
[2021-06-20 17:53] LABS: Glucose, Whole Blood 164 mg/dL (60-115)
[2021-06-20 17:53] LABS: Glucose, Whole Blood 240 mg/dL (60-115)
[2021-06-20 20:48] VITALS: BP 171/79; PULSE 72; RESP 20; TEMP 36.2; O2SAT 98
[2021-06-20 20:49] LABS: Glucose, Whole Blood 337 mg/dL (60-115)
[2021-06-20 20:52] VITALS: BP 171/79; PULSE 72
[2021-06-20] MEDS: hydrOXYzine HCL 25 MG TABLET PO (20:52)
[2021-06-20] MEDS: Metoprolol Tartrate 25 MG TABLET PO (20:52)
[2021-06-20 20:53] VITALS: BP 171/79; PULSE 72
[2021-06-20] MEDS: Insulin Glargine,Hum.rec.anlog 100 UNIT/ML 10 ML VIAL 10 UNIT SUBCUT (20:53)
[2021-06-20] MEDS: amLODIPine Besylate 5 MG TABLET PO (20:53)
[2021-06-20 23:21] LABS: Glucose, Whole Blood 49 mg/dL (60-115)
[2021-06-20 23:21] LABS: Glucose, Whole Blood 53 mg/dL (60-115)
[2021-06-20] MEDS: traZODone HCL 50 MG TABLET PO (23:35)
--- NOTE | 2021-06-20 23:36 | PC.NURSE ---
HS blood sugar was 337 at 2044. Pt. received 8U sliding scale lispro and scheduled lantus 10U. Around 2300 pt. asked to have her blood sugar checked. She was sitting at the table in the dining area. She was alert and oriented x4. Pt. denied dizziness, diaphoresis, lethargy, shakiness or tingling. BS was 49, repeat was 53. Pt. received a snack of orange juice and peanut butter crackers. Dr. Roberto notified. No new orders. Pt. will continue to be monitored. Per documentation pt. refused previous insulin administration at 1640.
[2021-06-21 00:25] LABS: Glucose, Whole Blood 96 mg/dL (60-115)
--- NOTE | 2021-06-21 02:59 | PC.NURSE ---
Addendum entered by Belen Morrison RN 06/21/21 03:01: PT BS was checked at 00:15, not 12:15 Original Note: PT BS rechecked at 12:15, PT asymptomatic, POC 96, PT currently resting in bed with eyes closed. PT will continue to be monitored.
[2021-06-21] MEDS: Levothyroxine Sodium 75 MCG TABLET PO (06:05)
[2021-06-21 06:18] LABS: Glucose, Whole Blood 199 mg/dL (60-115)
[2021-06-21 08:25] VITALS: BP 176/79; PULSE 66
[2021-06-21] MEDS: Metoprolol Tartrate 25 MG TABLET PO ×2 (08:25→20:22)
[2021-06-21] MEDS: lamoTRIgine 25 MG TABLET PO (08:25)
[2021-06-21] MEDS: Isosorbide Mononitrate 30 MG TAB.ER.24H PO (08:25)
[2021-06-21 09:56] VITALS: BP 176/79; PULSE 66; TEMP 36.4; O2SAT 97
--- NOTE | 2021-06-21 10:40 | HO.PSYCHPN ---
Subjective Subjective Date of Service: 06/21/21 Reason For Visit: Bipolar Do Interim History: pt found sleeping in her room, snoring. due to pt's suffering from loida it was felt that her resting would be more therapeutic than awakening her for interview. chief of staff can contact MD if there is anything needed. per staff, pt remains perseverative re her blood thinner. FSBS low last abbe, 44, then 53, then 96. 199 this morning, however. appeared to sleep well overnight. Mental Status Exam Mental Status Exam Narrative: asleep in bed, snoring audibly Diagnostics Vital Signs (24Hr): Vital Signs - 24 hr 06/20/21 20:48 06/20/21 20:52 06/20/21 20:53 Temperature 97.2 F Pulse Rate 72 72 72 Respiratory Rate 20 Blood Pressure 171/79 H 171/79 H 171/79 H Pulse Oximetry 98 06/21/21 08:25 06/21/21 09:56 Temperature 97.5 F Pulse Rate 66 66 Respiratory Rate Blood Pressure 176/79 H 176/79 H Pulse Oximetry 97 Body Mass Index 26.8 Labs Results: 06/07/21 06:35 06/14/21 06:57 Labs: Laboratory Results - last 48 hr 06/19/21 06/19/21 06/19/21 10:20 11:53 14:54 POC Glucose 278 H 83 Troponin I High Sens Urine RBC 0 Urine WBC 0-2 Ur Squamous Epith Cells TRACE Urine Bacteria Not Reportable 06/19/21 06/19/21 06/20/21 16:37 21:06 06:14 POC Glucose 100 224 H 162 H Troponin I High Sens Urine RBC Urine WBC Ur Squamous Epith Cells Urine Bacteria 06/20/21 06/20/21 06/20/21 08:58 10:52 11:52 POC Glucose 169 H 240 H Troponin I High Sens 13.1 Urine RBC Urine WBC Ur Squamous Epith Cells Urine Bacteria 06/20/21 06/20/21 06/20/21 16:32 20:45 23:09 POC Glucose 164 H 337 H 49 L* Troponin I High Sens Urine RBC Urine WBC Ur Squamous Epith Cells Urine Bacteria 06/20/21 06/21/21 06/21/21 23:13 00:20 06:13 POC Glucose 53 L* 96 199 H Troponin I High Sens Urine RBC Urine WBC Ur Squamous Epith Cells Urine Bacteria Imaging Radiology Impressions: ITS Impressions Head CT 06/06/21 12:16 IMPRESSION: No acute intracranial pathology. Medications Medications Current Medications Acetaminophen (Acetaminophen 325 Mg Tablet) 650 mg PO Q6H PRN PRN Reason: Headache/Pain Mild Scale (1-3) Al Hydroxide/Mg Hydroxide (Magnesium Hydrox/Alum Hydrox 30 Ml Oral.Susp) 30 ml PO Q6H PRN PRN Reason: Heartburn/Nausea Amlodipine Besylate (Amlodipine Besylate 5 Mg Tablet) 5 mg PO BEDTIME [facility]; Protocol Last Admin: 06/20/21 20:53 Dose: 5 mg Documented by: Clopidogrel Bisulfate (Clopidogrel Bisulfate 75 Mg Tablet) 75 mg PO DAILY [facility] Last Admin: 06/21/21 08:51 Dose: Not Given Documented by: Furosemide (Furosemide 40 Mg Tablet) 40 mg PO DAILY [facility]; Protocol Last Admin: 06/21/21 08:51 Dose: Not Given Documented by: Hydroxyzine HCl (Hydroxyzine Hcl 25 Mg Tablet) 25 mg PO Q6H PRN PRN Reason: Anxiety Last Admin: 06/20/21 20:52 Dose: 25 mg Documented by: Insulin Glargine (Insulin Glargine,Hum.Rec.Anlog 100 Unit/Ml 10 Ml Vial) 10 unit SUBCUT BEDTIME [facility] Last Admin: 06/20/21 20:53 Dose: 10 unit Documented by: Insulin Human Lispro (Insulin Lispro 100 Unit/Ml 3 Ml Vial) 0 unit SUBCUT QIDACHS [facility]; Protocol Last Admin: 06/21/21 08:50 Dose: Not Given Documented by: Isosorbide Mononitrate (Isosorbide Mononitrate 30 Mg Tab.Er.24h) 30 mg PO DAILY [facility]; Protocol Last Admin: 06/21/21 08:25 Dose: 30 mg Documented by: Ketorolac Tromethamine (Ketorolac Tromethamine 0.5% Op 3 Ml Drops) 1 drop EYE-LEFT QID [facility] Last Admin: 06/21/21 08:25 Dose: 1 drop Documented by: Lamotrigine (Lamotrigine 25 Mg Tablet) 25 mg PO DAILY [facility] Last Admin: 06/21/21 08:25 Dose: 25 mg Documented by: Levothyroxine Sodium (Levothyroxine Sodium 75 Mcg Tablet) 75 mcg PO DAILY@0600 [facility] Last Admin: 06/21/21 06:05 Dose: 75 mcg Documented by: Magnesium Hydroxide (Milk Of Magnesia 30 Ml Oral.Susp) 30 ml PO DAILY PRN PRN Reason: Constipation Last Admin: 06/16/21 14:08 Dose: 30 ml Documented by: Metoprolol Tartrate (Metoprolol Tartrate 25 Mg Tablet) 25 mg PO BID [facility]; Protocol Last Admin: 06/21/21 08:25 Dose: 25 mg Documented by: Nitroglycerin (Nitroglycerin 0.4 Mg Tab.Subl) 0.4 mg SUBLINGUAL Q5M PRN PRN Reason: Chest Pain Last Admin: 06/11/21 06:09 Dose: 1 tab Documented by: Trazodone HCl (Trazodone Hcl 50 Mg Tablet) 50 mg PO BEDTIME PRN PRN Reason: Insomnia Last Admin: 06/20/21 23:35 Dose: 50 mg Documented by: Trazodone HCl (Trazodone Hcl 50 Mg Tablet) 50 mg PO Q4H PRN PRN Reason: Agitation Allergies Allergies Allergy/AdvReac Type Severity Reaction Status Date / Time ciprofloxacin [From Cipro] Allergy Intermediate Difficulty Verified 06/04/21 14:12 Breathing Iodinated Contrast Media Allergy Unknown ANAPHYLAXIS Verified 12/29/20 09:46 [IV CONTRAST] Assessment & Plan Assessment & Plan (1) Schizoaffective disorder, bipolar type: Status: Acute Code(s): F25.0 - Schizoaffective disorder, bipolar type Assessment and Plan: Mrs. Garcia is a 71 y/o woman with hx of Bipolar Disorder although it appears more schizoaffective bipolar given collateral information that states psychosis/paranoia independent of mood component. Pt stopped taking psychiatric medication 2 years ago slowly decompensating. Most recently, pt presents as paranoid, denies having mental illness or need for treatment for both medical and psychiatric conditions. Pt is hyperverbal, flight of ideas and paranoid about being poisoned. PLAN EKG and troponin 06/20 for CECILIO in an abundance of caution after c/o weakness with SBP in the 180s. both NEG. Continue Lamictal. Work up for UTI. I spent minutes with the patient and/or on the patient floor today, greater than?50% of which was spent counseling/coordinating care. Reason for contiued inpatient stay Substantial Risk for: inability to function and rapid decompensation
[2021-06-21 12:04] LABS: Glucose, Whole Blood 129 mg/dL (60-115)
[2021-06-21 16:21] LABS: Glucose, Whole Blood 254 mg/dL (60-115)
[2021-06-21] MEDS: hydrOXYzine HCL 25 MG TABLET PO (16:31)
[2021-06-21] MEDS: Insulin Lispro 100 UNIT/ML 3 ML VIAL SUBCUT (16:31)
[2021-06-21 20:13] VITALS: BP 175/75; PULSE 78; RESP 17; TEMP 36.6; O2SAT 97
[2021-06-21] MEDS: amLODIPine Besylate 5 MG TABLET PO (20:13)
[2021-06-21 20:22] VITALS: BP 175/75; PULSE 78
[2021-06-21 21:23] LABS: Glucose, Whole Blood 168 mg/dL (60-115)
[2021-06-21] MEDS: Insulin Glargine,Hum.rec.anlog 100 UNIT/ML 10 ML VIAL 10 UNIT SUBCUT (21:25)
[2021-06-22 05:55] LABS: Glucose, Whole Blood 102 mg/dL (60-115)
[2021-06-22] MEDS: Levothyroxine Sodium 75 MCG TABLET PO (05:56)
[2021-06-22 08:00] VITALS: BP 156/67; PULSE 61; TEMP 36.5; O2SAT 99
[2021-06-22 08:07] VITALS: BP 156/67; BP 157/67; PULSE 60
[2021-06-22] MEDS: Metoprolol Tartrate 25 MG TABLET PO ×2 (08:07→20:50)
[2021-06-22] MEDS: Isosorbide Mononitrate 30 MG TAB.ER.24H PO (08:07)
[2021-06-22] MEDS: lamoTRIgine 25 MG TABLET PO (08:08)
[2021-06-22 11:49] LABS: Glucose, Whole Blood 134 mg/dL (60-115)
--- NOTE | 2021-06-22 15:15 | HO.PSYCHPN ---
Subjective Subjective Date of Service: 06/22/21 Reason For Visit: Bipolar Do Subjective Notes: Conditional Voluntary Interim History: The nursing staff reported that the patient has refused her insulin but in general is she is compliant with her medications. As per nursing staff, she stated before that she has mental issues and sometimes she is manic. On interview, the patient reminds with some flight of ideas but less irritability, she tolerated very well the Lamictal. Mental Status Exam Mental Status Exam Patient Appearance: Disheveled Patient Orientation: Person and Situation Level of Consciousness: Restless Patient Behavior: Cooperative, Distractible and Good Eye Contact Mood Description: Labile Affect Description: Constricted Patient Cognition Impaired: No Ability to Follow Directions: Fair Speech Pattern: Rambling Hallucinations: None Delusions: Not Present Thought Process: Distracted Thought Content: positive for Circumstantial Judgement: Fair Diagnostics Vital Signs (24Hr): Vital Signs - 24 hr 06/21/21 20:13 06/21/21 20:22 06/22/21 08:00 Temperature 97.8 F 97.7 F Pulse Rate 78 78 61 Respiratory Rate 17 Blood Pressure 175/75 H 175/75 H 156/67 H Pulse Oximetry 97 99 06/22/21 08:07 Temperature Pulse Rate 60 Respiratory Rate Blood Pressure 157/67 H Pulse Oximetry Body Mass Index 26.8 Labs Results: 06/07/21 06:35 06/14/21 06:57 Labs: Laboratory Results - last 48 hr 06/20/21 06/20/21 06/20/21 11:52 16:32 20:45 POC Glucose 240 H 164 H 337 H 06/20/21 06/20/21 06/21/21 23:09 23:13 00:20 POC Glucose 49 L* 53 L* 96 06/21/21 06/21/21 06/21/21 06:13 12:00 16:17 POC Glucose 199 H 129 H 254 H 06/21/21 06/22/21 06/22/21 20:17 05:49 11:45 POC Glucose 168 H 102 134 H Imaging Radiology Impressions: ITS Impressions Head CT 06/06/21 12:16 IMPRESSION: No acute intracranial pathology. Medications Medications Current Medications Acetaminophen (Acetaminophen 325 Mg Tablet) 650 mg PO Q6H PRN PRN Reason: Headache/Pain Mild Scale (1-3) Al Hydroxide/Mg Hydroxide (Magnesium Hydrox/Alum Hydrox 30 Ml Oral.Susp) 30 ml PO Q6H PRN PRN Reason: Heartburn/Nausea Amlodipine Besylate (Amlodipine Besylate 5 Mg Tablet) 5 mg PO BEDTIME [facility]; Protocol Last Admin: 06/21/21 20:13 Dose: 5 mg Documented by: Clopidogrel Bisulfate (Clopidogrel Bisulfate 75 Mg Tablet) 75 mg PO DAILY [facility] Last Admin: 06/22/21 09:24 Dose: Not Given Documented by: Furosemide (Furosemide 40 Mg Tablet) 40 mg PO DAILY [facility]; Protocol Last Admin: 06/22/21 09:25 Dose: Not Given Documented by: Hydroxyzine HCl (Hydroxyzine Hcl 25 Mg Tablet) 25 mg PO Q6H PRN PRN Reason: Anxiety Last Admin: 06/21/21 16:31 Dose: 25 mg Documented by: Insulin Glargine (Insulin Glargine,Hum.Rec.Anlog 100 Unit/Ml 10 Ml Vial) 10 unit SUBCUT BEDTIME [facility] Last Admin: 06/21/21 21:25 Dose: 10 unit Documented by: Insulin Human Lispro (Insulin Lispro 100 Unit/Ml 3 Ml Vial) 0 unit SUBCUT QIDACHS [facility]; Protocol Last Admin: 06/22/21 12:50 Dose: Not Given Documented by: Isosorbide Mononitrate (Isosorbide Mononitrate 30 Mg Tab.Er.24h) 30 mg PO DAILY [facility]; Protocol Last Admin: 06/22/21 08:07 Dose: 30 mg Documented by: Ketorolac Tromethamine (Ketorolac Tromethamine 0.5% Op 3 Ml Drops) 1 drop EYE-LEFT QID [facility] Last Admin: 06/22/21 13:23 Dose: 1 drop Documented by: Lamotrigine (Lamotrigine 25 Mg Tablet) 25 mg PO DAILY [facility] Last Admin: 06/22/21 08:08 Dose: 25 mg Documented by: Levothyroxine Sodium (Levothyroxine Sodium 75 Mcg Tablet) 75 mcg PO DAILY@0600 [facility] Last Admin: 06/22/21 05:56 Dose: 75 mcg Documented by: Magnesium Hydroxide (Milk Of Magnesia 30 Ml Oral.Susp) 30 ml PO DAILY PRN PRN Reason: Constipation Last Admin: 06/16/21 14:08 Dose: 30 ml Documented by: Metoprolol Tartrate (Metoprolol Tartrate 25 Mg Tablet) 25 mg PO BID [facility]; Protocol Last Admin: 06/22/21 08:07 Dose: 25 mg Documented by: Nitroglycerin (Nitroglycerin 0.4 Mg Tab.Subl) 0.4 mg SUBLINGUAL Q5M PRN PRN Reason: Chest Pain Last Admin: 06/11/21 06:09 Dose: 1 tab Documented by: Trazodone HCl (Trazodone Hcl 50 Mg Tablet) 50 mg PO BEDTIME PRN PRN Reason: Insomnia Last Admin: 06/20/21 23:35 Dose: 50 mg Documented by: Trazodone HCl (Trazodone Hcl 50 Mg Tablet) 50 mg PO Q4H PRN PRN Reason: Agitation Allergies Allergies Allergy/AdvReac Type Severity Reaction Status Date / Time ciprofloxacin [From Cipro] Allergy Intermediate Difficulty Verified 06/04/21 14:12 Breathing Iodinated Contrast Media Allergy Unknown ANAPHYLAXIS Verified 12/29/20 09:46 [IV CONTRAST] Assessment & Plan Assessment & Plan (1) Schizoaffective disorder, bipolar type: Status: Acute Code(s): F25.0 - Schizoaffective disorder, bipolar type Assessment and Plan: Mrs. Garcia is a 71 y/o woman with hx of Bipolar Disorder although it appears more schizoaffective bipolar given collateral information that states psychosis/paranoia independent of mood component. Pt stopped taking psychiatric medication 2 years ago slowly decompensating. Most recently, pt presents as paranoid, denies having mental illness or need for treatment for both medical and psychiatric conditions. Pt is hyperverbal, flight of ideas and paranoid about being poisoned. PLAN EKG and troponin 06/20 for CECILIO in an abundance of caution after c/o weakness with SBP in the 180s. both NEG. Continue Lamictal. Work up for UTI came back negative. Discharge for Tuesday I spent minutes with the patient and/or on the patient floor today, greater than?50% of which was spent counseling/coordinating care. Reason for contiued inpatient stay Substantial Risk for: inability to function, rapid decompensation and med/psych decompensation
[2021-06-22] MEDS: Milk of Magnesia 30 ML ORAL.SUSP PO (15:25)
[2021-06-22 15:26] LABS: Glucose, Whole Blood 183 mg/dL (60-115)
[2021-06-22 16:57] LABS: Glucose, Whole Blood 230 mg/dL (60-115)
[2021-06-22] MEDS: Insulin Lispro 100 UNIT/ML 3 ML VIAL SUBCUT (16:58)
[2021-06-22 20:47] LABS: Glucose, Whole Blood 111 mg/dL (60-115)
[2021-06-22 20:50] VITALS: BP 123/62; PULSE 62
[2021-06-22 20:51] VITALS: BP 123/62; PULSE 62
[2021-06-22] MEDS: amLODIPine Besylate 5 MG TABLET PO (20:51)
[2021-06-22] MEDS: Insulin Glargine,Hum.rec.anlog 100 UNIT/ML 10 ML VIAL 10 UNIT SUBCUT (20:53)
[2021-06-22] MEDS: traZODone HCL 50 MG TABLET PO (23:23)
[2021-06-22 23:50] VITALS: BP 123/62; PULSE 62; RESP 17; TEMP 36.3; O2SAT 99
[2021-06-23] MEDS: Levothyroxine Sodium 75 MCG TABLET PO (05:50)
[2021-06-23 06:00] VITALS: BP 141/65; PULSE 59; RESP 18; TEMP 36.1; O2SAT 98
[2021-06-23 06:43] LABS: Glucose, Whole Blood 90 mg/dL (60-115)
[2021-06-23 10:24] VITALS: BP 180/73; PULSE 67
[2021-06-23] MEDS: Nitroglycerin 0.4 MG TAB.SUBL SUBLINGUAL (10:24)
--- NOTE | 2021-06-23 11:48 | HO.PSYCHPN ---
Subjective Subjective Date of Service: 06/23/21 Reason For Visit: Bipolar Do Subjective Notes: Conditional Voluntary Interim History: The nursing staff reported that was perseverative on loose stools and previous admissions for medical conditions. On interview, she denied new symptoms, remains slightly hypomanic but well oriented and able to take care of herself. She has flight of ideas at baseline, she requested Benadryl instead of Atarax Mental Status Exam Mental Status Exam Patient Appearance: Well Grooomed Patient Orientation: Person and Situation Level of Consciousness: Awake Patient Behavior: Talkative and Suspicious Mood Description: Labile Affect Description: Constricted Ability to Follow Directions: Good Speech Pattern: Clear Memory Description: Intact Hallucinations: None Delusions: Not Present Thought Process: Distracted Thought Content: positive for Circumstantial Judgement: Fair Diagnostics Vital Signs (24Hr): Vital Signs - 24 hr 06/22/21 20:50 06/22/21 20:51 06/22/21 23:50 Temperature 97.3 F Pulse Rate 62 62 62 Respiratory Rate 17 Blood Pressure 123/62 123/62 123/62 Pulse Oximetry 99 06/23/21 06:00 06/23/21 10:24 Temperature 97.0 F Pulse Rate 59 67 Respiratory Rate 18 Blood Pressure 141/65 H 180/73 H Pulse Oximetry 98 Body Mass Index 26.8 Labs Results: 06/07/21 06:35 06/14/21 06:57 Labs: Laboratory Results - last 48 hr 06/21/21 06/21/21 06/21/21 12:00 16:17 20:17 POC Glucose 129 H 254 H 168 H 06/22/21 06/22/21 06/22/21 05:49 11:45 15:20 POC Glucose 102 134 H 183 H 06/22/21 06/22/21 06/23/21 16:53 20:42 06:34 POC Glucose 230 H 111 90 Imaging Radiology Impressions: ITS Impressions Head CT 06/06/21 12:16 IMPRESSION: No acute intracranial pathology. Medications Medications Current Medications Acetaminophen (Acetaminophen 325 Mg Tablet) 650 mg PO Q6H PRN PRN Reason: Headache/Pain Mild Scale (1-3) Al Hydroxide/Mg Hydroxide (Magnesium Hydrox/Alum Hydrox 30 Ml Oral.Susp) 30 ml PO Q6H PRN PRN Reason: Heartburn/Nausea Amlodipine Besylate (Amlodipine Besylate 5 Mg Tablet) 5 mg PO BEDTIME DILIP; Protocol Last Admin: 06/22/21 20:51 Dose: 5 mg Documented by: Clopidogrel Bisulfate (Clopidogrel Bisulfate 75 Mg Tablet) 75 mg PO DAILY [facility] Last Admin: 06/23/21 08:39 Dose: Not Given Documented by: Furosemide (Furosemide 40 Mg Tablet) 40 mg PO DAILY [facility]; Protocol Last Admin: 06/23/21 08:38 Dose: Not Given Documented by: Hydroxyzine HCl (Hydroxyzine Hcl 25 Mg Tablet) 25 mg PO Q6H PRN PRN Reason: Anxiety Last Admin: 06/21/21 16:31 Dose: 25 mg Documented by: Insulin Glargine (Insulin Glargine,Hum.Rec.Anlog 100 Unit/Ml 10 Ml Vial) 10 unit SUBCUT BEDTIME [facility] Last Admin: 06/22/21 20:53 Dose: 10 unit Documented by: Insulin Human Lispro (Insulin Lispro 100 Unit/Ml 3 Ml Vial) 0 unit SUBCUT QIDACHS [facility]; Protocol Last Admin: 06/23/21 06:42 Dose: Not Given Documented by: Isosorbide Mononitrate (Isosorbide Mononitrate 30 Mg Tab.Er.24h) 30 mg PO DAILY [facility]; Protocol Last Admin: 06/23/21 08:40 Dose: Not Given Documented by: Ketorolac Tromethamine (Ketorolac Tromethamine 0.5% Op 3 Ml Drops) 1 drop EYE-LEFT QID [facility] Last Admin: 06/23/21 08:40 Dose: Not Given Documented by: Lamotrigine (Lamotrigine 25 Mg Tablet) 25 mg PO DAILY [facility] Last Admin: 06/23/21 08:40 Dose: Not Given Documented by: Levothyroxine Sodium (Levothyroxine Sodium 75 Mcg Tablet) 75 mcg PO DAILY@0600 [facility] Last Admin: 06/23/21 05:50 Dose: 75 mcg Documented by: Magnesium Hydroxide (Milk Of Magnesia 30 Ml Oral.Susp) 30 ml PO DAILY PRN PRN Reason: Constipation Last Admin: 06/22/21 15:25 Dose: 30 ml Documented by: Metoprolol Tartrate (Metoprolol Tartrate 25 Mg Tablet) 25 mg PO BID [facility]; Protocol Last Admin: 06/23/21 08:40 Dose: Not Given Documented by: Nitroglycerin (Nitroglycerin 0.4 Mg Tab.Subl) 0.4 mg SUBLINGUAL Q5M PRN PRN Reason: Chest Pain Last Admin: 06/23/21 10:24 Dose: 0.4 tab Documented by: Trazodone HCl (Trazodone Hcl 50 Mg Tablet) 50 mg PO BEDTIME PRN PRN Reason: Insomnia Last Admin: 06/22/21 23:23 Dose: 50 mg Documented by: Trazodone HCl (Trazodone Hcl 50 Mg Tablet) 50 mg PO Q4H PRN PRN Reason: Agitation Allergies Allergies Allergy/AdvReac Type Severity Reaction Status Date / Time ciprofloxacin [From Cipro] Allergy Intermediate Difficulty Verified 06/04/21 14:12 Breathing Iodinated Contrast Media Allergy Unknown ANAPHYLAXIS Verified 12/29/20 09:46 [IV CONTRAST] Assessment & Plan Assessment & Plan (1) Schizoaffective disorder, bipolar type: Status: Acute Code(s): F25.0 - Schizoaffective disorder, bipolar type Assessment and Plan: Mrs. Garcia is a 71 y/o woman with hx of Bipolar Disorder although it appears more schizoaffective bipolar given collateral information that states psychosis/paranoia independent of mood component. Pt stopped taking psychiatric medication 2 years ago slowly decompensating. Most recently, pt presents as paranoid, denies having mental illness or need for treatment for both medical and psychiatric conditions. Pt is hyperverbal, flight of ideas and paranoid about being poisoned. PLAN EKG and troponin 06/20 for CECILIO in an abundance of caution after c/o weakness with SBP in the 180s. both NEG. Continue Lamictal. Work up for UTI came back negative. Discharge for Tuesday I spent minutes with the patient and/or on the patient floor today, greater than?50% of which was spent counseling/coordinating care. Reason for contiued inpatient stay Substantial Risk for: inability to function, rapid decompensation and med/psych decompensation
[2021-06-23 12:11] LABS: Glucose, Whole Blood 294 mg/dL (60-115)
[2021-06-23 18:00] VITALS: BP 178/76; PULSE 72; RESP 18; TEMP 36.5; O2SAT 99
[2021-06-23 21:03] LABS: Glucose, Whole Blood 179 mg/dL (60-115)
[2021-06-23 21:09] VITALS: BP 178/76; PULSE 99
[2021-06-23] MEDS: amLODIPine Besylate 5 MG TABLET PO (21:09)
[2021-06-23 21:10] VITALS: BP 178/76; PULSE 99
[2021-06-23] MEDS: Metoprolol Tartrate 25 MG TABLET PO (21:10)
[2021-06-23] MEDS: diphenhydrAMINE HCL 25 MG TABLET PO (21:10)
[2021-06-23] MEDS: Insulin Lispro 100 UNIT/ML 3 ML VIAL SUBCUT (21:14)
[2021-06-23] MEDS: traZODone HCL 50 MG TABLET PO (23:28)
[2021-06-24] MEDS: Levothyroxine Sodium 75 MCG TABLET PO (05:13)
[2021-06-24 06:32] LABS: Glucose, Whole Blood 146 mg/dL (60-115)
[2021-06-24 08:00] VITALS: BP 143/103; PULSE 59; TEMP 36.2; O2SAT 97
[2021-06-24 08:19] VITALS: BP 143/103; PULSE 59
[2021-06-24] MEDS: Metoprolol Tartrate 25 MG TABLET PO (08:19)
[2021-06-24] MEDS: Furosemide 40 MG TABLET PO (08:19)
[2021-06-24 08:20] VITALS: BP 143/103; PULSE 59
[2021-06-24] MEDS: Isosorbide Mononitrate 30 MG TAB.ER.24H PO (08:20)
[2021-06-24] MEDS: lamoTRIgine 25 MG TABLET PO (08:20)
[2021-06-24 11:38] LABS: Glucose, Whole Blood 162 mg/dL (60-115)
--- NOTE | 2021-06-24 11:49 | P.DS_ITS ---
DS: Providers Provider Date of Service: 06/24/21 Date of admission: 06/05/21 20:28 Date of discharge: 06/24/21 Primary care physician: Johnny Rosa MD Consults: 06/13/21 08:30 Consult to Hospitalist Routine Consulting Provider: Hospitalist Reason For Exam: medical clearance for ECT Attending physician on discharge: Carl aNik DS: Diagnosis Discharge Diagnosis (1) Bipolar 1 disorder: Status: Acute (2) UTI (urinary tract infection): Status: Acute DS: Medications Discharge Medications Home Medications: Home Medications Medication Instructions Recorded Confirmed levothyroxine 75 mcg tablet 75 mcg PO QAM 05/23/20 06/04/21 insulin aspart U-100 100 unit/mL See Protocol SUBCUT TID 08/04/20 06/04/21 (3 mL) subcutaneous pen (Novolog Flexpen U-100 Insulin aspart) ketorolac 0.5 % eye drops 1 drp OPHTHALMIC-LEFT QID ml 12/29/20 06/04/21 furosemide 20 mg tablet 40 mg PO DAILY 03/16/21 06/04/21 isosorbide mononitrate 60 mg 30 mg PO DAILY tab 03/16/21 06/04/21 tablet,extended release 24 hr Syntol (Probitoic/Prebiotic) 1 tab PO DAILY 06/04/21 coenzyme Q10 100 mg capsule 100 mg PO DAILY 06/04/21 06/04/21 (CoQ-10) nitroglycerin 0.4 mg sublingual 0.4 mg SUBLINGUAL Q5M PRN 06/04/21 06/04/21 tablet tumeric 100 mg-ann 150 mg-olive 2 cap PO DAILY 06/04/21 06/04/21 50 mg-oreg 150 mg-caprylate capsule vitamin D3-vitamin K2 1 tab PO DAILY MRX1 06/04/21 06/04/21 Previous Rx's Medication Instructions Recorded flash glucose scanning reader #1 ea 09/17/20 (FreeStyle Akbar 2 [place]) flash glucose sensor (FreeStyle #2 ea 09/17/20 Akbar 2 Sensor) metoprolol tartrate 25 mg tablet 25 mg PO BID 90 Days #180 tab 12/19/20 clopidogrel 75 mg tablet 75 mg PO DAILY 90 Days #90 tab 03/27/21 lancets (OneTouch UltraSoft #100 ea 04/01/21 Lancets) pen needle, diabetic 32 gauge x #2 box 04/01/21 5/32 (BD Ultra-Fine Carrie Pen Needle) blood sugar diagnostic #10 ea 04/10/21 amlodipine 5 mg tablet 5 mg PO BEDTIME #90 tab 05/28/21 insulin glargine 100 unit/mL (3 10 unit (0.1 mL) SUBCUT QPM #15 ml 05/28/21 mL) subcutaneous pen (Lantus Solostar U-100 Insulin) Mental Status Exam Mental Status Exam Patient Appearance: Well Grooomed Patient Orientation: Person Level of Consciousness: Awake Patient Behavior: Cooperative Mood Description: Labile Affect Description: Constricted Patient Cognition Impaired: No Ability to Follow Directions: Good Speech Pattern: Clear Hallucinations: None Delusions: Not Present Thought Process: Goal Oriented (with sporadic flight of ideas) Thought Content: positive for Circumstantial Judgement: Fair Data Data Completed and Pending Completed studies during hospitalization [Text1]: 06/17/21 06/17/21 06/18/21 12:11 20:04 02:28 POC Glucose 83 336 H 67 Troponin I High Sens Urine Color Urine Appearance Urine pH Ur Specific [place] Urine Protein Urine Glucose (UA) Urine Ketones Urine Blood Urine Nitrite Ur Leukocyte Esterase Urine RBC Urine WBC Ur Squamous Epith Cells Urine Bacteria 06/18/21 06/18/21 06/18/21 02:47 06:11 11:50 POC Glucose 101 219 H 174 H Troponin I High Sens Urine Color Urine Appearance Urine pH Ur Specific [place] Urine Protein Urine Glucose (UA) Urine Ketones Urine Blood Urine Nitrite Ur Leukocyte Esterase Urine RBC Urine WBC Ur Squamous Epith Cells Urine Bacteria 06/18/21 06/18/21 06/19/21 16:16 20:19 10:20 POC Glucose 194 H 192 H Troponin I High Sens Urine Color YELLOW Urine Appearance CLEAR Urine pH 7.0 Ur Specific [place] 1.010 Urine Protein 1+ H Urine Glucose (UA) NEG Urine Ketones NEG Urine Blood TRACE Urine Nitrite NEG Ur Leukocyte Esterase NEG Urine RBC 0 Urine WBC 0-2 Ur Squamous Epith Cells TRACE Urine Bacteria Not Reportable 06/19/21 06/19/21 06/19/21 11:53 14:54 16:37 POC Glucose 278 H 83 100 Troponin I High Sens Urine Color Urine Appearance Urine pH Ur Specific [place] Urine Protein Urine Glucose (UA) Urine Ketones Urine Blood Urine Nitrite Ur Leukocyte Esterase Urine RBC Urine WBC Ur Squamous Epith Cells Urine Bacteria 06/19/21 06/20/21 06/20/21 21:06 06:14 08:58 POC Glucose 224 H 162 H 169 H Troponin I High Sens Urine Color Urine Appearance Urine pH Ur Specific [place] Urine Protein Urine Glucose (UA) Urine Ketones Urine Blood Urine Nitrite Ur Leukocyte Esterase Urine RBC Urine WBC Ur Squamous Epith Cells Urine Bacteria 06/20/21 06/20/21 06/20/21 10:52 11:52 16:32 POC Glucose 240 H 164 H Troponin I High Sens 13.1 Urine Color Urine Appearance Urine pH Ur Specific [place] Urine Protein Urine Glucose (UA) Urine Ketones Urine Blood Urine Nitrite Ur Leukocyte Esterase Urine RBC Urine WBC Ur Squamous Epith Cells Urine Bacteria 06/20/21 06/20/21 06/20/21 20:45 23:09 23:13 POC Glucose 337 H 49 L* 53 L* Troponin I High Sens Urine Color Urine Appearance Urine pH Ur Specific [place] Urine Protein Urine Glucose (UA) Urine Ketones Urine Blood Urine Nitrite Ur Leukocyte Esterase Urine RBC Urine WBC Ur Squamous Epith Cells Urine Bacteria 06/21/21 06/21/21 06/21/21 00:20 06:13 12:00 POC Glucose 96 199 H 129 H Troponin I High Sens Urine Color Urine Appearance Urine pH Ur Specific [place] Urine Protein Urine Glucose (UA) Urine Ketones Urine Blood Urine Nitrite Ur Leukocyte Esterase Urine RBC Urine WBC Ur Squamous Epith Cells Urine Bacteria 06/21/21 06/21/21 06/22/21 16:17 20:17 05:49 POC Glucose 254 H 168 H 102 Troponin I High Sens Urine Color Urine Appearance Urine pH Ur Specific [place] Urine Protein Urine Glucose (UA) Urine Ketones Urine Blood Urine Nitrite Ur Leukocyte Esterase Urine RBC Urine WBC Ur Squamous Epith Cells Urine Bacteria 06/22/21 06/22/21 06/22/21 11:45 15:20 16:53 POC Glucose 134 H 183 H 230 H Troponin I High Sens Urine Color Urine Appearance Urine pH Ur Specific [place] Urine Protein Urine Glucose (UA) Urine Ketones Urine Blood Urine Nitrite Ur Leukocyte Esterase Urine RBC Urine WBC Ur Squamous Epith Cells Urine Bacteria 06/22/21 06/23/21 06/23/21 20:42 06:34 11:53 POC Glucose 111 90 294 H Troponin I High Sens Urine Color Urine Appearance Urine pH Ur Specific [place] Urine Protein Urine Glucose (UA) Urine Ketones Urine Blood Urine Nitrite Ur Leukocyte Esterase Urine RBC Urine WBC Ur Squamous Epith Cells Urine Bacteria 06/23/21 06/24/21 06/24/21 20:56 06:27 11:32 POC Glucose 179 H 146 H 162 H Troponin I High Sens Urine Color Urine Appearance Urine pH Ur Specific [place] Urine Protein Urine Glucose (UA) Urine Ketones Urine Blood Urine Nitrite Ur Leukocyte Esterase Urine RBC Urine WBC Ur Squamous Epith Cells Urine Bacteria 06/03/21 20:38 Blood - Venous Blood Culture - Final No growth after 5 days. 06/03/21 20:38 Blood - Venous Blood Culture - Final No growth after 5 days. 06/06/21 21:00 Urine clean catch - Urine hurd top Urine Culture - Final No growth. 06/03/21 19:38 Urine clean catch - Urine hurd top Urine Culture - Final Imaging Diagnostic Imaging Impressions Head CT 06/06/21 12:16 IMPRESSION: No acute intracranial pathology. DS: Summary Hospital Course Hospital Course: The patient was admitted into the unit for exacerbation of manic symptoms and psychosis in the context of been tapered off medications nearly 2 years ago by her primary prescriber. She also had a UTI on admission and other medical problems, please see HPI from admission note. On admission, she was initially started on Risperdal but she adamantly refused to take it since she gained a lot of weight with this medication, she had metabolic syndrome and she had cardiovascular problems with CHF as a consequence of a prior PA. Historically, she improved with ECT but she refused this treatment. We discussed at lenght her risks and benefits and she refused to have any atypical antipsychotic due to the possiblity of worsening her metabolic syndrome so she agreed to start a low dose of Lamictal. Her mood was mildly hypomanic but in general, even though that she had a residual irritability, she responded to Lamictal. Since there were no safety concerns, her discharge was scheduled with follow up appointments to her previous prescribers. Time spent discussing smoking cessation with patient: 3 to 10 minutes Status at Discharge Cognitive/behavioral status at discharge: At baseline Functional status at discharge: independent ambulation Overall status at discharge: patient is back to baseline Time Spent with Patient Time attestation: Total time spent providing and/or coordinating discharge services: Time spent: Less than 30 minutes Discharge Plan Discharge Patient Disposition: Home, Self-Care Discharge Diagnosis: Bipolar Disorder type I most recent episode manic Referrals: Ramon Pardo ([facility] therapists) [Other] - 07/08/21 9:15 am (Appointment scheduled for 07/08/21 @ 9:15 AM via telephone (telehealth).) Dr. Pedro Jc (cardiologists) [Other] - 1 Week (Appointment scheduled with Dr. Jc for ) Darlene Pope ([facility] RN) [Other] - 3-5 Days (T/w called Darlene and left message informing her of Richelle's discharge on 06/24/21 @ 4 PM. Please follow up if you do not here from her in a few days post discharge at the number stated above..) Dr. Ra Harkins (kidney specialists) [Other] - 1 Week (Appointment scheduled for ) Scott Fitzpatrick ([facility] psychiatrists) [Other] - 07/24/21 9:20 am (Telehealth appointment scheduled for 07/24/21 9:20 AM. ) [facility] [Other] - 3-5 Days (T/w called [facility] and spoke with [facility] swapna Maryam, she reports she will inform [facility] worker Cha Cha of Richelle's discharge tomorrow @ 4 PM. Please call [phone] within 3 days of discharge at above number to inquire on follow up.) Kathleen Everett ([employer] insurance) [Other] - 06/26/21 (Spoke with Kathleen who will make referral for spring encaser through her insurance [employer], she will call Richelle on Tuesday when she returns home.) [facility] [Other] - 3-5 Days (Case shonda Holbrook was notified of discharge for 06/24/21 @ 4 PM on 06/22/21.Please call to follow up within 3 days of discharge at above number.) Dr. Heath Betancur (general surgeon) [Other] - 07/16/21 2:15 pm (T/w called and spoke with Zaida at office, she rescheduled for June @ 2:15 PM T/w scheduled ride with [employer] [facility] [place] spoke with Belen.) Johnny Rosa MD [Primary Care Provider] - 1 Week (F/U appointment for 07/01/2021 @ 1:[address] Rosa ) Discharge Medications: New trazodone 50 mg Tablet 50 mg PO BEDTIME PRN (Reason: Insomnia) 30 Days Qty: 30 RF: 0 lamotrigine 25 mg Tablet 25 mg PO DAILY 30 Days Qty: 30 RF: 0 diphenhydramine HCl [Allergy Relief(diphenhydramin)] 25 mg Tablet 25 mg PO BEDTIME 30 Days Qty: 30 RF: 0 Continued (DME) FreeStyle Akbar 2 Sensor Kit See Rx Instructions .ROUTE .MEDSUPPLY Qty: 2 RF: 5 (DME) FreeStyle Akbar 2 [place] Misc See Rx Instructions .ROUTE .MEDSUPPLY Qty: 1 RF: 0 metoprolol tartrate 25 mg tablet 25 mg PO BID 90 Days Qty: 180 RF: 1 (DME) lancets [OneTouch UltraSoft Lancets] Misc See Rx Instructions .ROUTE .MEDSUPPLY Qty: 100 RF: 11 (DME) pen needle, diabetic [BD Ultra-Fine Carrie Pen Needle] 32 gauge x 5/32 needle See Rx Instructions .ROUTE .MEDSUPPLY Qty: 2 RF: 3 (DME) blood sugar diagnostic Strip See Rx Instructions ea .ROUTE .MEDSUPPLY Qty: 10 RF: 11 Lantus Solostar U-100 Insulin 100 unit/mL (3 mL) insulin pen 10 unit subcut QPM Qty: 15 RF: 1 nitroglycerin 0.4 mg tablet, sublingual 0.4 mg sublingual Q5M PRN (Reason: Chest Pain) RF: 0 coenzyme Q10 [CoQ-10] 100 mg Capsule 100 mg PO DAILY RF: 0 gmvqrvh-iewz-viqru-oreg-capryl 100 mg-150 mg- 50 mg-150 mg Capsule 2 cap PO DAILY RF: 0 Syntol (Probitoic/Prebiotic) 1 tab PO DAILY RF: 0 vitamin D3-vitamin K2 1 tab PO DAILY MRX1 RF: 0 clopidogrel 75 mg tablet 75 mg PO DAILY 90 Days Qty: 90 RF: 3 amlodipine 5 mg tablet 5 mg PO BEDTIME Qty: 90 RF: 3 isosorbide mononitrate 60 mg tablet extended release 24 hr 30 mg PO DAILY 90 Days Qty: 45 RF: 0 levothyroxine 75 mcg tablet 75 mcg PO QAM RF: 0 insulin aspart U-100 [Novolog Flexpen U-100 Insulin] 100 unit/mL (3 mL) insulin pen See Protocol sliding scale dose subcut TID RF: 0 ketorolac 0.5 % drops 1 drp ophthalmic-Left QID RF: 0 furosemide 20 mg tablet 40 mg PO DAILY RF: 0 Discharge Orders: Discharge Order (Routine); Ordered 06/24/21 Ordered By: Carl Naik Diet: advance to usual diet Activity on Discharge: As tolerated Stand Alone Forms: Patient Portal Discharge page, Community Support Care Plan Goals: Care plan goals achieved in this admission Health Concerns: Continue treatment with different outpatient providers Plan of Treatment: [facility] for outpatient treatment Assessment: Elderly female with Bipolar disorder type I admitted for exacerbation of loida with psychotic symptoms, with several comorbilities such as metabolic syndrome and previous IM with CHF, with no mood stabilizers for years. RE- started on Lamictal with no side effects or worsening of CHF. Currently safe, ready for discharge to the communityl
--- NOTE | 2021-06-24 15:18 | PC.NURSE ---
Patient was pleasant. alert , well aware and ready for discharge. Paperwork reviewed with patient . Follow up appointment and next dose medication explained to patient. Patient verbalized understanding. Patient 's belongings reviewed and verified. Patient was accompanied to the front of the building per hospital policy.
== END 2021-06-24 15:15 | disposition home or self-care (01) | DRG 885 ==
LOC: HO.ED 06-05 16:17 → HO.PGERI 06-05 20:40
PROVIDERS: Internal Medicine; Psychiatry & Neurology Psychiatry; Social Worker; Admitting Provider Registered Nurse; Emergency Provider Internal Medicine; PCP Internal Medicine; Visit Provider Psychiatry & Neurology Psychiatry
DX: F31.10 Bipolar disorder, current episode manic without psychotic features, unspecified (principal); N39.0 Urinary tract infection, site not specified; I25.10 Atherosclerotic heart disease of native coronary artery without angina pectoris; E78.5 Hyperlipidemia, unspecified; N18.9 Chronic kidney disease, unspecified; E03.9 Hypothyroidism, unspecified; I50.9 Heart failure, unspecified; K43.2 Incisional hernia without obstruction or gangrene; Z91.14 Patient's other noncompliance with medication regimen; I25.2 Old myocardial infarction; Z20.822 Contact with and (suspected) exposure to COVID-19; Z87.891 Personal history of nicotine dependence; Z79.4 Long term (current) use of insulin; Z79.02 Long term (current) use of antithrombotics/antiplatelets; Z79.890 Hormone replacement therapy; Z79.899 Other long term (current) drug therapy
CPT/HCPCS: 36415; 70450; 80048; 80053; 80061; 81001; 82607; 82746; 82947; 83036; 83605; 83735; 84439; 84443; 84484; 85025; 86803; 87040; 87086; 87635; 93005; 97161; 99285; J0696; Q0163

== ENCOUNTER → 2021-06-30 14:10 | Outpatient (BNVA) | payer MEDICARE, SELFPAY | LOC: HO.LAB 07-01 15:45 → CF 07-01 15:45 | PROVIDERS: PCP Internal Medicine; Referring Provider Internal Medicine; Visit Provider Nurse Practitioner Family | DX: I25.10 Atherosclerotic heart disease of native coronary artery without angina pectoris (principal); I10 Essential (primary) hypertension; I25.2 Old myocardial infarction; E78.5 Hyperlipidemia, unspecified; Z98.890 Other specified postprocedural states; Z95.5 Presence of coronary angioplasty implant and graft | CPT/HCPCS: 99212 ==

== ENCOUNTER 2021-07-01 15:42 | Outpatient (REF) | payer MEDICARE, SELFPAY ==
[2021-07-01 16:01] LABS: MANUAL DIFF FLAG NO
[2021-07-01 16:06] LABS: Basophils Percent Auto 0.4 % (0-2); Eosinophils Absolute Auto 0.2 X10*3/uL (0.0-0.4); Eosinophils Percent Auto 2.2 % (0-4); Hematocrit 32.2 % (37.0-47.0); Hemoglobin 10.4 g/dl (12.0-16.0); Imm Gran Abs Auto 0.02 X10*3/uL (0.00-0.03); Imm Gran Pct Auto 0.3 % (0.0-0.4); Lymphocytes Absolute Auto 1.7 X10*3/uL (1.2-4.9); Lymphocytes Percent Auto 21.6 % (20-40); Mean Corpuscular HGB Conc 32.3 g/dl (31.0-35.0); Mean Corpuscular Hemoglobin 30.3 pg (27.0-33.0); Mean Corpuscular Volume 93.9 fL (80.0-98.0); Mean Platelet Volume 9.9 fL (9.4-12.3); Monocytes Absolute Auto 0.6 X10*3/uL (0.1-1.2); Monocytes Percent Auto 8.4 % (2-11); Neutrophils Absolute Auto 5.1 x10*3/uL (2.0-8.3); Neutrophils Percent Auto 67.1 % (45-73); Platelet Count 205 X10*3/uL (160-400); Red Blood Count 3.43 X10*6/uL (4.20-5.50); White Blood Count 7.6 X10*3/uL (4.8-10.8)
[2021-07-01 16:32] LABS: Alanine Aminotransferase 20 U/L (0-31); Albumin Level 3.9 g/dL (3.5-5.0); Alkaline Phosphatase 142 U/L (39-117); Anion Gap 12 (12-20); Aspartate Amino Transferase 24 U/L (5-31); Bilirubin Total 0.4 mg/dL (0.0-1.0); Blood Urea Nitrogen 26 mg/dL (9-16); Calcium 9.3 mg/dL (8.4-10.2); Carbon Dioxide 23 mmol/L (22-29); Chloride 109 mmol/L (96-108); Estimated Average Glucose 166 mg/dL; Estimated Glomerular Filt Rate 28; Glucose Random 155 mg/dL (60-115); Hemoglobin A1c % 7.4 %; Iron 48 mcg/dL (30-160); Percent Iron Saturation 15 % (15-50); Potassium 4.8 mmol/L (3.3-5.1); Sodium 139 mmol/L (135-145); Total Iron Binding Capacity 321 mcg/dL (228-428); Total Protein 6.4 g/dL (6.5-8.0); Unsaturated Iron Binding 273 ug/dL
[2021-07-01 16:53] LABS: Free T4 (Free Thyroxine) 1.11 ng/dL (0.71-1.85); Thyroid Stimulating Hormone 1.56 uIU/mL (0.32-4.0)
[2021-07-01 18:53] LABS: Creatinine Urine 37.38 mg/dL
[2021-07-01 18:56] LABS: Microalbum/Creatinine Ratio Ur 1270.7 ug/mg cr
== END 2021-07-01 15:43 | disposition home or self-care (01) ==
LOC: HO.LAB 15:42
PROVIDERS: Visit Provider Internal Medicine
DX: D64.9 Anemia, unspecified (principal); E03.9 Hypothyroidism, unspecified; I25.10 Atherosclerotic heart disease of native coronary artery without angina pectoris; I12.9 Hypertensive chronic kidney disease with stage 1 through stage 4 chronic kidney disease, or unspecified chronic kidney disease; N18.9 Chronic kidney disease, unspecified; E11.22 Type 2 diabetes mellitus with diabetic chronic kidney disease
CPT/HCPCS: 36415; 80053; 82043; 83036; 83540; 84439; 84443; 85025

== ENCOUNTER → 2021-07-16 14:52 | Outpatient (BNVA) | payer MEDICARE, OTHER, SELFPAY | PROVIDERS: PCP Internal Medicine; Referring Provider Internal Medicine; Visit Provider Surgery | DX: K43.2 Incisional hernia without obstruction or gangrene (principal) | CPT/HCPCS: 99212 ==

== ENCOUNTER 2021-07-27 19:39 | Emergency (ER) | payer MEDICARE, OTHER, SELFPAY ==
[2021-07-27 19:46] VITALS: BP 135/60; PULSE 64; O2SAT 98
[2021-07-27 22:59] VITALS: BP 148/67; PULSE 61; RESP 16; TEMP 36.5; O2SAT 98; BMI 24.9
--- NOTE | 2021-07-27 23:08 | ED_ITS ---
HPI - GI Bleed General Chief complaint: GI Bleed Stated complaint: black tarry stool Time Seen by Provider: 07/27/21 23:08 Source: patient Mode of arrival: ambulatory Limitations: no limitations History of Present Illness HPI Narrative: Patient was on Plavix and aspirin with history of macular degeneration complaining of dark color stool for last few days she is not sure as she is not able to see clearly feeling weak afraid that she is bleeding Related Data Home Medications Medication Instructions Recorded Confirmed levothyroxine 75 mcg tablet 75 mcg PO QAM 05/23/20 07/16/21 insulin aspart U-100 100 unit/mL See Protocol SUBCUT TID 08/04/20 07/16/21 (3 mL) subcutaneous pen (Novolog Flexpen U-100 Insulin aspart) ketorolac 0.5 % eye drops 1 drp OPHTHALMIC-LEFT QID ml 12/29/20 07/16/21 furosemide 20 mg tablet 40 mg PO DAILY 03/16/21 07/16/21 Syntol (Probitoic/Prebiotic) 1 tab PO DAILY 06/04/21 07/16/21 coenzyme Q10 100 mg capsule 100 mg PO DAILY 06/04/21 07/16/21 (CoQ-10) tumeric 100 mg-ann 150 mg-olive 2 cap PO DAILY 06/04/21 07/16/21 50 mg-oreg 150 mg-caprylate capsule vitamin D3-vitamin K2 1 tab PO DAILY MRX1 06/04/21 07/16/21 blood-glucose meter (OneTouch 07/01/21 07/16/21 Ultra2 Meter) Previous Rx's Medication Instructions Recorded metoprolol tartrate 25 mg tablet 25 mg PO BID 90 Days #180 tab 12/19/20 pen needle, diabetic 32 gauge x #2 box 04/01/21 (BD Ultra-Fine Carrie Pen Needle) insulin glargine 100 unit/mL (3 10 unit (0.1 mL) SUBCUT QPM #15 ml 05/28/21 mL) subcutaneous pen (Lantus Solostar U-100 Insulin) amlodipine 5 mg tablet 5 mg PO BEDTIME #90 tab 06/24/21 clopidogrel 75 mg tablet 75 mg PO DAILY 90 Days #90 tab 06/24/21 diphenhydramine HCl 25 mg tablet 25 mg PO BEDTIME 30 Days #30 tab 06/24/21 (Allergy Relief (diphenhydramine)) isosorbide mononitrate 60 mg 30 mg PO DAILY 90 Days #45 tab 06/24/21 tablet,extended release 24 hr lamotrigine 25 mg tablet 25 mg PO DAILY 30 Days #30 tab 06/24/21 trazodone 50 mg tablet 50 mg PO BEDTIME PRN 30 Days #30 06/24/21 tab aspirin 81 mg tablet,delayed 81 mg PO DAILY #90 tab 06/30/21 release rosuvastatin 40 mg tablet 40 mg PO DAILY #90 tab 06/30/21 blood sugar diagnostic (StrandsTouch #300 ea 07/01/21 Ultra Test) lancets (StrandsTouch UltraSoft #100 ea 07/01/21 Lancets) nitroglycerin 0.4 mg sublingual 0.4 mg SUBLINGUAL Q5M PRN #20 tab 07/21/21 tablet Allergies Allergy/AdvReac Type Severity Reaction Status Date / Time ciprofloxacin [From Cipro] Allergy Intermediate Difficulty Verified 07/16/21 1 5:01 Breathing Iodinated Contrast Media Allergy Unknown ANAPHYLAXIS Verified 07/16/21 15:01 [IV CONTRAST] Review of Systems Review of Systems: Yes all other systems are reviewed and are negative [facility] Past Medical History Medical History CAD (coronary artery disease) CKD (chronic kidney disease) Congestive heart failure Endocarditis of mitral valve HTN (hypertension) Hyperkalemia Hyperlipidemia Hyperparathyroidism Hypothyroidism Non-compliance Type 2 diabetes mellitus with hyperglycemia, with long-term current use of insulin Viridans streptococci infection Vitamin D deficiency Surgical History History of cardiac catheterization Hx of section Hx of cholecystectomy Hx of tonsillectomy Malignant melanoma Myocardial infarction Stented coronary artery Stented coronary artery Family History Family History Father CVD (cardiovascular disease) Mother No problems noted. Social History Social History Household Members: None Housing: Assisted Living Facility Housing Other:: Senior housing. Do you presently have visiting nurse or other home services: Yes Alcohol intake: former Patient Tobacco Use Status: Former Tobacco user Advance Directives: Yes Advance Directives on File: Yes Advance Directives Date on File: 06/04/21 service: No Sexual orientation: Straight/Heterosexual Physical Exam Vital Signs: Vital Signs: Last Vital Signs Temp 97.7 F 07/27/21 22:59 Pulse 57 07/28/21 00:19 Resp 18 07/28/21 00:19 BP 142/70 H 07/28/21 00:19 Pulse Ox 98 07/28/21 00:19 BMI result Body Mass Index 24.9 Appearance: Alert. Oriented X3. No acute distress. Eyes: No pallor or icterus ENT: Pharynx normal. Oral Mucosa moist Neck: Normal inspection. Neck supple. CVS: Normal heart rate and rhythm. Pulses normal. Respiratory: No respiratory distress. Equal air entry bilateral, no wheezing/rales/rhonchi Abdomen: Soft and nontender. Bowel sounds are present, no mass palpable, no CVA tenderness Rectal: Brown stool guaiac is negative Skin: Skin warm and dry. Normal skin color. Normal skin turgor. Few scratches and ecchymosis on the right thigh Extremities: No lower extremity edema. No calf tenderness Neuro: Oriented X 3. MDM - GI Bleed MDM Narrative Medical decision making narrative: Patient with dark stool but guaiac is negative H&H stable had a chronic renal disease patient advised to follow with PCP Lab Data Attestation: I reviewed the patient's lab results. Result diagrams: 07/27/21 23:47 07/27/21 23:47 Labs: Lab Results 07/27/21 07/27/21 07/27/21 Range/Units 23:45 23:47 23:47 WBC 5.0 (4.8-10.8) X10*3/uL RBC 3.20 L (4.20-5.50) X10*6/uL Hgb 9.7 L (12.0-16.0) g/dl Hct 29.6 L (37.0-47.0) % MCV 92.5 (80.0-98.0) fL MCH 30.3 (27.0-33.0) pg MCHC 32.8 (31.0-35.0) g/dl RDW 12.3 (11.0-16.0) % Plt Count 207 (160-400) X10*3/uL MPV 9.3 L (9.4-12.3) fL Immature Gran % (Auto) 0.2 (0.0-0.4) % Neut % (Auto) 63.1 (45-73) % Lymph % (Auto) 26.5 (20-40) % Turner % (Auto) 8.0 (2-11) % Eos % (Auto) 1.8 (0-4) % Baso % (Auto) 0.4 (0-2) % Lymph # (Auto) 1.3 (1.2-4.9) X10*3/uL Turner # (Auto) 0.4 (0.1-1.2) X10*3/uL Eos # (Auto) 0.1 (0.0-0.4) X10*3/uL Baso # (Auto) 0.0 (0.0-0.2) X10*3/uL Abs Immat Gran (auto) 0.01 (0.00-0.03) X10*3/uL Absolute Neuts (auto) 3.1 (2.0-8.3) x10*3/uL Absolute Nucleated RBC 0.000 (0.0-0.012) X10*3/uL Nucleated RBC % (auto) 0.0 (0.0-0.2) /100WBC PT 10.6 (9.9-13.0) SEC INR 0.9 (0.9-1.1) Sodium (135-145) mmol/L Potassium (3.3-5.1) mmol/L Chloride (96-108) mmol/L Carbon Dioxide (22-29) mmol/L Anion Gap (12-20) BUN (9-16) mg/dL Creatinine (0.5-1.4) mg/dL Estim Creat Clear Calc Estimated GFR Random Glucose (60-115) mg/dL Calcium (8.4-10.2) mg/dL Stool Occult Blood NEGATIVE (NEGATIVE) COVID-19 ([facility]) (Negative) COVID-19 Clin Com 07/27/21 07/28/21 Range/Units 23:47 01:16 WBC (4.8-10.8) X10*3/uL RBC (4.20-5.50) X10*6/uL Hgb (12.0-16.0) g/dl Hct (37.0-47.0) % MCV (80.0-98.0) fL MCH (27.0-33.0) pg MCHC (31.0-35.0) g/dl RDW (11.0-16.0) % Plt Count (160-400) X10*3/uL MPV (9.4-12.3) fL Immature Gran % (Auto) (0.0-0.4) % Neut % (Auto) (45-73) % Lymph % (Auto) (20-40) % Turner % (Auto) (2-11) % Eos % (Auto) (0-4) % Baso % (Auto) (0-2) % Lymph # (Auto) (1.2-4.9) X10*3/uL Turner # (Auto) (0.1-1.2) X10*3/uL Eos # (Auto) (0.0-0.4) X10*3/uL Baso # (Auto) (0.0-0.2) X10*3/uL Abs Immat Gran (auto) (0.00-0.03) X10*3/uL Absolute Neuts (auto) (2.0-8.3) x10*3/uL Absolute Nucleated RBC (0.0-0.012) X10*3/uL Nucleated RBC % (auto) (0.0-0.2) /100WBC PT (9.9-13.0) SEC INR (0.9-1.1) Sodium 136 (135-145) mmol/L Potassium 4.1 (3.3-5.1) mmol/L Chloride 107 (96-108) mmol/L Carbon Dioxide 24 (22-29) mmol/L Anion Gap 9 L (12-20) BUN 42 H D (9-16) mg/dL Creatinine 1.60 H (0.5-1.4) mg/dL Estim Creat Clear Calc 26.4 Estimated GFR 32 Random Glucose 240 H (60-115) mg/dL Calcium 8.7 D (8.4-10.2) mg/dL Stool Occult Blood (NEGATIVE) COVID-19 ([facility]) Negative (Negative) COVID-19 Clin Com See Note Discharge Plan Discharge Clinical Impression: Multiple complaints Patient Disposition: Home, Self-Care Instructions: Weakness (ED) Additional Instructions: Continue your medication follow-up with your PCP There was no blood seen in your stool today Prescriptions: No Action metoprolol tartrate 25 mg tablet 25 mg PO BID 90 Days Qty: 180 RF: 1 (DME) pen needle, diabetic [BD Ultra-Fine Carrie Pen Needle] 32 gauge x 5/32 needle See Rx Instructions .ROUTE .MEDSUPPLY Qty: 2 RF: 3 Lantus Solostar U-100 Insulin 100 unit/mL (3 mL) insulin pen 10 unit subcut QPM Qty: 15 RF: 1 (DME) blood-glucose meter [OneTouch Ultra2 Meter] Misc See Rx Instructions .Route RF: 0 (DME) lancets [OneTouch UltraSoft Lancets] Misc See Rx Instructions .ROUTE .MEDSUPPLY Qty: 100 RF: 11 (DME) OneTouch Ultra Test Strip See Rx Instructions .Route Qty: 300 RF: 11 nitroglycerin 0.4 mg tablet, sublingual 0.4 mg sublingual Q5M PRN (Reason: Chest Pain) Qty: 20 RF: 1 coenzyme Q10 [CoQ-10] 100 mg Capsule 100 mg PO DAILY RF: 0 lfvhgia-saoq-wznna-oreg-capryl 100 mg-150 mg- 50 mg-150 mg Capsule 2 cap PO DAILY RF: 0 Syntol (Probitoic/Prebiotic) 1 tab PO DAILY RF: 0 vitamin D3-vitamin K2 1 tab PO DAILY MRX1 RF: 0 trazodone 50 mg Tablet 50 mg PO BEDTIME PRN (Reason: Insomnia) 30 Days Qty: 30 RF: 0 lamotrigine 25 mg Tablet 25 mg PO DAILY 30 Days Qty: 30 RF: 0 diphenhydramine HCl [Allergy Relief(diphenhydramin)] 25 mg Tablet 25 mg PO BEDTIME 30 Days Qty: 30 RF: 0 clopidogrel 75 mg tablet 75 mg PO DAILY 90 Days Qty: 90 RF: 3 amlodipine 5 mg tablet 5 mg PO BEDTIME Qty: 90 RF: 3 isosorbide mononitrate 60 mg tablet extended release 24 hr 30 mg PO DAILY 90 Days Qty: 45 RF: 0 levothyroxine 75 mcg tablet 75 mcg PO QAM RF: 0 insulin aspart U-100 [Novolog Flexpen U-100 Insulin] 100 unit/mL (3 mL) insulin pen See Protocol sliding scale dose subcut TID RF: 0 ketorolac 0.5 % drops 1 drp ophthalmic-Left QID RF: 0 furosemide 20 mg tablet 40 mg PO DAILY RF: 0 aspirin 81 mg tablet,delayed release (DR/EC) 81 mg PO DAILY Qty: 90 RF: 3 rosuvastatin 40 mg tablet 40 mg PO DAILY Qty: 90 RF: 3
--- NOTE | 2021-07-27 23:34 | ECG_ITS ---
Test Reason : DIZZINESS Blood Pressure : / mmHG Vent. Rate : 057 BPM Atrial Rate : 057 BPM P-R Int : 208 ms QRS Dur : 122 ms QT Int : 446 ms P-R-T Axes : 053 023 041 degrees QTc Int : 434 ms Sinus bradycardia Minimal voltage criteria for LVH, may be normal variant ( Follansbee product ) Cannot rule out Inferior infarct (cited on or before 28-JUL-2021) Abnormal ECG When compared with ECG of 20-JUN-2021 15:45, T wave inversion no longer evident in Inferior leads Referred By: Abhishek Ramos Electronically Signed By:BELLA MCDOWELL MD
[2021-07-27 23:51] LABS: MANUAL DIFF FLAG NO
[2021-07-27 23:53] LABS: OBS1 NEGATIVE (NEGATIVE)
[2021-07-27 23:53] LABS: Basophils Percent Auto 0.4 % (0-2); Eosinophils Absolute Auto 0.1 X10*3/uL (0.0-0.4); Eosinophils Percent Auto 1.8 % (0-4); Hematocrit 29.6 % (37.0-47.0); Hemoglobin 9.7 g/dl (12.0-16.0); Imm Gran Abs Auto 0.01 X10*3/uL (0.00-0.03); Imm Gran Pct Auto 0.2 % (0.0-0.4); Lymphocytes Absolute Auto 1.3 X10*3/uL (1.2-4.9); Lymphocytes Percent Auto 26.5 % (20-40); Mean Corpuscular HGB Conc 32.8 g/dl (31.0-35.0); Mean Corpuscular Hemoglobin 30.3 pg (27.0-33.0); Mean Corpuscular Volume 92.5 fL (80.0-98.0); Mean Platelet Volume 9.3 fL (9.4-12.3); Monocytes Absolute Auto 0.4 X10*3/uL (0.1-1.2); Neutrophils Absolute Auto 3.1 x10*3/uL (2.0-8.3); Neutrophils Percent Auto 63.1 % (45-73); Platelet Count 207 X10*3/uL (160-400); Red Cell Distribution Width 12.3 % (11.0-16.0)
[2021-07-27 23:54] LABS: OBS Int Ctl Valid YES
[2021-07-27 23:59] LABS: INTERNATIONAL NORM RATIO 0.9 (0.9-1.1); Prothrombin Time 10.6 SEC (9.9-13.0)
[2021-07-28 00:14] LABS: Anion Gap 9 (12-20); Blood Urea Nitrogen 42 mg/dL (9-16); Calcium 8.7 mg/dL (8.4-10.2); Carbon Dioxide 24 mmol/L (22-29); Chloride 107 mmol/L (96-108); Creatinine Clr Calc Pharmacy 26.4; Estimated Glomerular Filt Rate 32; Glucose Random 240 mg/dL (60-115); Potassium 4.1 mmol/L (3.3-5.1); Sodium 136 mmol/L (135-145)
[2021-07-28 00:19] VITALS: BP 142/70; PULSE 57; RESP 18; O2SAT 98
[2021-07-28 01:39] LABS: COVID-19 Test Negative (Negative); IDNOW Serial# 9DD0AD1C
[2021-07-28 03:01] LABS: Appearance Urine CLEAR; Color Urine YELLOW; Glucose Urine UA NEG (NEG); Leukocyte Esterase Urine 1+ (NEG); Nitrite Urine NEG (NEG); Specific Gravity - Urine <= 1.005 (1.005-1.025); UACC Culture Trigger YES; Urine Blood NEG (NEG); Urine Ketones NEG (NEG); Urine Protein TRACE MG/DL (NEG-TRACE)
[2021-07-28 03:22] LABS: Bacteria Urine 1+ /LPF; Mucus Urine 1+ /LPF; Renal Epithelial Cells Urine 1+ /LPF; Squamous Epithelial Cell Urine 1+ /LPF
== END 2021-07-28 02:00 | disposition home or self-care (01) ==
PROVIDERS: Emergency Provider Internal Medicine; PCP Internal Medicine
DX: R53.1 Weakness (principal); Z20.822 Contact with and (suspected) exposure to COVID-19; E11.22 Type 2 diabetes mellitus with diabetic chronic kidney disease; I13.0 Hypertensive heart and chronic kidney disease with heart failure and stage 1 through stage 4 chronic kidney disease, or unspecified chronic kidney disease; N18.9 Chronic kidney disease, unspecified; I50.9 Heart failure, unspecified; E78.5 Hyperlipidemia, unspecified; Z95.5 Presence of coronary angioplasty implant and graft; Z79.4 Long term (current) use of insulin; Z79.899 Other long term (current) drug therapy; Z79.82 Long term (current) use of aspirin; Z79.02 Long term (current) use of antithrombotics/antiplatelets
CPT/HCPCS: 36415; 80048; 81001; 81003; 82272; 85025; 85610; 87086; 87635; 93005; 99283; 99284

== ENCOUNTER 2021-07-30 09:38 | Outpatient (REF) | payer MEDICARE, OTHER, SELFPAY ==
[2021-07-30 10:21] LABS: MANUAL DIFF FLAG NO
[2021-07-30 10:27] LABS: Basophils Percent Auto 0.6 % (0-2); Eosinophils Absolute Auto 0.1 X10*3/uL (0.0-0.4); Eosinophils Percent Auto 1.7 % (0-4); Hemoglobin 10.3 g/dl (12.0-16.0); Imm Gran Abs Auto 0.01 X10*3/uL (0.00-0.03); Imm Gran Pct Auto 0.2 % (0.0-0.4); Lymphocytes Absolute Auto 0.6 X10*3/uL (1.2-4.9); Lymphocytes Percent Auto 11.2 % (20-40); Mean Corpuscular HGB Conc 32.2 g/dl (31.0-35.0); Mean Corpuscular Hemoglobin 29.9 pg (27.0-33.0); Mean Platelet Volume 9.7 fL (9.4-12.3); Monocytes Absolute Auto 0.5 X10*3/uL (0.1-1.2); Monocytes Percent Auto 9.5 % (2-11); Neutrophils Absolute Auto 4.1 x10*3/uL (2.0-8.3); Neutrophils Percent Auto 76.8 % (45-73); Platelet Count 215 X10*3/uL (160-400); Red Blood Count 3.44 X10*6/uL (4.20-5.50); Red Cell Distribution Width 12.6 % (11.0-16.0); White Blood Count 5.3 X10*3/uL (4.8-10.8)
[2021-07-30 10:45] LABS: Estimated Average Glucose 169 mg/dL; Hemoglobin A1c % 7.5 %
[2021-07-30 10:57] LABS: Anion Gap 9 (12-20); Blood Urea Nitrogen 34 mg/dL (9-16); Calcium 9.3 mg/dL (8.4-10.2); Carbon Dioxide 26 mmol/L (22-29); Chloride 111 mmol/L (96-108); Cholesterol 197 mg/dL; Estimated Glomerular Filt Rate 33; Glucose Random 201 mg/dL (60-115); HDL Cholesterol 46 mg/dL; Iron 70 mcg/dL (30-160); LDL Cholesterol Calculated 137 mg/dl; Percent Iron Saturation 21 % (15-50); Potassium 4.6 mmol/L (3.3-5.1); Sodium 141 mmol/L (135-145); Total Iron Binding Capacity 327 mcg/dL (228-428); Triglycerides 74 mg/dL; Unsaturated Iron Binding 257 ug/dL
[2021-07-30 14:10] LABS: Appearance Urine CLEAR; Color Urine YELLOW; Glucose Urine UA NEG (NEG); Leukocyte Esterase Urine NEG (NEG); Nitrite Urine NEG (NEG); PH 5.5 (5.0-8.0); Specific Gravity - Urine 1.025 (1.005-1.025); UACC Culture Trigger NO; Urine Blood NEG (NEG); Urine Ketones NEG (NEG); Urine Protein 2+ MG/DL (NEG-TRACE)
[2021-07-30 14:20] LABS: RBC Urine 0 /HPF (0); Squamous Epithelial Cell Urine TRACE /LPF
[2021-07-30 15:27] LABS: Creatinine Urine 79.15 mg/dL
[2021-07-30 15:40] LABS: Microalbum/Creatinine Ratio Ur 1111.8 ug/mg cr
== END 2021-07-30 09:39 | disposition home or self-care (01) ==
LOC: HO.10HDL 09:38
PROVIDERS: Internal Medicine; Internal Medicine Cardiovascular Disease; Visit Provider Internal Medicine
DX: I21.4 Non-ST elevation (NSTEMI) myocardial infarction (principal); I25.10 Atherosclerotic heart disease of native coronary artery without angina pectoris; E11.65 Type 2 diabetes mellitus with hyperglycemia; Z79.4 Long term (current) use of insulin; R30.0 Dysuria; I10 Essential (primary) hypertension; D64.9 Anemia, unspecified
CPT/HCPCS: 36415; 80048; 80061; 81001; 82043; 83036; 83540; 85025; 87086

== ENCOUNTER 2021-08-04 12:48 | Outpatient (REF) | payer MEDICARE, SELFPAY ==
--- NOTE | ~2021-08-04 | CT_ITS ---
EXAMINATION: CT ABDOMEN AND PELVIS WITHOUT CONTRAST CLINICAL INFORMATION: Incisional hernia without obstruction or gangrene. COMPARISON: Previous CT of the abdomen and pelvis March 2020. TECHNIQUE: Multidetector volumetric imaging was performed from the superior aspect of the liver through the pubic symphysis. Sagittal and coronal reformatted images were obtained on the technologist's workstation. This CT examination was performed using dose optimization techniques as appropriate, variously including the following: *Automated exposure control *Adjustment of mA and/or kV according to patient size (this includes techniques or standardized protocols for targeted exams where dose is matched to indication/reason for exam; i.e. extremities or head) *Use of iterative reconstruction technique DLP: 391 mGy-cm FINDINGS: LUNG BASES: The visualized lung bases are unremarkable. LIVER, GALLBLADDER, AND BILIARY TREE: The liver is normal in size, shape, and attenuation. No focal hepatic lesion or biliary ductal dilatation is present. The gallbladder has been removed. PANCREAS: Unremarkable. SPLEEN: Unremarkable. ADRENAL GLANDS: Unremarkable. KIDNEYS AND URETERS: There is left renal cortical thinning or scarring. The kidneys are otherwise unremarkable. BLADDER: Unremarkable. GASTROINTESTINAL TRACT: There is a low midline ventral hernia containing small bowel. There are no dilated loops of bowel to suggest obstruction. No bowel wall thickening or fluid is seen to suggest ischemic changes. The small and large bowel is otherwise unremarkable. The appendix is unremarkable. The stomach is unremarkable. ABDOMINAL WALL: Large lower abdominal midline ventral hernia containing small bowel measuring 4.4 x 8.2 x 6.5 cm in AP, transverse and longitudinal dimension. This has a 2 cm neck. This is increased in size from March 2020 exam. There is a small ventral hernia inferior to this just to the right of midline containing fat that measures 1 cm. Small umbilical hernia containing fat. LYMPH NODES: Normal. VASCULAR: There is evidence of atherosclerotic disease. PELVIC VISCERA: The uterus has been removed. No pelvic mass is seen. OSSEOUS STRUCTURES: Degenerative changes of the spine and hip joints. CT/CT abdomen pelvis wo con IMPRESSION: Large midline ventral hernia containing small bowel. Smaller more inferior 1 cm ventral hernia containing fat. Small umbilical hernia containing fat. No evidence of obstruction. Fleischner guidelines were followed.
== END 2021-08-04 12:49 | disposition home or self-care (01) ==
LOC: HO.CT 12:48
PROVIDERS: Visit Provider Surgery
DX: K43.2 Incisional hernia without obstruction or gangrene (principal)
CPT/HCPCS: 74176

== ENCOUNTER → 2021-08-20 08:42 | Outpatient (BNVA) | payer MEDICARE, SELFPAY | PROVIDERS: PCP Internal Medicine; Referring Provider Internal Medicine; Visit Provider Internal Medicine Gastroenterology | DX: Z12.11 Encounter for screening for malignant neoplasm of colon (principal); R10.84 Generalized abdominal pain; G89.29 Other chronic pain; Z91.19 Patient's noncompliance with other medical treatment and regimen | CPT/HCPCS: 99212 ==

== ENCOUNTER 2021-09-19 13:37 | Outpatient (REF) | payer MEDICARE, SELFPAY ==
--- NOTE | ~2021-09-19 | XR_ITS ---
EXAMINATION: XR FOOT, LEFT CLINICAL INFORMATION: Pain involving the lateral side of the left foot. COMPARISON: None TECHNIQUE: AP, lateral, and oblique views of the left foot. FINDINGS: Postsurgical changes of distal tibia, fibular ORIF is seen. Mild patchy osteopenia throughout the entire visualized bones. No radiographic evidence of any displaced fracture and/or subluxation or dislocation. Small subchondral cyst is noted at the base of the proximal phalanx of the left fifth toe. Posterior plantar small calcaneal spur is noted. Enthesopathy is noted at the insertional site of the Achilles tendon. XR/XR foot LT min 3V IMPRESSION: 1. Small subchondral cyst is noted at the base of the proximal phalanx of the left fifth toe. 2. Mild patchy osteopenia throughout the entire visualized bones. 3. No radiographic evidence of any displaced fracture or subluxation or dislocation. 4. Postsurgical changes at the right ankle, only partially included within the [id number]. 5. Small posterior plantar calcaneal spur and enthesopathy at the insertion site of the Achilles tendon to the calcaneus.
== END 2021-09-19 13:38 | disposition home or self-care (01) ==
LOC: HO.HMGCX 13:37
PROVIDERS: PCP Internal Medicine; Visit Provider Physician Assistant Medical
DX: M79.672 Pain in left foot (principal)
CPT/HCPCS: 73630

== ENCOUNTER → 2021-10-07 10:55 | Outpatient (BNVA) | payer MEDICARE, SELFPAY | PROVIDERS: PCP Internal Medicine; Referring Provider Internal Medicine; Visit Provider Internal Medicine Cardiovascular Disease | DX: I25.10 Atherosclerotic heart disease of native coronary artery without angina pectoris (principal) | CPT/HCPCS: 99212 ==

== ENCOUNTER 2021-10-08 14:24 | Outpatient (REF) | payer MEDICARE, SELFPAY ==
[2021-10-08 15:24] LABS: Estimated Average Glucose 160 mg/dL; Hemoglobin A1c % 7.2 %
[2021-10-08 15:40] LABS: Alanine Aminotransferase 37 U/L (0-31); Albumin Level 3.7 g/dL (3.5-5.0); Alkaline Phosphatase 158 U/L (39-117); Anion Gap 12 (12-20); Aspartate Amino Transferase 29 U/L (5-31); Bilirubin Total 0.3 mg/dL (0.0-1.0); Blood Urea Nitrogen 37 mg/dL (9-16); Calcium 8.9 mg/dL (8.4-10.2); Carbon Dioxide 23 mmol/L (22-29); Chloride 107 mmol/L (96-108); Estimated Glomerular Filt Rate 38; Glucose Random 223 mg/dL (60-115); Iron 95 mcg/dL (30-160); Percent Iron Saturation 30 % (15-50); Potassium 4.9 mmol/L (3.3-5.1); Sodium 137 mmol/L (135-145); Total Iron Binding Capacity 320 mcg/dL (228-428); Total Protein 6.1 g/dL (6.5-8.0); Unsaturated Iron Binding 225 ug/dL
[2021-10-08 16:02] LABS: Free T4 (Free Thyroxine) 1.03 ng/dL (0.71-1.85); Thyroid Stimulating Hormone 1.41 uIU/mL (0.32-4.0)
[2021-10-08 16:08] LABS: Creatinine Urine 38.91 mg/dL
[2021-10-08 16:18] LABS: Microalbum/Creatinine Ratio Ur 1598.5 ug/mg cr
== END 2021-10-08 14:25 | disposition home or self-care (01) ==
LOC: HO.LAB 14:24
PROVIDERS: PCP Internal Medicine; Visit Provider Internal Medicine
DX: E03.9 Hypothyroidism, unspecified (principal); I25.10 Atherosclerotic heart disease of native coronary artery without angina pectoris; I12.9 Hypertensive chronic kidney disease with stage 1 through stage 4 chronic kidney disease, or unspecified chronic kidney disease; N18.9 Chronic kidney disease, unspecified; E11.22 Type 2 diabetes mellitus with diabetic chronic kidney disease
CPT/HCPCS: 36415; 80053; 82043; 83036; 83540; 84439; 84443

== ENCOUNTER 2021-11-21 22:02 | Inpatient (IN) | payer MEDICARE, SELFPAY ==
--- NOTE | ~2021-11-21 | CT_ITS ---
EXAMINATION: CT CHEST WITHOUT CONTRAST CT ABDOMEN AND PELVIS WITHOUT CONTRAST CLINICAL INFORMATION: Fall, pain in LUQ. Left chest wall pain COMPARISON: 08/04/2021. 04/07/2020. TECHNIQUE: Multidetector volumetric imaging was performed from the thoracic inlet through the pubic symphysis without intravenous contrast. Sagittal and coronal images were reformatted. This CT examination was performed using dose optimization techniques as appropriate, variously including the following: *Automated exposure control *Adjustment of mA and/or kV according to patient size (this includes techniques or standardized protocols for targeted exams where dose is matched to indication/reason for exam; i.e. extremities or head) *Use of iterative reconstruction technique DOSE: 887 mGy-cm FINDINGS: -CHEST- LUNG: There is mild diffuse interlobular septal thickening, primarily in the lung periphery and more notable at the apices and bases, most consistent with mild pulmonary interstitial edema. No appreciable dense airspace consolidation. A few punctate areas of alveolar opacification in the left upper are new from prior measurement less than 3 mm in diameter, potentially corresponding to areas of early alveolar consolidation or a tree-in-bud inflammatory opacification. Central airways are clear. No bronchiectasis. MEDIASTINUM: Atherosclerotic calcifications are present of the coronary arteries. Left ventricular dilatation is suspected. Calcifications are present at the mitral valve. Calcific atherosclerosis is present in the thoracic aorta which is normal in caliber. Thyroid gland is normal. No adenopathy. PERICARDIUM/PLEURA: No significant effusion. No pleural mass or thickening. CHEST WALL/AXILLA: Unremarkable. No rib fractures identified. Soft tissues are unremarkable. -ABDOMEN/PELVIS- LIVER, GALLBLADDER, BILIARY TREE: The liver is normal in size, shape, and attenuation. No focal hepatic lesion or biliary ductal dilatation is present. Gallbladder is surgically absent. PANCREAS: Normal; no mass or surrounding fluid. SPLEEN: Normal size. No focal lesion. ADRENAL GLANDS: A small 7 mm hypoattenuating (-15 HU) right adrenal nodule is unchanged, consistent with a lipid rich adrenal adenoma. KIDNEYS AND URETERS: There is mild left sided renal cortical thinning which is unchanged from prior. No focal renal lesions are identified on these images. No hydronephrosis or nephrolithiasis. Slight fullness of the renal collecting systems is likely related to back pressure from the full bladder. BLADDER: Distended. No wall thickening. No bladder calculi. GASTROINTESTINAL TRACT/ABDOMINAL WALL: All again seen is a 2 x 2 cm defect in the infraumbilical ventral abdominal wall through which a loop of small bowel extends into a hernia. This bowel is normal in caliber without convincing findings of strangulation. A separate fat containing ventral abdominal hernia is noted just inferior to this. No additional hernias are identified. Stomach, small bowel, and colon are normal in caliber. Appendix is normal. Moderate volume of stool in the colon. Moderate colonic diverticulosis. No evidence of acute diverticulitis. No intraperitoneal free air or free fluid. VASCULATURE: Atherosclerotic calcifications are present in the abdominal aorta and iliac arteries. No aneurysmal dilatation. LYMPH NODES: No lymphadenopathy. . PELVIC VISCERA: Uterus is surgically absent. No appreciable adnexal lesions. Surgical clips are present in the pelvis. OSSEUS STRUCTURES: No acute fractures are identified in the chest, abdomen, and pelvis. Diffuse idiopathic skeletal hyperostosis is evident in the thoracic spine with confluent bridging osteophytes. There is moderate degenerative spondylosis in the lower lumbar spine with both degenerative disc disease and facet arthropathy. Mild osteoarthritis in the hips and pubic symphysis. CT/CT abdomen pelvis wo con IMPRESSION: 1. No acute traumatic injuries are identified in the left chest and left abdomen/pelvis on these images. 2. Mild interstitial pulmonary edema. Left ventricular dilatation. 3. No significant change in the small bowel containing infraumbilical ventral abdominal hernia. No evidence of obstruction or strangulation.. No acute intra-abdominal or intrapelvic abnormalities.
--- NOTE | ~2021-11-21 | CT_ITS ---
EXAMINATION: HEAD CT WITHOUT CONTRAST CERVICAL SPINE CT WITHOUT CONTRAST CLINICAL INFORMATION: Fall without loss of consciousness. COMPARISON: 06/06/2021 TECHNIQUE: Contiguous axial imaging of the head was performed without the administration of IV contrast. Axial multidetector volumetric images were also performed through the cervical spine without intravenous contrast. Multiplanar reconstructed images in coronal and sagittal orientations were submitted. This CT examination was performed using dose optimization techniques as appropriate, variously including the following: *Automated exposure control *Adjustment of mA and/or kV according to patient size (this includes techniques or standardized protocols for targeted exams where dose is matched to indication/reason for exam; i.e. extremities or head) *Use of iterative reconstruction technique DOSE: 880 mGy-cm FINDINGS: HEAD: There is no evidence of acute intracranial hemorrhage or territorial infarction. No abnormal mass-effect or midline shift. No extra-axial fluid collections. [place] to white matter differentiation is well preserved. The ventricles are normal in size and configuration. There is no abnormal attenuation within the brain parenchyma. Hyperostosis interna is again noted. No acute fractures are identified at the calvarium and skull base. No appreciable facial fractures on these images. There is a subgaleal hematoma over the right posterior parietal region measuring up to 1 cm in thickness. The sinuses and mastoid air cells are clear. CERVICAL SPINE: Vertebral body heights are normal. No fractures of the vertebral bodies or posterior elements. There is reversal of normal cervical lordosis, likely degenerative in nature. Grade 1 anterolisthesis at C3-C4 is likely related to facet arthropathy and measures 2 mm. Similar mild grade 1 anterolisthesis of C6 on C7 due to marked left-sided facet arthropathy. Degenerative osteophytes and sclerosis are present at the atlantodental articulation, though normal alignment is maintained. Craniocervical junction is normal. Moderate multilevel degenerative disc disease is most notable at C4-C5, C5-C6, and C7-T1 with loss of intervertebral disc height, endplate irregularity, uncovertebral osteophytes, subendplate cystic change. Marked left-sided facet arthropathy at C7-T1 additional facet arthropathy is noted at the C2-C3 and C3-C4. Posterior disc osteophyte complexes at C3-C4, C4-C5, and C5-C6 produces at least mild central canal narrowing. Prominent uncovertebral osteophytes are present at multiple levels bilaterally resulting in neural foraminal encroachment, most notably at C3-C4, C4-C5, C5-C6, and on the right at C7-T1. No significant paravertebral soft tissue swelling. Atherosclerotic calcifications are present in the carotid arteries. Interlobular septal thickening at the lung apices may be due to mild pulmonary edema. CT/CT cervical spine wo con IMPRESSION: 1. No acute intracranial pathology. Subgaleal hematoma over the right parietal calvarium. No skull fractures. 2. No acute fracture or acute malalignment in the cervical spine. Moderate multilevel degenerative spondylosis as detailed above.
--- NOTE | 2021-11-21 22:04 | ECG_ITS ---
Test Reason : SVT Blood Pressure : / mmHG Vent. Rate : 085 BPM Atrial Rate : 085 BPM P-R Int : 214 ms QRS Dur : 120 ms QT Int : 406 ms P-R-T Axes : 091 022 -24 degrees QTc Int : 483 ms Artifact in tracing Sinus rhythm with 1st degree A-V block with occasional Premature ventricular complexes Minimal voltage criteria for LVH, may be normal variant ( Art product ) Possible Inferior infarct (cited on or before 28-JUL-2021) Abnormal ECG When compared with ECG of 28-JUL-2021 00:13, Premature ventricular complexes are now Present Vent. rate has increased BY 28 BPM T wave inversion now evident in Inferior leads QT has lengthened Referred By: Rox Stone Electronically Signed By:NABILA SUGGS
[2021-11-21 22:13] VITALS: BP 112/71; BP 139/64; PULSE 81; PULSE 84; RESP 14; TEMP 36.5; O2SAT 97; BMI 26.1
[2021-11-21 22:29] VITALS: PULSE 84; RESP 13; TEMP 36.5; O2SAT 98
[2021-11-21 22:33] LABS: MANUAL DIFF FLAG NO
[2021-11-21 22:36] LABS: Basophils Percent Auto 0.2 % (0-2); Eosinophils Absolute Auto 0.2 X10*3/uL (0.0-0.4); Eosinophils Percent Auto 3.5 % (0-4); Hematocrit 31.5 % (37.0-47.0); Hemoglobin 10.3 g/dl (12.0-16.0); Imm Gran Abs Auto 0.01 X10*3/uL (0.00-0.03); Imm Gran Pct Auto 0.2 % (0.0-0.4); Lymphocytes Absolute Auto 1.1 X10*3/uL (1.2-4.9); Lymphocytes Percent Auto 24.2 % (20-40); Mean Corpuscular HGB Conc 32.7 g/dl (31.0-35.0); Mean Corpuscular Hemoglobin 29.8 pg (27.0-33.0); Mean Platelet Volume 9.3 fL (9.4-12.3); Monocytes Absolute Auto 0.4 X10*3/uL (0.1-1.2); Monocytes Percent Auto 9.7 % (2-11); Neutrophils Absolute Auto 2.7 x10*3/uL (2.0-8.3); Neutrophils Percent Auto 62.2 % (45-73); Platelet Count 198 X10*3/uL (160-400); Red Blood Count 3.46 X10*6/uL (4.20-5.50); Red Cell Distribution Width 12.9 % (11.0-16.0); White Blood Count 4.3 X10*3/uL (4.8-10.8)
[2021-11-21 22:45] LABS: INTERNATIONAL NORM RATIO 0.9 (0.9-1.1); Prothrombin Time 10.6 SEC (9.9-13.0)
[2021-11-21 22:51] LABS: Alanine Aminotransferase 24 U/L (0-31); Albumin Level 3.3 g/dL (3.5-5.0); Alkaline Phosphatase 146 U/L (39-117); Anion Gap 16 (12-20); Aspartate Amino Transferase 34 U/L (5-31); Bilirubin Total 0.4 mg/dL (0.0-1.0); Blood Urea Nitrogen 30 mg/dL (9-16); Calcium 8.7 mg/dL (8.4-10.2); Carbon Dioxide 19 mmol/L (22-29); Chloride 110 mmol/L (96-108); Creatinine Clr Calc Pharmacy 28.6; Estimated Glomerular Filt Rate 34; Glucose Random 180 mg/dL (60-115); Potassium 3.6 mmol/L (3.3-5.1); Sodium 141 mmol/L (135-145); Total Protein 5.7 g/dL (6.5-8.0)
[2021-11-21 22:55] LABS: Troponin-I High Sensitivity 20.6 ng/L (<3.5-17.0)
[2021-11-21 23:21] LABS: Appearance Urine CLEAR; Color Urine STRAW; Glucose Urine UA NEG (NEG); Leukocyte Esterase Urine NEG (NEG); Nitrite Urine NEG (NEG); PH 5.5 (5.0-8.0); UACC Culture Trigger NO; Urine Blood TRACE (NEG); Urine Ketones NEG (NEG); Urine Protein 2+ MG/DL (NEG-TRACE)
[2021-11-21 23:27] LABS: Glucose, Whole Blood 142 mg/dL (60-115)
[2021-11-21] MEDS: 0.9 % Sodium Chloride 1,000 ML 999 ML IV (23:30)
[2021-11-21 23:35] LABS: WBC Urine 0-2 /HPF (0-4)
[2021-11-21 23:36] LABS: Amorphous Sediment Urine 1+ /LPF; Granular Casts Urine 0-2 /LPF; RBC Urine 0-2 /HPF (0); Squamous Epithelial Cell Urine 1+ /LPF
--- NOTE | 2021-11-21 23:42 | ED_ITS ---
HPI - General Adult General Chief complaint: Arrhythmia/Palpitations Stated complaint: dizziness Time Seen by Provider: 11/21/21 22:04 Source: patient Mode of arrival: EMS History of Present Illness HPI narrative: This is a 71-year-old female who lives at a long-term center and states that this evening she was having dinner and then states that she went to stand up, lost her balance and fell backwards striking her head but denies any loss of consciousness. Patient states that she has had increased falling recently and fell approximately 2 days ago and has had left-sided chest discomfort since that time. The chest discomfort does worsen with deep inspiration. Patient states that after she fell this evening that she experienced chest pain with radiation into the left upper extremity and that it has now primarily resolved. She denies any shortness of breath, fever, chills but states she has had decreased appetite. Patient is a challenging historian, additional information obtained from EMS states that patient was noted to be in SVT on their arrival and as a gained IV access she then converted to sinus rhythm. Related Data Home Medications Medication Instructions Recorded Confirmed levothyroxine 75 mcg tablet 75 mcg PO QAM 05/23/20 10/07/21 insulin aspart U-100 100 unit/mL See Protocol SUBCUT TID 08/04/20 10/07/21 (3 mL) subcutaneous pen (Novolog Flexpen U-100 Insulin aspart) ketorolac 0.5 % eye drops 1 drp OPHTHALMIC-LEFT QID ml 12/29/20 10/07/21 furosemide 20 mg tablet 40 mg PO DAILY 03/16/21 10/07/21 Syntol (Probitoic/Prebiotic) 1 tab PO DAILY 06/04/21 10/07/21 coenzyme Q10 100 mg capsule 100 mg PO DAILY 06/04/21 10/07/21 (CoQ-10) tumeric 100 mg-ann 150 mg-olive 2 cap PO DAILY 06/04/21 10/07/21 50 mg-oreg 150 mg-caprylate capsule vitamin D3-vitamin K2 1 tab PO DAILY MRX1 06/04/21 10/07/21 blood-glucose meter (Gingerd 07/01/21 10/07/21 Ultra2 Meter) aspirin 81 mg tablet,delayed 81 mg PO DAILY tab 10/07/21 10/07/21 release clopidogrel 75 mg tablet 75 mg PO DAILY tab 10/07/21 10/07/21 Previous Rx's Medication Instructions Recorded metoprolol tartrate 25 mg tablet 25 mg PO BID 90 Days #180 tab 12/19/20 pen needle, diabetic 32 gauge x #2 box 04/01/21 (BD Ultra-Fine Carrie Pen Needle) insulin glargine 100 unit/mL (3 10 unit (0.1 mL) SUBCUT QPM #15 ml 05/28/21 mL) subcutaneous pen (Lantus Solostar U-100 Insulin) amlodipine 5 mg tablet 5 mg PO BEDTIME #90 tab 06/24/21 diphenhydramine HCl 25 mg tablet 25 mg PO BEDTIME 30 Days #30 tab 06/24/21 (Allergy Relief (diphenhydramine)) isosorbide mononitrate 60 mg 30 mg PO DAILY 90 Days #45 tab 06/24/21 tablet,extended release 24 hr lamotrigine 25 mg tablet 25 mg PO DAILY 30 Days #30 tab 06/24/21 blood sugar diagnostic (OneTouch #300 ea 07/01/21 Ultra Test) lancets (Clean Filtration TechnologyTouch UltraSoft #100 ea 09/07/21 Lancets) nitroglycerin 0.4 mg sublingual 0.4 mg SUBLINGUAL Q5M PRN #20 tab 09/07/21 tablet Allergies Allergy/AdvReac Type Severity Reaction Status Date / Time ciprofloxacin [From Cipro] Allergy Intermediate Difficulty Verified 11/21/21 22:20 Breathing Iodinated Contrast Media Allergy Unknown ANAPHYLAXIS Verified 11/21/21 22:20 [IV CONTRAST] Review of Systems Review of Systems: Pertinent positives and negatives as stated in HPI 10 point review of systems is otherwise negative. [facility] Past Medical History Source: nursing notes reviewed Medical History CAD (coronary artery disease) CKD (chronic kidney disease) Congestive heart failure Endocarditis of mitral valve HTN (hypertension) Hyperkalemia Hyperlipidemia Hyperparathyroidism Hypothyroidism Non-compliance Type 2 diabetes mellitus with hyperglycemia, with long-term current use of insulin Viridans streptococci infection Vitamin D deficiency Surgical History History of cardiac catheterization Hx of section Hx of cholecystectomy Hx of tonsillectomy Malignant melanoma Myocardial infarction Stented coronary artery Stented coronary artery Family History Family History Father CVD (cardiovascular disease) Mother No problems noted. Social History Social History Household Members: None Housing: Assisted Living Facility Housing Other:: Senior housing. Do you presently have visiting nurse or other home services: Yes Alcohol intake: former Patient Tobacco Use Status: Former Tobacco user Smoked in Last 30 Days: No Use of substances other than those prescribed or required for medical reasons: No Advance Directives: Yes Advance Directives on File: Yes Advance Directives Date on File: 06/04/21 service: No Sexual orientation: Straight/Heterosexual Physical Exam ED Vital Signs: Vital Signs - 24 hr 11/21/21 22:13 11/21/21 22:29 11/22/21 00:41 Temperature 97.7 F 97.7 F Pulse Rate 84 84 81 Respiratory Rate 14 13 15 Blood Pressure 139/64 164/75 H Pulse Oximetry 97 98 96 11/22/21 00:44 11/22/21 00:45 Temperature Pulse Rate 84 81 Respiratory Rate 17 Blood Pressure 157/77 H 161/65 H Pulse Oximetry 97 BMI result Body Mass Index 26.1 VITAL SIGNS: Reviewed. GENERAL: Well developed, well nourished, in no acute distress. HEAD: Normocephalic/large contusion/hematoma to occiput without laceration EYES: PERRLA, EOMI intact without pain, no nystagmus EARS: Ext canals without abnormality, TMs non-bulging and non-erythematous NOSE: Nares patent bilateral OROPHARYNX: no oral lesions noted, posterior pharynx clear and non-erythematous without noted tonsillar enlargement/erythema/exudates NECK: Supple, no adenopathy LUNGS: Bibasilar mild rales, but otherwise no tachypnea/rhonchi/wheeze. SpO2<97>; CHEST WALL: No crepitus, but tenderness on palpation over left anterior chest wall without noted deformity CARDIOVASCULAR: Regular rate and rhythm without noted murmurs, no JVD but mild 1+ lower pitting edema ABDOMEN: Soft, non-tender, non-distended with bowel sounds, noted hernia to anterior abdominal wall that is soft MUSCULOSKELETAL: No tenderness, deformities, or effusions noted on gross inspection, patient has scattered areas of ecchymosis: Left lateral thigh, bilateral knees, healing laceration to the left forearm EXTREMITIES: No cyanosis, clubbing or edema. SKIN: Inspection of the skin reveals no rashes, but ecchymosis as reported above NEUROLOGIC: Alert and oriented x 4. Strength and sensation to light touch were grossly intact x 4, cranial nerves 2-12 are grossly intact, no facial asymmetry Course Course Course Narrative: 71-year-old female with history and clinical presentation consistent with increased falls of unclear etiology and will evaluate for possible infectious, anemia, hypoglycemia, arrhythmia, but doubt intracranial abnormality and suspect that patient's host of symptoms may be secondary to multiple medications and complex medical comorbidities that include bipolar/schizoaffective/CAD/diabetes. On review of all investigations taken in with clinical findings patient is noted to be in CHF exacerbation with mild ALBA and provided with IV Lasix. This case was discussed with the inpatient hospitalist who accepts admission. Initial troponin noted to be consistent with patient's prior values but will repeat and on review of EKG there are no acute findings when compared to prior EKGs. Patient is otherwise chest pain-free. Medical Decision Making Lab Data Result diagrams: 11/21/21 22:27 11/21/21 22:27 Labs: Lab Results 11/21/21 11/21/21 11/21/21 Range/Units 22:27 22:27 22:27 WBC 4.3 L (4.8-10.8) X10*3/uL RBC 3.46 L (4.20-5.50) X10*6/uL Hgb 10.3 L (12.0-16.0) g/dl Hct 31.5 L (37.0-47.0) % MCV 91.0 (80.0-98.0) fL MCH 29.8 (27.0-33.0) pg MCHC 32.7 (31.0-35.0) g/dl RDW 12.9 (11.0-16.0) % Plt Count 198 (160-400) X10*3/uL MPV 9.3 L (9.4-12.3) fL Immature Gran % (Auto) 0.2 (0.0-0.4) % Neut % (Auto) 62.2 (45-73) % Lymph % (Auto) 24.2 (20-40) % [place] % (Auto) 9.7 (2-11) % Eos % (Auto) 3.5 (0-4) % Baso % (Auto) 0.2 (0-2) % Lymph # (Auto) 1.1 L (1.2-4.9) X10*3/uL [place] # (Auto) 0.4 (0.1-1.2) X10*3/uL Eos # (Auto) 0.2 (0.0-0.4) X10*3/uL Baso # (Auto) 0.0 (0.0-0.2) X10*3/uL Abs Immat Gran (auto) 0.01 (0.00-0.03) X10*3/uL Absolute Neuts (auto) 2.7 (2.0-8.3) x10*3/uL Absolute Nucleated RBC 0.000 (0.0-0.012) X10*3/uL Nucleated RBC % (auto) 0.0 (0.0-0.2) /100WBC PT 10.6 (9.9-13.0) SEC INR 0.9 (0.9-1.1) Sodium 141 (135-145) mmol/L Potassium 3.6 D (3.3-5.1) mmol/L Chloride 110 H (96-108) mmol/L Carbon Dioxide 19 L (22-29) mmol/L Anion Gap 16 (12-20) BUN 30 H (9-16) mg/dL Creatinine 1.51 H (0.5-1.4) mg/dL Estim Creat Clear Calc 28.6 Estimated GFR 34 POC Glucose (60-115) mg/dL Random Glucose 180 H (60-115) mg/dL Calcium 8.7 (8.4-10.2) mg/dL Total Bilirubin 0.4 (0.0-1.0) mg/dL AST 34 H (5-31) U/L ALT 24 (0-31) U/L Alkaline Phosphatase 146 H (39-117) U/L Troponin I High Sens (<3.5-17.0) ng/L B-Natriuretic Peptide (<100) pg/mL Total Protein 5.7 L (6.5-8.0) g/dL Albumin 3.3 L (3.5-5.0) g/dL Urine Color Urine Appearance Urine pH (5.0-8.0) Ur Specific [place] (1.005-1.025) Urine Protein (NEG-TRACE) MG/DL Urine Glucose (UA) (NEG) MG/DL Urine Ketones (NEG) MG/DL Urine Blood (NEG) Urine Nitrite (NEG) Ur Leukocyte Esterase (NEG) Urine RBC (0) /HPF Urine WBC (0-4) /HPF Ur Squamous Epith Cells /LPF Amorphous Sediment /LPF Urine Bacteria /LPF Granular Casts /LPF 11/21/21 11/21/21 11/21/21 Range/Units 22:27 23:07 23:22 WBC (4.8-10.8) X10*3/uL RBC (4.20-5.50) X10*6/uL Hgb (12.0-16.0) g/dl Hct (37.0-47.0) % MCV (80.0-98.0) fL MCH (27.0-33.0) pg MCHC (31.0-35.0) g/dl RDW (11.0-16.0) % Plt Count (160-400) X10*3/uL MPV (9.4-12.3) fL Immature Gran % (Auto) (0.0-0.4) % Neut % (Auto) (45-73) % Lymph % (Auto) (20-40) % [place] % (Auto) (2-11) % Eos % (Auto) (0-4) % Baso % (Auto) (0-2) % Lymph # (Auto) (1.2-4.9) X10*3/uL [place] # (Auto) (0.1-1.2) X10*3/uL Eos # (Auto) (0.0-0.4) X10*3/uL Baso # (Auto) (0.0-0.2) X10*3/uL Abs Immat Gran (auto) (0.00-0.03) X10*3/uL Absolute Neuts (auto) (2.0-8.3) x10*3/uL Absolute Nucleated RBC (0.0-0.012) X10*3/uL Nucleated RBC % (auto) (0.0-0.2) /100WBC PT (9.9-13.0) SEC INR (0.9-1.1) Sodium (135-145) mmol/L Potassium (3.3-5.1) mmol/L Chloride (96-108) mmol/L Carbon Dioxide (22-29) mmol/L Anion Gap (12-20) BUN (9-16) mg/dL Creatinine (0.5-1.4) mg/dL Estim Creat Clear Calc Estimated GFR POC Glucose 142 H (60-115) mg/dL Random Glucose (60-115) mg/dL Calcium (8.4-10.2) mg/dL Total Bilirubin (0.0-1.0) mg/dL AST (5-31) U/L ALT (0-31) U/L Alkaline Phosphatase (39-117) U/L Troponin I High Sens 20.6 H (<3.5-17.0) ng/L B-Natriuretic Peptide 413 H (<100) pg/mL Total Protein (6.5-8.0) g/dL Albumin (3.5-5.0) g/dL Urine Color STRAW Urine Appearance CLEAR Urine pH 5.5 (5.0-8.0) Ur Specific [place] 1.010 (1.005-1.025) Urine Protein 2+ H (NEG-TRACE) MG/DL Urine Glucose (UA) NEG (NEG) MG/DL Urine Ketones NEG (NEG) MG/DL Urine Blood TRACE (NEG) Urine Nitrite NEG (NEG) Ur Leukocyte Esterase NEG (NEG) Urine RBC 0-2 (0) /HPF Urine WBC 0-2 (0-4) /HPF Ur Squamous Epith Cells 1+ /LPF Amorphous Sediment 1+ /LPF Urine Bacteria NONE /LPF Granular Casts 0-2 /LPF ECG Data Attestation: I personally reviewed and interpreted this ECG as follows: Prior ECG tracings: available for review Interpretation: Sinus rhythm with first-degree AV block (patient has AV block on prior EKG), HR- 85, no STEMI, VA/QRS/QTC are not within normal limits but are consistent with prior EKGs. Discharge Plan Discharge Clinical Impression: CHF exacerbation, HTN (hypertension), CKD (chronic kidney disease), Bipolar 1 disorder, ALBA (acute kidney injury) Patient Disposition: Admitted As Inpatient Prescriptions: No Action metoprolol tartrate 25 mg tablet 25 mg PO BID 90 Days Qty: 180 1RF (DME) pen needle, diabetic [BD Ultra-Fine Carrie Pen Needle] 32 gauge x 5/32 needle See Rx Instructions .ROUTE .MEDSUPPLY Qty: 2 3RF Rx Instructions: As directed 4 times daily Lantus Solostar U-100 Insulin 100 unit/mL (3 mL) insulin pen 10 unit subcut QPM Qty: 15 1RF (DME) blood-glucose meter [OneTouch Ultra2 Meter[place] [facility] [place]ructions .Route 0RF Rx Instructions: As directed to test blood sugar three times a day (DME) OneTouch Ultra Test Strip See Rx Instructions .Route Qty: 300 11RF Rx Instructions: As directed to test blood sugar three times a day nitroglycerin 0.4 mg tablet, sublingual 0.4 mg sublingual Q5M PRN (Reason: Chest Pain) Qty: 20 1RF Rx Instructions: Take one tablet by mouth sublingually as needed for chest pain (DME) lancets [OneTouch UltraSoft Lancets[place] [facility] [place]ructions .ROUTE .MEDSUPPLY Qty: 100 11RF Rx Instructions: As directed to test blood sugar three times a day coenzyme Q10 [CoQ-10] 100 mg Capsule 100 mg PO DAILY 0RF oaipoge-ihuq-bladj-oreg-capryl 100 mg-150 mg- 50 mg-150 mg Capsule 2 cap PO DAILY 0RF Syntol (Probitoic/Prebiotic) 1 tab PO DAILY 0RF vitamin D3-vitamin K2 1 tab PO DAILY MRX1 0RF lamotrigine 25 mg Tablet 25 mg PO DAILY 30 Days Qty: 30 0RF diphenhydramine HCl [Allergy Relief(diphenhydramin)] 25 mg Tablet 25 mg PO BEDTIME 30 Days Qty: 30 0RF amlodipine 5 mg tablet 5 mg PO BEDTIME Qty: 90 3RF Rx Instructions: Take 1 tab ( 5mg) daily isosorbide mononitrate 60 mg tablet extended release 24 hr 30 mg PO DAILY 90 Days Qty: 45 0RF levothyroxine 75 mcg tablet 75 mcg PO QAM 0RF insulin aspart U-100 [Novolog Flexpen U-100 Insulin] 100 unit/mL (3 mL) insulin pen See Protocol sliding scale dose subcut TID 0RF Protocol: Insulin Correction Scale Less than or equal to 110 ---- Give (units): 0 111 to 150 Give (units): 0 151 to 200 Give (units): 2 201 to 250 Give (units): 4 251 to 300 Give (units): 6 301 to 350 Give (units): 8 Greater than 350 Give (units): 10 Call MD if Blood Glucose > : 350 ketorolac 0.5 % drops 1 drp ophthalmic-Left QID 0RF furosemide 20 mg tablet 40 mg PO DAILY 0RF aspirin 81 mg tablet,delayed release (DR/EC) 81 mg PO DAILY 0RF Rx Instructions: 3-4 times a week clopidogrel 75 mg tablet 75 mg PO DAILY 0RF Rx Instructions: patient states takes every other day
[2021-11-22] VITALS (10 sets, daily range): BP systolic 126–164; BP diastolic 50–87; PULSE 63–106; RESP 11–22; TEMP 36.3–37; O2SAT 95–97; BMI 24.1
[2021-11-22 01:40] LABS: B Type Natriuretic Peptide 413 pg/mL (<100)
[2021-11-22 02:33] LABS: Troponin-I High Sensitivity 242.1 ng/L (<3.5-17.0)
[2021-11-22 02:35] LABS: COVID-19 Test Negative (Negative); IDNOW Serial# 16C4AD1C
[2021-11-22] MEDS: Furosemide 100 MG/10 ML VIAL 60 MG IVPUSH (02:35)
[2021-11-22 02:56] LABS: Partial Thromboplastin Time 36.1 SEC (24.1-38.0)
--- NOTE | 2021-11-22 02:56 | PC.NURSE ---
I assumed nursing care of Richelle at 2300. Richelle is alert, oriented to person and place, not to time (presumably consistent with her baseline). She makes eye contact with Rn and responds to vebral stimuli. She is ia challenging historian, often begins talking off-topic when I ask her routine assessment questions. QUINONES x 4. Respirations non-labored, RR WNL, room air sat's 95% or better. Skin has scattered areas of ecchymosis and old scars - all of which the pt states are from multiple falls in the past. Pt is aware that she is TBADM and verbalizes an understanding. We will continue to monitor Richelle.
[2021-11-22 07:16] LABS: Glucose, Whole Blood 277 mg/dL (60-115)
--- NOTE | 2021-11-22 07:33 | PM.IMHP ---
History of Present Illness Date of Service: 11/22/21 Chief Complaint: Palpitations and fall 71-year-old female with a past medical history of hypertension, hyperlipidemia, diabetes, coronary artery disease s/p MIs in the past, status post RCA stent in past , and most recently LAD stent on Mar 03, 2021 at , subsequently seen at [facility] and discharged on 07/24/21 with chest pain and medically managed, she has chronic kidney disease stage 3, CH, hyperparathyroidism, hypothyroidism, vitamin-D deficiency history of endocarditis of the mitral valve presented to the hospital on this occasion after calling the ambulation following a fall. Her story is rather convulated with her rambling from topic to topic during the history but basically is saying she has been falling very frequently attributes this to Lasix causing her to get up very frequently and voiding. When she fell she doesn't believes she lost consciousness but hit her herad and right side and was subsequently having palpitations. Her troponins are elevated of unclear signficance at this point,. Of note she was recently seen at [facility] and diagnosed with mild cognitive impairment. During her last visit at [place] in September for chest pain, she was discharged with the following medication. [facility] Discharge meds on 07/24/21 Amlodipine (amLODIPine 5 mg oral tablet) 5 Milligram 1 tablet By Mouth Daily Dispense: 30 tab(s) Aspirin (aspirin 81 mg oral tablet, chewable) 81 Milligram By Mouth Daily for 30 Days Dispense: 30 tab(s) Cephalexin (cephalexin monohydrate 500 mg oral capsule) 1 capsule 500 Milligram By Mouth 2 times a day for 6 Days Dispense: 12 capsule Clopidogrel (clopidogrel 75 mg oral tablet) 75 Milligram 1 tablet By Mouth Daily Dispense: 30 tab(s) Furosemide (furosemide 20 mg oral tablet) 20 Milligram 1 tablet By Mouth Daily Insulin Aspart (NovoLOG 100 units/mL subcutaneous solution) Subcutaneous Infusion 3 times a day before meals sliding scale upto 25 units Insulin Glargine (Lantus Solostar Pen 100 units/mL subcutaneous solution) INJECT 20 UNITS (0.1 ML) UNDER THE SKIN EACH EVENING Isosorbide Mononitrate (isosorbide mononitrate 30 mg oral tablet, extended release) 1 tab(s) 30 Milligram By Mouth Daily in AM for 14 Days Dispense: 14 tab(s) Levothyroxine (levothyroxine 75 mcg (0.075 mg) oral tablet) 1 tab(s) 0.075 Milligram By Mouth Daily for 14 Days Dispense: 14 tab(s) Metoprolol (metoprolol 25 mg oral tablet) 1 tab(s) 25 Milligram By Mouth 2 times a day for 14 Days Dispense: 28 tab(s) ranolazine (ranolazine 1000 mg oral tablet, extended release) TAKE 1 TABLET BY MOUTH EVERY 12 HOURS Rosuvastatin (rosuvastatin 40 mg oral tablet) 1 tab(s) 40 Milligram By Mouth Daily Dispense: 30 tab(s) most recently stent to LAD on 03/03/2021 Review of Systems Review of Systems: Gen: no fever Resp: no sob, no cough CV: chest discomfort on right , no COLE, no leg edema GI: No n/v, no abd pain Neuro: No confusion Yes all other systems are reviewed and are negative [facility] Medical History CAD (coronary artery disease) CKD (chronic kidney disease) Congestive heart failure Endocarditis of mitral valve HTN (hypertension) Hyperkalemia Hyperlipidemia Hyperparathyroidism Hypothyroidism Non-compliance Type 2 diabetes mellitus with hyperglycemia, with long-term current use of insulin Viridans streptococci infection Vitamin D deficiency Family History Father CVD (cardiovascular disease) Mother No problems noted. Surgical History History of cardiac catheterization Hx of section Hx of cholecystectomy Hx of tonsillectomy Malignant melanoma Myocardial infarction Stented coronary artery Stented coronary artery Social History Household Members: None Housing: Apartment Housing Other:: Senior housing. Do you presently have visiting nurse or other home services: Yes Alcohol intake: former Patient Tobacco Use Status: Current someday Tobacco user Tobacco use type: Cigarette Advance Directives Date on File: 06/04/21 service: No Sexual orientation: Straight/Heterosexual Meds Allergies Allergy/AdvReac Type Severity Reaction Status Date / Time ciprofloxacin [From Cipro] Allergy Intermediate Difficulty Verified 11/21/21 22:20 Breathing Iodinated Contrast Media Allergy Unknown ANAPHYLAXIS Verified 11/21/21 22:20 [IV CONTRAST] Active Medications: Current Medications Pharmacy Consult (Consult Rx Perform Med Rec) 1 each MISCELLANE ONCE PRN PRN Reason: Consult order Home Medications Medication Instructions Recorded Confirmed Last Taken Type levothyroxine 75 mcg tablet 75 mcg PO DAILY 05/23/20 11/22/21 06/03/21 History insulin aspart U-100 100 unit/mL See Protocol SUBCUT TID 08/04/20 11/22/21 06/03/21 History (3 mL) subcutaneous pen (Novolog Flexpen U-100 Insulin aspart) ketorolac 0.5 % eye drops 1 drp OPHTHALMIC-LEFT TID ml 12/29/20 11/22/21 06/03/21 History furosemide 20 mg tablet 20 mg PO DAILY 03/16/21 11/22/21 06/03/21 History Syntol (Probitoic/Prebiotic) 1 tab PO DAILY 06/04/21 10/07/21 06/03/21 History coenzyme Q10 100 mg capsule 100 mg PO DAILY 06/04/21 10/07/21 06/03/21 History (CoQ-10) tumeric 100 mg-ann 150 mg-olive 2 cap PO DAILY 06/04/21 10/07/21 06/03/21 History 50 mg-oreg 150 mg-caprylate capsule vitamin D3-vitamin K2 1 tab PO DAILY MRX1 06/04/21 10/07/21 06/03/21 History blood-glucose meter (OneTouch 07/01/21 10/07/21 Unknown History Ultra2 Meter) aspirin 81 mg tablet,delayed 81 mg PO DAILY tab 10/07/21 11/22/21 Unknown History release clopidogrel 75 mg tablet 75 mg PO DAILY tab 10/07/21 11/22/21 Unknown History amlodipine 5 mg tablet 5 mg PO DAILY 11/22/21 11/22/21 Unknown History insulin glargine 100 unit/mL (3 20 unit SUBCUT BEDTIME 11/22/21 11/22/21 Unknown History mL) subcutaneous pen (Lantus Solostar U-100 Insulin) ranolazine 1,000 mg 1,000 mg PO BID 11/22/21 11/22/21 Unknown History tablet,extended release,12 hr rosuvastatin 40 mg tablet 40 mg PO DAILY 11/22/21 11/22/21 Unknown History Physical Exam Vital Signs and Narrative: Vital Signs: Last Vital Signs Temp 97.4 F 11/22/21 07:00 Pulse 74 11/22/21 07:00 Resp 11 L 11/22/21 07:00 BP 139/56 L 11/22/21 07:00 Pulse Ox 97 11/22/21 07:00 BMI result Body Mass Index 26.1 Const: Other: Constitutional: Alert, in no distress. Mental Status: Oriented to person, place and time. Eyes: Pupils are equal, round and reactive to light. Ear, Nose and Throat: Oropharynx clear, mucous membranes moist. Ears and nose without eformities. Trachea midline. Respiratory: Clear to auscultation. No wheezing, rales or rhonchi. Cardiovascular: S1 S2 regular. No murmurs, rubs or gallops. Gastrointestinal: Abdomen soft, non-tender, non-distended. Normal bowel sounds.? Neurologic: Cranial nerves II-XII grossly intact. No focal neurological deficits. Moves all extremities spontaneously.? Skin: No rashes or lesions.? Musculoskeletal: No cyanosis or clubbing. Psychiatric: Normal mood and affect? Results Labs CBC and Chem 7: 11/23/21 07:14 11/21/21 22:27 Labs: Laboratory Results - last 24 hr 11/21/21 11/21/21 11/21/21 22:27 22:27 22:27 MCV 91.0 MCH 29.8 MCHC 32.7 RDW 12.9 Plt Count 198 MPV 9.3 L Immature Gran % (Auto) 0.2 Neut % (Auto) 62.2 Lymph % (Auto) 24.2 Donley % (Auto) 9.7 Eos % (Auto) 3.5 Baso % (Auto) 0.2 Lymph # (Auto) 1.1 L Donley # (Auto) 0.4 Eos # (Auto) 0.2 Baso # (Auto) 0.0 Abs Immat Gran (auto) 0.01 Absolute Neuts (auto) 2.7 Absolute Nucleated RBC 0.000 Nucleated RBC % (auto) 0.0 PT 10.6 INR 0.9 APTT 36.1 Anion Gap 16 Estim Creat Clear Calc 28.6 Estimated GFR 34 POC Glucose Random Glucose 180 H Calcium 8.7 Total Bilirubin 0.4 AST 34 H ALT 24 Alkaline Phosphatase 146 H Troponin I High Sens B-Natriuretic Peptide Total Protein 5.7 L Albumin 3.3 L Urine Color Urine Appearance Urine pH Ur Specific [place] Urine Protein Urine Glucose (UA) Urine Ketones Urine Blood Urine Nitrite Ur Leukocyte Esterase Urine RBC Urine WBC Ur Squamous Epith Cells Amorphous Sediment Urine Bacteria Granular Casts COVID-19 ([facility]) COVID-19 Clin Com 11/21/21 11/21/21 11/21/21 22:27 23:07 23:22 MCV MCH MCHC RDW Plt Count MPV Immature Gran % (Auto) Neut % (Auto) Lymph % (Auto) Donley % (Auto) Eos % (Auto) Baso % (Auto) Lymph # (Auto) Donley # (Auto) Eos # (Auto) Baso # (Auto) Abs Immat Gran (auto) Absolute Neuts (auto) Absolute Nucleated RBC Nucleated RBC % (auto) PT INR APTT Anion Gap Estim Creat Clear Calc Estimated GFR POC Glucose 142 H Random Glucose Calcium Total Bilirubin AST ALT Alkaline Phosphatase Troponin I High Sens 20.6 H B-Natriuretic Peptide 413 H Total Protein Albumin Urine Color STRAW Urine Appearance CLEAR Urine pH 5.5 Ur Specific [place] 1.010 Urine Protein 2+ H Urine Glucose (UA) NEG Urine Ketones NEG Urine Blood TRACE Urine Nitrite NEG Ur Leukocyte Esterase NEG Urine RBC 0-2 Urine WBC 0-2 Ur Squamous Epith Cells 1+ Amorphous Sediment 1+ Urine Bacteria NONE Granular Casts 0-2 COVID-19 ([facility]) COVID-19 Clin Com 11/22/21 11/22/21 11/22/21 02:02 02:02 06:59 MCV MCH MCHC RDW Plt Count MPV Immature Gran % (Auto) Neut % (Auto) Lymph % (Auto) Donley % (Auto) Eos % (Auto) Baso % (Auto) Lymph # (Auto) Donley # (Auto) Eos # (Auto) Baso # (Auto) Abs Immat Gran (auto) Absolute Neuts (auto) Absolute Nucleated RBC Nucleated RBC % (auto) PT INR APTT Anion Gap Estim Creat Clear Calc Estimated GFR POC Glucose 277 H Random Glucose Calcium Total Bilirubin AST ALT Alkaline Phosphatase Troponin I High Sens 242.1 H* D B-Natriuretic Peptide Total Protein Albumin Urine Color Urine Appearance Urine pH Ur Specific [place] Urine Protein Urine Glucose (UA) Urine Ketones Urine Blood Urine Nitrite Ur Leukocyte Esterase Urine RBC Urine WBC Ur Squamous Epith Cells Amorphous Sediment Urine Bacteria Granular Casts COVID-19 ([facility]) Negative COVID-19 Clin Com See Note Imaging Radiologist's Impressions: Impressions Cervical Spine CT 11/21/21 23:40 IMPRESSION: 1. No acute intracranial pathology. Subgaleal hematoma over the right parietal calvarium. No skull fractures. 2. No acute fracture or acute malalignment in the cervical spine. Moderate multilevel degenerative spondylosis as detailed above. Head CT 11/21/21 23:40 IMPRESSION: 1. No acute intracranial pathology. Subgaleal hematoma over the right parietal calvarium. No skull fractures. 2. No acute fracture or acute malalignment in the cervical spine. Moderate multilevel degenerative spondylosis as detailed above. Abdomen/Pelvis CT 11/22/21 00:05 IMPRESSION: 1. No acute traumatic injuries are identified in the left chest and left abdomen/pelvis on these images. 2. Mild interstitial pulmonary edema. Left ventricular dilatation. 3. No significant change in the small bowel containing infraumbilical ventral abdominal hernia. No evidence of obstruction or strangulation.. No acute intra-abdominal or intrapelvic abnormalities. Chest CT 11/22/21 00:05 IMPRESSION: 1. No acute traumatic injuries are identified in the left chest and left abdomen/pelvis on these images. 2. Mild interstitial pulmonary edema. Left ventricular dilatation. 3. No significant change in the small bowel containing infraumbilical ventral abdominal hernia. No evidence of obstruction or strangulation.. No acute intra-abdominal or intrapelvic abnormalities. Assessment and Plan (1) Elevated troponin: Status: Acute (2) Fall: Status: Acute Plan 71 year old female with CAD, multiple UT, HLD, CKD, CHF presenting with chest pain, palpitations and following a fall and found to have elevated troponin I level 1/Elevated troponin , suspect NSTEMI, recheck troponin I and if still if going up, start heparin, consult cardiology continue ASA, Plavix, statin, Metoprolol, Imdur and Norvasc 2/ Fall.. Check Orthostatic BP, PT eval tomorrow 3/HLD--Statin 4/Diabetes--Insulin (Lantus and SSI) 5/ Hypothyroidism--Levothyroxine 6/ Quality Stroke Does the patient have a stroke diagnosis?: No VTE Prior VTE?: No VTE Risk Level:: Medical - moderate - high VTE Device Contraindication: Treatment Not Indicated VTE Drug Contraindication: N/A - Med Ordered
[2021-11-22 09:59] LABS: Troponin-I High Sensitivity 3030.3 ng/L (<3.5-17.0)
--- NOTE | 2021-11-22 10:02 | PHA.MEDREC ---
MED REC COMPLETE, PATIENT NOT A GREAT HISTORIAN, MOSTLY WENT OFF OF [facility] DISCHARGE INFORMATION, PHARMACY FILL HISTORY IS SPOTTY AND PT SEEMS TO SAY SHE DOES NOT TAKE HER MEDICATIONS ALL THE TIME Pharmacy Consult ? Medication Reconciliation Pharmacy has completed the medication reconciliation.
--- NOTE | 2021-11-22 10:19 | PC.NURSE ---
pt current weight by bed scale is 57.9kg, pharmacy notified
[2021-11-22] MEDS: Heparin Sodium,Porcine/1/2NS 25,000 UNIT/250 ML IV.SOLN 6.95 UNIT IVCONT (10:59)
[2021-11-22] MEDS: Heparin Sodium,Porcine 5,000 UNIT/ML VIAL 3500 UNIT IVPUSH (11:04)
[2021-11-22 11:06] LABS: Hematocrit 31.4 % (37.0-47.0); Hemoglobin 10.2 g/dl (12.0-16.0); Mean Corpuscular HGB Conc 32.5 g/dl (31.0-35.0); Mean Corpuscular Hemoglobin 29.7 pg (27.0-33.0); Mean Corpuscular Volume 91.3 fL (80.0-98.0); Mean Platelet Volume 9.5 fL (9.4-12.3); Platelet Count 210 X10*3/uL (160-400); Red Blood Count 3.44 X10*6/uL (4.20-5.50); Red Cell Distribution Width 12.9 % (11.0-16.0); White Blood Count 6.5 X10*3/uL (4.8-10.8)
[2021-11-22 11:08] LABS: INTERNATIONAL NORM RATIO 0.9 (0.9-1.1); Prothrombin Time 10.6 SEC (9.9-13.0)
[2021-11-22 11:11] LABS: PTT Heparin Drip 34.6 SEC (53-77.9)
[2021-11-22] MEDS: amLODIPine Besylate 5 MG TABLET PO (11:21)
[2021-11-22] MEDS: Furosemide 20 MG TABLET PO (11:22)
[2021-11-22] MEDS: Metoprolol Tartrate 25 MG TABLET PO ×2 (11:22→21:20)
[2021-11-22] MEDS: Clopidogrel Bisulfate 75 MG TABLET PO (11:22)
[2021-11-22] MEDS: Aspirin Enteric Coated 81 MG TABLET.DR PO (11:22)
[2021-11-22] MEDS: Levothyroxine Sodium 75 MCG TABLET PO (11:22)
[2021-11-22] MEDS: Isosorbide Mononitrate 30 MG TAB.ER.24H PO (11:23)
[2021-11-22] MEDS: Atorvastatin Calcium 80 MG TABLET PO (11:41)
--- NOTE | 2021-11-22 12:06 | MHC.CM.PN ---
Attempted to meet with patient in regards to discharge planning. Nursing care currently being provided. Will attempt to meet again. Continue to monitor for d/c needs.
--- NOTE | 2021-11-22 12:18 | PM.CNCAR ---
History of Present Illness History of Present Illness Date of Service: 11/22/21 Chief complaint: NSemi, Palpitations Narrative: This is a cardiology consultation regarding NSTEMI. Per ER physician who contacted me last evening, patient fell down and then developed left-sided chest pain. In that context, she had elevated troponins as well as but she had known coronary disease. As it seemed that the fall led to the chest pain at that time, IV heparin was not recommended. Any case we have been asked to do a full evaluation and of for further care. Patient generally sees Dr. Richardson in our office. Per patient, she has had many falls over the last few months. This current admission is again mainly for a fall when she lost her balance and fell backwards striking her head. In addition, she also had described some left-sided chest pain but again not clear if it is because of falling down hitting the chest or is it something anginal. When I questioned her more into detail, she has had chest pain at different times over the last few weeks. Again difficult to say if this is all anginal or something from falling down. Could be either or both. Her history is very difficult to obtain as she is very tangential and talks random stuff that are not pertinent to what I am asking her and completely nonmedical as well like supplements extra. Hence difficult to get a full history in detail as there are so many interruptions and deviations. In any case, troponins were checked since arrival. The 1st troponin was 20 and 2nd was 242. Now the most recent troponin is 3030. Currently she is not having any chest pain. Review of Systems Review of Systems: Yes all other systems are reviewed and are negative Constitutional: Constitutional: Reports as per HPI Eyes: Eyes: Reports as per HPI ENT: Reports as per HPI Cardiovascular: Cardiovascular: Reports as per HPI, Denies acrocyanosis, Denies cool extremities, Reports chest pain, Denies leg edema, Denies lightheadedness, Denies palpitations and Denies dyspnea Respiratory: Respiratory: Reports as per HPI, Reports no additional respiratory complaints and Denies dyspnea Gastrointestinal: Gastrointestinal: Reports as per HPI and Reports no additional gastrointestinal complaints Genitourinary: Genitourinary: Reports as per HPI Musculoskeletal: Musculoskeletal: Reports no additional musculoskeletal complaints and Reports as per HPI Integumentary/Breasts: Skin/Breast: Reports system reviewed and no additional complaints, except as docu Neurologic: Reports system reviewed and no additional complaints, except as documented and Reports as per HPI Psychiatric: Psychiatric: Reports no additional psychiatric complaints and Reports as per HPI Endocrine: Endocrine: Reports no additional endocrine complaints, Reports as per HPI and Denies palpitations Hematologic/Lymphatic: Hematologic/Lymphatic: Reports no additional hematologic/lymphatic complaints and Reports as per HPI Allergic/Immunologic: Allergic/Immunologic: Reports no additional allergic/immunologic complaints and Reports as per HPI PMFSH Past Medical History Medical History CAD (coronary artery disease) CKD (chronic kidney disease) Congestive heart failure Endocarditis of mitral valve HTN (hypertension) Hyperkalemia Hyperlipidemia Hyperparathyroidism Hypothyroidism Non-compliance Type 2 diabetes mellitus with hyperglycemia, with long-term current use of insulin Viridans streptococci infection Vitamin D deficiency Family History Family History Father CVD (cardiovascular disease) Mother No problems noted. Surgical History Surgical History History of cardiac catheterization Hx of section Hx of cholecystectomy Hx of tonsillectomy Malignant melanoma Myocardial infarction Stented coronary artery Stented coronary artery Social History Social History Household Members: None Housing: Assisted Living Facility Housing Other:: Senior housing. Do you presently have visiting nurse or other home services: Yes Alcohol intake: former Patient Tobacco Use Status: Former Tobacco user Smoked in Last 30 Days: No Use of substances other than those prescribed or required for medical reasons: No Advance Directives: Yes Advance Directives on File: Yes Advance Directives Date on File: 06/04/21 service: No Sexual orientation: Straight/Heterosexual Meds Allergies Allergy/AdvReac Type Severity Reaction Status Date / Time ciprofloxacin [From Cipro] Allergy Intermediate Difficulty Verified 11/21/21 22:20 Breathing Iodinated Contrast Media Allergy Unknown ANAPHYLAXIS Verified 11/21/21 22:20 [IV CONTRAST] Active Medications: Current Medications Acetaminophen (Acetaminophen Supp 650 Mg Supp.Rect) 650 mg [place] Q6H PRN PRN Reason: Pain, Mild (Pain Scale 1-3) Amlodipine Besylate (Amlodipine Besylate 5 Mg Tablet) 5 mg PO DAILY [facility]IP; Protocol Last Admin: 11/22/21 11:21 Dose: 5 mg Documented by: Aspirin (Aspirin Enteric Coated 81 Mg Tablet.) 81 mg PO DAILY [facility] Last Admin: 11/22/21 11:22 Dose: 81 mg Documented by: Atorvastatin Calcium (Atorvastatin Calcium 80 Mg Tablet) 80 mg PO DAILY [facility] Last Admin: 11/22/21 11:41 Dose: 80 mg Documented by: Clopidogrel Bisulfate (Clopidogrel Bisulfate 75 Mg Tablet) 75 mg PO DAILY [facility] Last Admin: 11/22/21 11:22 Dose: 75 mg Documented by: Diphenhydramine HCl (Diphenhydramine Hcl 25 Mg Tablet) 25 mg PO BEDTIME [facility] Furosemide (Furosemide 20 Mg Tablet) 20 mg PO DAILY [facility]; Protocol Last Admin: 11/22/21 11:22 Dose: 20 mg Documented by: Heparin Sodium (Porcine) (Heparin Sodium,Porcine 5,000 Unit/Ml Vial) 2,300 unit 40 unit/kg (2300 unit) IVPUSH PROTOCOL BOLUS PRN; Protocol PRN Reason: 40 unit/kg - Heparin Protocol Heparin Sodium (Porcine) (Heparin Sodium,Porcine 5,000 Unit/Ml Vial) 4,600 unit 80 unit/kg (4600 unit) IVPUSH PROTOCOL BOLUS PRN; Protocol PRN Reason: 80 unit/kg - Heparin Protocol Heparin Sodium/Sodium Chloride () 25,000 unit in 250 mls @ 0 mls/hr IVCONT .Q0M [facility]; Protocol Last Admin: 11/22/21 10:59 Dose: 12 units/kg/hr, 6.95 mls/hr Documented by: Insulin Glargine (Insulin Glargine,Hum.Rec.Anlog 100 Unit/Ml 10 Ml Vial) 20 unit SUBCUT BEDTIME [facility] Isosorbide Mononitrate (Isosorbide Mononitrate 30 Mg Tab.Er.24h) 30 mg PO DAILY [facility]; Protocol Last Admin: 11/22/21 11:23 Dose: 30 mg Documented by: Ketorolac Tromethamine (Ketorolac Tromethamine 0.5% Op 3 Ml Drops) 1 drop EYE-LEFT TID [facility] Last Admin: 11/22/21 11:40 Dose: 1 drop Documented by: Levothyroxine Sodium (Levothyroxine Sodium 75 Mcg Tablet) 75 mcg PO DAILY [facility] Last Admin: 11/22/21 11:22 Dose: 75 mcg Documented by: Metoprolol Tartrate (Metoprolol Tartrate 25 Mg Tablet) 25 mg PO BID [facility]; Protocol Last Admin: 11/22/21 11:22 Dose: 25 mg Documented by: Nitroglycerin (Nitroglycerin 0.4 Mg Tab.Subl) 0.4 mg SUBLINGUAL Q5M PRN PRN Reason: Chest Pain Pharmacy Consult (Consult Rx Perform Med Rec) 1 each MISCELLANE ONCE PRN PRN Reason: Consult order Ranolazine (Ranolazine 500 Mg Tab.Er.12h) 1,000 mg PO BID [facility] Sodium Chloride (0.9 % Sodium Chloride Flush 3 Ml Syringe) 3 ml IVFLUSH QSHIFT [facility] Last Admin: 11/22/21 11:45 Dose: Not Given Documented by: Home Medications Medication Instructions Recorded Confirmed Last Taken Type levothyroxine 75 mcg tablet 75 mcg PO DAILY 05/23/20 11/22/21 06/03/21 History insulin aspart U-100 100 unit/mL See Protocol SUBCUT TID 08/04/20 11/22/21 06/03/21 History (3 mL) subcutaneous pen (Novolog Flexpen U-100 Insulin aspart) ketorolac 0.5 % eye drops 1 drp OPHTHALMIC-LEFT TID ml 12/29/20 11/22/21 06/03/21 History furosemide 20 mg tablet 20 mg PO DAILY 03/16/21 11/22/21 06/03/21 History Syntol (Probitoic/Prebiotic) 1 tab PO DAILY 06/04/21 10/07/21 06/03/21 History coenzyme Q10 100 mg capsule 100 mg PO DAILY 06/04/21 10/07/21 06/03/21 History (CoQ-10) tumeric 100 mg-ann 150 mg-olive 2 cap PO DAILY 06/04/21 10/07/21 06/03/21 History 50 mg-oreg 150 mg-caprylate capsule vitamin D3-vitamin K2 1 tab PO DAILY MRX1 06/04/21 10/07/21 06/03/21 History blood-glucose meter (OneTouch 07/01/21 10/07/21 Unknown History Ultra2 Meter) aspirin 81 mg tablet,delayed 81 mg PO DAILY tab 10/07/21 11/22/21 Unknown History release clopidogrel 75 mg tablet 75 mg PO DAILY tab 10/07/21 11/22/21 Unknown History amlodipine 5 mg tablet 5 mg PO DAILY 11/22/21 11/22/21 Unknown History insulin glargine 100 unit/mL (3 20 unit SUBCUT BEDTIME 11/22/21 11/22/21 Unknown History mL) subcutaneous pen (Lantus Solostar U-100 Insulin) ranolazine 1,000 mg 1,000 mg PO BID 11/22/21 11/22/21 Unknown History tablet,extended release,12 hr rosuvastatin 40 mg tablet 40 mg PO DAILY 11/22/21 11/22/21 Unknown History Physical Exam Vital Signs: Vital Signs: Last Vital Signs Temp 97.4 F 11/22/21 07:00 Pulse 74 11/22/21 07:00 Resp 11 L 11/22/21 07:00 BP 139/56 L 11/22/21 07:00 Pulse Ox 97 11/22/21 07:00 BMI result Body Mass Index 24.1 Const: General: comfortable and no acute distress Orientation/consciousness: patient oriented x3 HEENT: Other: Unremarkable Head: Yes normal to inspection Neck: Neck: Yes normal visual inspection Chest: Chest palpation & inspection: normal inspection of the chest Resp: Auscultation: clear to auscultation bilaterally Cardio: Palpation: normal PMI Heart sounds: S1 normal heart sound present, S2 normal heart sound present, no gallops, Murmur heart sound present systolic holo, III/ and at the apex and no rubs GI: Palpation (GI): Soft to palpation Back/Spine/Pelvis: Other: unremarkable Skin: General skin exam: no rashes or lesions noted Neuro: General: patient oriented x3 Extrem: General: Yes normal to inspection Psych: Mental Status: mental status grossly normal Objective Labs and Meds Result diagrams: 11/22/21 10:46 11/21/21 22:27 Lab results: Laboratory Results - last 24 hr 11/21/21 11/21/21 11/21/21 22:27 22:27 22:27 WBC 4.3 L RBC 3.46 L Hgb 10.3 L Hct 31.5 L MCV 91.0 MCH 29.8 MCHC 32.7 RDW 12.9 Plt Count 198 MPV 9.3 L Immature Gran % (Auto) 0.2 Neut % (Auto) 62.2 Lymph % (Auto) 24.2 [place] % (Auto) 9.7 Eos % (Auto) 3.5 Baso % (Auto) 0.2 Lymph # (Auto) 1.1 L [place] # (Auto) 0.4 Eos # (Auto) 0.2 Baso # (Auto) 0.0 Abs Immat Gran (auto) 0.01 Absolute Neuts (auto) 2.7 Absolute Nucleated RBC 0.000 Nucleated RBC % (auto) 0.0 PT 10.6 INR 0.9 APTT 36.1 aPTT Heparin Protocol Sodium 141 Potassium 3.6 D Chloride 110 H Carbon Dioxide 19 L Anion Gap 16 BUN 30 H Creatinine 1.51 H Estim Creat Clear Calc 28.6 Estimated GFR 34 POC Glucose Random Glucose 180 H Calcium 8.7 Total Bilirubin 0.4 AST 34 H ALT 24 Alkaline Phosphatase 146 H Troponin I High Sens B-Natriuretic Peptide Total Protein 5.7 L Albumin 3.3 L Urine Color Urine Appearance Urine pH Ur Specific [place] Urine Protein Urine Glucose (UA) Urine Ketones Urine Blood Urine Nitrite Ur Leukocyte Esterase Urine RBC Urine WBC Ur Squamous Epith Cells Amorphous Sediment Urine Bacteria Granular Casts COVID-19 (JACINTO) COVID-SKURA 11/21/21 11/21/21 11/21/21 22:27 23:07 23:22 WBC RBC Hgb Hct MCV MCH MCHC RDW Plt Count MPV Immature Gran % (Auto) Neut % (Auto) Lymph % (Auto) [place] % (Auto) Eos % (Auto) Baso % (Auto) Lymph # (Auto) [place] # (Auto) Eos # (Auto) Baso # (Auto) Abs Immat Gran (auto) Absolute Neuts (auto) Absolute Nucleated RBC Nucleated RBC % (auto) PT INR APTT aPTT Heparin Protocol Sodium Potassium Chloride Carbon Dioxide Anion Gap BUN Creatinine Estim Creat Clear Calc Estimated GFR POC Glucose 142 H Random Glucose Calcium Total Bilirubin AST ALT Alkaline Phosphatase Troponin I High Sens 20.6 H B-Natriuretic Peptide 413 H Total Protein Albumin Urine Color STRAW Urine Appearance CLEAR Urine pH 5.5 Ur Specific [place] 1.010 Urine Protein 2+ H Urine Glucose (UA) NEG Urine Ketones NEG Urine Blood TRACE Urine Nitrite NEG Ur Leukocyte Esterase NEG Urine RBC 0-2 Urine WBC 0-2 Ur Squamous Epith Cells 1+ Amorphous Sediment 1+ Urine Bacteria NONE Granular Casts 0-2 COVID-19 (JACINTO) COVID-19 Clin Com 11/22/21 11/22/21 11/22/21 02:02 02:02 06:59 WBC RBC Hgb Hct MCV MCH MCHC RDW Plt Count MPV Immature Gran % (Auto) Neut % (Auto) Lymph % (Auto) [place] % (Auto) Eos % (Auto) Baso % (Auto) Lymph # (Auto) [place] # (Auto) Eos # (Auto) Baso # (Auto) Abs Immat Gran (auto) Absolute Neuts (auto) Absolute Nucleated RBC Nucleated RBC % (auto) PT INR APTT aPTT Heparin Protocol Sodium Potassium Chloride Carbon Dioxide Anion Gap BUN Creatinine Estim Creat Clear Calc Estimated GFR POC Glucose 277 H Random Glucose Calcium Total Bilirubin AST ALT Alkaline Phosphatase Troponin I High Sens 242.1 H* D B-Natriuretic Peptide Total Protein Albumin Urine Color Urine Appearance Urine pH Ur Specific [place] Urine Protein Urine Glucose (UA) Urine Ketones Urine Blood Urine Nitrite Ur Leukocyte Esterase Urine RBC Urine WBC Ur Squamous Epith Cells Amorphous Sediment Urine Bacteria Granular Casts COVID-19 (JACINTO) Negative COVID-19 [email or web address] Com See Note 11/22/21 11/22/21 11/22/21 09:05 10:46 10:46 WBC 6.5 RBC 3.44 L Hgb 10.2 L Hct 31.4 L MCV 91.3 MCH 29.7 MCHC 32.5 RDW 12.9 Plt Count 210 MPV 9.5 Immature Gran % (Auto) Neut % (Auto) Lymph % (Auto) [place] % (Auto) Eos % (Auto) Baso % (Auto) Lymph # (Auto) [place] # (Auto) Eos # (Auto) Baso # (Auto) Abs Immat Gran (auto) Absolute Neuts (auto) Absolute Nucleated RBC 0.000 Nucleated RBC % (auto) 0.0 PT 10.6 INR 0.9 APTT aPTT Heparin Protocol 34.6 L Sodium Potassium Chloride Carbon Dioxide Anion Gap BUN Creatinine Estim Creat Clear Calc Estimated GFR POC Glucose Random Glucose Calcium Total Bilirubin AST ALT Alkaline Phosphatase Troponin I High Sens 3030.3 H* D B-Natriuretic Peptide Total Protein Albumin Urine Color Urine Appearance Urine pH Ur Specific [place] Urine Protein Urine Glucose (UA) Urine Ketones Urine Blood Urine Nitrite Ur Leukocyte Esterase Urine RBC Urine WBC Ur Squamous Epith Cells Amorphous Sediment Urine Bacteria Granular Casts COVID-19 (JACINTO) COVID-19 [email or web address] Com 11/22/21 10:46 WBC RBC Hgb Hct MCV MCH MCHC RDW Plt Count MPV Immature Gran % (Auto) Neut % (Auto) Lymph % (Auto) [place] % (Auto) Eos % (Auto) Baso % (Auto) Lymph # (Auto) [place] # (Auto) Eos # (Auto) Baso # (Auto) Abs Immat Gran (auto) Absolute Neuts (auto) Absolute Nucleated RBC Nucleated RBC % (auto) PT Cancelled INR Cancelled APTT aPTT Heparin Protocol Cancelled Sodium Potassium Chloride Carbon Dioxide Anion Gap BUN Creatinine Estim Creat Clear Calc Estimated GFR POC Glucose Random Glucose Calcium Total Bilirubin AST ALT Alkaline Phosphatase Troponin I High Sens B-Natriuretic Peptide Total Protein Albumin Urine Color Urine Appearance Urine pH Ur Specific [place] Urine Protein Urine Glucose (UA) Urine Ketones Urine Blood Urine Nitrite Ur Leukocyte Esterase Urine RBC Urine WBC Ur Squamous Epith Cells Amorphous Sediment Urine Bacteria Granular Casts COVID-19 (JACINTO) COVID-19 Clin Com Imaging Radiologist's impression: Impressions Cervical Spine CT 11/21/21 23:40 IMPRESSION: 1. No acute intracranial pathology. Subgaleal hematoma over the right parietal calvarium. No skull fractures. 2. No acute fracture or acute malalignment in the cervical spine. Moderate multilevel degenerative spondylosis as detailed above. Head CT 11/21/21 23:40 IMPRESSION: 1. No acute intracranial pathology. Subgaleal hematoma over the right parietal calvarium. No skull fractures. 2. No acute fracture or acute malalignment in the cervical spine. Moderate multilevel degenerative spondylosis as detailed above. Abdomen/Pelvis CT 11/22/21 00:05 IMPRESSION: 1. No acute traumatic injuries are identified in the left chest and left abdomen/pelvis on these images. 2. Mild interstitial pulmonary edema. Left ventricular dilatation. 3. No significant change in the small bowel containing infraumbilical ventral abdominal hernia. No evidence of obstruction or strangulation.. No acute intra-abdominal or intrapelvic abnormalities. Chest CT 11/22/21 00:05 IMPRESSION: 1. No acute traumatic injuries are identified in the left chest and left abdomen/pelvis on these images. 2. Mild interstitial pulmonary edema. Left ventricular dilatation. 3. No significant change in the small bowel containing infraumbilical ventral abdominal hernia. No evidence of obstruction or strangulation.. No acute intra-abdominal or intrapelvic abnormalities. Assessment and Plan (1) NSTEMI (non-ST elevated myocardial infarction): Status: Acute Plan Recurrent falls, chest pain at different times in the last few weeks/months but not known if it is from falling down and hitting the chest or anginal; currently NSTEMI based on troponin elevation. Troponins reviewed. 20 followed by 242 followed by 3030. Hence there is clearly a rise. Last office note from Dr. Jc reviewed. Patient is extremely noncompliant and does not take her aspirin or Plavix or statins regularly. When I questioned about this, she confirms this noncompliance and gives many reasons for why she is doing that. Based on his note, it seems that she had RCA stent in 2010, 2018. Moderate disease in LAD/circumflex. In February 2021, she had 100% lad stenosis status post atherotomy and KATIE. Overall, not clear if her falling down brought on a demand related NSTEMI. Again chest pain itself is difficult to say if it is anginal or something again from falling down and hitting the chest as she states that she fall numerous times in the last few months. In any case, she seems well compensated at this time. We will start on IV heparin. With regard to antiplatelet therapy, this has been a ongoing issue based on office note as she is totally noncompliant. She does not take daily aspirin but only intermittently. With regard to the 2nd antiplatelet agent, it seems she could not tolerate Brilinta and that was changed to Plavix but she does not take that regularly either only takes few days a week. Does not take statins either. Hence without any regular antiplatelet therapy, even single antiplatelet therapy, and no statins, will be very difficult to pursue invasive strategies. Will discuss with interventional as to the next steps. At this time, given IV heparin. We will get an echocardiogram. Discussed with Dr. Calvo. Procedures Date of Service Date of Service: 11/22/21
[2021-11-22 14:14] LABS: Glucose, Whole Blood 226 mg/dL (60-115)
[2021-11-22 18:30] LABS: PTT Heparin Drip 48.4 SEC (53-77.9)
[2021-11-22] MEDS: Heparin Sodium,Porcine 5,000 UNIT/ML VIAL 2300 UNIT IVPUSH (18:54)
[2021-11-22 18:58] LABS: Glucose, Whole Blood 186 mg/dL (60-115)
[2021-11-22] MEDS: Ranolazine 500 MG TAB.ER.12H 1000 MG PO (21:20)
[2021-11-22] MEDS: diphenhydrAMINE HCL 25 MG TABLET PO (21:20)
[2021-11-22] MEDS: Insulin Glargine,Hum.rec.anlog 100 UNIT/ML 10 ML VIAL 20 UNIT SUBCUT (21:21)
[2021-11-23] VITALS (7 sets, daily range): BP systolic 146–168; BP diastolic 57–87; PULSE 60–73; RESP 16–20; TEMP 36.4–37.2; O2SAT 93–98; BMI 23.0
[2021-11-23 01:23] LABS: PTT Heparin Drip 64.1 SEC (53-77.9)
--- NOTE | 2021-11-23 01:49 | PC.NURSE ---
PTTHD noted to be 64.1, per protocol, no bolus or rate change necessary. Giselle PAULINO @ bedside to confirm.
--- NOTE | 2021-11-23 04:43 | PC.NURSE ---
pt repositioned for comfort.
[2021-11-23] MEDS: Morphine Sulfate 2 MG/ML CARTRIDGE 1 MG IVPUSH (04:50)
[2021-11-23] MEDS: Levothyroxine Sodium 75 MCG TABLET PO (05:42)
[2021-11-23 07:41] LABS: Hematocrit 35.5 % (37.0-47.0); Hemoglobin 11.3 g/dl (12.0-16.0); Mean Corpuscular HGB Conc 31.8 g/dl (31.0-35.0); Mean Corpuscular Hemoglobin 29.4 pg (27.0-33.0); Mean Corpuscular Volume 92.4 fL (80.0-98.0); Mean Platelet Volume 9.9 fL (9.4-12.3); Platelet Count 211 X10*3/uL (160-400); Red Blood Count 3.84 X10*6/uL (4.20-5.50); White Blood Count 8.7 X10*3/uL (4.8-10.8)
[2021-11-23 07:44] LABS: Glucose, Whole Blood 97 mg/dL (60-115)
--- NOTE | 2021-11-23 08:45 | P.CDIC_ITS ---
CDI Concurrent Query Documentation Clarification: PHYSICIAN'S DOCUMENTATION REQUEST Date of Query: 11/23/21 0846 Patient Name: Richelle Garcia Admit Date: 11/22/21 Dear Doctor, A review of the medical record indicates additional documentation may be needed. Please review below and update the documentation accordingly. Clinical Indicators: The following clinical information was noted in the record: Risk Factors/Clinical Indicators/Treatments BUN 30, Creatinine 1.51, Est GFR 34 on 11/21/21 Per ED note ALBA, CKD PMH: CKD Please clarify which of the following accurately represents the patient's renal status: * CKD, please provide stage - see criteria * Other (please specify) * Unable to determine Criteria for ALBA* Stages of Chronic Kidney Disease* 1. Increase in serum creatinine by ? 0.3 mg/dL Level Description GFR (?26.5 micromol/L) within 48 hours, or G1 Normal or High > 90 2. Increase in serum creatinine to ?1.5 times baseline, G2 Mildly decreased 60 ? 89 which is known or presumed to have occurred within 7 days, or G3a Mildly to moderately decreased 45 ? 59 3. Urine volume <0.5 mL/kg/hour for six hours G3b Moderately to severely decreased 30 - 44 G4 Severely decreased 15 ? 29 G5 Kidney failure < 15 *Source: Kidney Disease: Improving Global Outcomes (KDIGO) 2012 Use of terms such as suspected, likely, concern for, or probable (associated with a specific diagnosis that is being evaluated, monitored, or treated as if it exists) are acceptable and can be coded in the inpatient setting, when documented at the time of discharge. Thank you, Ashlee Fernández RN Extension: [phone] Please use your independent medical judgment in providing your response. THIS QUERY IS PART OF THE PERMANENT MEDICAL RECORD Provider Response: CKD Stage 3
--- NOTE | 2021-11-23 08:55 | P.CDIC_ITS ---
CDI Concurrent Query Documentation Clarification: PHYSICIAN'S DOCUMENTATION REQUEST Date of Query: 11/23/21 0856 Patient Name: Richelle Garcia Admit Date: 11/22/21 Dear Doctor, A review of the medical record indicates additional documentation may be needed. Please review below and update the documentation accordingly. Clinical Indicators: Risk Factors/Clinical Indicators/Treatments Per ED note PMH: CHF On Lasix 20 mg po daily Per ED, diagnosis CHF exacerbation Please provide further specificity regarding the most likely type and acuity of CHF you are evaluating, treating, or monitoring. Examples include: Type: * Systolic * Diastolic * Combined Systolic/Diastolic * Other ? please specify * Unable to determine Acuity: * Acute * Chronic * Acute on chronic * Unable to determine Use of terms such as suspected, likely, concern for, or probable (associated with a specific diagnosis that is being evaluated, monitored, or treated as if it exists) are acceptable and can be coded in the inpatient setting, when docume nted at the time of discharge. Thank you, Ashlee Fernández [insert CDI's credentials] Extension: [4-digit phone extension] Please use your independent medical judgment in providing your response. THIS QUERY IS PART OF THE PERMANENT MEDICAL RECORD Provider Response: CHF
[2021-11-23] MEDS: Ranolazine 500 MG TAB.ER.12H 1000 MG PO ×2 (09:51→20:50)
[2021-11-23] MEDS: Clopidogrel Bisulfate 75 MG TABLET PO (09:51)
[2021-11-23] MEDS: Furosemide 20 MG TABLET PO (09:52)
[2021-11-23] MEDS: Metoprolol Tartrate 25 MG TABLET PO ×2 (09:52→20:50)
[2021-11-23] MEDS: amLODIPine Besylate 5 MG TABLET PO (09:52)
[2021-11-23] MEDS: Aspirin Enteric Coated 81 MG TABLET.DR PO (09:52)
[2021-11-23] MEDS: Isosorbide Mononitrate 30 MG TAB.ER.24H PO (09:52)
--- NOTE | 2021-11-23 11:00 | P.PNIM_ITS ---
Subjective Subjective Date of Service: 11/23/21 Interval History: Follow-up on and stemming Interval history: No chest pain, no shortness of breath, no dizziness. She has pain in the feet which are due to her no neuropathies. Review of Systems No shortness of breath, no chest pain. Physical Exam Vital Signs: Vital Signs: Last Vital Signs Temp 98.3 F 11/23/21 07:29 Pulse 66 11/23/21 07:29 Resp 20 11/23/21 07:29 BP 168/87 H 11/23/21 07:29 Pulse Ox 95 11/23/21 07:29 BMI result Body Mass Index 23.0 Const: Other: General: AO X 3, no acute distress Resp: CTA bilateral CVS: S1,S2,RRR GI: +BS, NT, no distention Skin: No rash Neuro: motor grossly intact Psych: appropriate affect Objective Data Active Medications Acetaminophen (Acetaminophen Supp 650 Mg Supp.Rect) 650 mg CA Q6H PRN PRN Reason: Pain, Mild (Pain Scale 1-3) Amlodipine Besylate (Amlodipine Besylate 5 Mg Tablet) 5 mg PO DAILY [facility]; Protocol Last Admin: 11/23/21 09:52 Dose: 5 mg Documented by: MU Aspirin (Aspirin Enteric Coated 81 Mg Tablet.) 81 mg PO DAILY [facility] Last Admin: 11/23/21 09:52 Dose: 81 mg Documented by: MU Atorvastatin Calcium (Atorvastatin Calcium 80 Mg Tablet) 80 mg PO DAILY [facility] Last Admin: 11/23/21 09:52 Dose: Not Given Documented by: MU Non-Admin Reason: Patient Refused Clopidogrel Bisulfate (Clopidogrel Bisulfate 75 Mg Tablet) 75 mg PO DAILY [facility] Last Admin: 11/23/21 09:51 Dose: 75 mg Documented by: MU Diphenhydramine HCl (Diphenhydramine Hcl 25 Mg Tablet) 25 mg PO BEDTIME [facility] Last Admin: 11/22/21 21:20 Dose: 25 mg Documented by: SALOME-ABEL Furosemide (Furosemide 20 Mg Tablet) 20 mg PO DAILY [facility]; Protocol Last Admin: 11/23/21 09:52 Dose: 20 mg Documented by: MU Heparin Sodium (Porcine) (Heparin Sodium,Porcine 5,000 Unit/Ml Vial) 2,300 unit 40 unit/kg (2300 unit) IVPUSH PROTOCOL BOLUS PRN; Protocol PRN Reason: 40 unit/kg - Heparin Protocol Last Admin: 11/22/21 18:54 Dose: 2,300 unit Documented by: FERNANDO Heparin Sodium (Porcine) (Heparin Sodium,Porcine 5,000 Unit/Ml Vial) 4,600 unit 80 unit/kg (4600 unit) IVPUSH PROTOCOL BOLUS PRN; Protocol PRN Reason: 80 unit/kg - Heparin Protocol Heparin Sodium/Sodium Chloride () 25,000 unit in 250 mls @ 0 mls/hr IVCONT .Q0M [facility]; Protocol Last Titration: 11/23/21 08:28 Dose: 14 units/kg/hr, 8.11 mls/hr Documented by: MU Cosigned by: GATO Insulin Glargine (Insulin Glargine,Hum.Rec.Anlog 100 Unit/Ml 10 Ml Vial) 20 unit SUBCUT BEDTIME [facility] Last Admin: 11/22/21 21:21 Dose: 20 unit Documented by: SALOME-STALK Isosorbide Mononitrate (Isosorbide Mononitrate 30 Mg Tab.Er.24h) 30 mg PO DAILY [facility]; Protocol Last Admin: 11/23/21 09:52 Dose: 30 mg Documented by: MU Ketorolac Tromethamine (Ketorolac Tromethamine 0.5% Op 3 Ml Drops) 1 drop EYE- LEFT TID [facility] Last Admin: 11/23/21 09:51 Dose: 1 drop Documented by: MU Levothyroxine Sodium (Levothyroxine Sodium 75 Mcg Tablet) 75 mcg PO DAILY@0630 [facility] Last Admin: 11/23/21 05:42 Dose: 75 mcg Documented by: JOSUÉ Metoprolol Tartrate (Metoprolol Tartrate 25 Mg Tablet) 25 mg PO BID [facility]; Prot ocol Last Admin: 11/23/21 09:52 Dose: 25 mg Documented by: MU Morphine Sulfate (Morphine Sulfate 2 Mg/Ml Cartridge) 1 mg IVPUSH Q6H PRN; Protocol PRN Reason: Breakthrough Pain Last Admin: 11/23/21 04:50 Dose: 1 mg Documented by: LUDA Nitroglycerin (Nitroglycerin 0.4 Mg Tab.Subl) 0.4 mg SUBLINGUAL Q5M PRN PRN Reason: Chest Pain Pharmacy Consult (Consult Rx Perform Med Rec) 1 each MISCELLANE ONCE PRN PRN Reason: Consult order Ranolazine (Ranolazine 500 Mg Tab.Er.12h) 1,000 mg PO BID [facility] Last Admin: 11/23/21 09:51 Dose: 1,000 mg Documented by: MU Sodium Chloride (0.9 % Sodium Chloride Flush 3 Ml Syringe) 3 ml IVFLUSH QSHIFT [facility] Last Admin: 11/23/21 07:57 Dose: Not Given Documented by: MU Non-Admin Reason: IV Running Labs CBC & Chem 7: 11/23/21 07:14 11/21/21 22:27 Labs: Laboratory Results - last 24 hr 11/22/21 11/22/21 11/22/21 10:46 10:46 10:46 MCV 91.3 MCH 29.7 MCHC 32.5 RDW 12.9 Plt Count 210 MPV 9.5 Absolute Nucleated RBC 0.000 Nucleated RBC % (auto) 0.0 PT 10.6 Cancelled INR 0.9 Cancelled aPTT Heparin Protocol 34.6 L Cancelled POC Glucose 11/22/21 11/22/21 11/22/21 14:05 18:12 18:54 MCV MCH MCHC RDW Plt Count MPV Absolute Nucleated RBC Nucleated RBC % (auto) PT INR aPTT Heparin Protocol 48.4 L D POC Glucose 226 H 186 H 11/23/21 11/23/21 11/23/21 01:07 07:14 07:14 MCV 92.4 MCH 29.4 MCHC 31.8 RDW 13.0 Plt Count 211 MPV 9.9 Absolute Nucleated RBC 0.000 Nucleated RBC % (auto) 0.0 PT Cancelled INR Cancelled aPTT Heparin Protocol 64.1 D POC Glucose 11/23/21 11/23/21 07:14 07:38 MCV MCH MCHC RDW Plt Count MPV Absolute Nucleated RBC Nucleated RBC % (auto) PT 11.0 INR 1.0 aPTT Heparin Protocol 60.0 POC Glucose 97 Assessment and Plan (1) NSTEMI (non-ST elevated myocardial infarction): Status: Acute Plan 71 year old female with CAD, multiple [place], HLD, CKD, CHF? presenting with chest pain, palpitations and? following a fall and found to have elevated troponin I level 1/Elevated troponin , NSTEMI, medical management with Heparin, Statin, ASA, Plavix, Nitro, CCB and BB -Cardiology following, has had multiple cath in the past has RCA and LAD stents and she's not compliant with meds 2/ Fall.. Check Orthostatic BP, PT eval tomorrow 3/HLD--Statin 4/Diabetes--Insulin (Lantus and SSI) 5/ Hypothyroidism--Levothyroxine 6/CKD 3, stable no 7/CHF-NOS, more specification after echo 8/ Peripheral neuropathy,Gabapentin 9/Heparin for DVT prophylaxis Quality Stroke Does the patient have a stroke diagnosis?: No VTE Prior VTE?: No VTE Risk Level:: Medical - moderate - high VTE Device Contraindication: Treatment Not Indicated VTE Drug Contraindication: N/A - Med Ordered
[2021-11-23 11:25] LABS: Glucose, Whole Blood 281 mg/dL (60-115)
[2021-11-23] MEDS: Heparin Sodium,Porcine/1/2NS 25,000 UNIT/250 ML IV.SOLN 8.11 UNIT IVCONT (11:56)
--- NOTE | 2021-11-23 13:00 | CA_ITS ---
Transthoracic Echocardiogram Patient (Last, First, Middle): Richelle Garcia, Gender: Female Date of : 1950 Age: 71 Procedure Date: 11/23/2021 Procedure Type: Transthoracic Echocardiogram Location: [facility] [place] Height: 154.94 cm Weight: 54.89 kg BSA: 1.53 m2 Heart Rate: bpm BP: 168 / 87 mmHg Cdl Truck Driver: JOSHUA Referring MD: Cassidy Macario CUT OFF MACHINE OPERATOR-C Urban Renewal Manager: Pedro Jc MD Symptoms: nstemi Study Quality: Fair ECG Rhythm: Sinus Conclusions: - 1. Low normal LV systolic function with LVEF of 50-55% with regional wall motion abnormality suggestive underlying coronary disease with grade 2 diastolic dysfunction 2. Mild to moderate mitral regurgitation due to restricted posterior leaflet 3. Normal RV systolic pressure 4. No pericardial effusion Findings Left Ventricle Normal left ventricular cavity size. There is mildly increased left ventricular wall thickness. The left ventricular systolic function is low normal. The visually estimated ejection fraction is between 50-55%. There is evidence of regional wall motion abnormalities. Spectral Doppler is indicative of a pseudonormal filling pattern. E/E prime ratio is >15, consistent with elevated filling pressures. Evidence suggests grade II (moderate) diastolic dysfunction. Wall Motion Rest Echo Findings The anterolateral wall and mid inferior segment are hypokinetic. The inferolateral wall and basal inferior segment are akinetic. All other scored wall segments showed normal motion. Right Ventricle Normal right ventricular cavity size and systolic function. Atria The left atrium is likely dilated. There is no evidence of interatrial shunt. The right atrium is normal in size. Aortic Valve Normal aortic valve structure and function. There is no aortic valve stenosis. There is no aortic valve regurgitation. Mitral Valve There is mild anterior and severe posterior mitral leaflet thickening. The posterior mitral leaflet has restricted mobility. There is severe mitral annular calcification. There is mild to moderate mitral valve regurgitation. The mitral regurgitation jet is directed posteriorly. There is no mitral valve stenosis. Pulmonic Valve The pulmonic valve is likely normal. Tricuspid Valve Normal tricuspid valve structure. There is trace tricuspid valve regurgitation. The right ventricular systolic pressure is normal. The right ventricular systolic pressure is 24 mmHg. Normal right atrial pressure. There is no evidence of pulmonary hypertension. Great Vessels All visible segments of the aorta are normal in size. The pulmonary artery was not well visualized. Venous The inferior vena cava is normal in size and collapses greater than 50% with inspiration. Pericardium/Pleural There is no evidence of pericardial effusion. Prior Study Comparison Changes noted compared to prior study. LV systolic function is marginally reduced Measurements 2D Linear Measurements IVSd: 1.26 0.6-0.9/0.6-1.0 cm LVIDd: 4.95 3.9-5.3/4.2-5.9 cm LVIDd Index: 3.24 2.4-3.2/2.2-3.1 cm/m2 LVIDs: 3.91 2.0-3.6 cm LVPWd: 0.96 0.7-1.1 cm Ao Root: 2.70 2.1-3.5 cm LA Diam: 4.30 2.7-3.8/3.0-4.0 cm LAIDs Index: 2.81 1.5-2.3 cm/m2 LV Mass: 359.84 67-162/88-224 g LV Mass Index: 235.19 43-95/49-115 g/m2 LVOT Diam: 2.10 3.0+(-)1.3 cm 2D Systolic Function EF 4C: 51.50 >55% EF 2C: 49.90 >55% EF BiP: 51.10 >55% Mitral Valve MV Pk E: 1.27 MV PK A: 1.14 MV Decel Time: 207.00 E/A: 1.10 E'Lateral: 7.83 E'Medial: 4.46 E/E' Med: 28.50 E/E' Lat: 16.20 PHT: 61.00 MVA PHT: 3.61 Decel [place]: 6.11 MR Vol - PW Dopp: 54.24 MR VTI: 2.26 MR ERO: 24.00 MR Alias Howard: 0.39 MR RAD: 0.80 Aortic Valve AoV Pk Howard: 1.59 AoV Mn Howard: 1.05 AoV VTI: 0.41 AoV Pk Grad: 10.00 Aov Mn Grad: 5.00 ARIAN Cont.VTI: 2.25 LVOT LVOT Pk Howard: 1.18 LVOT Mn Howard: 0.78 LVOT VTI: 0.27 LVOT Pk Grad: 6.00 LVOT Mn Grad: 3.00 LVOT Diam: 2.10 LVOT Area: 3.46 Diastolic Function MV Pk E: 1.27 MV Pk A: 1.14 E/A: 1.10 E'Medial: 4.46 E/E' Med: 28.50 E' Laterial: 7.83 E/E' Lat: 16.20 Right Ventricle TAPSE (mm): 34.00 TVS' Howard: 14.00 Tricuspid Valve TR Pk Howard: 2.31 TR Pk Grad: 21.00 RA Press: 3.00 RVSP: 24.00 Great Vessels Aorta Ao Root-2D: 2.70 2.0-3.7 cm Ao Asc: 3.30 2.1-3.4 cm Pulmonary Valve PV Pk Howard: 1.03 Peak PV Grad: 4.00 Updated in Other Vendor System with Status of Final Pedro Jc MD electronically signed on 11/24/2021 5:09:27 PM with status of Final
--- NOTE | 2021-11-23 13:39 | MHC.CM.PN ---
MET WITH PT WHO LIVES ALONE SHE HAS SERVICES THRU [facility] SHE WILL BE SEEN BY [facility] PCP IS DR MUNIZ SHE IS VAX X 2
--- NOTE | 2021-11-23 14:38 | PM.PNCARD ---
Subjective Subjective Date of Service: 11/23/21 Principal diagnosis: NSTEMI, CAD Interval history: Cardiology follow up for the above. Seen at 1230. Today she reports generalized soreness in body from her fall. No chest pains, sob, palpitation, dizziness, edema. No headache or vision changes. Has Heparin drip infusing. No bleeding issues. Review of Systems Review of Systems as above Yes all other systems are reviewed and are negative Physical Exam Vital Signs: Last Vital Signs Temp 98.1 F 11/23/21 11:18 Pulse 60 11/23/21 11:18 Resp 18 11/23/21 11:18 BP 164/76 H 11/23/21 11:18 Pulse Ox 93 11/23/21 11:18 BMI result Body Mass Index 23.0 Const General: cooperative, no acute distress, alert and awake Orientation/consciousness: patient oriented x3 Neck Neck: Yes normal visual inspection and Yes no JVD Resp Effort & Inspection: normal respiratory effort, able to speak in complete sentences and not labored Auscultation: clear to auscultation bilaterally, no rales, no rhonchi and no wheezes Cardio Rate: regular rate Rhythm: regular rhythm Heart sounds: S1 normal heart sound present and S2 normal heart sound present Peripheral pulses: Peripheral pulses 2+ throughout GI Inspection: Yes normal to inspection Neuro General: patient oriented x3 Extrem General: Yes normal to inspection and No edema Objective Labs and Meds Result diagrams: 11/23/21 07:14 11/21/21 22:27 Lab results: Laboratory Results - last 24 hr 11/22/21 11/22/21 11/23/21 18:12 18:54 01:07 WBC RBC Hgb Hct MCV MCH MCHC RDW Plt Count MPV Absolute Nucleated RBC Nucleated RBC % (auto) PT INR aPTT Heparin Protocol 48.4 L D 64.1 D POC Glucose 186 H 11/23/21 11/23/21 11/23/21 07:14 07:14 07:14 WBC 8.7 RBC 3.84 L Hgb 11.3 L Hct 35.5 L MCV 92.4 MCH 29.4 MCHC 31.8 RDW 13.0 Plt Count 211 MPV 9.9 Absolute Nucleated RBC 0.000 Nucleated RBC % (auto) 0.0 PT Cancelled 11.0 INR Cancelled 1.0 aPTT Heparin Protocol 60.0 POC Glucose 11/23/21 11/23/21 07:38 11:20 WBC RBC Hgb Hct MCV MCH MCHC RDW Plt Count MPV Absolute Nucleated RBC Nucleated RBC % (auto) PT INR aPTT Heparin Protocol POC Glucose 97 281 H Progress Note: A&P Assessment and plan (1) NSTEMI (non-ST elevated myocardial infarction): Status: Acute Assessment and Plan: Admit after fall. No reports of chest pains. Troponin initially normal and mason up to 3030. EKG with SR, downsloping ST leads II, aVF. She has known hx of CAD with stents to RCA and LAD. Last cath 02/2021 with 100% LAD stenosis with arthrectomy an KTAIE placed. Pt admits to not taking Plavix as directed due to issues with bruising. She has been mananged medically for NSTEMI with Heparin drip for 48 hrs. Echocardiogram is pending. No plan for further invasive testing at present due to issues with medication noncompliance. Continue med management with aspirin, plavix, metoprolol, atorvastatin, imdur, ranexa, amlodipine. Heparin can be stopped after 48 hr. We will follow ( awaiting echo) (2) Fall: Status: Acute Assessment and Plan: Mechanical fall, struck back of head. Head CT showed no acute intracranial pathology, no skull fx. (3) Elevated troponin: Status: Acute Assessment and Plan: as above. A portion of the troponin elevation may be related to skeletal muscle release of enzyme related to fall. She does report that she has been getting angina at home. None on day of admit or since admit. (4) CAD (coronary artery disease): Status: Acute Assessment and Plan: RCA stents 2018. LAD arthrectomy and KATIE 02/2021 Time Spent With Patient Time: Total time spent is greater than 50% in coordination of care (as documented) at patient's floor/unit and/or counseling patient: Progress Note: Quality Stroke Does the patient have a stroke diagnosis?: No Procedures Date of Service Date of Service: 11/23/21
[2021-11-23 15:14] LABS: PTT Heparin Drip 59.5 SEC (53-77.9)
[2021-11-23 15:30] LABS: Glucose, Whole Blood 202 mg/dL (60-115)
--- NOTE | 2021-11-23 17:29 | PC.NURSE ---
lunch and dinner POC 281and 202,no insulin sliding scale ,Dr Calvo aware.
[2021-11-23 20:23] LABS: Glucose, Whole Blood 172 mg/dL (60-115)
[2021-11-23] MEDS: Insulin Glargine,Hum.rec.anlog 100 UNIT/ML 10 ML VIAL 20 UNIT SUBCUT (20:51)
[2021-11-23] MEDS: diphenhydrAMINE HCL 25 MG TABLET PO (20:51)
[2021-11-23] MEDS: 0.9 % Sodium Chloride Flush 3 ML SYRINGE IVFLUSH (20:53)
[2021-11-24] VITALS: BP 159/67; PULSE 60; RESP 20; TEMP 36.4; O2SAT 95
[2021-11-24 04:00] VITALS: BP 154/70; PULSE 63; RESP 20; TEMP 36.1; O2SAT 96
[2021-11-24] MEDS: Levothyroxine Sodium 75 MCG TABLET PO (05:31)
[2021-11-24 07:33] LABS: Glucose, Whole Blood 95 mg/dL (60-115)
[2021-11-24 08:00] VITALS: BP 154/73; PULSE 60; RESP 20; TEMP 36.3; O2SAT 96
[2021-11-24 08:40] LABS: PTT Heparin Drip 52.8 SEC (53-77.9)
[2021-11-24] MEDS: Aspirin Enteric Coated 81 MG TABLET.DR PO (08:52)
[2021-11-24] MEDS: Metoprolol Tartrate 25 MG TABLET PO ×2 (08:52→20:15)
[2021-11-24] MEDS: Ranolazine 500 MG TAB.ER.12H 1000 MG PO ×2 (08:52→20:15)
[2021-11-24] MEDS: Isosorbide Mononitrate 30 MG TAB.ER.24H PO (08:52)
[2021-11-24] MEDS: Atorvastatin Calcium 80 MG TABLET PO (08:53)
[2021-11-24] MEDS: Heparin Sodium,Porcine 5,000 UNIT/ML VIAL 2300 UNIT IVPUSH (08:53)
[2021-11-24] MEDS: amLODIPine Besylate 10 MG TABLET PO (08:53)
[2021-11-24] MEDS: Clopidogrel Bisulfate 75 MG TABLET PO (08:53)
[2021-11-24] MEDS: Furosemide 20 MG TABLET PO (08:53)
[2021-11-24] MEDS: 0.9 % Sodium Chloride Flush 3 ML SYRINGE IVFLUSH ×3 (08:53→23:56)
[2021-11-24 08:58] LABS: Glucose, Whole Blood 69 mg/dL (60-115)
--- NOTE | 2021-11-24 09:30 | HO.PM.IMPN ---
Subjective Subjective Date of Service: 11/24/21 Interval History: nstemi, also came with fall. Review of Systems Denies any chest pain or shortness of breath or fever or chills or cough phlegm. Physical Exam Vital Signs: Vital Signs: Last Vital Signs Temp 97.4 F 11/24/21 08:00 Pulse 60 11/24/21 08:00 Resp 20 11/24/21 08:00 BP 154/73 H 11/24/21 08:00 Pulse Ox 96 11/24/21 08:00 BMI result Body Mass Index 23.0 Appearance: Alert.? Oriented X3.? not in distress.? cvs: rrr, [id number]. res: clear to auscultation ,no rhonchii or wheezing abd: no rebound or guarding ,nt, bs present. ext pulses present , no cyanosis. neuro: axo3 , nonfocal. Objective Data Active Medications Acetaminophen (Acetaminophen Supp 650 Mg Supp.Rect) 650 mg MS Q6H PRN PRN Reason: Pain, Mild (Pain Scale 1-3) Amlodipine Besylate (Amlodipine Besylate 10 Mg Tablet) 10 mg PO DAILY [facility]; Protocol Last Admin: 11/24/21 08:53 Dose: 10 mg Documented by: LING Aspirin (Aspirin Enteric Coated 81 Mg Tablet.) 81 mg PO DAILY [facility] Last Admin: 11/24/21 08:52 Dose: 81 mg Documented by: LING Atorvastatin Calcium (Atorvastatin Calcium 80 Mg Tablet) 80 mg PO DAILY [facility] Last Admin: 11/24/21 08:53 Dose: 80 mg Documented by: LING Clopidogrel Bisulfate (Clopidogrel Bisulfate 75 Mg Tablet) 75 mg PO DAILY [facility] Last Admin: 11/24/21 08:53 Dose: 75 mg Documented by: LING Diphenhydramine HCl (Diphenhydramine Hcl 25 Mg Tablet) 25 mg PO BEDTIME [facility] Last Admin: 11/23/21 20:51 Dose: 25 mg Documented by: CATRACHITO Furosemide (Furosemide 20 Mg Tablet) 20 mg PO DAILY [facility]; Protocol Last Admin: 11/24/21 08:53 Dose: 20 mg Documented by: LING Heparin Sodium (Porcine) (Heparin Sodium,Porcine 5,000 Unit/Ml Vial) 2,300 unit 40 unit/kg (2300 unit) IVPUSH PROTOCOL BOLUS PRN; Protocol PRN Reason: 40 unit/kg - Heparin Protocol Last Admin: 11/24/21 08:53 Dose: 2,300 unit Documented by: LING Heparin Sodium (Porcine) (Heparin Sodium,Porcine 5,000 Unit/Ml Vial) 4,600 unit 80 unit/kg (4600 unit) IVPUSH PROTOCOL BOLUS PRN; Protocol PRN Reason: 80 unit/kg - Heparin Protocol Heparin Sodium/Sodium Chloride () 25,000 unit in 250 mls @ 0 mls/hr IVCONT .Q0M [facility]; Protocol Last Titration: 11/24/21 08:55 Dose: 12 units/kg/hr, 6.95 mls/hr Documented by: LING Cosigned by: GATO Insulin Glargine (Insulin Glargine,Hum.Rec.Anlog 100 Unit/Ml 10 Ml Vial) 20 unit SUBCUT BEDTIME [facility] Last Admin: 11/23/21 20:51 Dose: 20 unit Documented by: CATRACHITO Isosorbide Mononitrate (Isosorbide Mononitrate 30 Mg Tab.Er.24h) 30 mg PO DAILY [facility]; Protocol Last Admin: 11/24/21 08:52 Dose: 30 mg Documented by: LING Ketorolac Tromethamine (Ketorolac Tromethamine 0.5% Op 3 Ml Drops) 1 drop EYE-LEFT TID [facility] Last Admin: 11/23/21 21:00 Dose: 1 drop Documented by: CATRACHITO Levothyroxine Sodium (Levothyroxine Sodium 75 Mcg Tablet) 75 mcg PO DAILY@0630 [facility] Last Admin: 11/24/21 05:31 Dose: 75 mcg Documented by: CATRACHITO Metoprolol Tartrate (Metoprolol Tartrate 25 Mg Tablet) 25 mg PO BID [facility]; Protocol Last Admin: 11/24/21 08:52 Dose: 25 mg Documented by: LING Morphine Sulfate (Morphine Sulfate 2 Mg/Ml Cartridge) 1 mg IVPUSH Q6H PRN; Protocol PRN Reason: Breakthrough Pain Last Admin: 11/23/21 04:50 Dose: 1 mg Documented by: LUDA Nitroglycerin (Nitroglycerin 0.4 Mg Tab.Subl) 0.4 mg SUBLINGUAL Q5M PRN PRN Reason: Chest Pain Pharmacy Consult (Consult Rx Perform Med Rec) 1 each MISCELLANE ONCE PRN PRN Reason: Consult order Ranolazine (Ranolazine 500 Mg Tab.Er.12h) 1,000 mg PO BID [facility] Last Admin: 11/24/21 08:52 Dose: 1,000 mg Documented by: LING Sodium Chloride (0.9 % Sodium Chloride Flush 3 Ml Syringe) 3 ml IVFLUSH QSHIFT [facility] Last Admin: 11/24/21 08:53 Dose: 3 ml Documented by: LING Labs CBC & Chem 7: 11/23/21 07:14 11/21/21 22:27 Labs: Laboratory Results - last 24 hr 11/23/21 11/23/21 11/23/21 11:20 14:48 15:14 aPTT Heparin Protocol 59.5 POC Glucose 281 H 202 H 11/23/21 11/24/21 11/24/21 20:18 07:22 07:54 aPTT Heparin Protocol 52.8 L POC Glucose 172 H 95 11/24/21 08:54 aPTT Heparin Protocol POC Glucose 69 Assessment and Plan (1) NSTEMI (non-ST elevated myocardial infarction): Status: Acute (2) Fall: Status: Acute Plan 71 year old female with CAD, multiple [place], HLD, CKD, CHF? presenting with chest pain, palpitations and? following a fall and found to have elevated troponin I level 1/Elevated troponin , NSTEMI, Statin, ASA, Plavix, Nitro,? CCB and BB -Cardiology following, has had multiple cath in the past has RCA and LAD stents and she's not compliant with meds completing heparin drip this afternoon echo pending cardiology follow up 2/ Fall.. Check Orthostatic BP, PT eval tomorrow 3/HLD--Statin 4/Diabetes--Insulin (Lantus and SSI). 5/ Hypothyroidism--Levothyroxine. 6/CHF-NOS, more specification after echo 7/ Peripheral neuropathy,Gabapentin 8/Heparin for DVT prophylaxis need for inpatient: complete heparin drip, also cardiac workup pending ,PT eval. Quality Stroke Does the patient have a stroke diagnosis?: No VTE Prior VTE?: No VTE Risk Level:: Medical - moderate - high VTE Device Contraindication: Treatment Not Indicated VTE Drug Contraindication: N/A - Med Ordered
[2021-11-24 11:05] LABS: Glucose, Whole Blood 104 mg/dL (60-115)
[2021-11-24 11:55] VITALS: BP 114/59; PULSE 52; RESP 20; TEMP 36.3; O2SAT 96
[2021-11-24 12:01] LABS: PTT Heparin Drip 98.5 SEC (53-77.9)
--- NOTE | 2021-11-24 14:36 | PC.NURSE ---
1130- Pharmacy contacted this RN regarding discrepency on heparin drip rate. Per 0700 PTT-HD dose rate should have been increased by two (16 units/kg/hr), however there was an error and dose rate was decreased by two (12 units/kg/hr). STAT PTT-HD ordered. Patient has no s/s of bleeding. PTT-HD came back 98.5. Per pharmacy hold heparin for 1 hour and repeat PTT-HD. Dr. Paulino updated. Cardiology in to assess patient. Per cardiology heparin drip no longer needed, heparin order discontinued. Patient updated, all needs met.
[2021-11-24 15:32] VITALS: BP 137/59; PULSE 54; RESP 18; TEMP 36.8; O2SAT 97
[2021-11-24 16:09] LABS: Glucose, Whole Blood 361 mg/dL (60-115)
--- NOTE | 2021-11-24 16:53 | P.PNCA_ITS ---
Subjective Subjective Date of Service: 11/24/21 Principal diagnosis: NSTEMI, CAD Interval history: Cardiology follow-up for the above. No recurrent chest discomfort. Blood pressure not optimally controlled and amlodipine increased. Has been on heparin drip for 48 hours so it was discontinued. Echocardiogram result pending. Review of Systems Review of Systems As above Yes all other systems are reviewed and are negative Physical Exam Vital Signs: Last Vital Signs Temp 98.3 F 11/24/21 15:32 Pulse 54 11/24/21 15:32 Resp 18 11/24/21 15:32 BP 137/59 L 11/24/21 15:32 Pulse Ox 97 11/24/21 15:32 BMI result Body Mass Index 23.0 Const General: cooperative, no acute distress, alert and awake Resp Effort & Inspection: normal respiratory effort and able to speak in complete sentences Auscultation: clear to auscultation bilaterally Cardio Rate: regular rate Rhythm: regular rhythm Heart sounds: S1 normal heart sound present and S2 normal heart sound present Objective Labs and Meds Result diagrams: 11/23/21 07:14 11/21/21 22:27 Lab results: Laboratory Results - last 24 hr 11/23/21 11/24/21 11/24/21 20:18 07:22 07:54 aPTT Heparin Protocol 52.8 L POC Glucose 172 H 95 11/24/21 11/24/21 11/24/21 08:54 11:02 11:35 aPTT Heparin Protocol 98.5 H D POC Glucose 69 104 11/24/21 16:02 aPTT Heparin Protocol POC Glucose 361 H* Progress Note: A&P Assessment and plan (1) NSTEMI (non-ST elevated myocardial infarction): Status: Acute Assessment and Plan: Admit after fall. No reports of chest pains. Troponin initially normal and mason up to 3030. EKG with SR, downsloping ST leads II, aVF. She has known hx of CAD with stents to RCA and LAD. Last cath 02/2021 with 100% LAD stenosis with arthrectomy and KATIE placed. Pt admits to not taking Plavix as directed due to issues with bruising. Now with NSTEMI. She has been mananged medically with Heparin drip for 48 hrs, now completed. Echocardiogram done, report is pending. No plan for invasive testing at present due to issues with medication no ncompliance.? Continue med management with aspirin, plavix, metoprolol, atorvastatin, imdur, ranexa, amlodipine. If echocardiogram shows no significant findings she can be discharged from a cardiology perspective. We will be arranging outpatient cardiology follow-up. (2) Elevated troponin: Status: Acute (3) CAD (coronary artery disease): Status: Acute Assessment and Plan: RCA stents in 2010 and 2018. LAD arthrectomy and KATIE 02/2021. Time Spent With Patient Time: Total time spent is greater than 50% in coordination of care (as documented) at patient's floor/unit and/or counseling patient: Progress Note: Quality Stroke Does the patient have a stroke diagnosis?: No Procedures Date of Service Date of Service: 11/24/21
[2021-11-24 19:31] VITALS: BP 143/67; PULSE 62; RESP 18; TEMP 36.7; O2SAT 94
[2021-11-24 20:04] LABS: Glucose, Whole Blood 332 mg/dL (60-115)
[2021-11-24] MEDS: diphenhydrAMINE HCL 25 MG TABLET PO (20:15)
[2021-11-24] MEDS: Insulin Glargine,Hum.rec.anlog 100 UNIT/ML 10 ML VIAL 20 UNIT SUBCUT (20:15)
[2021-11-25] VITALS: BP 145/67; PULSE 62; RESP 20; TEMP 36.7; O2SAT 95
[2021-11-25] MEDS: traZODone HCL 50 MG TABLET PO (01:52)
[2021-11-25 04:00] VITALS: RESP 20
[2021-11-25] MEDS: Levothyroxine Sodium 75 MCG TABLET PO (06:12)
[2021-11-25 07:47] VITALS: BP 132/54; PULSE 58; RESP 18; TEMP 36.2; O2SAT 96
[2021-11-25 08:10] LABS: Glucose, Whole Blood 206 mg/dL (60-115)
--- NOTE | 2021-11-25 09:12 | P.PNIM_ITS ---
Subjective Subjective Date of Service: 11/25/21 Interval History: nstemi Physical Exam Vital Signs: Vital Signs: Last Vital Signs Temp 97.1 F 11/25/21 07:47 Pulse 58 11/25/21 07:47 Resp 18 11/25/21 07:47 BP 132/54 L 11/25/21 07:47 Pulse Ox 96 11/25/21 07:47 BMI result Body Mass Index 23.0 Objective Data Active Medications Acetaminophen (Acetaminophen Supp 650 Mg Supp.Rect) 650 mg SC Q6H PRN PRN Reason: Pain, Mild (Pain Scale 1-3) Amlodipine Besylate (Amlodipine Besylate 10 Mg Tablet) 10 mg PO DAILY [facility]; Protocol Last Admin: 11/24/21 08:53 Dose: 10 mg Documented by: LING Aspirin (Aspirin Enteric Coated 81 Mg Tablet.) 81 mg PO DAILY [facility] Last Admin: 11/24/21 08:52 Dose: 81 mg Documented by: LING Atorvastatin Calcium (Atorvastatin Calcium 80 Mg Tablet) 80 mg PO DAILY [facility] Last Admin: 11/24/21 08:53 Dose: 80 mg Documented by: LING Clopidogrel Bisulfate (Clopidogrel Bisulfate 75 Mg Tablet) 75 mg PO DAILY [facility] Last Admin: 11/24/21 08:53 Dose: 75 mg Documented by: LING Diphenhydramine HCl (Diphenhydramine Hcl 25 Mg Tablet) 25 mg PO BEDTIME [facility] Last Admin: 11/24/21 20:15 Dose: 25 mg Documented by: JONH Furosemide (Furosemide 20 Mg Tablet) 20 mg PO DAILY [facility]; Protocol Last Admin: 11/24/21 08:53 Dose: 20 mg Documented by: LING Insulin Glargine (Insulin Glargine,Hum.Rec.Anlog 100 Unit/Ml 10 Ml Vial) 20 unit SUBCUT BEDTIME [facility] Last Admin: 11/24/21 20:15 Dose: 20 unit Documented by: JONH Isosorbide Mononitrate (Isosorbide Mononitrate 30 Mg Tab.Er.24h) 30 mg PO DAILY [facility]; Protocol Last Admin: 11/24/21 08:52 Dose: 30 mg Documented by: LING Ketorolac Tromethamine (Ketorolac Tromethamine 0.5% Op 3 Ml Drops) 1 drop EYE- LEFT TID [facility] Last Admin: 11/24/21 20:17 Dose: 1 drop Documented by: JONH Levothyroxine Sodium (Levothyroxine Sodium 75 Mcg Tablet) 75 mcg PO DAILY@0630 [facility] Last Admin: 11/25/21 06:12 Dose: 75 mcg Documented by: MARK Metoprolol Tartrate (Metoprolol Tartrate 25 Mg Tablet) 25 mg PO BID [facility]; Protocol Last Admin: 11/24/21 20:15 Dose: 25 mg Documented by: JONH Morphine Sulfate (Morphine Sulfate 2 Mg/Ml Cartridge) 1 mg IVPUSH Q6H PRN; Protocol PRN Reason: Breakthrough Pain Last Admin: 11/23/21 04:50 Dose: 1 mg Documented by: LUDA Nitroglycerin (Nitroglycerin 0.4 Mg Tab.Subl) 0.4 mg SUBLINGUAL Q5M PRN PRN Reason: Chest Pain Pharmacy Consult (Consult Rx Perform Med Rec) 1 each MISCELLANE ONCE PRN PRN Reason: Consult order Ranolazine (Ranolazine 500 Mg Tab.Er.12h) 1,000 mg PO BID [facility] Last Admin: 11/24/21 20:15 Dose: 1,000 mg Documented by: JONH Sodium Chloride (0.9 % Sodium Chloride Flush 3 Ml Syringe) 3 ml IVFLUSH QSHIFT [facility] Last Admin: 11/24/21 23:56 Dose: 3 ml Documented by: MARK Labs CBC & Chem 7: 11/23/21 07:14 11/21/21 22:27 Labs: Laboratory Results - last 24 hr 11/24/21 11/24/21 11/24/21 11:02 11:35 16:02 aPTT Heparin Protocol 98.5 H D POC Glucose 104 361 H* 11/24/21 11/25/21 19:37 07:49 aPTT Heparin Protocol POC Glucose 332 H 206 H Assessment and Plan Plan 71 year old female with CAD, multiple LA, HLD, CKD, CHF? presenting with chest pain, palpitations and? following a fall and found to have elevated troponin I level 1/Elevated troponin , NSTEMI, Statin, ASA, Plavix, Nitro,? CCB and BB -Cardiology following, has had multiple cath in the past has RCA and LAD stents and she's not compliant with meds completing? heparin drip this afternoon echo pending cardiology follow up 2/ Fall.. Check Orthostatic BP, PT eval tomorrow 3/HLD--Statin 4/Diabetes--Insulin (Lantus and SSI). 5/ Hypothyroidism--Levothyroxine. 6/CHF-NOS, more specification after echo 7/ Peripheral neuropathy,Gabapentin 8/Heparin for DVT prophylaxis need for inpatient: PT eval. Quality Stroke Does the patient have a stroke diagnosis?: No VTE Prior VTE?: No VTE Risk Level:: Medical - moderate - high VTE Device Contraindication: Treatment Not Indicated VTE Drug Contraindication: N/A - Med Ordered
[2021-11-25] MEDS: 0.9 % Sodium Chloride Flush 3 ML SYRINGE IVFLUSH (09:25)
[2021-11-25] MEDS: Furosemide 20 MG TABLET PO (09:25)
[2021-11-25] MEDS: Isosorbide Mononitrate 30 MG TAB.ER.24H PO (09:26)
[2021-11-25] MEDS: Ranolazine 500 MG TAB.ER.12H 1000 MG PO (09:26)
[2021-11-25] MEDS: Atorvastatin Calcium 80 MG TABLET PO (09:26)
[2021-11-25] MEDS: Clopidogrel Bisulfate 75 MG TABLET PO (09:26)
[2021-11-25] MEDS: Aspirin Enteric Coated 81 MG TABLET.DR PO (09:26)
[2021-11-25] MEDS: amLODIPine Besylate 10 MG TABLET PO (09:26)
[2021-11-25] MEDS: Metoprolol Tartrate 25 MG TABLET PO (09:30)
[2021-11-25 11:20] LABS: Glucose, Whole Blood 179 mg/dL (60-115)
[2021-11-25 12:00] VITALS: BP 147/62; PULSE 61; RESP 18; TEMP 36.6; O2SAT 97
--- NOTE | 2021-11-25 13:53 | P.DS_ITS ---
DS: Providers Provider Date of Service: 11/25/21 Date of admission: 11/22/21 09:07 Primary care physician: Johnny Rosa MD Consults: 11/22/21 07:37 Consult to Cardiology Routine Consulting Provider: Gunnar Shine Reason for consultation: elevated troponin I ? NSTEMI Has provider been notified: No DS: Diagnosis Discharge Diagnosis (1) NSTEMI (non-ST elevated myocardial infarction): Status: Acute (2) Elevated troponin: Status: Acute (3) CAD (coronary artery disease): Status: Acute DS: Summary Hospital Course Hospital Course: 71-year-old female with a past medical history of hypertension, hyperlipidemia, diabetes, coronary artery disease? s/p MIs in the past, status post? RCA stent in past , and most recently LAD stent? on Mar 03, 2021 at , subsequently seen at [facility] and discharged? on 07/24/21 with chest pain and medically managed, she has? chronic kidney disease stage 3,? CH,? hyperparathyroidism, hypothyroidism, vitamin-D deficiency history of endocarditis of the mitral valve presented to the hospital on this occasion after calling the ambulation following a fall. Her story is rather convulated with her rambling from topic to topic during the history but basically is saying she has been falling very frequently attributes this to Lasix causing her to get up very frequently and voiding. When she fell she doesn't believes she lost consciousness but hit her herad and right side and was subsequently having palpitations. Her troponins are elevated of unclear signficance at this point,. Of note she was recently seen at [facility] and diagnosed with mild cognitive impairment. During her last visit at [place] in for chest pain, she was discharged with the following medication. hopsital course: Patient came to the hospital because of fall and found to have elevated heart enzymes: Seen by Cardiology: Treated as Nstemi-conservatively with IV heparin and aspirin, statin, Plavix, metoprolol-patient is asymptomatic and cardiac echo reviewed with Cardiology seems similar to before. echo: Reviewed with Cardiology: EF is 50-55%, no new wall motion changes. Cardiology recommended to continue home medications and strongly for recommended to compliant with medications to avoid further cardiac events. Patient was also seen by physiotherapy because of recent fall-recommended no PT upon discharge. Above was discussed with patient and her healthcare proxy in detail length. Time Spent with Patient Time attestation: Total time spent providing and/or coordinating discharge services: Discharge coordination time: Greater than 30 minutes Quality: Safe Use of Opioids Does Pt have an Active Cancer Diagnosis on the Problem List?: No Quality: Stroke Does the patient have a stroke diagnosis?: No Physical Exam Vital Signs: Vital Signs: Last Vital Signs Temp 97.8 F 11/25/21 12:00 Pulse 61 11/25/21 12:00 Resp 18 11/25/21 12:00 BP 147/62 H 11/25/21 12:00 Pulse Ox 97 11/25/21 12:00 BMI result Body Mass Index 23.0 Appearance: Alert.? Oriented X3.? not in distress.? Eyes: Pupils equal, round and reactive to light.? Sclera nonicteric.? ENT: Pharynx normal.? Moist mucous membranes. cvs: rrr, [id number] , no murmur res: clear to auscultation ,no rhonchii or wheezing abd: no rebound or guarding ,nt, bs present. ext pulses present , no cyanosis. neuro: axo3 , nonfocal. DS: Data Data Completed and Pending Completed studies during hospitalization [Text1]: 11/23/21: bun/cr: 30/1.5 hb/hct: 11.3/35.5 Labs on day of discharge: Laboratory Results - last 24 hr 11/24/21 11/24/21 11/25/21 16:02 19:37 07:49 POC Glucose 361 H* 332 H 206 H 11/25/21 11:08 POC Glucose 179 H Additional Comments Additional comments: Conclusions: - 1.? Low normal LV systolic function with LVEF of 50-55%? with? regional wall motion abnormality suggestive underlying coronary? disease with grade 2 diastolic dysfunction ? 2.? Mild to moderate mitral regurgitation due to restricted? ? ? posterior leaflet? 3. Normal RV systolic pressure ? 4.? No pericardial effusion? Discharge Plan Discharge Patient Disposition: Home Health Service Discharge Diagnosis: nstemi,possible ckd 3,fall Referrals: Croke,Johnny, MD [Primary Care Provider] - 1 Week Discharge Medications: Continued metoprolol tartrate 25 mg tablet 25 mg PO BID 90 Days Qty: 180 1RF (DME) pen needle, diabetic [BD Ultra-Fine Carrie Pen Needle] 32 gauge x 5/32 needle See Rx Instructions .ROUTE .MEDSUPPLY Qty: 2 3RF Rx Instructions: As directed 4 times daily (DME) blood-glucose meter [OneTouch Ultra2 Meter] [facility] See Rx Instructions .Route 0RF Rx Instructions: As directed to test blood sugar three times a day (DME) OneTouch Ultra Test Strip See Rx Instructions .Route Qty: 300 11RF Rx Instructions: As directed to test blood sugar three times a day nitroglycerin 0.4 mg tablet, sublingual 0.4 mg sublingual Q5M PRN (Reason: Chest Pain) Qty: 20 1RF Rx Instructions: Take one tablet by mouth sublingually as needed for chest pain (DME) lancets [OneTouch UltraSoft Lancets] [facility] See Rx Instructions .ROUTE .MEDSUPPLY Qty: 100 11RF Rx Instructions: As directed to test blood sugar three times a day coenzyme Q10 [CoQ-10] 100 mg Capsule 100 mg PO DAILY 0RF fhoyefa-ebvi-itwso-oreg-capryl 100 mg-150 mg- 50 mg-150 mg Capsule 2 cap PO DAILY 0RF Syntol (Probitoic/Prebiotic) 1 tab PO DAILY 0RF vitamin D3-vitamin K2 1 tab PO DAILY MRX1 0RF lamotrigine 25 mg Tablet 25 mg PO DAILY 30 Days Qty: 30 0RF diphenhydramine HCl [Allergy Relief(diphenhydramin)] 25 mg Tablet 25 mg PO BEDTIME 30 Days Qty: 30 0RF isosorbide mononitrate 60 mg tablet extended release 24 hr 30 mg PO DAILY 90 Days Qty: 45 0RF amlodipine 5 mg tablet 5 mg PO DAILY 0RF Rx Instructions: Take 1 tab ( 5mg) daily Lantus Solostar U-100 Insulin 100 unit/mL (3 mL) insulin pen 20 unit subcut BEDTIME 0RF ranolazine 1,000 mg Tablet Extended Release 12 Hr 1,000 mg PO BID 0RF rosuvastatin 40 mg Tablet 40 mg PO DAILY 0RF levothyroxine 75 mcg tablet 75 mcg PO DAILY 0RF insulin aspart U-100 [Novolog Flexpen U-100 Insulin] 100 unit/mL (3 mL) insulin pen See Protocol sliding scale dose subcut TID 0RF Protocol: Insulin Correction Scale Less than or equal to 110 ---- Give (units): 0 111 to 150 Give (units): 0 151 to 200 Give (units): 2 201 to 250 Give (units): 4 251 to 300 Give (units): 6 301 to 350 Give (units): 8 Greater than 350 Give (units): 10 Call MD if Blood Glucose > : 350 ketorolac 0.5 % drops 1 drp ophthalmic-Left TID 0RF furosemide 20 mg tablet 20 mg PO DAILY 0RF aspirin 81 mg tablet,delayed release (DR/EC) 81 mg PO DAILY 0RF Rx Instructions: 3-4 times a week clopidogrel 75 mg tablet 75 mg PO DAILY 0RF Rx Instructions: patient states takes every other day Discharge Orders: Discharge Order (Routine); Ordered 11/25/21 Ordered By: Hanna Paulino Diet: advance to usual diet Activity on Discharge: As tolerated Stand Alone Forms: Patient Portal Discharge page Care Plan Goals: Patient came to the hospital because of fall and found to have elevated heart enzymes: Seen by Cardiology: Treated as Nstemi-conservatively with IV heparin and aspirin, statin, Plavix, metoprolol-patient is asymptomatic and cardiac echo reviewed with Cardiology seems similar to before. Heart doctor recommended to continue home medications and strongly for keeley mmended to compliant with medications to avoid further cardiac events. Above was discussed with patient and her healthcare proxy in detail length. Patient was also seen by physiotherapy because of recent fall-recommended no PT upon discharge. Health Concerns: As above. Plan of Treatment: As above. Assessment: As above.
--- NOTE | 2021-11-25 14:02 | P.F2F_ITS ---
Service Date Service Date: 11/25/21 Encounter Date of encounter: 11/25/21 Reasons for Services Signs and symptoms assessed: nstemi,fall Reason for intermediate: medication management, medication treatment and teach disease management MD Overseeing Care: Johnny Rosa Homebound: Leaving the home is medically contraindicated at this time without the asist of a device and/or another person due th the listed conditions above and below. Reason homebound: weakness related to hospital stay Homebound supporting statement: Patient has multiple medical comorbidities including NSTEMI, also has compliance issue with medications, generalized weak post hospitalization and need help to go to appointments and labs . Certification: Based on the above findings, I certify that this patient is confined to the home and needs intermittent intermediate care, physical therapy and/or speech therapy, or continues to need occupational therapy. The patient is under my care, and I have initiated the establishment of the plan of care. The patient will be followed by a physician who will periodically review the plan of care.
--- NOTE | 2021-11-25 14:14 | MHC.CM.PN ---
met with pts hcp we discussed vnqa vs str for pt ,per physical therapy eval pt recommnen ded home pt og home with fawad perez
== END 2021-11-25 17:49 | disposition home health service (06) | DRG 281 ==
LOC: HO.ED 11-22 01:59 → HO.EDOVER 11-22 09:15 → HO.IMC 11-23 03:11
PROVIDERS: Admitting Provider Internal Medicine; Emergency Provider Student in an Organized Health Care Education/Training Program; PCP Internal Medicine; Visit Provider Internal Medicine
DX: I21.4 Non-ST elevation (NSTEMI) myocardial infarction (principal); I50.32 Chronic diastolic (congestive) heart failure; F17.210 Nicotine dependence, cigarettes, uncomplicated; I12.9 Hypertensive chronic kidney disease with stage 1 through stage 4 chronic kidney disease, or unspecified chronic kidney disease; I25.10 Atherosclerotic heart disease of native coronary artery without angina pectoris; Z95.5 Presence of coronary angioplasty implant and graft; E03.9 Hypothyroidism, unspecified; N18.30 Chronic kidney disease, stage 3 unspecified; I25.2 Old myocardial infarction; E11.22 Type 2 diabetes mellitus with diabetic chronic kidney disease; E78.5 Hyperlipidemia, unspecified; F31.9 Bipolar disorder, unspecified; E21.3 Hyperparathyroidism, unspecified; E11.40 Type 2 diabetes mellitus with diabetic neuropathy, unspecified; Z20.822 Contact with and (suspected) exposure to COVID-19; Z71.6 Tobacco abuse counseling; Z91.14 Patient's other noncompliance with medication regimen; Z91.041 Radiographic dye allergy status; Z88.1 Allergy status to other antibiotic agents; Z79.4 Long term (current) use of insulin; Z79.02 Long term (current) use of antithrombotics/antiplatelets; Z79.82 Long term (current) use of aspirin; Z79.899 Other long term (current) drug therapy
CPT/HCPCS: 36415; 70450; 71250; 72125; 74176; 80053; 81001; 82947; 83880; 84484; 85025; 85027; 85610; 85730; 87635; 93005; 93306; 96361; 96374; 97162; 99285; J1940; J2270; Q0163

== ENCOUNTER → 2021-12-15 13:39 | Outpatient (BNVA) | payer MEDICARE, SELFPAY | PROVIDERS: PCP Internal Medicine; Referring Provider Internal Medicine; Visit Provider Nurse Practitioner Family | DX: I21.4 Non-ST elevation (NSTEMI) myocardial infarction (principal); I11.0 Hypertensive heart disease with heart failure; I50.9 Heart failure, unspecified; I25.10 Atherosclerotic heart disease of native coronary artery without angina pectoris; Z95.5 Presence of coronary angioplasty implant and graft; Z91.14 Patient's other noncompliance with medication regimen | CPT/HCPCS: 99212 ==

== ENCOUNTER 2021-12-17 14:37 | Outpatient (REF) | payer MEDICARE, SELFPAY ==
[2021-12-17 16:15] LABS: Vitamin B12 468 pg/mL (200-900)
== END 2021-12-17 14:38 | disposition home or self-care (01) ==
LOC: HO.LAB 14:37
PROVIDERS: PCP Internal Medicine; Visit Provider Psychiatry & Neurology Neurology
DX: G31.84 Mild cognitive impairment of uncertain or unknown etiology (principal)
CPT/HCPCS: 36415; 82607

== ENCOUNTER 2022-02-01 13:11 | Outpatient (REF) | payer MEDICARE, SELFPAY ==
[2022-02-01 14:32] LABS: Anion Gap 10 (12-20); Blood Urea Nitrogen 33 mg/dL (9-16); Calcium 9.2 mg/dL (8.4-10.2); Carbon Dioxide 29 mmol/L (22-29); Chloride 100 mmol/L (96-108); Estimated Glomerular Filt Rate 30; Glucose Random 278 mg/dL (60-115); Potassium 4.3 mmol/L (3.3-5.1); Sodium 135 mmol/L (135-145)
[2022-02-01 14:35] LABS: B Type Natriuretic Peptide 441 pg/mL (<100)
== END 2022-02-01 13:12 | disposition home or self-care (01) ==
LOC: HO.LAB 13:11
PROVIDERS: PCP Internal Medicine; Visit Provider Internal Medicine Cardiovascular Disease
DX: I50.9 Heart failure, unspecified (principal)
CPT/HCPCS: 36415; 80048; 83880

== ENCOUNTER → 2022-02-03 13:49 | Outpatient (REF) | payer MEDICARE, SELFPAY ==
--- NOTE | 2022-02-03 13:54 | CA_ITS ---
Transthoracic Echocardiogram Patient (Last, First, Middle): Richelle Garcia, Gender: Female Date of : 1950 Age: 72 Procedure Date: 02/03/2022 Procedure Type: Transthoracic Echocardiogram Location: OP Height: 154.94 cm Weight: 58.06 kg BSA: 1.56 m2 Heart Rate: 57 bpm BP: 136 / 84 mmHg Tap Puller: SB Referring MD: Pedro Jc MD Speeder Operator: Pedro Jc MD Symptoms: I42.9 - Cardiomyopathy, unspecified Study Quality: Adequate ECG Rhythm: Bradycardia Conclusions: - 1. Low normal LV systolic function with elevated filling pressures 2. Moderate mitral regurgitation secondary to restricted posterior leaflet Findings Left Ventricle The visually estimated ejection fraction is between 50-55%. Spectral Doppler is indicative of an impaired relaxation filling pattern. Elevated left atrial and left ventricular end-diastolic pressures. E/E prime ratio is >15, consistent with elevated filling pressures. Wall Motion Rest Echo Findings The inferolateral wall and basal inferior segment are akinetic. All other scored wall segments showed normal motion. Mitral Valve There is mild anterior and moderate posterior mitral leaflet thickening. The posterior mitral leaflet is immobile. There is moderate mitral valve regurgitation. The mitral regurgitation jet is directed posteriorly. There is no mitral valve stenosis. calculated MR volume is 30 mL consistent with moderate mitral regurgitation Prior Study Comparison Changes noted compared to prior study dated: 11/23/2021. mitral regurgitation is moderate Measurements 2D Systolic Function EF 4C: 57.00 >55% EF 2C: 56.70 >55% Mitral Valve MV Pk E: 1.18 MV PK A: 1.20 MV Decel Time: 196.00 E/A: 1.00 PHT: 58.00 MVA PHT: 3.79 Decel [place]: 6.00 MR Vol - PW Dopp: 31.50 MR VTI: 2.25 MR ERO: 14.00 MR Alias Howard: 0.39 MR RAD: 0.60 Diastolic Function MV Pk E: 1.18 MV Pk A: 1.20 E/A: 1.00 Pulmonary Veins Pulm Vein S/D 0.70 Updated in Other Vendor System with Status of Final Pedro Jc MD electronically signed on 02/04/2022 1:26:15 PM with status of Final
== END ==
LOC: HO.CARD 13:49
PROVIDERS: PCP Internal Medicine; Visit Provider Internal Medicine Cardiovascular Disease
DX: I34.0 Nonrheumatic mitral (valve) insufficiency (principal); I42.9 Cardiomyopathy, unspecified; I50.9 Heart failure, unspecified; I25.10 Atherosclerotic heart disease of native coronary artery without angina pectoris
CPT/HCPCS: 93308; 99212

== ENCOUNTER → 2022-02-17 12:37 | Outpatient (BNVA) | payer MEDICARE, SELFPAY | PROVIDERS: PCP Internal Medicine; Visit Provider Internal Medicine Cardiovascular Disease | DX: I50.9 Heart failure, unspecified (principal); I34.0 Nonrheumatic mitral (valve) insufficiency; I25.10 Atherosclerotic heart disease of native coronary artery without angina pectoris; Z79.899 Other long term (current) drug therapy | CPT/HCPCS: 99212 ==

== ENCOUNTER 2022-02-19 09:56 | Outpatient (REF) | payer MEDICARE, SELFPAY ==
--- NOTE | ~2022-02-19 | US_ITS ---
EXAMINATION: US RETROPERITONEAL LIMITED (RENAL ONLY) WITH DOPPLER CLINICAL INFORMATION: Heart failure, hypertension. COMPARISON: None TECHNIQUE: Routine renal ultrasound followed by Doppler exam of the kidneys and abdominal aorta was performed. FINDINGS: RIGHT KIDNEY: 11.2 x 4.6 x 5.0 cm (SAG x AP x TRV). The kidney is normal in size, contour, and echogenicity. Renal cortical thickness is normal. No calculi or focal parenchymal lesions. No hydronephrosis. LEFT KIDNEY: 10.1 x 3.8 x 4.2 cm (SAG x AP x TRV). The kidney is normal in size, lobulated contour, and echogenicity. Renal cortical thickness is normal. No calculi or focal parenchymal lesions. No hydronephrosis. RENAL DOPPLER EXAM: Right kidney: Proximal renal artery velocity measures 122 cm/second, midsegment measures 87 cm/second and distal segment measures 68 cm/second. Average resistive index measures 0.80. The renal aortic ratio cannot be calculated due to elevated abdominal aortic velocity of 162 cm/second. Left kidney: Proximal renal peak systolic velocity measures 254 cm/second, midsegment measures 233 cm/second and distal segment measures 58 cm/second. Average resistive index measures 0.73 cm. Renal aortic ratio cannot be calculated. US/US renal BI IMPRESSION: Lobular left kidney. Otherwise unremarkable renal ultrasound. On Doppler exam there is elevated resistive index right kidney which is equivocal since the velocity in the abdominal aorta is also limited. Normal resistive index left kidney. Elevated peak systolic velocities in left renal artery could be secondary to elevated peak systolic velocity of abdominal aorta. Further evaluation with CTA of kidneys can be performed.
--- NOTE | ~2022-02-19 | US_ITS ---
EXAMINATION: US DUPLEX RETROPERITONEAL, LIMITED CLINICAL INFORMATION: Heart failure and hypertension. COMPARISON: CT scan of 11/21/2021. TECHNIQUE: Grayscale evaluation of the kidneys. Real-time evaluation of the abdominal aorta and main renal arteries. Color mapping and spectral analysis of the aorta, main renal arteries, and intrarenal arteries. FINDINGS: RENAL ULTRASOUND: The right kidney measures 11.2 x 4.6 x 5.0 cm. The left kidney measures 10.1 x 3.8 x 4.2 cm with lobular contour. There is no dilation of the intrarenal collecting system either side. The renal cortical echogenicity is increased uniformly. There is no suspicious renal mass or shadowing calculus. There is no perinephric abnormality. COLOR MAPPING AND SPECTRAL ANALYSIS: The peak systolic velocity within the proximal abdominal aorta is elevated at 162 cm/s. Interrogation of the main renal artery demonstrates velocities (systolic/diastolic) as follows: Proximal right: 122. Mid right: 87. Distal right: 68. Proximal left: 254. Mid left: 233. Distal left: 58. The renal artery to abdominal aortic velocity ratio is not accurate for calculating with elevated abdominal aortic velocity. Right renal artery segmental resistance index: Upper pole 0.89. Midpole 0.85. Lower pole 0.68. Left renal artery segmental resistance index: Upper pole 0.72. Midpole 0.75. Lower pole 0.74. Bilateral patent renal veins. US/US renal doppler IMPRESSION: Elevated mid abdominal aortic velocity of 162 cm/s. Elevated proximal and mid left renal artery velocities of greater than 200 cm/s suggestive of renal artery stenosis. Elevated resistive index within the upper and mid poles of the right kidney. This can be suggestive of medical renal disease.
[2022-02-19 12:28] LABS: Anion Gap 14 (12-20); Blood Urea Nitrogen 51 mg/dL (9-16); Carbon Dioxide 25 mmol/L (22-29); Chloride 107 mmol/L (96-108); Estimated Glomerular Filt Rate 24; Glucose Random 173 mg/dL (60-115); Potassium 4.3 mmol/L (3.3-5.1); Sodium 142 mmol/L (135-145)
[2022-02-19 12:38] LABS: B Type Natriuretic Peptide 481 pg/mL (<100)
== END 2022-02-19 09:57 | disposition home or self-care (01) ==
LOC: HO.US 09:56
PROVIDERS: Visit Provider Internal Medicine Cardiovascular Disease
DX: I50.9 Heart failure, unspecified (principal); I10 Essential (primary) hypertension; N18.9 Chronic kidney disease, unspecified
CPT/HCPCS: 36415; 76775; 80048; 83880; 93975

== ENCOUNTER → 2022-04-29 14:18 | Outpatient (BNVA) | payer MEDICARE, SELFPAY | PROVIDERS: PCP Internal Medicine; Visit Provider Surgery Vascular Surgery | DX: I70.1 Atherosclerosis of renal artery (principal); Z91.14 Patient's other noncompliance with medication regimen | CPT/HCPCS: 99202 ==

== ENCOUNTER 2022-09-11 21:24 | Emergency (ER) | payer MEDICARE, SELFPAY ==
--- NOTE | ~2022-09-11 | CT_ITS ---
EXAMINATION: CT ABDOMEN AND PELVIS WITHOUT CONTRAST CLINICAL INFORMATION: Colitis COMPARISON: 11/21/2021 TECHNIQUE: Multidetector volumetric imaging was performed from the superior aspect of the liver through the pubic symphysis. Sagittal and coronal reformatted images were obtained on the technologist's workstation. This CT examination was performed using dose optimization techniques as appropriate, variously including the following: *Automated exposure control *Adjustment of mA and/or kV according to patient size (this includes techniques or standardized protocols for targeted exams where dose is matched to indication/reason for exam; i.e. extremities or head) *Use of iterative reconstruction technique DLP: 437 mGy-cm FINDINGS: LUNG BASES: Coronary artery calcifications. Minimal basilar atelectasis. Prominent heart. LIVER, GALLBLADDER, AND BILIARY TREE: The liver is normal in size, shape, and attenuation. No focal hepatic lesion or biliary ductal dilatation is present. Cholecystectomy. PANCREAS: Unremarkable. SPLEEN: Unremarkable. ADRENAL GLANDS: Unremarkable. KIDNEYS AND URETERS: The kidneys are normal in size, shape, and attenuation. No hydronephrosis, hydroureter, or calculi seen. No perinephric stranding. BLADDER: Unremarkable. GASTROINTESTINAL TRACT: The stomach is unremarkable. Normal caliber small bowel. There is no obstruction. The bowel extends into a prominent ventral abdominal wall hernia. There is a normal appendix. No colonic wall thickening or inflammation. Moderate diffuse colonic stool burden. Diverticulosis which is greatest at the sigmoid colon. No diverticulitis. ABDOMINAL WALL: Ventral abdominal wall hernia to the right of midline has a similar appearance to prior, containing small bowel. This is not obstructing. The hernia neck measures 2.8 cm transverse by 2.5 cm CC. There is a small compartment to the left of midline which also contains a portion of small bowel. LYMPH NODES: Mildly prominent retroperitoneal lymph nodes without pathologic enlargement. VASCULAR: Normal caliber aorta with severe atherosclerotic calcification. PELVIC VISCERA: Uterus not seen. No adnexal mass. OSSEOUS STRUCTURES: No acute or suspicious osseous abnormality. Degenerative change throughout the spine. CT/CT abdomen pelvis wo IV con IMPRESSION: 1. No acute finding of the abdomen or pelvis. Moderate colonic stool burden. Colonic diverticulosis without diverticulitis. 2. Similar appearance of ventral abdominal wall hernia containing small bowel. No obstruction. Fleischner guidelines were followed.
[2022-09-11 22:32] VITALS: BP 139/66; PULSE 67; RESP 16; TEMP 36.6; O2SAT 97; BMI 23.4
[2022-09-11 23:07] LABS: MANUAL DIFF FLAG NO
[2022-09-11 23:09] LABS: Basophils Percent Auto 0.6 % (0-2); Eosinophils Absolute Auto 0.3 X10*3/uL (0.0-0.4); Eosinophils Percent Auto 4.1 % (0-4); Hematocrit 23.6 % (37.0-47.0); Hemoglobin 7.4 g/dl (12.0-16.0); Imm Gran Abs Auto 0.01 X10*3/uL (0.00-0.03); Imm Gran Pct Auto 0.2 % (0.0-0.4); Lymphocytes Absolute Auto 1.5 X10*3/uL (1.2-4.9); Lymphocytes Percent Auto 22.7 % (20-40); Mean Corpuscular HGB Conc 31.4 g/dl (31.0-35.0); Mean Corpuscular Volume 95.5 fL (80.0-98.0); Mean Platelet Volume 9.2 fL (9.4-12.3); Monocytes Absolute Auto 0.7 X10*3/uL (0.1-1.2); Neutrophils Absolute Auto 4.1 x10*3/uL (2.0-8.3); Neutrophils Percent Auto 61.4 % (45-73); Platelet Count 244 X10*3/uL (160-400); Red Blood Count 2.47 X10*6/uL (4.20-5.50); Red Cell Distribution Width 14.7 % (11.0-16.0); White Blood Count 6.6 X10*3/uL (4.8-10.8)
[2022-09-11 23:10] LABS: Appearance Urine Clear; Color Urine Yellow; Glucose Urine UA Negative (Negative); Leukocyte Esterase Urine Small (1+) (Negative); Nitrite Urine Negative (Negative); PH 5.5 (5.0-9.0); UMIC TRIGGER UACC YES; Urine Blood Negative (Negative); Urine Ketones Negative (Negative); Urine Protein 100 (2+) mg/dL (Neg-Trace)
[2022-09-11 23:15] LABS: Bacteria Urine None Seen (None Seen); Hyaline Casts Urine 0-2 /LPF (0-2); RBC Urine 0-2 /HPF (0-2); Squamous Epithelial Cell Urine 0-2 /HPF (0-2); UACC Culture Trigger YES
[2022-09-11 23:31] LABS: Alanine Aminotransferase 12 U/L (0-31); Albumin Level 3.3 g/dL (3.5-5.0); Alkaline Phosphatase 144 U/L (39-117); Anion Gap 14 (12-20); Aspartate Amino Transferase 20 U/L (5-31); Bilirubin Total 0.4 mg/dL (0.0-1.0); Blood Urea Nitrogen 42 mg/dL (9-16); Calcium 8.3 mg/dL (8.4-10.2); Carbon Dioxide 19 mmol/L (22-29); Chloride 112 mmol/L (96-108); Creatinine Clr Calc Pharmacy 20.1; Estimated Glomerular Filt Rate 26; Glucose Random 87 mg/dL (60-115); Potassium 4.6 mmol/L (3.3-5.1); Sodium 140 mmol/L (135-145); Total Protein 5.9 g/dL (6.5-8.0)
[2022-09-11 23:33] LABS: COVID-19 Test Negative (Negative); IDNOW Serial# 6674DD1D
--- NOTE | 2022-09-12 00:03 | ED.ABDPAIN ---
HPI - Abdominal Pain General Chief Complaint: Abdominal Pain Stated Complaint: multiple complaints Time Seen by Provider: 09/12/22 00:01 Source: patient Mode of arrival: EMS Limitations: no limitations History of Present Illness HPI narrative: Patient is 72 years old with past medical history of hypertension, hyperlipidemia, diabetes, coronary disease status post ID and stent placement, CKD stage 3 hypothyroidism , nonrheumatic mitral insufficiency, bipolar disorder of multiple ECT, comes here for diarrhea for the last 1 week apparently patient was admitted to [facility] week ago for chest pain since her discharge having watery stool dark in color multiple times a day with nausea no vomiting no fever complaining of diffuse abdominal discomfort no fever no chills no urinary symptoms it was a chronic anemia and received blood transfusion while in [facility] patient was admitted at [facility] on 09/02 for epistaxis and GI bleed with hemoglobin of 6.3 received 2 units of PRBCs patient was discharged on 09/07 her hemoglobin at that time was 8.0 since then Eliquis was stopped Related Data Home Medications Medication Instructions Recorded Confirmed levothyroxine 75 mcg tablet 75 mcg PO DAILY 05/23/20 02/17/22 insulin aspart U-100 100 unit/mL See Protocol subcut TID 08/04/20 02/17/22 (3 mL) subcutaneous pen (Novolog FlexPen U-100 Insulin aspart) ketorolac 0.5 % eye drops 1 drp ophthalmic-Left TID 12/29/20 02/01/22 Syntol (Probitoic/Prebiotic) 1 tab PO DAILY 06/04/21 02/17/22 tumeric 100 mg-ann 150 mg-olive 2 cap PO DAILY 06/04/21 02/17/22 50 mg-oreg 150 mg-caprylate capsule vitamin D3-vitamin K2 1 tab PO DAILY MRX1 06/04/21 02/17/22 blood-glucose meter ([employer] S.ATouch 07/01/21 02/01/22 Ultra2 Meter) insulin glargine 100 unit/mL (3 20 unit subcut BEDTIME 11/22/21 02/17/22 mL) subcutaneous pen (Lantus Solostar U-100 Insulin) Previous Rx's Medication Instructions Recorded pen needle, diabetic 32 gauge x #2 boxes 04/01/21 (BD Ultra-Fine Carrie Pen Needle) blood sugar diagnostic (OneTouch #300 ea 07/01/21 Ultra Test strips) lancets (OneTouch UltraSoft #100 ea 09/07/21 Lancets) isosorbide mononitrate 60 mg 30 mg PO DAILY 90 days #45 tabs 12/22/21 tablet,extended release 24 hr doxycycline hyclate 100 mg tablet 100 mg PO BID 10 days #20 tabs 02/17/22 amlodipine 5 mg tablet 5 mg PO DAILY 90 days #90 tabs 03/04/22 aspirin 81 mg tablet,delayed 81 mg PO DAILY 90 days #48 tabs 03/04/22 release clopidogrel 75 mg tablet 75 mg PO .every other day 90 days 03/04/22 #45 tabs furosemide 40 mg tablet 40 mg PO BID 90 days #180 tabs 03/04/22 metoprolol tartrate 25 mg tablet 25 mg PO BID 90 days #180 tabs 03/04/22 nitroglycerin 0.4 mg sublingual 0.4 mg sublingual Q5M PRN Chest 03/04/22 tablet Pain #25 tabs rosuvastatin 40 mg tablet 40 mg PO DAILY #90 tabs 03/04/22 Allergies Allergy/AdvReac Type Severity Reaction Status Date / Time ciprofloxacin [From Cipro] Allergy Intermediate Difficulty Verified 04/29/22 14:22 Breathing Iodinated Contrast Media Allergy Unknown ANAPHYLAXIS Verified 04/29/22 14:22 [IV CONTRAST] Review of Systems Review of Systems Yes all other systems are reviewed and are negative COUNTS INCLUDE 234 BEDS AT THE [facility] Past Medical History Medical History ALBA (acute kidney injury) Bipolar 1 disorder CAD (coronary artery disease) CHF exacerbation CKD (chronic kidney disease) Congestive heart failure Endocarditis of mitral valve HTN (hypertension) Hyperkalemia Hyperlipidemia Hyperparathyroidism Hypothyroidism Non-compliance Type 2 diabetes mellitus with hyperglycemia, with long-term current use of insulin Viridans streptococci infection Vitamin D deficiency Surgical History History of cardiac catheterization Hx of section Hx of cholecystectomy Hx of tonsillectomy Malignant melanoma Myocardial infarction Stented coronary artery Stented coronary artery Family History Family History Father CVD (cardiovascular disease) Mother No problems noted. Social History Social History Household Members: None Housing: Apartment Housing Other:: Senior housing. Do you presently have visiting nurse or other home services: Yes Alcohol intake: former Patient Tobacco Use Status: Current someday Tobacco user Tobacco use type: Cigarette Advance Directives: Yes Advance Directives on File: Yes Advance Directives Date on File: 06/04/21 service: No Sexual orientation: Straight/Heterosexual Physical Exam ED Vital Signs: Vital Signs - 24 hr 09/11/22 22:32 Temperature 97.9 F Pulse Rate 67 Respiratory Rate 16 Blood Pressure 139/66 Pulse Oximetry 97 Oxygen Delivery Method Room Air BMI result Body Mass Index 23.4 Appearance: Alert. Oriented X3. No acute distress. Eyes: PERRLA, No Nystagmus pallor+ ENT: Pharynx normal. Oral Mucosa moist Neck: Normal inspection. Neck supple. CVS: Normal heart rate and rhythm. Pulses normal. Stool injection moderate left precordial area Respiratory: No respiratory distress. Equal air entry bilateral, no wheezing/rales/rhonchi Abdomen: Soft, diffuse abdominal tenderness no rebound or guarding. Bowel sounds are present, no mass palpable, no CVA tenderness ventral hernia nontender+ rectal: Soft stool brown in color guaiac negative Skin: Skin warm and dry. Normal skin color. Normal skin turgor. Extremities: No lower extremity edema. No calf tenderness Neuro: Oriented X 3. No motor deficit. No sensory deficit.No cerebellar signs , cranial nerves II-XII intact Medical Decision Making Medical Decision Making [facility] Narrative: Patient with multiple comorbid conditions with recent admission [facility] for acute anemia secondary to epistaxis received 2 units of blood discharge hemoglobin was 8 on 09/07 today hemoglobin is 7.4 patient claims that has dark stool but when she came to the ER and rectal examination was done was a brown color a patient at this time not actively bleeding asymptomatic with hemoglobin of 7.4 with discharge patient home advised to follow-up with PCP/GI patient's CT scan of the abdomen is essentially negative except for ventral hernia Lab Data [facility] Lab Attestation statement: I reviewed the patient's lab results. 09/11/22 23:00 09/11/22 23:01 Labs: Lab Results 09/11/22 09/11/22 09/11/22 Range/Units 23:00 23:00 23:01 WBC 6.6 (4.8-10.8) X10*3/uL RBC 2.47 L D (4.20-5.50) X10*6/uL Hgb 7.4 L D (12.0-16.0) g/dl Hct 23.6 L D (37.0-47.0) % MCV 95.5 (80.0-98.0) fL MCH 30.0 (27.0-33.0) pg MCHC 31.4 (31.0-35.0) g/dl RDW 14.7 (11.0-16.0) % Plt Count 244 (160-400) X10*3/uL MPV 9.2 L (9.4-12.3) fL Immature Gran % (Auto) 0.2 (0.0-0.4) % Neut % (Auto) 61.4 (45-73) % Lymph % (Auto) 22.7 (20-40) % [place] % (Auto) 11.0 (2-11) % Eos % (Auto) 4.1 H (0-4) % Baso % (Auto) 0.6 (0-2) % Lymph # (Auto) 1.5 (1.2-4.9) X10*3/uL [place] # (Auto) 0.7 (0.1-1.2) X10*3/uL Eos # (Auto) 0.3 (0.0-0.4) X10*3/uL Baso # (Auto) 0.0 (0.0-0.2) X10*3/uL Abs Immat Gran (auto) 0.01 (0.00-0.03) X10*3/uL Absolute Neuts (auto) 4.1 (2.0-8.3) x10*3/uL Absolute Nucleated RBC 0.000 (0.0-0.012) X10*3/uL Nucleated RBC % (auto) 0.0 (0.0-0.2) /100WBC Sodium 140 (135-145) mmol/L Potassium 4.6 (3.3-5.1) mmol/L Chloride 112 H (96-108) mmol/L Carbon Dioxide 19 L (22-29) mmol/L Anion Gap 14 (12-20) BUN 42 H (9-16) mg/dL Creatinine 1.88 H (0.5-1.4) mg/dL Estim Creat Clear Calc 20.1 Estimated GFR 26 Random Glucose 87 (60-115) mg/dL Calcium 8.3 L D (8.4-10.2) mg/dL Total Bilirubin 0.4 (0.0-1.0) mg/dL AST 20 (5-31) U/L ALT 12 (0-31) U/L Alkaline Phosphatase 144 H (39-117) U/L Total Protein 5.9 L (6.5-8.0) g/dL Albumin 3.3 L (3.5-5.0) g/dL Urine Color Yellow Urine Appearance Clear Urine pH 5.5 (5.0-9.0) Ur Specific [place] 1.010 (1.005-1.025) Urine Protein 100 (2+) H (Neg-Trace) mg/dL Urine Glucose (UA) Negative (Negative) mg/dL Urine Ketones Negative (Negative) mg/dL Urine Blood Negative (Negative) Urine Nitrite Negative (Negative) Ur Leukocyte Esterase Small (1+) H (Negative) Urine RBC 0-2 (0-2) /HPF Urine WBC 6-10 H (0-5) /HPF Ur Squamous Epith Cells 0-2 (0-2) /HPF Urine Bacteria None Seen (None Seen) Hyaline Casts 0-2 (0-2) /LPF Stool Occult Blood (NEGATIVE) COVID-19 ([facility]ACINTO) (Negative) COVID-19 Clin Com Blood Type Antibody Screen 09/11/22 09/12/22 09/12/22 Range/Units 23:01 02:03 04:00 WBC (4.8-10.8) X10*3/uL RBC (4.20-5.50) X10*6/uL Hgb (12.0-16.0) g/dl Hct (37.0-47.0) % MCV (80.0-98.0) fL MCH (27.0-33.0) pg MCHC (31.0-35.0) g/dl RDW (11.0-16.0) % Plt Count (160-400) X10*3/uL MPV (9.4-12.3) fL Immature Gran % (Auto) (0.0-0.4) % Neut % (Auto) (45-73) % Lymph % (Auto) (20-40) % [place] % (Auto) (2-11) % Eos % (Auto) (0-4) % Baso % (Auto) (0-2) % Lymph # (Auto) (1.2-4.9) X10*3/uL [place] # (Auto) (0.1-1.2) X10*3/uL Eos # (Auto) (0.0-0.4) X10*3/uL Baso # (Auto) (0.0-0.2) X10*3/uL Abs Immat Gran (auto) (0.00-0.03) X10*3/uL Absolute Neuts (auto) (2.0-8.3) x10*3/uL Absolute Nucleated RBC (0.0-0.012) X10*3/uL Nucleated RBC % (auto) (0.0-0.2) /100WBC Sodium (135-145) mmol/L Potassium (3.3-5.1) mmol/L Chloride (96-108) mmol/L Carbon Dioxide (22-29) mmol/L Anion Gap (12-20) BUN (9-16) mg/dL Creatinine (0.5-1.4) mg/dL Estim Creat Clear Calc Estimated GFR Random Glucose (60-115) mg/dL Calcium (8.4-10.2) mg/dL Total Bilirubin (0.0-1.0) mg/dL AST (5-31) U/L ALT (0-31) U/L Alkaline Phosphatase (39-117) U/L Total Protein (6.5-8.0) g/dL Albumin (3.5-5.0) g/dL Urine Color Urine Appearance Urine pH (5.0-9.0) Ur Specific [place] (1.005-1.025) Urine Protein (Neg-Trace) mg/dL Urine Glucose (UA) (Negative) mg/dL Urine Ketones (Negative) mg/dL Urine Blood (Negative) Urine Nitrite (Negative) Ur Leukocyte Esterase (Negative) Urine RBC (0-2) /HPF Urine WBC (0-5) /HPF Ur Squamous Epith Cells (0-2) /HPF Urine Bacteria (None Seen) Hyaline Casts (0-2) /LPF Stool Occult Blood NEGATIVE (NEGATIVE) COVID-19 ([facility]AC[facility]TO) Negative (Negative) COVID-19 Clin Com See Note Blood Type A Positive Antibody Screen NEGATIVE External Record Review External record reviewed: Inpatient record From [facility] Discharge Plan Discharge Clinical Impression: Diarrhea, Anemia in chronic kidney disease Patient Disposition: Home, Self-Care Instructions: Acute Diarrhea (ED), Anemia (ED) Additional Instructions: Drink plenty of fluids Follow-up with PCP/GI if if you notice any black stool for follow-up Prescriptions: No Action (DME) pen needle, diabetic [BD Ultra-Fine Carrie Pen Needle] 32 gauge x 5/32 needle See Rx Instructions .ROUTE .MEDSUPPLY Qty: 2 3RF Rx Instructions: As directed 4 times daily (DME) blood-glucose meter [OneTouch Ultra2 Meter] [facility] [place] See Rx Instructions .Route Rx Instructions: As directed to test blood sugar three times a day (DME) OneTouch Ultra Test Strip See Rx Instructions .Route Qty: 300 11RF Rx Instructions: As directed to test blood sugar three times a day (DME) lancets [OneTouch UltraSoft Lancets] [facility] [place] See Rx Instructions .ROUTE .MEDSUPPLY Qty: 100 11RF Rx Instructions: As directed to test blood sugar three times a day isosorbide mononitrate 60 mg tablet extended release 24 hr 30 mg PO DAILY 90 Days Qty: 45 0RF amlodipine 5 mg tablet 5 mg PO DAILY 90 Days Qty: 90 3RF Rx Instructions: Take 1 tab ( 5mg) daily aspirin 81 mg tablet,delayed release (DR/EC) 81 mg PO DAILY 90 Days Qty: 48 3RF Rx Instructions: 4 times a week clopidogrel 75 mg tablet 75 mg PO .every other day 90 Days Qty: 45 3RF Rx Instructions: patient states takes every other day furosemide 40 mg tablet 40 mg PO BID 90 Days Qty: 180 3RF metoprolol tartrate 25 mg tablet 25 mg PO BID 90 Days Qty: 180 3RF nitroglycerin 0.4 mg tablet, sublingual 0.4 mg sublingual Q5M PRN (Reason: Chest Pain) Qty: 25 1RF Rx Instructions: Take one tablet by mouth sublingually as needed for chest pain every 5 min to max of 3 per episode rosuvastatin 40 mg tablet 40 mg PO DAILY Qty: 90 3RF sxbktuk-lhom-cbqzs-oreg-capryl 100 mg-150 mg- 50 mg-150 mg Capsule 2 cap PO DAILY Syntol (Probitoic/Prebiotic) 1 tab PO DAILY vitamin D3-vitamin K2 1 tab PO DAILY MRX1 Willy Solostar U-100 Insulin 100 unit/mL (3 mL) insulin pen 20 unit subcut BEDTIME levothyroxine 75 mcg tablet 75 mcg PO DAILY insulin aspart U-100 [Novolog FlexPen U-100 Insulin] 100 unit/mL (3 mL) insulin pen See Protocol subcut TID Protocol: Insulin Correction Scale Less than or equal to 110 ---- Give (units): 0 111 to 150 Give (units): 0 151 to 200 Give (units): 2 201 to 250 Give (units): 4 251 to 300 Give (units): 6 301 to 350 Give (units): 8 Greater than 350 Give (units): 10 Call MD if Blood Glucose > : 350 ketorolac 0.5 % drops 1 drp ophthalmic-Left TID doxycycline hyclate 100 mg tablet 100 mg PO BID 10 Days Qty: 20 0RF Interventions: ED Discharge Assessment Last Done: 09/12/22 04:39 Discharge Date/Time: 09/12/22 05:30
[2022-09-12 04:04] LABS: OBS Int Ctl Valid YES; OBS1 NEGATIVE (NEGATIVE)
== END 2022-09-12 05:30 | disposition home or self-care (01) ==
PROVIDERS: Emergency Provider Internal Medicine
DX: R19.7 Diarrhea, unspecified (principal); D63.1 Anemia in chronic kidney disease; R10.9 Unspecified abdominal pain; Z20.822 Contact with and (suspected) exposure to COVID-19; E11.22 Type 2 diabetes mellitus with diabetic chronic kidney disease; I13.0 Hypertensive heart and chronic kidney disease with heart failure and stage 1 through stage 4 chronic kidney disease, or unspecified chronic kidney disease; N18.30 Chronic kidney disease, stage 3 unspecified; I50.9 Heart failure, unspecified; E78.5 Hyperlipidemia, unspecified; F17.210 Nicotine dependence, cigarettes, uncomplicated; Z79.4 Long term (current) use of insulin; Z79.899 Other long term (current) drug therapy; Z79.82 Long term (current) use of aspirin; Z79.02 Long term (current) use of antithrombotics/antiplatelets
CPT/HCPCS: 36415; 74176; 80053; 81001; 82272; 85025; 86850; 86900; 86901; 87086; 87635; 99282; 99284